=== PATIENT | female | born 1945 | race Caucasian/White ===

== ENCOUNTER 2020-08-17 03:21 | Inpatient (IN) | payer MEDICARE, OTHER ==
[~2020-08-17] VITALS: Ht 160 cm; Wt 86.0 kg
[2020-08-17 03:20] VITALS: BP 107/44
[~2020-08-17 03:21] MED LIST: ALBU0.63 NEB; CHOL10003 PO; CRESTOR40 MG PO; CYCL1DRO OP; DICL100G54 TP; EZET10TA20 PO; FLUT1DIS3 IH; GABA300C18 PO; HYDR-2765 PO; INSU100I13 SQ; OXYB5TAB10 PO; OXYC5TAB4 PO; PANT20TA2 PO; POTA20TA4 PO; RIVA10TA PO; ROFL500T7 PO; VENL75CA PO; ZOLP5TAB PO
[2020-08-17] MEDS ORDERED: BUDE0.25 NEB (04:09)
[2020-08-17] MEDS ORDERED: ALBU2.5V5 NEB (04:09)
[2020-08-17] MEDS ORDERED: DILT180C29 PO (04:09)
[2020-08-17] MEDS ORDERED: PRED-220 PO (04:09)
[2020-08-17] MEDS ORDERED: PSYL0.5215 PO (04:09)
[2020-08-17] MEDS ORDERED: MULT-245 PO (04:09)
[2020-08-17] MEDS ORDERED: HYDR200T5 PO (04:09)
[2020-08-17] MEDS ORDERED: FERR325T72 PO (04:09)
[2020-08-17] MEDS ORDERED: MESA0.372 PO (04:09)
[2020-08-17] MEDS ORDERED: TORS10TA3 PO (04:09)
[2020-08-17] MEDS ORDERED: HYDR2TAB31 PO (04:09)
[2020-08-17] MEDS ORDERED: FOLI0.4T5 PO (04:09)
[2020-08-17] MEDS ORDERED: novolo SQ (04:10)
[2020-08-17] MEDS ORDERED: lantus SQ (04:10)
[2020-08-17 07:00] VITALS: BP 165/65
[2020-08-17] MEDS ORDERED: INSULIN REGULAR VIAL 100 UNIT in IV NORMAL SALINE 100ML 100 ML IV PRN (07:15)
[2020-08-17] MEDS ORDERED: DEXTROSE 50% 25 GM / 50ML DISP.SYRIN. IV PRN ×2 (07:15→12:00)
[2020-08-17 07:41] LABS: BASO % 0 % (0-3); EOS % 0 % (0-3); HEMATOCRIT 30.1 % (36.0-47.0); HEMOGLOBIN 10.4 g/dL (12.0-15.5); LYMPH # 0.4 x10^3/uL (1.0-4.8); LYMPH % 2 % (24-48); MEAN CORPUSCULAR HEMOGLOBIN 28 pg (25-35); MEAN CORPUSCULAR HGB CONC 35 g/dL (31-37); MEAN CORPUSCULAR VOLUME 82 fL (79-100); MONO # 0.3 x10^3/uL (0.0-1.1); MONO % 2 % (0-9); NEUT # 15.8 x10^3/uL (1.8-7.7); NEUT % 96 % (31-73); PLATELET COUNT 178 x10^3/uL (140-400); RED BLOOD COUNT 3.69 x10^6/uL (3.50-5.40); WHITE BLOOD COUNT 16.6 x10^3/uL (4.0-11.0)
[2020-08-17 07:54] LABS: CALCIUM 8.9 mg/dL (8.5-10.1); CREATININE 0.8 mg/dL (0.6-1.0); GFR 70.3
[2020-08-17] MEDS ORDERED: VANCOMYCIN 1 GM in IV NORMAL SALINE 250ML 250 ML IV ONE (09:00)
[2020-08-17] MEDS ORDERED: VITS A & D/LANOLIN TOPICAL OINTMENT 42GM TUBE. TP PRN (09:15)
[2020-08-17 09:53] LABS: % BANDS 6 % (0-9); % LYMPHS 1 % (24-48); % MONOS 1 % (0-10); % SEGS 92 % (35-66); ANISOCYTOSIS SLIGHT; PLT ESTIMATE ADEQUATE (ADEQUATE); TOXIC VACUOLATION SLIGHT
[2020-08-17 10:36] VITALS: BP 137/56
--- NOTE | 2020-08-17 10:38 | PDOC ---
Infectious Disease Note Vital Signs: Vital Signs Vital Signs Date Time Temp Pulse Resp B/P (MAP) Pulse Ox O2 Delivery O2 Flow Rate FiO2 08/17/20 07:00 97.9 68 18 165/65 (98) 95 Room Air 97.9 Medications: Inpatient Meds: Current Medications Medications (Trade) Dose Ordered Sig/Josefina Start Time Stop Time Status Last Admin Dose Admin Dextrose (Dextrose 50%-Water Syringe) 12.5 gm PRN Q15MIN PRN 08/17/20 07:15 Insulin Human Regular 100 unit/ Sodium Chloride 101 ml @ 0 mls/hr CONT PRN 08/17/20 07:15 08/17/20 07:11 2.9 MLS/HR Piperacillin Sod/ Tazobactam Sod 3.375 gm/Sodium Chloride 50 ml @ 100 mls/hr Q6HRS 08/17/20 12:00 UNV Vancomycin HCl 1 gm/Sodium Chloride 250 ml @ 250 mls/hr 1X ONCE 08/17/20 09:00 08/17/20 09:59 DC 08/17/20 08:25 250 MLS/HR Vitamin A/Vitamin D (Vitamin A & D Ointment) 1 stacy PRN Q1HR PRN 08/17/20 09:15 Labs: Lab Laboratory Tests Test 08/17/20 03:30 08/17/20 04:49 08/17/20 05:50 08/17/20 06:58 Glucose (Fingerstick) 262 mg/dL (70-99) 153 mg/dL (70-99) 134 mg/dL (70-99) 114 mg/dL (70-99) Test 08/17/20 07:27 08/17/20 08:01 White Blood Count 16.6 x10^3/uL (4.0-11.0) Red Blood Count 3.69 x10^6/uL (3.50-5.40) Hemoglobin 10.4 g/dL (12.0-15.5) Hematocrit 30.1 % (36.0-47.0) Mean Corpuscular Volume 82 fL (79-100) Mean Corpuscular Hemoglobin 28 pg (25-35) Mean Corpuscular Hemoglobin Concent 35 g/dL (31-37) Red Cell Distribution Width 15.0 % (11.5-14.5) Platelet Count 178 x10^3/uL (140-400) Neutrophils (%) (Auto) 96 % (31-73) Lymphocytes (%) (Auto) 2 % (24-48) Monocytes (%) (Auto) 2 % (0-9) Eosinophils (%) (Auto) 0 % (0-3) Basophils (%) (Auto) 0 % (0-3) Neutrophils # (Auto) 15.8 x10^3/uL (1.8-7.7) Lymphocytes # (Auto) 0.4 x10^3/uL (1.0-4.8) Monocytes # (Auto) 0.3 x10^3/uL (0.0-1.1) Eosinophils # (Auto) 0.0 x10^3/uL (0.0-0.7) Basophils # (Auto) 0.0 x10^3/uL (0.0-0.2) Segmented Neutrophils % 92 % (35-66) Band Neutrophils % 6 % (0-9) Lymphocytes % 1 % (24-48) Monocytes % 1 % (0-10) Toxic Vacuolation Slight Platelet Estimate Adequate (ADEQUATE) Anisocytosis Slight Sodium Level 133 mmol/L (136-145) Potassium Level 4.0 mmol/L (3.5-5.1) Chloride Level 96 mmol/L (98-107) Carbon Dioxide Level 31 mmol/L (21-32) Anion Gap 6 (6-14) Blood Urea Nitrogen 16 mg/dL (7-20) Creatinine 0.8 mg/dL (0.6-1.0) Estimated GFR (Cockcroft-Gault) 70.3 Glucose Level 108 mg/dL (70-99) Lactic Acid Level 2.1 mmol/L (0.4-2.0) Calcium Level 8.9 mg/dL (8.5-10.1) Glucose (Fingerstick) 111 mg/dL (70-99) Objective: Assessment: Pt seen and examined ID Consult dictated Plan: Plan of Care Tania Singh is evaluating pt also Will need CT Chest [id number] Thank you BILLY HODGES MD Aug 17, 2020 10:38
[2020-08-17] MEDS ORDERED: ALBUTEROL SULFATE 2.5 MG/3 ML NEBU. NEB PRN ×2 (10:45→10:48)
[2020-08-17] MEDS ORDERED: DICLOFENAC SODIUM 1% TOPICAL GEL 100GM TUBE. TP PRN (10:45)
[2020-08-17] MEDS: ALBUTEROL SULFATE 2.5 MG/3 ML NEBU. NEB SCH ×3 (11:21→20:17)
[2020-08-17] MEDS: BUDESONIDE 0.5 MG/2 ML NEBU. NEB SCH ×2 (11:21→20:17)
--- NOTE | 2020-08-17 11:21 | CONS ---
DATE OF CONSULTATION: 08/17/2020 PULMONARY CONSULTATION ATTENDING PHYSICIAN: Dr. Cervantes. REASON FOR CONSULTATION: Lung abscess. HISTORY OF PRESENT ILLNESS: The patient is a 75-year-old female who has been a smoker for 50 years. She quit 2 years ago. She said she has a cough, which has been present for 1 month. She was treated for pneumonia without any clinical improvement. Cough has been nonproductive. She states she also has been on prednisone 20 mg a day for the last 4 weeks since she got sick. She also states she has colitis. The patient has been doing e-cigarettes lately. She did vaping about 5 years ago. The patient states she had dental extraction done more than 5 years ago. Denies any alcohol consumption. Imaging studies were reviewed from 07/26/2020. She had pneumonia involving the right hilar area. Since then the pneumonia has worsened radiographically. She had a CT angiogram performed at [facility], which was reviewed by me. The patient has a 9-cm thick wall cavitary mass in the right lung, likely infectious. She has no evidence of pulmonary emboli. There were other smaller nodular lesions seen in the right middle lobe with some cavitation. I have been asked to see her for further evaluation. She denies any weight loss. She does have diarrhea, but no nausea or vomiting. PAST MEDICAL HISTORY: 1. Likely severe chronic obstructive pulmonary disease. 2. 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 Not on chronic oxygen. PAST SURGICAL HISTORY: No recent surgeries. REVIEW OF SYSTEMS: Twelve-point system obtained. Pertinent positives discussed in my history of present illness, otherwise noncontributory. All systems that were negative were reviewed as well. SOCIAL HISTORY: Smoker for 50 years, quit 2 years ago. FAMILY HISTORY: Noncontributory to lungs. MEDICATIONS: Medications that were given in the ER at [facility] were reviewed. PHYSICAL EXAMINATION: VITAL SIGNS: Reviewed. She is afebrile, blood pressure 165/65, pulse ox 95% on room air. NECK: Supple. LUNGS: With diminished breath sounds. CARDIOVASCULAR: Regular. ABDOMEN: Soft. EXTREMITIES: With 3+ pitting edema. LABORATORY DATA: Reviewed. White cell count 16.6, hemoglobin 10.4 and platelets are 178. BUN is 16 and creatinine 0.8. IMPRESSION: 1. Large cavitary mass with an air fluid level in the right lower lobe with thick kang. Highly suggestive of lung abscess. Less likely cavitary neoplasm. Risk factors being long history of tobacco use and steroid dependence for chronic obstructive pulmonary disease. She continues to do e-cigarettes. 2. Fifty years of tobacco use, likely underlying chronic obstructive pulmonary disease. 3. History of rheumatoid arthritis, details not known. Medication list has not been updated to see if she is on any immunocompromised drugs. 4. Abnormal CT chest as discussed above. Findings are more suggestive of inflammatory etiology, but malignancy is in the differential diagnosis. RECOMMENDATIONS: 1. We will continue to monitor oxygen level. Keep saturation 92 and above. 2. Discussed with Infectious Disease. The patient will be initiated on broad-spectrum antibiotics. 3. We will follow the clinical response. 4. If clinically indicated, may consider bronchoscopy in future. 5. Obtain records of her rheumatoid arthritis to see if she is on any immunosuppressive drugs. 6. No need for steroids. Should taper it off in the presence of a lung abscess. 7. Discussed with the Infectious Disease RN. We will follow along with you. SHAWNEE ROBBINS MD DR: CHRISTIAN/jasmyne JOB#: [id number] / [id number]
--- NOTE | 2020-08-17 11:43 | HP ---
ADMIT DATE: 08/17/2020 CHIEF COMPLAINT: Lung abscess. HISTORY OF PRESENT ILLNESS: The patient is a pleasant 75-year-old female who has had pneumonia for the past month. She has been treated with IV antibiotics and her cough has been worsening. She also treated with prednisone for the past 4 weeks. She also had colitis recently. She continues to smoke and she has been smoking for 50 years. She is currently on e-cigarettes, used to vape as well about 5 years ago. Basically, the patient was transferred to our facility yesterday because a CAT scan was done, which was showing a possible lung abscess. In particular, there is a 9 cm thick wall cavitary mass in the right lung, likely infectious. The patient currently examined on the 2nd floor where we are consulting Infectious Disease and Pulmonary Medicine. PAST MEDICAL HISTORY: Continued tobacco abuse, pneumonia. ALLERGIES: PENICILLIN, CEFTRIAXONE, METHOCARBAMOL AND VARENICLINE. FAMILY HISTORY: Diabetes. SOCIAL HISTORY: She smokes. No drink, or drugs. MEDICATIONS: Reviewed, please refer to the MRAD. REVIEW OF SYSTEMS: GENERAL: No history of weight change, weakness or fevers. SKIN: No bruising, hair changes or rashes. EYES: No blurred, double or loss of vision. NOSE AND THROAT: No history of nosebleeds, hoarseness or sore throat. HEART: No history of palpitations, chest pain or shortness of breath on exertion. LUNGS: The patient complains of shortness of breath and cough. GASTROINTESTINAL: Denies changes in appetite, nausea, vomiting, diarrhea or constipation. GENITOURINARY: No history of frequency, urgency, hesitancy or nocturia. NEUROLOGIC: Denies history of numbness, tingling, tremor or weakness. PSYCHIATRIC: No history of panic, anxiety or depression. ENDOCRINE: No history of heat or cold intolerance, polyuria or polydipsia. EXTREMITIES: Denies muscle weakness, joint pain, pain on walking or stiffness. PHYSICAL EXAMINATION: VITALS: Within normal limits and are stable. GENERAL: No apparent distress. Alert and oriented. HEENT: Normal cephalic atraumatic, external auditory canals are patent EYES: Extraocular muscles are intact, pupils are equally round and reactive to light and accommodation MUSCULOSKELETAL: Well developed, well nourished, good range of motion ENDOCRINE: No thyromegaly was palpated LYMPHATICS: No cervical chain or axillary nodes were noted HEMATOPOIETIC: No bruising NECK: Supple, no JVD, no thyromegaly was noted. LUNGS: She has bibasilar crackles. HEART: RRR, S1, S2 present. Peripheral pulses intact, no obvious murmurs were noted. ABDOMEN: Soft, nontender. Positive bowel sounds no organomegaly, normal bowel sounds. EXTREMITIES: Without any cyanosis, clubbing, or edema. Pedal pulses intact, Homans sign is negative. NEUROLOGIC: Normal speech, normal tone. A & O x3, moves all extremities, no obvious focal deficits. PSYCHIATRIC: Normal affect, normal mood. Stable. SKIN: No ulcerations or rashes, good skin turgor, no jaundice. VASCULAR: Good capillary refill, neurovascular bundle appears to be intact. LABORATORY DATA: Pending. ASSESSMENT AND PLAN: Probable pulmonary abscess. The patient is being admitted. We consulted Pulmonary Medicine and Infectious Disease. We started IV antibiotics, breathing treatments and oxygen. We will consider steroids, home meds, DVT prophylaxis. Full code. Trend labs. PROGNOSIS: Guarded. VIKTOR AMNRIQUE DO DR: JOSELINE/jasmyne JOB#: [id number] / [id number]
[2020-08-17] MEDS: POTASSIUM CHLORIDE 20 MEQ TABLET.ER. PO SCH (12:11)
[2020-08-17] MEDS: predniSONE 10 MG TABLET PO SCH (12:11)
[2020-08-17] MEDS: PANTOPRAZOLE 40 MG TABLET.DR. PO SCH (12:11)
[2020-08-17] MEDS: CHOLECALCIFEROL (VITAMIN D3) 1,000 UNIT TABLET PO SCH (12:11)
[2020-08-17] MEDS: FERROUS SULFATE 325 MG TABLET. PO SCH (12:12)
[2020-08-17] MEDS: EZETIMIBE 10 MG TABLET. PO SCH (12:12)
[2020-08-17] MEDS: VENLAFAXINE XR 37.5 MG CAP.ER.24H. PO SCH (12:12)
[2020-08-17] MEDS: FOLIC ACID 1 MG TABLET. PO SCH (12:12)
[2020-08-17] MEDS: MULTIVITAMIN with MINERAL TABLET. PO SCH (12:12)
[2020-08-17] MEDS: GABAPENTIN 300 MG CAPSULE. PO SCH ×2 (12:12→20:45)
[2020-08-17] MEDS: PSYLLIUM HUSK (SUGAR FREE) 1 PKT PACKET PO SCH (12:13)
[2020-08-17] MEDS: PIPERACILLIN/TAZOBACTAM 3.375 GM in IV NORMAL SALINE 50ML 50 ML IV SCH ×3 (12:13→23:11)
[2020-08-17] MEDS: HYDROXYCHLOROQUINE 200 MG TABLET PO SCH ×2 (12:19→20:44)
[2020-08-17] MEDS: INSULIN LISPRO 300 UNITS/3 ML VIAL. SQ SCH ×5 (12:32→20:56)
--- NOTE | 2020-08-17 13:25 | NUR ---
SS following for discharge planning. SS reviewed pt chart and discussed with pt RN. Pt is from home and is currently on room air. Pt on IV Zosyn. SS will continue to follow for discharge planning.
--- NOTE | 2020-08-17 14:01 | CONS ---
DATE OF CONSULTATION: 08/17/2020 REFERRING PHYSICIAN: Dr. Cline. REASON FOR CONSULTATION: Antibiotic management. Pulmonary abscess. HISTORY OF PRESENT ILLNESS: A 75-year-old female with history of diabetes, smoking, AFib, anemia, anxiety, arthritis, bronchitis, COPD, hypertension, colitis, chronic pain, was asked by her primary care office to present to [facility] because of her blood sugar being very high and sodium being very low. The patient had been treated for pneumonia with oral antibiotic, she could not recall the name along with prednisone.In the last week of July her sugars started going up along with headache, cough, which had improved some, but her blood sugars were high with leg edema, dyspnea, fatigue. Chest x-ray showed a cavitary right hilar lesion 8.7 x 6.1 cm in size. Differential included infectious versus inflammatory process, although malignancy is also in the differential. It appears the patient got vancomycin. She was transferred to [facility] for further evaluation and treatment. ID consultation has been requested for antibiotic management. Today patient denies any fevers or chills. Does have intermittent night sweats. Does have headache, which she attributes to high blood sugar. No oral sores, difficulty swallowing, nausea or vomiting. Does have chronic diarrhea from colitis for which she undergoes a colonoscopy every 3 years under the care of GI team. She denies any blood in stool. Denies any symptoms. Denies any sick contact. PAST MEDICAL HISTORY: COPD, diabetes, AFib, anemia, anxiety, arthritis, bronchitis, hypertension, history of pneumonia, chronic pain, history of right CEA in 2018. Rheumatoid arthritis, CKD and history of osteomyelitis. PAST SURGICAL HISTORY: Right CEA 2018. Bilateral shoulder surgery and hysterectomy with oophorectomy bilateral cataract CGD and colonoscopies. SOCIAL HISTORY: Positive for smoking, vaping a month ago. No alcohol. Lives with daughter and ex-. Daughter has a small dog. ALLERGIES: PENICILLIN, CEFTRIAXONE. Does not recall the reaction, but has tolerated Zosyn well and Augmentin, methocarbamol and varenicline. REVIEW OF SYSTEMS: Negative except for above in HPI. CURRENT MEDICATION: IV vancomycin x 1. MEDICATIONS: Reviewed in medication list. FAMILY HISTORY: Diabetes, hypertension. PHYSICAL EXAMINATION: VITAL SIGNS: Temperature 97.9, pulse 68, respiratory rate 18, blood pressure 165/65, oxygen saturation 95% on room air. GENERAL: Alert, oriented x 3 female, nontoxic appearing, eating breakfast, in no acute distress. HEENT: Normocephalic, atraumatic, anicteric, edentulous. No thrush. NECK: Supple, no JVD, no lymphadenopathy. LUNGS: Clear bilaterally. No wheezing. No accessory muscle use. HEART: S1, S2. No gallops or murmurs. ABDOMEN: Soft, obese. Bowel sounds present, nontender, nondistended. No masses felt. EXTREMITIES: No edema, no cyanosis. DERMATOLOGIC: Warm, dry. No generalized rash. NEUROLOGIC: Alert and oriented x 3, grossly nonfocal. PSYCHIATRIC: Cooperative. Grossly nonfocal. LABORATORY DATA: WBC 16.6, hemoglobin 9.4, hematocrit 30.1, platelets 178, neutrophils 96, lymphocytes 2, segments 92. Sodium 133, potassium 4.0, chloride 96, bicarbonate 31, BUN 16, creatinine 0.8, glucose 108, lactate 2.1, calcium 8.9. IMAGING: Chest x-ray done at [facility]. Impression: Cavitary right hilar lesion 8.7 x 6.1 cm in size. Differential would include infectious/inflammatory process, although malignancy is also with differential and can be further assessed by CT. Micro: None available. IMPRESSION: 1. Right hilar cavitary lung lesion, 8.7 x 6.1 cm in size. Differential could be infectious versus noninfectious. 2. History of pneumonia, treated with antibiotics with Zosyn and Levaquin. The patient was discharged from [facility] on 07/29/2020. She completed her antibiotics with IV Zosyn followed by Levaquin per chart review. She is on steroids. 3. Diabetes mellitus. 4. Atrial fibrillation. 5. Chronic obstructive pulmonary disease. 6. Smoker. 7. History of rheumatoid arthritis. 8. Chronic kidney disease. 9. Ulcerative colitis with chronic diarrhea. 10. Anemia. 11. Leukocytosis, on steroids. 12. Mild lactic acidosis. 13. History of ALLERGIES TO PENICILLIN AND CEFTRIAXONE. The patient has tolerated Zosyn and Augmentin well in the past. RECOMMENDATIONS: 1. Start Zosyn. 2. Pulmonary team has been consulted. D/W Dr Singh. She may need bronchoscopy . Send sputum for cultures if able to give sample. 3. Follow up labs and cultures. 4. Maintain aspiration precaution. 5. Continue supportive care. Thank you for allowing Infectious Disease to participate in this patient's care. If you have any questions, do not hesitate to contact me. BILLY HODGES MD DR: SHAMEKA/jasmyne JOB#: [id number] / [id number] ANTWON
[2020-08-17 14:19] VITALS: BP 150/51
--- NOTE | 2020-08-17 16:21 | NUR ---
Wound/Ostomy Care Wound Type/Assessment: IAD to bilateral buttocks, pt states it is from diarrhea d/t colitis flare up. Small areas of dry slough with some red non-granulation. Treatment Recommendations/Plan: A&D ointment applied, recommend to reapply BID and PRN Education provided: PU prevention, WC POC Offloading surface/device: na Recommended Referrals/Tests: na Discharge Recommendations for dressings: see above.
[2020-08-17] MEDS: RIVAROXABAN 10 MG TABLET. PO SCH (17:24)
--- NOTE | 2020-08-17 19:30 | NUR ---
Pt in bed assessment completed vss poc explained pt c/o barb. knee pain and a cough. Will medicate pt and resume care. Call light placed in reach will resume care and continue to monitor pt. Pt reminded to call for assistance prior to getting oob.
[2020-08-17] MEDS ORDERED: GUAI120L35 PO (19:32)
[2020-08-17 19:50] VITALS: BP_SYST 142; BP_SYST 161; BP_DIAS 106; BP_DIAS 50
[2020-08-17] MEDS: ATORVASTATIN CALCIUM 40 MG TABLET. PO SCH (20:44)
[2020-08-17] MEDS: HYDROcodone/APAP 7.5/325MG 1 TAB TABLET PO PRN (20:45)
[2020-08-17] MEDS: INSULIN GLARGINE SYRINGE. SQ SCH (20:55)
[2020-08-17] MEDS: MESALAMINE PO SCH (20:56)
[2020-08-17] MEDS ORDERED: INSULIN GLARGINE SYRINGE. SQ SCH (21:00)
[2020-08-17 22:54] VITALS: BP 139/54
[2020-08-17] MEDS: guaiFENesin/CODEINE 100mg/10mg 5 ML LIQUID PO PRN (23:06)
[2020-08-18] VITALS (7 sets, daily range): BP systolic 115–156; BP diastolic 52–68
[2020-08-18] MEDS: HYDROcodone/APAP 7.5/325MG 1 TAB TABLET PO PRN ×3 (04:32→20:34)
[2020-08-18] MEDS: PIPERACILLIN/TAZOBACTAM 3.375 GM in IV NORMAL SALINE 50ML 50 ML IV SCH ×4 (05:36→23:38)
[2020-08-18] MEDS: PANTOPRAZOLE 40 MG TABLET.DR. PO SCH ×2 (05:36→08:42)
--- NOTE | 2020-08-18 07:43 | PDOC ---
Infectious Disease Note Subjective: Subjective Patient feels much better today Cough and shortness of breath has improved Remains on room air Denies any fever, Diarrhea has improved Vital Signs: Vital Signs Vital Signs Date Time Temp Pulse Resp B/P (MAP) Pulse Ox O2 Delivery O2 Flow Rate FiO2 08/18/20 07:29 98.1 89 18 120/54 (76) 92 Room Air 98.1 Physical Exam: PHYSICAL EXAM GENERAL: Alert, oriented x 3 female, nontoxic appearing, eating breakfast, in no acute distress. On room air HEENT: Normocephalic, atraumatic, anicteric, edentulous. No thrush. NECK: Supple, no JVD, no lymphadenopathy. LUNGS: Clear bilaterally. No wheezing. No accessory muscle use. HEART: S1, S2. No gallops or murmurs. ABDOMEN: Soft, obese. Bowel sounds present, nontender, nondistended. No masses felt. EXTREMITIES: No edema, no cyanosis. DERMATOLOGIC: Warm, dry. No generalized rash. NEUROLOGIC: Alert and oriented x 3, grossly nonfocal. PSYCHIATRIC: Cooperative. Grossly nonfocal. Medications: Inpatient Meds: Current Medications Medications (Trade) Dose Ordered Sig/Josefina Start Time Stop Time Status Last Admin Dose Admin Acetaminophen/ Hydrocodone Bitart (Lortab 7.5/325) 1 tab PRN Q6HRS PRN 08/17/20 10:45 08/18/20 04:32 1 TAB Albuterol Sulfate (Ventolin Neb Soln) 2.5 mg PRN Q4HRS PRN 08/17/20 10:48 Atorvastatin Calcium (Lipitor) 80 mg QHS 08/17/20 21:00 08/17/20 20:44 80 MG Budesonide (Pulmicort) 0.5 mg RTBID 08/17/20 11:00 08/17/20 20:17 0.5 MG Dextrose (Dextrose 50%-Water Syringe) 12.5 gm PRN Q15MIN PRN 08/17/20 12:00 UNV Diclofenac Sodium (Voltaren) 1 stacy PRN BID PRN 08/17/20 10:45 Diltiazem HCl (Cardizem 24hr Cd) 180 mg DAILY 08/17/20 11:00 08/17/20 12:12 180 MG EZETIMIBE (Zetia) 10 mg DAILY 08/17/20 11:00 08/17/20 12:12 10 MG Ferrous Sulfate (Feosol) 325 mg DAILY 08/17/20 11:00 08/17/20 12:12 325 MG Folic Acid (Folic Acid) 1 mg DAILY 08/17/20 11:00 08/17/20 12:12 1 MG Gabapentin (Neurontin) 600 mg BID 08/17/20 11:00 08/17/20 20:45 600 MG Guaifenesin/ Codeine Phosphate (Robitussin Ac) 5 ml PRN Q6HRS PRN 08/17/20 22:45 08/17/20 23:06 5 ML Hydromorphone HCl (Dilaudid) 2 mg PRN TID PRN 08/17/20 10:45 Hydroxychloroquine Sulfate (Plaquenil) 200 mg BID 08/17/20 11:00 08/17/20 20:44 200 MG Insulin Glargine (Lantus Syringe) 20 unit QHS 08/17/20 21:00 08/17/20 20:55 20 UNIT Insulin Human Lispro (HumaLOG) 0-9 UNITS QIDACHS 08/17/20 12:00 08/17/20 20:56 4 UNITS Insulin Human Regular 100 unit/ Sodium Chloride 101 ml @ 0 mls/hr CONT PRN 08/17/20 07:15 08/17/20 07:11 2.9 MLS/HR Multivitamins (Thera M Plus) 1 tab DAILY 08/17/20 11:00 08/17/20 12:12 1 TAB Non-Formulary Medication (Mesalamine (Apriso)) 2 cap BID 08/17/20 21:00 UNV Pantoprazole Sodium (Protonix) 40 mg DAILYAC 08/17/20 11:00 08/18/20 05:36 40 MG Piperacillin Sod/ Tazobactam Sod 3.375 gm/Sodium Chloride 50 ml @ 100 mls/hr Q6HRS 08/17/20 12:00 08/18/20 05:36 100 MLS/HR Potassium Chloride (Klor-Con) 20 meq DAILY 08/17/20 11:00 08/17/20 12:11 20 MEQ Prednisone (Prednisone) 10 mg DAILY 08/17/20 11:00 08/17/20 12:11 10 MG Psyllium Hydrophilic Mucilloid (Metamucil Fiber Packet) 1 pkt DAILY 08/17/20 11:00 08/17/20 12:13 1 PKT Rivaroxaban (Xarelto) 20 mg DAILYWSUP 08/17/20 17:00 08/17/20 17:24 20 MG Torsemide (Demadex) 10 mg QMWF 08/18/20 16:00 Vancomycin HCl 1 gm/Sodium Chloride 250 ml @ 250 mls/hr 1X ONCE 08/17/20 09:00 08/17/20 09:59 DC 08/17/20 08:25 250 MLS/HR Venlafaxine HCl (Effexor Xr) 75 mg DAILY 08/17/20 11:00 08/17/20 12:12 75 MG Vitamin A/Vitamin D (Vitamin A & D Ointment) 1 stacy PRN Q1HR PRN 08/17/20 09:15 Vitamin D (Vitamin D3) 1,000 unit DAILY 08/17/20 11:00 08/17/20 12:11 1,000 UNIT Labs: Lab Laboratory Tests Test 08/17/20 08:01 08/17/20 11:00 08/17/20 11:21 08/17/20 16:07 Glucose (Fingerstick) 111 mg/dL (70-99) 318 mg/dL (70-99) 275 mg/dL (70-99) Lactic Acid Level 1.4 mmol/L (0.4-2.0) Test 08/17/20 20:49 08/18/20 07:11 Glucose (Fingerstick) 279 mg/dL (70-99) 264 mg/dL (70-99) Objective: Assessment: 1. Right large cavitary lung lesion. 9 cm cavitary lesion in the right lung CT chest revealed no pulmonary emboli . . Differential could be infectious versus noninfectious. 2. History of pneumonia, treated with antibiotics with Zosyn and Levaquin. The patient was discharged from [facility] on 07/29/2020. She completed her antibiotics with IV Zosyn followed by Levaquin per chart review. She is on steroids. 3. Diabetes mellitus. 4. Atrial fibrillation. 5. Chronic obstructive pulmonary disease. 6. Smoker. 7. History of rheumatoid arthritis. On Plaquenil. She denies any history of being on TNF alpha blockers in the past till date 8. Chronic kidney disease. 9. Ulcerative colitis with chronic diarrhea. 10. Anemia. 11. Leukocytosis, on steroids. 12. Mild lactic acidosis. 13. History of ALLERGIES TO PENICILLIN AND CEFTRIAXONE. The patient has tolerated Zosyn and Augmentin well in the past. Plan: Plan of Care Continue Zosyn. Tolerating it well Sputum for Gram stain and culture Follow up labs and cultures. Continue supportive care. Pulmonary team following BILLY HODGES MD Aug 18, 2020 07:43
[2020-08-18] MEDS: ALBUTEROL SULFATE 2.5 MG/3 ML NEBU. NEB SCH ×4 (07:50→20:36)
[2020-08-18] MEDS: BUDESONIDE 0.5 MG/2 ML NEBU. NEB SCH ×2 (07:50→20:36)
[2020-08-18] MEDS: ANTI-COAG MONITOR BY PHARMACY. MC PRN (08:12)
--- NOTE | 2020-08-18 08:20 | PDOC ---
[employer] PROGRESS NOTE Date of Service DOS: DATE: 08/18/20 TIME: 08:12 Chief Complaint Chief Complaint Lung abscess History of Present Illness History of Present Illness The patient is a pleasant 75-year-old female who has had pneumonia for the past month. She has been treated with IV antibiotics and her cough has been worsening. She also treated with prednisone for the past 4 weeks. She also had colitis recently. She continues to smoke and she has been smoking for 50 years. She is currently on e-cigarettes, used to vape as well about 5 years ago. Basically, the patient was transferred to our facility yesterday because a CAT scan was done, which was showing a possible lungabscess. In particular, there is a 9 cm thick wall cavitary mass in the right lung, likely infectious. The patient currently examined on the 2nd floor where we are consulting Infectious Disease and Pulmonary Medicine. 08/18: -Patient seen and examined. -Shayan RN. Blood glucose levels have been high, last was 264. -Chart reviewed. Vitals/I&O Vitals/I&O: Vital Signs Date Time Temp Pulse Resp B/P (MAP) Pulse Ox O2 Delivery O2 Flow Rate FiO2 08/18/20 07:50 94 Room Air 08/18/20 07:29 98.1 89 18 120/54 (76) 98.1 I & O 08/17/20 08/17/20 08/18/20 15:00 23:00 07:00 Intake Total 650 ml 800 ml Output Total 750 ml 500 ml Balance -100 ml 300 ml Physical Exam General: Alert, Oriented X3, Cooperative, No acute distress Extremities: No clubbing, No cyanosis Skin: No rashes, No breakdown, No significant lesion Labs Labs: Laboratory Tests Test 08/17/20 11:00 08/17/20 11:21 08/17/20 16:07 08/17/20 20:49 Lactic Acid Level 1.4 mmol/L (0.4-2.0) Glucose (Fingerstick) 318 mg/dL (70-99) 275 mg/dL (70-99) 279 mg/dL (70-99) Test 08/18/20 07:11 Glucose (Fingerstick) 264 mg/dL (70-99) Review of Systems Review of Systems: Denies chest pain. Denies headache. Assessment and Plan Assessmemt and Plan Lung abscess. Plan: 1. IV antibiotics 2. Breathing treatments 3. Awaiting further pulmonary and infectious disease input 4. Maintain aspiration precaution 5. Home meeds 6. Full code 7. DVT prophylaxis Comment Review of Relevant I have reviewed the following items amilcar (where applicable) has been applied. Medications: Current Medications Medications (Trade) Dose Ordered Sig/Josefina Route PRN Reason Start Time Stop Time Status Last Admin Dose Admin Vancomycin HCl 1 gm/Sodium Chloride 250 ml @ 250 mls/hr 1X ONCE IV 08/17/20 09:00 08/17/20 09:59 DC 08/17/20 08:25 Piperacillin Sod/ Tazobactam Sod 3.375 gm/Sodium Chloride 50 ml @ 100 mls/hr Q6HRS IV 08/17/20 12:00 08/18/20 05:36 Vitamin D (Vitamin D3) 1,000 unit DAILY PO 08/17/20 11:00 08/17/20 12:11 Diltiazem HCl (Cardizem 24hr Cd) 180 mg DAILY PO 08/17/20 11:00 08/17/20 12:12 EZETIMIBE (Zetia) 10 mg DAILY PO 08/17/20 11:00 08/17/20 12:12 Ferrous Sulfate (Feosol) 325 mg DAILY PO 08/17/20 11:00 08/17/20 12:12 Gabapentin (Neurontin) 600 mg BID PO 08/17/20 11:00 08/17/20 20:45 Acetaminophen/ Hydrocodone Bitart (Lortab 7.5/325) 1 tab PRN Q6HRS PRN PO MODERATE PAIN 08/17/20 10:45 08/18/20 04:32 Hydroxychloroquine Sulfate (Plaquenil) 200 mg BID PO 08/17/20 11:00 08/17/20 20:44 Potassium Chloride (Klor-Con) 20 meq DAILY PO 08/17/20 11:00 08/17/20 12:11 Prednisone (Prednisone) 10 mg DAILY PO 08/17/20 11:00 08/17/20 12:11 Rivaroxaban (Xarelto) 20 mg DAILYWSUP PO 08/17/20 17:00 08/17/20 17:24 Budesonide (Pulmicort) 0.5 mg RTBID NEB 08/17/20 11:00 08/18/20 07:50 Albuterol Sulfate (Ventolin Neb Soln) 2.5 mg RTQID NEB 08/17/20 12:00 08/18/20 07:50 Folic Acid (Folic Acid) 1 mg DAILY PO 08/17/20 11:00 08/17/20 12:12 Multivitamins (Thera M Plus) 1 tab DAILY PO 08/17/20 11:00 08/17/20 12:12 Pantoprazole Sodium (Protonix) 40 mg DAILYAC PO 08/17/20 11:00 08/18/20 05:36 Psyllium Hydrophilic Mucilloid (Metamucil Fiber Packet) 1 pkt DAILY PO 08/17/20 11:00 08/17/20 12:13 Atorvastatin Calcium (Lipitor) 80 mg QHS PO 08/17/20 21:00 08/17/20 20:44 Venlafaxine HCl (Effexor Xr) 75 mg DAILY PO 08/17/20 11:00 08/17/20 12:12 Insulin Human Lispro (HumaLOG) 10 units TIDWMEALS SQ 08/17/20 12:00 08/17/20 17:32 Insulin Human Lispro (HumaLOG) 0-9 UNITS QIDACHS SQ 08/17/20 12:00 08/17/20 20:56 Insulin Glargine (Lantus Syringe) 20 unit QHS SQ 08/17/20 21:00 08/17/20 20:55 Guaifenesin/ Codeine Phosphate (Robitussin Ac) 5 ml PRN Q6HRS PRN PO COUGH 08/17/20 22:45 08/17/20 23:06 Justifications for Admission Other Justification VIKTOR MANRIQUE III DO Aug 18, 2020 08:20
[2020-08-18] MEDS: EZETIMIBE 10 MG TABLET. PO SCH (08:41)
[2020-08-18] MEDS: CHOLECALCIFEROL (VITAMIN D3) 1,000 UNIT TABLET PO SCH (08:41)
[2020-08-18] MEDS: predniSONE 10 MG TABLET PO SCH (08:42)
[2020-08-18] MEDS: GABAPENTIN 300 MG CAPSULE. PO SCH ×2 (08:42→20:34)
[2020-08-18] MEDS: VENLAFAXINE XR 37.5 MG CAP.ER.24H. PO SCH (08:42)
[2020-08-18] MEDS: FOLIC ACID 1 MG TABLET. PO SCH (08:42)
[2020-08-18] MEDS: MULTIVITAMIN with MINERAL TABLET. PO SCH (08:42)
[2020-08-18] MEDS: FERROUS SULFATE 325 MG TABLET. PO SCH (08:42)
[2020-08-18] MEDS: PSYLLIUM HUSK (SUGAR FREE) 1 PKT PACKET PO SCH (08:42)
[2020-08-18] MEDS: POTASSIUM CHLORIDE 20 MEQ TABLET.ER. PO SCH (08:42)
[2020-08-18] MEDS: HYDROXYCHLOROQUINE 200 MG TABLET PO SCH ×2 (08:42→20:34)
[2020-08-18 08:44] LABS: BASO % 0 % (0-3); EOS % 0 % (0-3); HEMATOCRIT 30.5 % (36.0-47.0); HEMOGLOBIN 10.1 g/dL (12.0-15.5); LYMPH # 0.8 x10^3/uL (1.0-4.8); LYMPH % 6 % (24-48); MEAN CORPUSCULAR HEMOGLOBIN 27 pg (25-35); MEAN CORPUSCULAR HGB CONC 33 g/dL (31-37); MEAN CORPUSCULAR VOLUME 83 fL (79-100); MONO # 0.4 x10^3/uL (0.0-1.1); MONO % 3 % (0-9); NEUT # 11.8 x10^3/uL (1.8-7.7); NEUT % 91 % (31-73); PLATELET COUNT 185 x10^3/uL (140-400); RED CELL DISTRIBUTION WIDTH 15.1 % (11.5-14.5)
[2020-08-18] MEDS: INSULIN LISPRO 300 UNITS/3 ML VIAL. SQ SCH ×7 (08:49→20:35)
[2020-08-18] MEDS: MESALAMINE PO SCH ×2 (09:00→20:36)
[2020-08-18 09:15] LABS: CALCIUM 8.7 mg/dL (8.5-10.1); CREATININE 0.9 mg/dL (0.6-1.0); GFR 61.4; MAGNESIUM 1.8 mg/dL (1.8-2.4); POTASSIUM 4.1 mmol/L (3.5-5.1)
--- NOTE | 2020-08-18 10:51 | PDOC ---
PULMONARY PROGRESS NOTES DATE: 08/18/20 TIME: 10:49 Subjective no soa Vitals Vital Signs Date Time Temp Pulse Resp B/P (MAP) Pulse Ox O2 Delivery O2 Flow Rate FiO2 08/18/20 08:41 70 08/18/20 08:00 Room Air 08/18/20 07:50 94 08/18/20 07:29 98.1 18 120/54 (76) 98.1 General: Alert, No acute distress Lungs: Clear Cardiovascular: S1 Abdomen: Soft Neuro Exam: Alert Extremities: No Edema Skin: Warm Labs Laboratory Tests Test 08/17/20 03:30 08/17/20 04:49 08/17/20 05:50 08/17/20 06:58 Glucose (Fingerstick) 262 mg/dL (70-99) 153 mg/dL (70-99) 134 mg/dL (70-99) 114 mg/dL (70-99) Test 08/17/20 07:27 08/17/20 08:01 08/17/20 11:00 08/17/20 11:21 White Blood Count 16.6 x10^3/uL (4.0-11.0) Red Blood Count 3.69 x10^6/uL (3.50-5.40) Hemoglobin 10.4 g/dL (12.0-15.5) Hematocrit 30.1 % (36.0-47.0) Mean Corpuscular Volume 82 fL (79-100) Mean Corpuscular Hemoglobin 28 pg (25-35) Mean Corpuscular Hemoglobin Concent 35 g/dL (31-37) Red Cell Distribution Width 15.0 % (11.5-14.5) Platelet Count 178 x10^3/uL (140-400) Neutrophils (%) (Auto) 96 % (31-73) Lymphocytes (%) (Auto) 2 % (24-48) Monocytes (%) (Auto) 2 % (0-9) Eosinophils (%) (Auto) 0 % (0-3) Basophils (%) (Auto) 0 % (0-3) Neutrophils # (Auto) 15.8 x10^3/uL (1.8-7.7) Lymphocytes # (Auto) 0.4 x10^3/uL (1.0-4.8) Monocytes # (Auto) 0.3 x10^3/uL (0.0-1.1) Eosinophils # (Auto) 0.0 x10^3/uL (0.0-0.7) Basophils # (Auto) 0.0 x10^3/uL (0.0-0.2) Segmented Neutrophils % 92 % (35-66) Band Neutrophils % 6 % (0-9) Lymphocytes % 1 % (24-48) Monocytes % 1 % (0-10) Toxic Vacuolation Slight Platelet Estimate Adequate (ADEQUATE) Anisocytosis Slight Sodium Level 133 mmol/L (136-145) Potassium Level 4.0 mmol/L (3.5-5.1) Chloride Level 96 mmol/L (98-107) Carbon Dioxide Level 31 mmol/L (21-32) Anion Gap 6 (6-14) Blood Urea Nitrogen 16 mg/dL (7-20) Creatinine 0.8 mg/dL (0.6-1.0) Estimated GFR (Cockcroft-Gault) 70.3 Glucose Level 108 mg/dL (70-99) Lactic Acid Level 2.1 mmol/L (0.4-2.0) 1.4 mmol/L (0.4-2.0) Calcium Level 8.9 mg/dL (8.5-10.1) Glucose (Fingerstick) 111 mg/dL (70-99) 318 mg/dL (70-99) Test 08/17/20 16:07 08/17/20 20:49 08/18/20 07:11 08/18/20 08:13 Glucose (Fingerstick) 275 mg/dL (70-99) 279 mg/dL (70-99) 264 mg/dL (70-99) White Blood Count 13.0 x10^3/uL (4.0-11.0) Red Blood Count 3.70 x10^6/uL (3.50-5.40) Hemoglobin 10.1 g/dL (12.0-15.5) Hematocrit 30.5 % (36.0-47.0) Mean Corpuscular Volume 83 fL (79-100) Mean Corpuscular Hemoglobin 27 pg (25-35) Mean Corpuscular Hemoglobin Concent 33 g/dL (31-37) Red Cell Distribution Width 15.1 % (11.5-14.5) Platelet Count 185 x10^3/uL (140-400) Neutrophils (%) (Auto) 91 % (31-73) Lymphocytes (%) (Auto) 6 % (24-48) Monocytes (%) (Auto) 3 % (0-9) Eosinophils (%) (Auto) 0 % (0-3) Basophils (%) (Auto) 0 % (0-3) Neutrophils # (Auto) 11.8 x10^3/uL (1.8-7.7) Lymphocytes # (Auto) 0.8 x10^3/uL (1.0-4.8) Monocytes # (Auto) 0.4 x10^3/uL (0.0-1.1) Eosinophils # (Auto) 0.0 x10^3/uL (0.0-0.7) Basophils # (Auto) 0.0 x10^3/uL (0.0-0.2) Sodium Level 132 mmol/L (136-145) Potassium Level 4.1 mmol/L (3.5-5.1) Chloride Level 95 mmol/L (98-107) Carbon Dioxide Level 31 mmol/L (21-32) Anion Gap 6 (6-14) Blood Urea Nitrogen 17 mg/dL (7-20) Creatinine 0.9 mg/dL (0.6-1.0) Estimated GFR (Cockcroft-Gault) 61.4 Glucose Level 244 mg/dL (70-99) Calcium Level 8.7 mg/dL (8.5-10.1) Magnesium Level 1.8 mg/dL (1.8-2.4) Laboratory Tests Test 08/17/20 11:00 08/17/20 11:21 08/17/20 16:07 08/17/20 20:49 Lactic Acid Level 1.4 mmol/L (0.4-2.0) Glucose (Fingerstick) 318 mg/dL (70-99) 275 mg/dL (70-99) 279 mg/dL (70-99) Test 08/18/20 07:11 08/18/20 08:13 Glucose (Fingerstick) 264 mg/dL (70-99) White Blood Count 13.0 x10^3/uL (4.0-11.0) Red Blood Count 3.70 x10^6/uL (3.50-5.40) Hemoglobin 10.1 g/dL (12.0-15.5) Hematocrit 30.5 % (36.0-47.0) Mean Corpuscular Volume 83 fL (79-100) Mean Corpuscular Hemoglobin 27 pg (25-35) Mean Corpuscular Hemoglobin Concent 33 g/dL (31-37) Red Cell Distribution Width 15.1 % (11.5-14.5) Platelet Count 185 x10^3/uL (140-400) Neutrophils (%) (Auto) 91 % (31-73) Lymphocytes (%) (Auto) 6 % (24-48) Monocytes (%) (Auto) 3 % (0-9) Eosinophils (%) (Auto) 0 % (0-3) Basophils (%) (Auto) 0 % (0-3) Neutrophils # (Auto) 11.8 x10^3/uL (1.8-7.7) Lymphocytes # (Auto) 0.8 x10^3/uL (1.0-4.8) Monocytes # (Auto) 0.4 x10^3/uL (0.0-1.1) Eosinophils # (Auto) 0.0 x10^3/uL (0.0-0.7) Basophils # (Auto) 0.0 x10^3/uL (0.0-0.2) Sodium Level 132 mmol/L (136-145) Potassium Level 4.1 mmol/L (3.5-5.1) Chloride Level 95 mmol/L (98-107) Carbon Dioxide Level 31 mmol/L (21-32) Anion Gap 6 (6-14) Blood Urea Nitrogen 17 mg/dL (7-20) Creatinine 0.9 mg/dL (0.6-1.0) Estimated GFR (Cockcroft-Gault) 61.4 Glucose Level 244 mg/dL (70-99) Calcium Level 8.7 mg/dL (8.5-10.1) Magnesium Level 1.8 mg/dL (1.8-2.4) Medications Active Scripts Medications Dose Route/Sig Max Daily Dose Days Date Category Codeine-Guaifen 10-100 mg/5 ml (Guaifenesin/Codeine Phosphate) 120 Ml Liquid 5 Ml PO PRN Q6HRS PRN MDD 20 Milliliter(s) 6 08/17/20 Reported [novolo] 12 SQ TIDAC 08/17/20 Reported [lantus] 14 SQ HS 08/17/20 Reported Budesonide 0.25 Mg/2 Ml Ampul.neb 1 Vial NEB BID 08/17/20 Reported Folic Acid 0.4 Mg Tablet 0.4 Mg PO DAILY 08/17/20 Reported Hydroxychloroquine Sulfate 200 Mg Tablet 1 Tab PO BID 08/17/20 Reported Multi Vitamin Daily (Multivitamin) 1 Each Tablet 1 Tab PO DAILY 30 08/17/20 Reported Torsemide 10 Mg Tablet 1 Tab PO QMWF 30 08/17/20 Reported Metamucil (Psyllium Husk) 0.52 Gm Capsule 1 Cap PO DAILY 30 08/17/20 Reported Prednisone (Prednisone) 10 Mg Tablet 1 Tab PO DAILY 5 08/17/20 Reported Dilaudid (Hydromorphone Hcl) 2 Mg Tablet 1 Tab PO PRN Q6-8HRS PRN MDD 2 Tablet(s) 5 08/17/20 Reported Feosol (Ferrous Sulfate) 325 Mg Tablet 1 Tab PO DAILY 30 08/17/20 Reported Diltiazem 24HR Cd (Diltiazem Hcl) 180 Mg Cap.er.24h 1 Cap PO DAILY 30 08/17/20 Reported Apriso (Mesalamine) 0.375 Gm Cap.er.24h 2 Cap PO BID 30 08/17/20 Reported Albuterol Sulfate Neb Soln (Albuterol Sulfate) 2.5 Mg/3 Ml Vial.neb 1 Vial NEB PRN Q4HRS 08/17/20 Reported Potassium Chloride (Potassium Chloride) 20 Meq Tablet.er 20 Meq PO DAILY 01/17/18 Reported Hydrocodone-Apap 7.5-325 (Hydrocodone Bit/Acetaminophen) 1 Each Tablet 1 Tab PO PRN Q6HRS PRN 01/17/18 Reported Zetia (Ezetimibe) 10 Mg Tablet 10 Mg PO DAILY 01/17/18 Reported Voltaren (Diclofenac Sodium) 100 Gm Gel..gram. 100 Gm TP PRN PRN 01/17/18 Reported Vitamin D3 (Cholecalciferol (Vitamin D3)) 1,000 Unit Tablet 1,000 Unit PO DAILY 01/17/18 Reported Xarelto (Rivaroxaban) 10 Mg Tablet 20 Mg PO BID 01/17/18 Reported Advair 250-50 Diskus (Fluticasone/Salmeterol) 1 Each Disk.w.dev 1 Inh IH BID 01/17/18 Reported Gabapentin (Gabapentin) 300 Mg Capsule 600 Mg PO BID 01/17/18 Reported Crestor (Rosuvastatin Calcium) 40 Mg Tablet 40 Mg PO HS 01/17/18 Reported Protonix (Pantoprazole Sodium) 20 Mg Tablet.dr 40 Mg PO DAILY 01/17/18 Reported Effexor Xr (Venlafaxine Hcl) 75 Mg Cap.er.24h 75 Mg PO DAILY 01/17/18 Reported Impression . 1. Large cavitary mass with an air fluid level in the right lower lobe with thick kang. Highly suggestive of lung abscess. Less likely cavitary neoplasm. Risk factors being long history of tobacco use and steroid dependence for chronic obstructive pulmonary disease. She continues to do e-cigarettes. 2. Fifty years of tobacco use, likely underlying chronic obstructive pulmonary disease. 3. History of rheumatoid arthritis, on hydroxychloroquine . 4. Abnormal CT chest as discussed above. Findings are more suggestive of inflammatory etiology, but malignancy is in the differential diagnosis. Plan . 1. We will continue to monitor oxygen level. Keep saturation 92 and above. 2. Discussed with Infectious Disease. on broad-spectrum antibiotics. 3. We will follow the clinical response. 4. If clinically indicated, may consider bronchoscopy in future. 5. f/u cxr next week 6. No need for steroids. 7. Discussed with the Infectious Disease. 8. will need long duration of Abx SHAWNEE ROBBINS MD Aug 18, 2020 10:51
--- NOTE | 2020-08-18 14:56 | NUR ---
SS following up with discharge planning. SS reviewed pt chart and discussed with pt RN. Pt is currently on room air. Pt on IV Zosyn. ID and Pulmonology consulted. SS will continue to follow for discharge planning.
[2020-08-18] MEDS: TORSEMIDE 20 MG TABLET. PO SCH (17:47)
[2020-08-18] MEDS: RIVAROXABAN 10 MG TABLET. PO SCH (17:47)
[2020-08-18] MEDS ORDERED: METH2.5T PO (18:23)
--- NOTE | 2020-08-18 20:00 | NUR ---
Assessment completed vss poc explained pt c/o lower leg pain will medicate pt and continue to monitor pt. call light in reach.
[2020-08-18] MEDS: ATORVASTATIN CALCIUM 40 MG TABLET. PO SCH (20:34)
[2020-08-18] MEDS: guaiFENesin/CODEINE 100mg/10mg 5 ML LIQUID PO PRN (20:34)
[2020-08-18] MEDS: INSULIN GLARGINE SYRINGE. SQ SCH (20:36)
--- NOTE | 2020-08-18 22:38 | NUR ---
Pt arrived to room 206 per cart, pt assisted to bed with standby assist pt oriented to surroundings and call light. Vs obtained and stable assessment completed poc explained call placed to pt maria eugenia for pt home medication list and call placed to for further admit orders. Call light in reach bed alarm set will resume care and continue to monitor pt. Addendum: 08/18/20 at 1473 by Lila Ngo RN Above not written in error, wrong pt
[2020-08-19 02:55] VITALS: BP 150/55
[2020-08-19] MEDS: HYDROcodone/APAP 7.5/325MG 1 TAB TABLET PO PRN ×2 (04:04→21:21)
[2020-08-19] MEDS: guaiFENesin/CODEINE 100mg/10mg 5 ML LIQUID PO PRN ×2 (04:10→21:24)
[2020-08-19] MEDS: PIPERACILLIN/TAZOBACTAM 3.375 GM in IV NORMAL SALINE 50ML 50 ML IV SCH ×4 (05:49→23:50)
[2020-08-19 07:00] VITALS: BP 115/50
[2020-08-19] MEDS: ALBUTEROL SULFATE 2.5 MG/3 ML NEBU. NEB SCH ×4 (07:19→19:42)
[2020-08-19] MEDS: BUDESONIDE 0.5 MG/2 ML NEBU. NEB SCH ×2 (07:19→19:42)
[2020-08-19] MEDS: INSULIN LISPRO 300 UNITS/3 ML VIAL. SQ SCH ×7 (07:30→21:25)
--- NOTE | 2020-08-19 08:05 | PDOC ---
Infectious Disease Note Subjective: Subjective Patient feels much better today Cough and shortness of breath has improved Remains on room air Denies any fever, Diarrhea has improved Vital Signs: Vital Signs Vital Signs Date Time Temp Pulse Resp B/P (MAP) Pulse Ox O2 Delivery O2 Flow Rate FiO2 08/19/20 07:22 90 Room Air 08/19/20 05:04 16 08/19/20 02:55 98.2 70 150/55 (86) 98.2 Physical Exam: PHYSICAL EXAM GENERAL: Alert, oriented x 3 female, nontoxic appearing, eating breakfast, in no acute distress. On room air HEENT: Normocephalic, atraumatic, anicteric, edentulous. No thrush. NECK: Supple, no JVD, no lymphadenopathy. LUNGS: Clear bilaterally. No wheezing. No accessory muscle use. HEART: S1, S2. No gallops or murmurs. ABDOMEN: Soft, obese. Bowel sounds present, nontender, nondistended. No masses felt. EXTREMITIES: No edema, no cyanosis. DERMATOLOGIC: Warm, dry. No generalized rash. NEUROLOGIC: Alert and oriented x 3, grossly nonfocal. PSYCHIATRIC: Cooperative. Grossly nonfocal. Medications: Inpatient Meds: Current Medications Medications (Trade) Dose Ordered Sig/Josefina Start Time Stop Time Status Last Admin Dose Admin Acetaminophen/ Hydrocodone Bitart (Lortab 7.5/325) 1 tab PRN Q6HRS PRN 08/17/20 10:45 08/19/20 04:04 1 TAB Albuterol Sulfate (Ventolin Neb Soln) 2.5 mg PRN Q4HRS PRN 08/17/20 10:48 Atorvastatin Calcium (Lipitor) 80 mg QHS 08/17/20 21:00 08/18/20 20:34 80 MG Budesonide (Pulmicort) 0.5 mg RTBID 08/17/20 11:00 08/19/20 07:19 0.5 MG Dextrose (Dextrose 50%-Water Syringe) 12.5 gm PRN Q15MIN PRN 08/17/20 12:00 UNV Diclofenac Sodium (Voltaren) 1 stacy PRN BID PRN 08/17/20 10:45 Diltiazem HCl (Cardizem 24hr Cd) 180 mg DAILY 08/17/20 11:00 08/18/20 08:41 180 MG EZETIMIBE (Zetia) 10 mg DAILY 08/17/20 11:00 08/18/20 08:41 10 MG Ferrous Sulfate (Feosol) 325 mg DAILY 08/17/20 11:00 08/18/20 08:42 325 MG Folic Acid (Folic Acid) 1 mg DAILY 08/17/20 11:00 08/18/20 08:42 1 MG Gabapentin (Neurontin) 600 mg BID 08/17/20 11:00 08/18/20 20:34 600 MG Guaifenesin/ Codeine Phosphate (Robitussin Ac) 5 ml PRN Q6HRS PRN 08/17/20 22:45 08/19/20 04:10 5 ML Hydromorphone HCl (Dilaudid) 2 mg PRN TID PRN 08/17/20 10:45 Hydroxychloroquine Sulfate (Plaquenil) 200 mg BID 08/17/20 11:00 08/18/20 20:34 200 MG Info (Anti-Coagulation Monitoring By Pharmacy) 1 each PRN DAILY PRN 08/18/20 08:15 08/18/20 08:12 1 EACH Insulin Glargine (Lantus Syringe) 20 unit QHS 08/17/20 21:00 08/18/20 20:36 20 UNIT Insulin Human Lispro (HumaLOG) 13 units TIDWMEALS 08/18/20 08:15 08/18/20 18:04 13 UNITS Insulin Human Regular 100 unit/ Sodium Chloride 101 ml @ 0 mls/hr CONT PRN 08/17/20 07:15 08/17/20 07:11 2.9 MLS/HR Multivitamins (Thera M Plus) 1 tab DAILY 08/17/20 11:00 08/18/20 08:42 1 TAB Non-Formulary Medication (Mesalamine (Apriso)) 2 cap BID 08/17/20 21:00 UNV Pantoprazole Sodium (Protonix) 40 mg DAILYAC 08/17/20 11:00 08/18/20 08:42 40 MG Piperacillin Sod/ Tazobactam Sod 3.375 gm/Sodium Chloride 50 ml @ 100 mls/hr Q6HRS 08/17/20 12:00 08/19/20 05:49 100 MLS/HR Potassium Chloride (Klor-Con) 20 meq DAILY 08/17/20 11:00 08/18/20 08:42 20 MEQ Prednisone (Prednisone) 10 mg DAILY 08/17/20 11:00 08/18/20 08:42 10 MG Psyllium Hydrophilic Mucilloid (Metamucil Fiber Packet) 1 pkt DAILY 08/17/20 11:00 08/18/20 08:42 1 PKT Rivaroxaban (Xarelto) 20 mg DAILYWSUP 08/17/20 17:00 08/18/20 17:47 20 MG Torsemide (Demadex) 10 mg QMWF 08/18/20 16:00 08/18/20 17:47 10 MG Vancomycin HCl 1 gm/Sodium Chloride 250 ml @ 250 mls/hr 1X ONCE 08/17/20 09:00 08/17/20 09:59 DC 08/17/20 08:25 250 MLS/HR Venlafaxine HCl (Effexor Xr) 75 mg DAILY 08/17/20 11:00 08/18/20 08:42 75 MG Vitamin A/Vitamin D (Vitamin A & D Ointment) 1 stacy PRN Q1HR PRN 08/17/20 09:15 Vitamin D (Vitamin D3) 1,000 unit DAILY 08/17/20 11:00 08/18/20 08:41 1,000 UNIT Labs: Lab Laboratory Tests Test 08/18/20 08:13 08/18/20 11:43 08/18/20 17:04 08/18/20 20:13 White Blood Count 13.0 x10^3/uL (4.0-11.0) Red Blood Count 3.70 x10^6/uL (3.50-5.40) Hemoglobin 10.1 g/dL (12.0-15.5) Hematocrit 30.5 % (36.0-47.0) Mean Corpuscular Volume 83 fL (79-100) Mean Corpuscular Hemoglobin 27 pg (25-35) Mean Corpuscular Hemoglobin Concent 33 g/dL (31-37) Red Cell Distribution Width 15.1 % (11.5-14.5) Platelet Count 185 x10^3/uL (140-400) Neutrophils (%) (Auto) 91 % (31-73) Lymphocytes (%) (Auto) 6 % (24-48) Monocytes (%) (Auto) 3 % (0-9) Eosinophils (%) (Auto) 0 % (0-3) Basophils (%) (Auto) 0 % (0-3) Neutrophils # (Auto) 11.8 x10^3/uL (1.8-7.7) Lymphocytes # (Auto) 0.8 x10^3/uL (1.0-4.8) Monocytes # (Auto) 0.4 x10^3/uL (0.0-1.1) Eosinophils # (Auto) 0.0 x10^3/uL (0.0-0.7) Basophils # (Auto) 0.0 x10^3/uL (0.0-0.2) Sodium Level 132 mmol/L (136-145) Potassium Level 4.1 mmol/L (3.5-5.1) Chloride Level 95 mmol/L (98-107) Carbon Dioxide Level 31 mmol/L (21-32) Anion Gap 6 (6-14) Blood Urea Nitrogen 17 mg/dL (7-20) Creatinine 0.9 mg/dL (0.6-1.0) Estimated GFR (Cockcroft-Gault) 61.4 Glucose Level 244 mg/dL (70-99) Calcium Level 8.7 mg/dL (8.5-10.1) Magnesium Level 1.8 mg/dL (1.8-2.4) Glucose (Fingerstick) 228 mg/dL (70-99) 166 mg/dL (70-99) 352 mg/dL (70-99) Objective: Assessment: 1. Right large cavitary lung lesion. 9 cm cavitary lesion in the right lung CT chest revealed no pulmonary emboli . Differential could be infectious versus noninfectious. 2. History of recent pneumonia, treated with antibiotics with Zosyn and Levaquin. The patient was discharged from [facility] on 07/29/2020. She completed her antibiotics with IV Zosyn followed by Levaquin per chart review. She is on mike roids. 3. Diabetes mellitus. 4. Atrial fibrillation. 5. Chronic obstructive pulmonary disease. 6. Smoker. 7. History of rheumatoid arthritis. On Plaquenil and methotrexate. On steroids prior to admission She denies any history of being on TNF alpha blockers in the past till date 8. Chronic kidney disease. 9. Ulcerative colitis with chronic diarrhea. 10. Anemia. 11. Leukocytosis, on steroids. 12. Mild lactic acidosis. 13. History of ALLERGIES TO PENICILLIN AND CEFTRIAXONE. The patient has tolerated Zosyn and Augmentin well in the past. Plan: Plan of Care Continue Zosyn. Sputum for Gram stain and culture Follow up labs and cultures. Discussed with Dr. Singh, plan is for bronchoscopy depending on clinical response Continue supportive care. Discussed with nursing staff BILLY HODGES MD Aug 19, 2020 08:05
--- NOTE | 2020-08-19 08:26 | PDOC ---
PULMONARY PROGRESS NOTES DATE: 08/19/20 TIME: 08:26 Subjective Patient is on room air, reports she is feeling much better Denies any increased shortness of breath or increased cough No overnight concerns from nursing Vitals Vital Signs Date Time Temp Pulse Resp B/P (MAP) Pulse Ox O2 Delivery O2 Flow Rate FiO2 08/19/20 07:22 90 Room Air 08/19/20 05:04 16 08/19/20 02:55 98.2 70 150/55 (86) 98.2 ROS: No Nausea, No Chest Pain, No Abdominal Pain, No Increase Cough General: Alert, No acute distress Lungs: Clear Cardiovascular: S1 Abdomen: Soft Neuro Exam: Alert Extremities: No Edema Skin: Warm Labs Laboratory Tests Test 08/17/20 11:00 08/17/20 11:21 08/17/20 16:07 08/17/20 20:49 Lactic Acid Level 1.4 mmol/L (0.4-2.0) Glucose (Fingerstick) 318 mg/dL (70-99) 275 mg/dL (70-99) 279 mg/dL (70-99) Test 08/18/20 07:11 08/18/20 08:13 08/18/20 11:43 08/18/20 17:04 Glucose (Fingerstick) 264 mg/dL (70-99) 228 mg/dL (70-99) 166 mg/dL (70-99) White Blood Count 13.0 x10^3/uL (4.0-11.0) Red Blood Count 3.70 x10^6/uL (3.50-5.40) Hemoglobin 10.1 g/dL (12.0-15.5) Hematocrit 30.5 % (36.0-47.0) Mean Corpuscular Volume 83 fL (79-100) Mean Corpuscular Hemoglobin 27 pg (25-35) Mean Corpuscular Hemoglobin Concent 33 g/dL (31-37) Red Cell Distribution Width 15.1 % (11.5-14.5) Platelet Count 185 x10^3/uL (140-400) Neutrophils (%) (Auto) 91 % (31-73) Lymphocytes (%) (Auto) 6 % (24-48) Monocytes (%) (Auto) 3 % (0-9) Eosinophils (%) (Auto) 0 % (0-3) Basophils (%) (Auto) 0 % (0-3) Neutrophils # (Auto) 11.8 x10^3/uL (1.8-7.7) Lymphocytes # (Auto) 0.8 x10^3/uL (1.0-4.8) Monocytes # (Auto) 0.4 x10^3/uL (0.0-1.1) Eosinophils # (Auto) 0.0 x10^3/uL (0.0-0.7) Basophils # (Auto) 0.0 x10^3/uL (0.0-0.2) Sodium Level 132 mmol/L (136-145) Potassium Level 4.1 mmol/L (3.5-5.1) Chloride Level 95 mmol/L (98-107) Carbon Dioxide Level 31 mmol/L (21-32) Anion Gap 6 (6-14) Blood Urea Nitrogen 17 mg/dL (7-20) Creatinine 0.9 mg/dL (0.6-1.0) Estimated GFR (Cockcroft-Gault) 61.4 Glucose Level 244 mg/dL (70-99) Calcium Level 8.7 mg/dL (8.5-10.1) Magnesium Level 1.8 mg/dL (1.8-2.4) Test 08/18/20 20:13 08/19/20 07:57 Glucose (Fingerstick) 352 mg/dL (70-99) 82 mg/dL (70-99) Laboratory Tests Test 08/18/20 11:43 08/18/20 17:04 08/18/20 20:13 08/19/20 07:57 Glucose (Fingerstick) 228 mg/dL (70-99) 166 mg/dL (70-99) 352 mg/dL (70-99) 82 mg/dL (70-99) Medications Active Scripts Medications Dose Route/Sig Max Daily Dose Days Date Category Codeine-Guaifen 10-100 mg/5 ml (Guaifenesin/Codeine Phosphate) 120 Ml Liquid 5 Ml PO PRN Q6HRS PRN MDD 20 Milliliter(s) 6 08/17/20 Reported [novolo] 12 SQ TIDAC 08/17/20 Reported [lantus] 14 SQ HS 08/17/20 Reported Budesonide 0.25 Mg/2 Ml Ampul.neb 1 Vial NEB BID 08/17/20 Reported Folic Acid 0.4 Mg Tablet 0.4 Mg PO DAILY 08/17/20 Reported Hydroxychloroquine Sulfate 200 Mg Tablet 1 Tab PO BID 08/17/20 Reported Multi Vitamin Daily (Multivitamin) 1 Each Tablet 1 Tab PO DAILY 30 08/17/20 Reported Torsemide 10 Mg Tablet 1 Tab PO QMWF 30 08/17/20 Reported Metamucil (Psyllium Husk) 0.52 Gm Capsule 1 Cap PO DAILY 30 08/17/20 Reported Prednisone (Prednisone) 10 Mg Tablet 1 Tab PO DAILY 5 08/17/20 Reported Dilaudid (Hydromorphone Hcl) 2 Mg Tablet 1 Tab PO PRN Q6-8HRS PRN MDD 2 Tablet(s) 5 08/17/20 Reported Feosol (Ferrous Sulfate) 325 Mg Tablet 1 Tab PO DAILY 30 08/17/20 Reported Diltiazem 24HR Cd (Diltiazem Hcl) 180 Mg Cap.er.24h 1 Cap PO DAILY 30 08/17/20 Reported Apriso (Mesalamine) 0.375 Gm Cap.er.24h 2 Cap PO BID 30 08/17/20 Reported Albuterol Sulfate Neb Soln (Albuterol Sulfate) 2.5 Mg/3 Ml Vial.neb 1 Vial NEB PRN Q4HRS 08/17/20 Reported Potassium Chloride (Potassium Chloride) 20 Meq Tablet.er 20 Meq PO DAILY 01/17/18 Reported Hydrocodone-Apap 7.5-325 (Hydrocodone Bit/Acetaminophen) 1 Each Tablet 1 Tab PO PRN Q6HRS PRN 01/17/18 Reported Zetia (Ezetimibe) 10 Mg Tablet 10 Mg PO DAILY 01/17/18 Reported Voltaren (Diclofenac Sodium) 100 Gm Gel..gram. 100 Gm TP PRN PRN 01/17/18 Reported Vitamin D3 (Cholecalciferol (Vitamin D3)) 1,000 Unit Tablet 1,000 Unit PO DAILY 01/17/18 Reported Xarelto (Rivaroxaban) 10 Mg Tablet 20 Mg PO BID 01/17/18 Reported Advair 250-50 Diskus (Fluticasone/Salmeterol) 1 Each Disk.w.dev 1 Inh IH BID 01/17/18 Reported Gabapentin (Gabapentin) 300 Mg Capsule 600 Mg PO BID 01/17/18 Reported Crestor (Rosuvastatin Calcium) 40 Mg Tablet 40 Mg PO HS 01/17/18 Reported Protonix (Pantoprazole Sodium) 20 Mg Tablet.dr 40 Mg PO DAILY 01/17/18 Reported Effexor Xr (Venlafaxine Hcl) 75 Mg Cap.er.24h 75 Mg PO DAILY 01/17/18 Reported Impression . 1. Large cavitary mass with an air fluid level in the right lower lobe with thick kang. Highly suggestive of lung abscess. Less likely cavitary neoplasm. Risk factors being long history of tobacco use and steroid dependence for chronic obstructive pulmonary disease. She continues to do e-cigarettes. 2. Fifty years of tobacco use, likely underlying chronic obstructive pulmonary disease. 3. History of rheumatoid arthritis, on hydroxychloroquine . 4. Abnormal CT chest as discussed above. Findings are more suggestive of inflammatory etiology, but malignancy is in the differential diagnosis. Plan . Patient is stable from a respiratory standpoint Continue supplemental oxygen as needed, currently on room air Continue antibiotics per infectious disease, currently on IV Zosyn plan to tr ansition to Augmentin Follow up outpatient in the office for a CT of chest in 1 month No need for steroids DVT/GI prophylaxis Discussed with EVIN Bermudez to discharge today from our standpoint HA DELAROSA MD Aug 19, 2020 08:26
[2020-08-19] MEDS: MULTIVITAMIN with MINERAL TABLET. PO SCH (08:52)
[2020-08-19] MEDS: CHOLECALCIFEROL (VITAMIN D3) 1,000 UNIT TABLET PO SCH (08:52)
[2020-08-19] MEDS: PSYLLIUM HUSK (SUGAR FREE) 1 PKT PACKET PO SCH (08:52)
[2020-08-19] MEDS: POTASSIUM CHLORIDE 20 MEQ TABLET.ER. PO SCH (08:52)
[2020-08-19] MEDS: EZETIMIBE 10 MG TABLET. PO SCH (08:52)
[2020-08-19] MEDS: predniSONE 10 MG TABLET PO SCH (08:53)
[2020-08-19] MEDS: GABAPENTIN 300 MG CAPSULE. PO SCH ×2 (08:53→21:21)
[2020-08-19] MEDS: FERROUS SULFATE 325 MG TABLET. PO SCH (08:53)
[2020-08-19] MEDS: HYDROXYCHLOROQUINE 200 MG TABLET PO SCH ×2 (08:53→21:21)
[2020-08-19] MEDS: FOLIC ACID 1 MG TABLET. PO SCH (08:53)
[2020-08-19] MEDS: VENLAFAXINE XR 37.5 MG CAP.ER.24H. PO SCH (08:53)
[2020-08-19] MEDS: MESALAMINE PO SCH ×2 (09:00→21:00)
--- NOTE | 2020-08-19 10:41 | PDOC ---
[facility] [facility] PROGRESS NOTE Date of Service DOS: DATE: 08/19/20 TIME: 10:36 Chief Complaint Chief Complaint Lung abscess History of Present Illness History of Present Illness The patient is a pleasant 75-year-old female who has had pneumonia for the past month. She has been treated with IV antibiotics and her cough has been worsening. She also treated with prednisone for the past 4 weeks. She also had colitis recently. She continues to smoke and she has been smoking for 50 years. She is currently on e-cigarettes, used to vape as well about 5 years ago. Basically, the patient was transferred to our facility yesterday because a CAT scan was done, which was showing a possible lungabscess. In particular, there is a 9 cm thick wall cavitary mass in the right lung, likely infectious. The patient currently examined on the 2nd floor where we are consulting Infectious Disease and Pulmonary Medicine. 08/18: -Patient seen and examined. -Shayan RN. Blood glucose levels have been high, last was 264. -Chart reviewed. 08/19/2020: -Patient seen and examined. -Shayan CLEARY. Shayan case resource manager. -Patient reports being on weekly dose of methotrexate. Takes 6 tabs every Sunday. Last taken three days ago. -BLE with increased erythema and swelling. -Chart reviewed. -Gram stain sputum culture revealed moderate gram positive rods, many gram positive cocci, many PMNs Vitals/I&O Vitals/I&O: Vital Signs Date Time Temp Pulse Resp B/P (MAP) Pulse Ox O2 Delivery O2 Flow Rate FiO2 08/19/20 08:52 86 115/50 08/19/20 07:22 90 Room Air 08/19/20 07:00 97.8 18 97.8 I & O 08/18/20 08/18/20 08/19/20 15:00 23:00 07:00 Intake Total 480 ml 1100 ml 400 ml Output Total 500 ml 1300 ml 1900 ml Balance -20 ml -200 ml -1500 ml Physical Exam Physical Exam: GENERAL: Alert, oriented x 3 female, nontoxic appearing, eating breakfast, in no acute distress. On room air HEENT: Normocephalic, atraumatic, anicteric, edentulous. No thrush. NECK: Supple, no JVD, no lymphadenopathy. LUNGS: Clear bilaterally. No wheezing. No accessory muscle use. HEART: S1, S2. No gallops or murmurs. ABDOMEN: Soft, obese. Bowel sounds present, nontender, nondistended. No masses felt. EXTREMITIES: No edema, no cyanosis. DERMATOLOGIC: Warm, dry. No generalized rash. NEUROLOGIC: Alert and oriented x 3, grossly nonfocal. PSYCHIATRIC: Cooperative. Grossly nonfocal. General: Alert, Oriented X3, Cooperative, No acute distress Heart: Regular rate, Normal S1, Normal S2 Lungs: Clear Extremities: No clubbing, No cyanosis Skin: No rashes, No breakdown, No significant lesion Labs Labs: Laboratory Tests Test 08/18/20 11:43 08/18/20 17:04 08/18/20 20:13 08/19/20 07:57 Glucose (Fingerstick) 228 mg/dL (70-99) 166 mg/dL (70-99) 352 mg/dL (70-99) 82 mg/dL (70-99) Review of Systems Review of Systems: Denies chest pain. Denies dysuria. Assessment and Plan Assessmemt and Plan Lung abscess Plan 1. IV antibiotics 2. Cardiac monitoring 3. Await cultures 4. Full code 5. DVT prophylaxis 6. Home meds 7. Monitor oxygen sats 8. Follow up CXR next week Comment Review of Relevant I have reviewed the following items amilcar (where applicable) has been applied. Medications: Current Medications Medications (Trade) Dose Ordered Sig/Josefina Route PRN Reason Start Time Stop Time Status Last Admin Dose Admin Torsemide (Demadex) 10 mg QMWF PO 08/18/20 16:00 08/18/20 17:47 Justifications for Admission Other Justification VIKTOR MANRIQUE III DO Aug 19, 2020 10:41
[2020-08-19 11:00] VITALS: BP 133/64
[2020-08-19 15:00] VITALS: BP 128/57
[2020-08-19] MEDS: RIVAROXABAN 10 MG TABLET. PO SCH (18:01)
[2020-08-19] MEDS: HYDROmorphone 2 MG TABLET PO PRN (18:28)
[2020-08-19 19:00] VITALS: BP 119/62
[2020-08-19] MEDS: ATORVASTATIN CALCIUM 40 MG TABLET. PO SCH (21:21)
[2020-08-19] MEDS: INSULIN GLARGINE SYRINGE. SQ SCH (21:22)
[2020-08-19 23:35] VITALS: BP 138/72
[2020-08-20] VITALS (8 sets, daily range): BP systolic 118–150; BP diastolic 50–93
[2020-08-20] MEDS: guaiFENesin/CODEINE 100mg/10mg 5 ML LIQUID PO PRN (05:24)
[2020-08-20] MEDS: HYDROcodone/APAP 7.5/325MG 1 TAB TABLET PO PRN ×3 (05:25→23:53)
[2020-08-20] MEDS: PIPERACILLIN/TAZOBACTAM 3.375 GM in IV NORMAL SALINE 50ML 50 ML IV SCH ×4 (05:26→23:53)
[2020-08-20] MEDS: INSULIN LISPRO 300 UNITS/3 ML VIAL. SQ SCH ×7 (07:30→21:58)
--- NOTE | 2020-08-20 08:44 | PDOC ---
PULMONARY PROGRESS NOTES DATE: 08/20/20 TIME: 08:44 Subjective Patient is on room air, Denies any increased shortness of breath or increased cough Low-grade fever overnight No overnight concerns from nursing Vitals Vital Signs Date Time Temp Pulse Resp B/P (MAP) Pulse Ox O2 Delivery O2 Flow Rate FiO2 08/20/20 05:25 18 90 Room Air 08/20/20 03:00 98.2 84 150/63 (92) 98.2 ROS: No Nausea, No Chest Pain, No Abdominal Pain, No Increase Cough General: Alert, No acute distress Lungs: Clear Cardiovascular: S1 Abdomen: Soft Neuro Exam: Alert Extremities: No Edema Skin: Warm Labs Laboratory Tests Test 08/18/20 11:43 08/18/20 17:04 08/18/20 20:13 08/19/20 07:57 Glucose (Fingerstick) 228 mg/dL (70-99) 166 mg/dL (70-99) 352 mg/dL (70-99) 82 mg/dL (70-99) Test 08/19/20 12:25 08/19/20 17:35 08/19/20 20:26 Glucose (Fingerstick) 290 mg/dL (70-99) 214 mg/dL (70-99) 214 mg/dL (70-99) Laboratory Tests Test 08/19/20 12:25 08/19/20 17:35 08/19/20 20:26 Glucose (Fingerstick) 290 mg/dL (70-99) 214 mg/dL (70-99) 214 mg/dL (70-99) Medications Active Scripts Medications Dose Route/Sig Max Daily Dose Days Date Category Codeine-Guaifen 10-100 mg/5 ml (Guaifenesin/Codeine Phosphate) 120 Ml Liquid 5 Ml PO PRN Q6HRS PRN MDD 20 Milliliter(s) 6 08/17/20 Reported [novolo] 12 SQ TIDAC 08/17/20 Reported [lantus] 14 SQ HS 08/17/20 Reported Budesonide 0.25 Mg/2 Ml Ampul.neb 1 Vial NEB BID 08/17/20 Reported Folic Acid 0.4 Mg Tablet 0.4 Mg PO DAILY 08/17/20 Reported Hydroxychloroquine Sulfate 200 Mg Tablet 1 Tab PO BID 08/17/20 Reported Multi Vitamin Daily (Multivitamin) 1 Each Tablet 1 Tab PO DAILY 30 1/12/21 Reported Torsemide 10 Mg Tablet 1 Tab PO QMWF 30 08/17/20 Reported Metamucil (Psyllium Husk) 0.52 Gm Capsule 1 Cap PO DAILY 30 08/17/20 Reported Prednisone (Prednisone) 10 Mg Tablet 1 Tab PO DAILY 5 08/17/20 Reported Dilaudid (Hydromorphone Hcl) 2 Mg Tablet 1 Tab PO PRN Q6-8HRS PRN MDD 2 Tablet(s) 5 08/17/20 Reported Feosol (Ferrous Sulfate) 325 Mg Tablet 1 Tab PO DAILY 30 08/17/20 Reported Diltiazem 24HR Cd (Diltiazem Hcl) 180 Mg Cap.er.24h 1 Cap PO DAILY 30 08/17/20 Reported Apriso (Mesalamine) 0.375 Gm Cap.er.24h 2 Cap PO BID 30 08/17/20 Reported Albuterol Sulfate Neb Soln (Albuterol Sulfate) 2.5 Mg/3 Ml Vial.neb 1 Vial NEB PRN Q4HRS 08/17/20 Reported Potassium Chloride (Potassium Chloride) 20 Meq Tablet.er 20 Meq PO DAILY 01/17/18 Reported Hydrocodone-Apap 7.5-325 (Hydrocodone Bit/Acetaminophen) 1 Each Tablet 1 Tab PO PRN Q6HRS PRN 01/17/18 Reported Zetia (Ezetimibe) 10 Mg Tablet 10 Mg PO DAILY 01/17/18 Reported Voltaren (Diclofenac Sodium) 100 Gm Gel..gram. 100 Gm TP PRN PRN 01/17/18 Reported Vitamin D3 (Cholecalciferol (Vitamin D3)) 1,000 Unit Tablet 1,000 Unit PO DAILY 01/17/18 Reported Xarelto (Rivaroxaban) 10 Mg Tablet 20 Mg PO BID 01/17/18 Reported Advair 250-50 Diskus (Fluticasone/Salmeterol) 1 Each Disk.w.dev 1 Inh IH BID 01/17/18 Reported Gabapentin (Gabapentin) 300 Mg Capsule 600 Mg PO BID 01/17/18 Reported Crestor (Rosuvastatin Calcium) 40 Mg Tablet 40 Mg PO HS 01/17/18 Reported Protonix (Pantoprazole Sodium) 20 Mg Tablet.dr 40 Mg PO DAILY 01/17/18 Reported Effexor Xr (Venlafaxine Hcl) 75 Mg Cap.er.24h 75 Mg PO DAILY 01/17/18 Reported Impression . 1. Large cavitary mass with an air fluid level in the right lower lobe with thick kang. Highly suggestive of lung abscess. --- RESPIRATORY CULTURE[STAPHYLOCOCCUS AUREUS] Risk factors being long history of tobacco use and steroid dependence for chronic obstructive pulmonary disease. She continues to do e-cigarettes. 2. Fifty years of tobacco use, likely underlying chronic obstructive pulmonary disease. 3. History of rheumatoid arthritis, on hydroxychloroquine . 4. Abnormal CT chest as discussed above. Findings are more suggestive of inflammatory etiology, but malignancy is in the differential diagnosis. Plan . Patient is stable from a respiratory standpoint Continue supplemental oxygen as needed, currently on room air Symptomatic treatment of fever Continue antibiotics per infectious disease, currently on IV Zosyn and now on IV vancomycin RESPIRATORY CULTURE Preliminary FINAL ID= [STAPHYLOCOCCUS AUREUS] Follow up outpatient in the office for a CT of chest in 1 month No need for steroids DVT/GI prophylaxis Discussed with RN Patient was given a follow-up for her in the office for 8 weeks and a repeat CT chest prior to appointment. HA DELAROSA MD Aug 20, 2020 08:44
[2020-08-20] MEDS: BUDESONIDE 0.5 MG/2 ML NEBU. NEB SCH ×2 (08:47→19:56)
[2020-08-20] MEDS: ALBUTEROL SULFATE 2.5 MG/3 ML NEBU. NEB SCH ×4 (08:47→19:56)
[2020-08-20] MEDS: MESALAMINE PO SCH ×2 (09:00→21:58)
--- NOTE | 2020-08-20 09:59 | PDOC ---
Infectious Disease Note Subjective: Subjective Patient c/o headache Cough and shortness of breath has improved Remains on room air Denies any fever, Diarrhea has improved Vital Signs: Vital Signs Vital Signs Date Time Temp Pulse Resp B/P (MAP) Pulse Ox O2 Delivery O2 Flow Rate FiO2 08/20/20 08:54 90 Room Air 08/20/20 07:00 100.0 89 18 118/68 (85) 100.0 Physical Exam: PHYSICAL EXAM GENERAL: Alert, oriented x 3 female, nontoxic appearing, eating breakfast, in no acute distress. On room air HEENT: Normocephalic, atraumatic, anicteric, edentulous. No thrush. NECK: Supple, no JVD, no lymphadenopathy. LUNGS: Clear bilaterally. No wheezing. No accessory muscle use. HEART: S1, S2. No gallops or murmurs. ABDOMEN: Soft, obese. Bowel sounds present, nontender, nondistended. No masses felt. EXTREMITIES: No edema, no cyanosis. DERMATOLOGIC: Warm, dry. No generalized rash. NEUROLOGIC: Alert and oriented x 3, grossly nonfocal. PSYCHIATRIC: Cooperative. Grossly nonfocal. Medications: Inpatient Meds: Current Medications Medications (Trade) Dose Ordered Sig/Josefina Start Time Stop Time Status Last Admin Dose Admin Acetaminophen/ Hydrocodone Bitart (Lortab 7.5/325) 1 tab PRN Q6HRS PRN 08/17/20 10:45 08/20/20 05:25 1 TAB Albuterol Sulfate (Ventolin Neb Soln) 2.5 mg PRN Q4HRS PRN 08/17/20 10:48 Atorvastatin Calcium (Lipitor) 80 mg QHS 08/17/20 21:00 08/19/20 21:21 80 MG Budesonide (Pulmicort) 0.5 mg RTBID 08/17/20 11:00 08/20/20 08:47 0.5 MG Dextrose (Dextrose 50%-Water Syringe) 12.5 gm PRN Q15MIN PRN 08/17/20 12:00 UNV Diclofenac Sodium (Voltaren) 1 stacy PRN BID PRN 08/17/20 10:45 Diltiazem HCl (Cardizem 24hr Cd) 180 mg DAILY 08/17/20 11:00 08/19/20 08:52 180 MG EZETIMIBE (Zetia) 10 mg DAILY 08/17/20 11:00 08/19/20 08:52 10 MG Ferrous Sulfate (Feosol) 325 mg DAILY 08/17/20 11:00 08/19/20 08:53 325 MG Folic Acid (Folic Acid) 1 mg DAILY 08/17/20 11:00 08/19/20 08:53 1 MG Gabapentin (Neurontin) 600 mg BID 08/17/20 11:00 08/19/20 21:21 600 MG Guaifenesin/ Codeine Phosphate (Robitussin Ac) 5 ml PRN Q6HRS PRN 08/17/20 22:45 08/20/20 05:24 5 ML Hydromorphone HCl (Dilaudid) 2 mg PRN TID PRN 08/17/20 10:45 08/19/20 18:28 2 MG Hydroxychloroquine Sulfate (Plaquenil) 200 mg BID 08/17/20 11:00 08/19/20 21:21 200 MG Info (Anti-Coagulation Monitoring By Pharmacy) 1 each PRN DAILY PRN 08/18/20 08:15 08/18/20 08:12 1 EACH Insulin Glargine (Lantus Syringe) 20 unit QHS 08/17/20 21:00 08/19/20 21:22 20 UNIT Insulin Human Lispro (HumaLOG) 13 units TIDWMEALS 08/18/20 08:15 08/19/20 18:06 13 UNITS Insulin Human Regular 100 unit/ Sodium Chloride 101 ml @ 0 mls/hr CONT PRN 08/17/20 07:15 08/17/20 07:11 2.9 MLS/HR Multivitamins (Thera M Plus) 1 tab DAILY 08/17/20 11:00 08/19/20 08:52 1 TAB Non-Formulary Medication (Mesalamine (Apriso)) 2 cap BID 08/17/20 21:00 UNV Pantoprazole Sodium (Protonix) 40 mg DAILYAC 08/17/20 11:00 08/18/20 08:42 40 MG Piperacillin Sod/ Tazobactam Sod 3.375 gm/Sodium Chloride 50 ml @ 100 mls/hr Q6HRS 08/17/20 12:00 08/20/20 05:26 100 MLS/HR Potassium Chloride (Klor-Con) 20 meq DAILY 08/17/20 11:00 08/19/20 08:52 20 MEQ Prednisone (Prednisone) 10 mg DAILY 08/17/20 11:00 08/19/20 08:53 10 MG Psyllium Hydrophilic Mucilloid (Metamucil Fiber Packet) 1 pkt DAILY 08/17/20 11:00 08/19/20 08:52 1 PKT Rivaroxaban (Xarelto) 20 mg DAILYWSUP 08/17/20 17:00 08/19/20 18:01 20 MG Torsemide (Demadex) 10 mg QMWF 08/18/20 16:00 08/18/20 17:47 10 MG Vancomycin HCl 1 gm/Sodium Chloride 250 ml @ 250 mls/hr 1X ONCE 08/17/20 09:00 08/17/20 09:59 DC 08/17/20 08:25 250 MLS/HR Venlafaxine HCl (Effexor Xr) 75 mg DAILY 08/17/20 11:00 08/19/20 08:53 75 MG Vitamin A/Vitamin D (Vitamin A & D Ointment) 1 stacy PRN Q1HR PRN 08/17/20 09:15 Vitamin D (Vitamin D3) 1,000 unit DAILY 08/17/20 11:00 08/19/20 08:52 1,000 UNIT Labs: Lab Laboratory Tests Test 08/19/20 12:25 08/19/20 17:35 08/19/20 20:26 08/20/20 08:19 Glucose (Fingerstick) 290 mg/dL (70-99) 214 mg/dL (70-99) 214 mg/dL (70-99) 93 mg/dL (70-99) Micro RUN DATE: 08/19/20 [facility] LAB *LIVE* PAGE 1 RUN TIME: 58 Specimen Inquiry ------- ----- PATIENT: GLADYS BENTLEY ACCT: [id number] LOC: [address] [place] [address] U: [id number] AGE/SX: 75/F ROOM: 208 RE08/17/[address]: BINDU MARTINEZ MD : 1945 BED: 1 DIS: STATUS: ADM IN TLOC: SPEC #: [id number] CRISTINA: 08/18/20 STATUS: RES REQ #: [id number] RECD: 08/18/[address]: BILLY HODGES MD SOURCE: SPUTUM ENTR: 08/18/20-[address] [facility] [address]: KOTA HODGES MD SPDESC: INDUCED BINDU MARTINEZ MD, AMAN U MD YOAKAM, JESSICA D ORDERED: RESP CULTURE COMMENTS: Has specimen been collected/obtained? Y Procedure Result --- --------- GRAM STAIN EVALUATION Final Final GRAM POSITIVE RODS:MODERATE GRAM POSITIVE COCCI:MANY SQUAMOUS EPI CELL:FEW PMN (WBCs):MANY YEAST:FEW Unless otherwise specified, Testing Performed by: [address] [address] For Inquires, the Physician may contact the Microbiology department at [phone] RESPIRATORY CULTURE Preliminary Preliminary MANY GRAM POSITIVE COCCI on 08/19/20 at 0852 FINAL ID= [STAPHYLOCOCCUS AUREUS] STAPHYLOCOCCUS AUREUS Unless otherwise specified, Testing Performed by: [address] [address] For Inquires, the Physician may contact the Microbiology department at [phone] Objective: Assessment: 1. Right large cavitary lung lesion. 9 cm cavitary lesion in the right lung CT chest revealed no pulmonary emboli . Differential could be infectious versus noninfectious. Cult Staph aureus 2. History of recent pneumonia, treated with antibiotics with Zosyn and Levaquin. The patient was discharged from [facility] on 07/29/2020. She completed her antibiotics with IV Zosyn followed by Levaquin per chart review. She is on steroids. 3. Diabetes mellitus. 4. Atrial fibrillation. 5. Chronic obstructive pulmonary disease. 6. Smoker. 7. History of rheumatoid arthritis. On Plaquenil and methotrexate. On steroids prior to admission She denies any history of being on TNF alpha blockers in the past till date 8. Chronic kidney disease. 9. Ulcerative colitis with chronic diarrhea. 10. Anemia. 11. Leukocytosis, on steroids. 12. Mild lactic acidosis. 13. History of ALLERGIES TO PENICILLIN AND CEFTRIAXONE. The patient has tolerated Zosyn and Augmentin well in the past. Plan: Plan of Care IV Vanco per pharmacy Continue Zosyn Follow-up sputum staph aureus hold dc today BILLY HODGES MD Aug 20, 2020 09:59
[2020-08-20] MEDS: CHOLECALCIFEROL (VITAMIN D3) 1,000 UNIT TABLET PO SCH (10:28)
[2020-08-20] MEDS: FERROUS SULFATE 325 MG TABLET. PO SCH (10:29)
[2020-08-20] MEDS: POTASSIUM CHLORIDE 20 MEQ TABLET.ER. PO SCH (10:29)
[2020-08-20] MEDS: GABAPENTIN 300 MG CAPSULE. PO SCH ×2 (10:29→21:58)
[2020-08-20] MEDS: EZETIMIBE 10 MG TABLET. PO SCH (10:30)
[2020-08-20] MEDS: predniSONE 10 MG TABLET PO SCH (10:30)
[2020-08-20] MEDS: HYDROXYCHLOROQUINE 200 MG TABLET PO SCH ×2 (10:30→21:57)
[2020-08-20] MEDS: PANTOPRAZOLE 40 MG TABLET.DR. PO SCH (10:30)
[2020-08-20] MEDS: FOLIC ACID 1 MG TABLET. PO SCH (10:30)
[2020-08-20] MEDS: PSYLLIUM HUSK (SUGAR FREE) 1 PKT PACKET PO SCH (10:30)
[2020-08-20] MEDS: VENLAFAXINE XR 37.5 MG CAP.ER.24H. PO SCH (10:30)
[2020-08-20] MEDS: MULTIVITAMIN with MINERAL TABLET. PO SCH (10:30)
--- NOTE | 2020-08-20 10:30 | PDOC ---
[employer] PROGRESS NOTE Date of Service DOS: DATE: 08/20/20 TIME: 10:25 Chief Complaint Chief Complaint Lung abscess. Hyperglycemia. History of Present Illness History of Present Illness The patient is a pleasant 75-year-old female who has had pneumonia for the past month. She has been treated with IV antibiotics and her cough has been worsening. She also treated with prednisone for the past 4 weeks. She also had colitis recently. She continues to smoke and she has been smoking for 50 years. She is currently on e-cigarettes, used to vape as well about 5 years ago. Basically, the patient was transferred to our facility yesterday because a CAT scan was done, which was showing a possible lungabscess. In particular, there is a 9 cm thick wall cavitary mass in the right lung, likely infectious. The patient currently examined on the 2nd floor where we are consulting Infectious Disease and Pulmonary Medicine. 08/18: -Patient seen and examined. -Shayan RN. Blood glucose levels have been high, last was 264. -Chart reviewed. 08/19/2020: -Patient seen and examined. -Shayan RN. Shayan case aide. -Patient reports being on weekly dose of methotrexate. Takes 6 tabs every Sunday. Last taken three days ago. -BLE with increased erythema and swelling. -Chart reviewed. -Gram stain sputum culture revealed moderate gram positive rods, many gram positive cocci, many PMNs 08/20/2020 -Patient seen and examined -Shayan RN -Culture reveals Staph aureus -Blood glucose running in 200s yesterday -Chart reviewed Vitals/I&O Vitals/I&O: Vital Signs Date Time Temp Pulse Resp B/P (MAP) Pulse Ox O2 Delivery O2 Flow Rate FiO2 08/20/20 08:54 90 Room Air 08/20/20 07:00 100.0 89 18 118/68 (85) 100.0 I & O 08/19/20 08/19/20 08/20/20 15:00 23:00 07:00 Intake Total 100 ml 700 ml Output Total 1 ml 100 ml Balance -1 ml 0 ml 700 ml Physical Exam Physical Exam: GENERAL: Alert, oriented x 3 female, nontoxic appearing, eating breakfast, in no acute distress. On room air HEENT: Normocephalic, atraumatic, anicteric, edentulous. No thrush. NECK: Supple, no JVD, no lymphadenopathy. LUNGS: Clear bilaterally. No wheezing. No accessory muscle use. HEART: S1, S2. No gallops or murmurs. ABDOMEN: Soft, obese. Bowel sounds present, nontender, nondistended. No masses felt. EXTREMITIES: No edema, no cyanosis. DERMATOLOGIC: Warm, dry. No generalized rash. NEUROLOGIC: Alert and oriented x 3, grossly nonfocal. PSYCHIATRIC: Cooperative. Grossly nonfocal. General: Alert, Oriented X3, Cooperative, No acute distress Heart: Regular rate, Normal S1, Normal S2 Lungs: Clear Extremities: No clubbing, No cyanosis Skin: No rashes, No breakdown, No significant lesion Labs Labs: Laboratory Tests Test 08/19/20 12:25 08/19/20 17:35 08/19/20 20:26 08/20/20 08:19 Glucose (Fingerstick) 290 mg/dL (70-99) 214 mg/dL (70-99) 214 mg/dL (70-99) 93 mg/dL (70-99) Review of Systems Review of Systems: Denies CP. Denies headache. Assessment and Plan Assessmemt and Plan Lung abscess. Hyperglycemia. Plan 1. Continue IV Zosyn. Hope to change to PO abx when OK w/ ID 2. Appreciate pulmonology input 3. Sliding scale insulin 4. Full code 5. Cardiac monitoring 6. Home meds Comment Review of Relevant I have reviewed the following items amilcar (where applicable) has been applied. Justifications for Admission Other Justification VIKTOR MANRIQUE III, DO Aug 20, 2020 10:29
[2020-08-20] MEDS ORDERED: VANCOMYCIN 2 GM in IV NORMAL SALINE 500ML BAG 500 ML IV ONE (11:30)
[2020-08-20 11:48] LABS: BASO % 0 % (0-3); EOS # 0.1 x10^3/uL (0.0-0.7); EOS % 1 % (0-3); HEMATOCRIT 33.1 % (36.0-47.0); LYMPH # 0.7 x10^3/uL (1.0-4.8); LYMPH % 7 % (24-48); MEAN CORPUSCULAR HEMOGLOBIN 28 pg (25-35); MEAN CORPUSCULAR HGB CONC 33 g/dL (31-37); MEAN CORPUSCULAR VOLUME 84 fL (79-100); MONO # 0.4 x10^3/uL (0.0-1.1); MONO % 4 % (0-9); NEUT # 10.1 x10^3/uL (1.8-7.7); NEUT % 89 % (31-73); PLATELET COUNT 198 x10^3/uL (140-400); RED BLOOD COUNT 3.96 x10^6/uL (3.50-5.40); RED CELL DISTRIBUTION WIDTH 15.2 % (11.5-14.5); WHITE BLOOD COUNT 11.4 x10^3/uL (4.0-11.0)
[2020-08-20 11:55] LABS: ALBUMIN 2.2 g/dL (3.4-5.0); ALBUMIN/GLOBULIN RATIO 0.7 (1.0-1.7); CREATININE 1.1 mg/dL (0.6-1.0); GFR 48.7; POTASSIUM 3.2 mmol/L (3.5-5.1); TOTAL BILIRUBIN 0.6 mg/dL (0.2-1.0); TOTAL PROTEIN 5.4 g/dL (6.4-8.2)
[2020-08-20] MEDS: VANCOMYCIN PER PHARMACY MC PRN (14:34)
--- NOTE | 2020-08-20 14:35 | NUR ---
Pharmacy Vancomycin Dosing Note S:Consulted to monitor and dose vancomycin started 08/20/20. O:GLADYS BENTLEY is a 75 year old F with a pulmonary abscess. Height: 5 feet, 3 inches Weight: 86.2 kg Dosing Weight: Actual Other Antibiotics: ZOSYN 3.375G IV Q6HRS LABS: Last BUN: 18 Last Creatinine: 1.1 Creatinine Clearance: 47 mL/min Last WBC: 11.4 Tmax (past 24 hours): 100 Microbiology: SPUTUM CX (08/18): STAPH AUREUS I/O: 800/101 A: Patient requires vancomycin for a pulmonary abscess growing S. aureus, goal trough 15-20 mcg/ml. Patient's SCr is 1.1 with an eCrCl of 47 ml/min. P: 1. Initiate Vancomycin 2000 mg IV x 1 dose, then 1250 mg IV q24h 2. Follow up Trough level on 08/22/20 at 1230 3. Pharmacy will continue to monitor, follow and adjust therapy as needed. CONY SALMERON [facility], 08/20/20 [id number]
[2020-08-20] MEDS ORDERED: POTASSIUM CHLORIDE 20 MEQ TABLET.ER. PO ONE (15:00)
[2020-08-20] MEDS: TORSEMIDE 20 MG TABLET. PO SCH (16:52)
[2020-08-20] MEDS: RIVAROXABAN 10 MG TABLET. PO SCH (17:27)
[2020-08-20] MEDS: ATORVASTATIN CALCIUM 40 MG TABLET. PO SCH (21:58)
[2020-08-20] MEDS: INSULIN GLARGINE SYRINGE. SQ SCH (22:03)
[2020-08-21 03:25] VITALS: BP 99/60
[2020-08-21] MEDS: PIPERACILLIN/TAZOBACTAM 3.375 GM in IV NORMAL SALINE 50ML 50 ML IV SCH ×4 (05:29→23:30)
[2020-08-21 07:00] VITALS: BP 186/80
[2020-08-21] MEDS: INSULIN LISPRO 300 UNITS/3 ML VIAL. SQ SCH ×7 (07:30→21:00)
[2020-08-21] MEDS: ALBUTEROL SULFATE 2.5 MG/3 ML NEBU. NEB SCH ×4 (07:40→20:23)
[2020-08-21] MEDS: BUDESONIDE 0.5 MG/2 ML NEBU. NEB SCH ×2 (07:40→20:23)
[2020-08-21] MEDS: CHOLECALCIFEROL (VITAMIN D3) 1,000 UNIT TABLET PO SCH (08:21)
[2020-08-21] MEDS: HYDROcodone/APAP 7.5/325MG 1 TAB TABLET PO PRN ×3 (08:21→20:58)
[2020-08-21] MEDS: GABAPENTIN 300 MG CAPSULE. PO SCH ×2 (08:22→21:00)
[2020-08-21] MEDS: MULTIVITAMIN with MINERAL TABLET. PO SCH (08:22)
[2020-08-21] MEDS: EZETIMIBE 10 MG TABLET. PO SCH (08:22)
[2020-08-21] MEDS: FOLIC ACID 1 MG TABLET. PO SCH (08:22)
[2020-08-21] MEDS: FERROUS SULFATE 325 MG TABLET. PO SCH (08:22)
[2020-08-21] MEDS: predniSONE 10 MG TABLET PO SCH (08:22)
[2020-08-21] MEDS: POTASSIUM CHLORIDE 20 MEQ TABLET.ER. PO SCH (08:22)
[2020-08-21] MEDS: PANTOPRAZOLE 40 MG TABLET.DR. PO SCH (08:23)
[2020-08-21] MEDS: VENLAFAXINE XR 37.5 MG CAP.ER.24H. PO SCH (08:23)
[2020-08-21] MEDS: HYDROXYCHLOROQUINE 200 MG TABLET PO SCH ×2 (08:23→20:59)
--- NOTE | 2020-08-21 08:25 | PDOC ---
Infectious Disease Note Subjective: Subjective Patient feels better On 2 L O2 by nasal cannula Denies any fever, Vital Signs: Vital Signs Vital Signs Date Time Temp Pulse Resp B/P (MAP) Pulse Ox O2 Delivery O2 Flow Rate FiO2 08/21/20 07:45 98 Nasal Cannula 3.0 08/21/20 07:00 99.1 64 21 186/80 (115) 99.1 Physical Exam: PHYSICAL EXAM GENERAL: Alert, oriented x 3 female, nontoxic appearing, eating breakfast, in no acute distress. On room air HEENT: Normocephalic, atraumatic, anicteric, edentulous. No thrush. NECK: Supple, no JVD, no lymphadenopathy. LUNGS: Clear bilaterally. No wheezing. No accessory muscle use. HEART: S1, S2. No gallops or murmurs. ABDOMEN: Soft, obese. Bowel sounds present, nontender, nondistended. No masses felt. EXTREMITIES: No edema, no cyanosis. DERMATOLOGIC: Warm, dry. No generalized rash. NEUROLOGIC: Alert and oriented x 3, grossly nonfocal. PSYCHIATRIC: Cooperative. Grossly nonfocal. Medications: Inpatient Meds: Current Medications Medications (Trade) Dose Ordered Sig/Josefina Start Time Stop Time Status Last Admin Dose Admin Acetaminophen/ Hydrocodone Bitart (Lortab 7.5/325) 1 tab PRN Q6HRS PRN 08/17/20 10:45 08/20/20 23:53 1 TAB Albuterol Sulfate (Ventolin Neb Soln) 2.5 mg PRN Q4HRS PRN 08/17/20 10:48 Atorvastatin Calcium (Lipitor) 80 mg QHS 08/17/20 21:00 08/20/20 21:58 80 MG Budesonide (Pulmicort) 0.5 mg RTBID 08/17/20 11:00 08/21/20 07:40 0.5 MG Dextrose (Dextrose 50%-Water Syringe) 12.5 gm PRN Q15MIN PRN 08/17/20 12:00 UNV Diclofenac Sodium (Voltaren) 1 stacy PRN BID PRN 08/17/20 10:45 Diltiazem HCl (Cardizem 24hr Cd) 180 mg DAILY 08/17/20 11:00 08/20/20 10:42 180 MG EZETIMIBE (Zetia) 10 mg DAILY 08/17/20 11:00 08/20/20 10:30 10 MG Ferrous Sulfate (Feosol) 325 mg DAILY 08/17/20 11:00 08/20/20 10:29 325 MG Folic Acid (Folic Acid) 1 mg DAILY 08/17/20 11:00 08/20/20 10:30 1 MG Gabapentin (Neurontin) 600 mg BID 08/17/20 11:00 08/20/20 21:58 600 MG Guaifenesin/ Codeine Phosphate (Robitussin Ac) 5 ml PRN Q6HRS PRN 08/17/20 22:45 08/20/20 05:24 5 ML Hydromorphone HCl (Dilaudid) 2 mg PRN TID PRN 08/17/20 10:45 08/19/20 18:28 2 MG Hydroxychloroquine Sulfate (Plaquenil) 200 mg BID 08/17/20 11:00 08/20/20 21:57 200 MG Info (Anti-Coagulation Monitoring By Pharmacy) 1 each PRN DAILY PRN 08/18/20 08:15 08/18/20 08:12 1 EACH Insulin Glargine (Lantus Syringe) 20 unit QHS 08/17/20 21:00 08/20/20 22:03 20 UNIT Insulin Human Lispro (HumaLOG) 13 units TIDWMEALS 08/18/20 08:15 08/20/20 17:37 13 UNITS Insulin Human Regular 100 unit/ Sodium Chloride 101 ml @ 0 mls/hr CONT PRN 08/17/20 07:15 08/17/20 07:11 2.9 MLS/HR Multivitamins (Thera M Plus) 1 tab DAILY 08/17/20 11:00 08/20/20 10:30 1 TAB Non-Formulary Medication (Mesalamine (Apriso)) 2 cap BID 08/17/20 21:00 UNV Pantoprazole Sodium (Protonix) 40 mg DAILYAC 08/17/20 11:00 08/20/20 10:30 40 MG Piperacillin Sod/ Tazobactam Sod 3.375 gm/Sodium Chloride 50 ml @ 100 mls/hr Q6HRS 08/17/20 12:00 08/21/20 05:29 100 MLS/HR Potassium Chloride (Klor-Con) 40 meq 1X ONCE 08/20/20 15:00 08/20/20 15:01 DC 08/20/20 14:45 40 MEQ Prednisone (Prednisone) 10 mg DAILY 08/17/20 11:00 08/20/20 10:30 10 MG Psyllium Hydrophilic Mucilloid (Metamucil Fiber Packet) 1 pkt DAILY 08/17/20 11:00 08/20/20 10:30 1 PKT Rivaroxaban (Xarelto) 20 mg DAILYWSUP 08/17/20 17:00 08/20/20 17:27 20 MG Torsemide (Demadex) 10 mg QMWF 08/18/20 16:00 08/20/20 16:52 10 MG Vancomycin HCl (Vanco Per Pharmacy) 1 each PRN DAILY PRN 08/20/20 11:00 08/20/20 14:34 1 EACH Vancomycin HCl (Vancomycin Trough Level) 1 each 1X ONCE 08/22/20 12:30 08/22/20 12:31 Vancomycin HCl 1.25 gm/Sodium Chloride 250 ml @ 167 mls/hr Q24H 08/21/20 13:00 Vancomycin HCl 1 gm/Sodium Chloride 250 ml @ 250 mls/hr 1X ONCE 08/17/20 09:00 08/17/20 09:59 DC 08/17/20 08:25 250 MLS/HR Vancomycin HCl 2 gm/Sodium Chloride 500 ml @ 250 mls/hr 1X ONCE 08/20/20 11:30 08/20/20 13:29 DC 08/20/20 12:48 250 MLS/HR Venlafaxine HCl (Effexor Xr) 75 mg DAILY 08/17/20 11:00 08/20/20 10:30 75 MG Vitamin A/Vitamin D (Vitamin A & D Ointment) 1 stacy PRN Q1HR PRN 08/17/20 09:15 Vitamin D (Vitamin D3) 1,000 unit DAILY 08/17/20 11:00 08/20/20 10:28 1,000 UNIT Labs: Lab Laboratory Tests Test 08/20/20 11:10 08/20/20 11:47 08/20/20 17:15 08/20/20 21:06 White Blood Count 11.4 x10^3/uL (4.0-11.0) Red Blood Count 3.96 x10^6/uL (3.50-5.40) Hemoglobin 11.0 g/dL (12.0-15.5) Hematocrit 33.1 % (36.0-47.0) Mean Corpuscular Volume 84 fL (79-100) Mean Corpuscular Hemoglobin 28 pg (25-35) Mean Corpuscular Hemoglobin Concent 33 g/dL (31-37) Red Cell Distribution Width 15.2 % (11.5-14.5) Platelet Count 198 x10^3/uL (140-400) Neutrophils (%) (Auto) 89 % (31-73) Lymphocytes (%) (Auto) 7 % (24-48) Monocytes (%) (Auto) 4 % (0-9) Eosinophils (%) (Auto) 1 % (0-3) Basophils (%) (Auto) 0 % (0-3) Neutrophils # (Auto) 10.1 x10^3/uL (1.8-7.7) Lymphocytes # (Auto) 0.7 x10^3/uL (1.0-4.8) Monocytes # (Auto) 0.4 x10^3/uL (0.0-1.1) Eosinophils # (Auto) 0.1 x10^3/uL (0.0-0.7) Basophils # (Auto) 0.0 x10^3/uL (0.0-0.2) Sodium Level 131 mmol/L (136-145) Potassium Level 3.2 mmol/L (3.5-5.1) Chloride Level 92 mmol/L (98-107) Carbon Dioxide Level 34 mmol/L (21-32) Anion Gap 5 (6-14) Blood Urea Nitrogen 18 mg/dL (7-20) Creatinine 1.1 mg/dL (0.6-1.0) Estimated GFR (Cockcroft-Gault) 48.7 BUN/Creatinine Ratio 16 (6-20) Glucose Level 228 mg/dL (70-99) Calcium Level 8.0 mg/dL (8.5-10.1) Total Bilirubin 0.6 mg/dL (0.2-1.0) Aspartate Amino Transf (AST/SGOT) 27 U/L (15-37) Alanine Aminotransferase (ALT/SGPT) 47 U/L (14-59) Alkaline Phosphatase 80 U/L (46-116) Total Protein 5.4 g/dL (6.4-8.2) Albumin 2.2 g/dL (3.4-5.0) Albumin/Globulin Ratio 0.7 (1.0-1.7) Glucose (Fingerstick) 211 mg/dL (70-99) 260 mg/dL (70-99) 147 mg/dL (70-99) Test 08/21/20 07:35 Glucose (Fingerstick) 101 mg/dL (70-99) Micro RUN DATE: 08/19/20 [facility] LAB *LIVE* PAGE 1 RUN TIME: 857 Specimen Inquiry PATIENT: GLADYS BENTLEY ACCT: [id number] LOC: [address] [place] [address] U: [id number] AGE/SX: 75/F ROOM: 208 RE08/17/[address]: BINDU MARTINEZ MD : 1945 BED: 1 DIS: STATUS: ADM IN TLOC: SPEC #: [id number] CRISTINA: 08/18/20-0 STATUS: RES REQ #: [id number] RECD: 08/18/[address] [facility] [address]: BILLY HODGES MD SOURCE: SPUTUM ENTR: 08/18/20-[address]: KOTA HODGES MD [facility]: INDUCED FULBRSANTIAGO,BINDU ROBBINS,HALLIE YI MD ORDERED: RESP CULTURE COMMENTS: Has specimen been collected/obtained? Y Procedure Result GRAM STAIN EVALUATION Final Final GRAM POSITIVE RODS:MODERATE GRAM POSITIVE COCCI:MANY SQUAMOUS EPI CELL:FEW PMN (WBCs):MANY YEAST:FEW Unless otherwise specified, Testing Performed by: [address] [address] For Inquires, the Physician may contact the Microbiology department at [phone] RESPIRATORY CULTURE Preliminary Preliminary MANY GRAM POSITIVE COCCI on 08/19/20 at 0852 FINAL ID= [STAPHYLOCOCCUS AUREUS] STAPHYLOCOCCUS AUREUS Unless otherwise specified, Testing Performed by: [address] [address] For Inquires, the Physician may contact the Microbiology department at [phone] Objective: Assessment: 1. Right large cavitary lung lesion. 9 cm cavitary lesion in the right lung CT chest revealed no pulmonary emboli . Differential could be infectious versus noninfectious. Cult Staph aureus 2. History of recent pneumonia, treated with antibiotics with Zosyn and Levaquin. The patient was discharged from [facility] on 07/29/2020. She completed her antibiotics with IV Zosyn followed by Levaquin per chart review. She is on steroids. 3. Diabetes mellitus. 4. Atrial fibrillation. 5. Chronic obstructive pulmonary disease. 6. Smoker. 7. History of rheumatoid arthritis. On Plaquenil and methotrexate. On steroids prior to admission She denies any history of being on TNF alpha blockers in the past till date 8. Chronic kidney disease. 9. Ulcerative colitis with chronic diarrhea. 10. Anemia. 11. Leukocytosis, on steroids. 12. Mild lactic acidosis. 13. History of ALLERGIES TO PENICILLIN AND CEFTRIAXONE. The patient has tolerated Zosyn and Augmentin well in the past. Plan: Plan of Care IV Vanco per pharmacy Continue Zosyn Monitor renal functions closely Follow-up sputum staph aureus, per micro SABI is still pending at this time [facility] today BILLY HODGES MD Aug 21, 2020 08:25
[2020-08-21 08:26] LABS: CREATININE 1.1 mg/dL (0.6-1.0); GFR 48.7
[2020-08-21] MEDS: PSYLLIUM HUSK (SUGAR FREE) 1 PKT PACKET PO SCH (08:35)
[2020-08-21] MEDS: MESALAMINE PO SCH ×2 (08:35→21:00)
[2020-08-21 10:51] VITALS: BP 118/38
[2020-08-21] MEDS: ANTI-COAG MONITOR BY PHARMACY. MC PRN (12:14)
[2020-08-21] MEDS: VANCOMYCIN PER PHARMACY MC PRN (12:15)
[2020-08-21] MEDS ORDERED: LINE600T12 PO (12:20)
[2020-08-21] MEDS ORDERED: AMOX1TAB10 PO (12:20)
--- NOTE | 2020-08-21 12:22 | DISCH ---
DISCHARGE INSTRUCTIONS Condition on Discharge Condition on Discharge: Stable Activity After Discharge Activity Instructions for Disc: Resume previous activity, Other, see below Bathing Instructions: No Tub Bath until see Lifting Instructions after Dis: No heavy lifting, No pulling or pushing, Do not lift >10 pounds Driving Instructions after Dis: Do not drive Weight Bearing Status after Di: No restrictions Diet after Discharge Diet after Discharge: Regular Wound Incision Care Wound/Incision Care: Other, see below Contacting the DRDevin after DC Call your doctor for: If your condition worsens SWAPNIL MARIN MD Aug 21, 2020 12:22
--- NOTE | 2020-08-21 12:30 | PDOC ---
GENERAL General: Discharge summary [id number] VITAL SIGNS Vital Signs/I&O: Vital Signs Date Time Temp Pulse Resp B/P (MAP) Pulse Ox O2 Delivery O2 Flow Rate FiO2 08/21/20 11:29 Nasal Cannula 3.0 08/21/20 10:51 98.6 80 21 118/38 (64) 97 98.6 I & O 08/20/20 08/20/20 08/21/20 15:00 23:00 07:00 Intake Total 350 ml 300 ml 470 ml Output Total 350 ml 200 ml 400 ml Balance 0 ml 100 ml 70 ml ALLERGIES Allergies: Allergies Coded Allergies Type Severity Reaction Last Updated Verified Penicillins Allergy Intermediate 08/20/20 Yes ceftriaxone Allergy Intermediate Rash 01/18/18 Yes varenicline Allergy Intermediate Rash 01/18/18 Yes methocarbamol Adverse Reaction Intermediate Nausea 01/18/18 Yes MEDS Medications: Current Medications Medications (Trade) Dose Ordered Sig/Josefina Route PRN Reason Start Time Stop Time Status Last Admin Dose Admin Potassium Chloride (Klor-Con) 40 meq 1X ONCE PO 08/20/20 15:00 08/20/20 15:01 DC 08/20/20 14:45 LAB Lab: Laboratory Tests Test 08/20/20 17:15 08/20/20 21:06 08/21/20 06:46 08/21/20 07:35 Glucose (Fingerstick) 260 mg/dL (70-99) H 147 mg/dL (70-99) H 101 mg/dL (70-99) H Creatinine 1.1 mg/dL (0.6-1.0) H Estimated GFR (Cockcroft-Gault) 48.7 Test 08/21/20 11:11 Glucose (Fingerstick) 235 mg/dL (70-99) H Laboratory Tests 08/21/20 06:46 Justifications for Admission Other Justification SWAPNIL MARIN MD Aug 21, 2020 12:29
--- NOTE | 2020-08-21 12:57 | DS ---
DATE OF DISCHARGE: HOSPITAL COURSE: This patient is a 75-year-old woman who is a continuity outpatient of Dr. Orin Ratliff who uses the [facility] hospitalist here at [facility]. I am rounding for them this weekend. The patient was admitted 5 days ago with shortness of breath and cough in the setting of chronic COPD and recent hospitalization for pneumonia. She has been found to have a 9 cm thick wall cavitary mass in the right lung with sputum cultures positive for methicillin-resistant Staph aureus. She was seen by Pulmonary and Infectious Diseases here and their assistance is appreciated. The patient is extremely eager for discharge and it looks like they have been able to create a plan today to get her home in the care of her and daughter with whom she lives. She tells me that she is mostly in her bedroom all day because of her chronic colitis, but she loves being at home and feels safe there and wants to go home. Unfortunately, she does continue to smoke. We will need to ensure that she stays tobacco free for healing and also safety with use of oxygen on discharge. She has required 2 liters of oxygen to keep her oxygen saturation up over 90%. We are assessing her for home oxygen and she is agreeable to using it if she absolutely has to. The patient denies any new specific constitutional symptoms today and all other systems reviewed and negative. PHYSICAL EXAMINATION: VITAL SIGNS: Reviewed since the last 24 hours and notable for that the patient has been afebrile, blood pressure has been in the one-teens/50s, heart rate is in the 60s-80s and regular. She is breathing comfortably and saturating 98% on 3 liters. GENERAL: The patient is a somewhat cranky 75-year-old woman, alert and oriented x 3, in no acute distress other than extremely eager to discharge home. HEENT: Unremarkable. NECK: Soft and supple. No adenopathy or thyromegaly noted. CHEST: Bilateral equal air entry, though diminished throughout. No crackles or wheezes are noted. HEART: S1, S2 normal. Regular rate and rhythm. No murmurs or gallops are noted. ABDOMEN: Soft, nontender, nondistended. No masses or organomegaly noted. EXTREMITIES: Notable for 2+ bipedal edema. NEUROLOGIC: She is weak throughout, which is her baseline. Greater than 30 minutes were spent on coordinating this discharge with greater than 50% in counseling and coordination of care, most of which in discussion with the patient and nursing. FINAL DIAGNOSES: 1. A 9 cm mass in her right middle lobe that has a thick wall and cavitation. It is unclear from review of this admission whether the patient had ruled out for tuberculosis on her prior assessments. She was not ruled out here. She does have a sputum culture that is positive for MRSA. No other intervention has been done. She plans on following with our infectious disease team as well as pulmonary team. 2. Chronic multimorbidity, otherwise as outlined in the history and physical. SWAPNIL MARIN MD DR: VIPIN/jasmyne JOB#: [id number] / [id number] BILLY Mac MD, AMAN MD YOAKAM, JESSICA
[2020-08-21] MEDS ORDERED: VANCOMYCIN 1.25 GM in IV NORMAL SALINE 250ML 250 ML IV SCH (13:00)
[2020-08-21 14:49] VITALS: BP 126/55
[2020-08-21] MEDS: RIVAROXABAN 10 MG TABLET. PO SCH (17:28)
[2020-08-21 19:00] VITALS: BP 131/44
[2020-08-21] MEDS: ATORVASTATIN CALCIUM 40 MG TABLET. PO SCH (20:59)
[2020-08-21] MEDS: INSULIN GLARGINE SYRINGE. SQ SCH (21:22)
[2020-08-21 23:21] VITALS: BP 135/62
[2020-08-22] MEDS: HYDROmorphone 2 MG TABLET PO PRN (00:32)
[2020-08-22 03:05] VITALS: BP 144/63
[2020-08-22] MEDS: PIPERACILLIN/TAZOBACTAM 3.375 GM in IV NORMAL SALINE 50ML 50 ML IV SCH ×2 (05:51→12:00)
[2020-08-22 07:00] VITALS: BP 150/73
[2020-08-22] MEDS: INSULIN LISPRO 300 UNITS/3 ML VIAL. SQ SCH ×4 (07:30→12:00)
[2020-08-22] MEDS: BUDESONIDE 0.5 MG/2 ML NEBU. NEB SCH (07:55)
[2020-08-22] MEDS: ALBUTEROL SULFATE 2.5 MG/3 ML NEBU. NEB SCH ×2 (07:55→11:45)
[2020-08-22] MEDS: VENLAFAXINE XR 37.5 MG CAP.ER.24H. PO SCH (08:36)
[2020-08-22] MEDS: FOLIC ACID 1 MG TABLET. PO SCH (08:36)
[2020-08-22] MEDS: MULTIVITAMIN with MINERAL TABLET. PO SCH (08:36)
[2020-08-22] MEDS: EZETIMIBE 10 MG TABLET. PO SCH (08:36)
[2020-08-22] MEDS: GABAPENTIN 300 MG CAPSULE. PO SCH (08:36)
[2020-08-22] MEDS: HYDROXYCHLOROQUINE 200 MG TABLET PO SCH (08:36)
[2020-08-22] MEDS: PANTOPRAZOLE 40 MG TABLET.DR. PO SCH (08:36)
[2020-08-22] MEDS: POTASSIUM CHLORIDE 20 MEQ TABLET.ER. PO SCH (08:36)
[2020-08-22] MEDS: FERROUS SULFATE 325 MG TABLET. PO SCH (08:36)
[2020-08-22] MEDS: predniSONE 10 MG TABLET PO SCH (08:37)
[2020-08-22] MEDS: CHOLECALCIFEROL (VITAMIN D3) 1,000 UNIT TABLET PO SCH (08:37)
[2020-08-22] MEDS: HYDROcodone/APAP 7.5/325MG 1 TAB TABLET PO PRN (08:43)
[2020-08-22] MEDS: MESALAMINE PO SCH (08:58)
[2020-08-22] MEDS: PSYLLIUM HUSK (SUGAR FREE) 1 PKT PACKET PO SCH (08:59)
--- NOTE | 2020-08-22 09:41 | PDOC ---
GENERAL General: Patient examined chart reviewed she was held overnight because she felt weak and her discharge needs could not be coordinated yesterday afternoon. She has qualified for 2 L of oxygen continuously and is agreeable to using that at home. I have spoken with nursing and that will be arranged for this morning. Her family is ready to pick her up. She has her daughter and living with her and they are quite helpful. She has not done well with physical therapy or occupational therapy in the past and does not have a need for home health nursing. She will follow closely with her primary care doctor, infectious diseases, and pulmonary. Prescriptions have been written. Problems: (1) Lung abscess VITAL SIGNS Vital Signs/I&O: Vital Signs Date Time Temp Pulse Resp B/P (MAP) Pulse Ox O2 Delivery O2 Flow Rate FiO2 08/22/20 08:37 85 08/22/20 08:00 97 Nasal Cannula 3.0 08/22/20 07:00 100.7 18 150/73 (98) 100.7 I & O 08/21/20 08/21/20 08/22/20 15:00 23:00 07:00 Intake Total 700 ml 1050 ml Output Total 600 ml Balance 700 ml 1050 ml -600 ml In general the patient is in good spirits this morning pleasant alert and oriented x3 no acute distress HEENT exam is unremarkable Chest bilateral equal air entry though diminished throughout inspiratory and expiratory crackles at the bilateral bases Heart S1-S2 normal regular rate and rhythm no murmurs or gallops are noted Abdomen soft nontender nondistended no masses organomegaly noted Extremity exam is unremarkable for acute abnormality ALLERGIES Allergies: Allergies Coded Allergies Type Severity Reaction Last Updated Verified Penicillins Allergy Intermediate 08/20/20 Yes ceftriaxone Allergy Intermediate Rash 01/18/18 Yes varenicline Allergy Intermediate Rash 01/18/18 Yes methocarbamol Adverse Reaction Intermediate Nausea 01/18/18 Yes MEDS Medications: Current Medications Medications (Trade) Dose Ordered Sig/Josefina Route PRN Reason Start Time Stop Time Status Last Admin Dose Admin Vancomycin HCl 1.25 gm/Sodium Chloride 250 ml @ 167 mls/hr Q24H IV 08/21/20 13:00 08/21/20 13:55 LAB Lab: Laboratory Tests Test 08/21/20 11:11 08/21/20 16:05 08/21/20 21:09 08/22/20 07:15 Glucose (Fingerstick) 235 mg/dL (70-99) H 321 mg/dL (70-99) H 133 mg/dL (70-99) H 105 mg/dL (70-99) H ASSESSMENT & PLAN A&P Plan as noted above This note was created using [employer] and may have omissions and/or errors due to the nature of real-time voice cardboard cutter. Justifications for Admission Other Justification SWAPNIL MARIN MD Aug 22, 2020 09:41
--- NOTE | 2020-08-22 09:43 | PDOC ---
Infectious Disease Note Subjective: Subjective Patient without complaints had fever T-max 100.7 Afebrile this morning Insisting on discharge home today Vital Signs: Vital Signs Vital Signs Date Time Temp Pulse Resp B/P (MAP) Pulse Ox O2 Delivery O2 Flow Rate FiO2 08/22/20 08:37 85 08/22/20 08:00 97 Nasal Cannula 3.0 08/22/20 07:00 100.7 18 150/73 (98) 100.7 Physical Exam: PHYSICAL EXAM GENERAL: Alert, oriented x 3 female, nontoxic appearing, eating breakfast, in no acute distress. On room air HEENT: Normocephalic, atraumatic, anicteric, edentulous. No thrush. NECK: Supple, no JVD, no lymphadenopathy. LUNGS: Clear bilaterally. No wheezing. No accessory muscle use. HEART: S1, S2. No gallops or murmurs. ABDOMEN: Soft, obese. Bowel sounds present, nontender, nondistended. No masses felt. EXTREMITIES: No edema, no cyanosis. DERMATOLOGIC: Warm, dry. No generalized rash. NEUROLOGIC: Alert and oriented x 3, grossly nonfocal. PSYCHIATRIC: Cooperative. Grossly nonfocal. Medications: Inpatient Meds: Current Medications Medications (Trade) Dose Ordered Sig/Josefina Start Time Stop Time Status Last Admin Dose Admin Acetaminophen/ Hydrocodone Bitart (Lortab 7.5/325) 1 tab PRN Q6HRS PRN 08/17/20 10:45 08/22/20 08:43 1 TAB Albuterol Sulfate (Ventolin Neb Soln) 2.5 mg PRN Q4HRS PRN 08/17/20 10:48 Atorvastatin Calcium (Lipitor) 80 mg QHS 08/17/20 21:00 08/21/20 20:59 80 MG Budesonide (Pulmicort) 0.5 mg RTBID 08/17/20 11:00 08/22/20 07:55 0.5 MG Dextrose (Dextrose 50%-Water Syringe) 12.5 gm PRN Q15MIN PRN 08/17/20 12:00 UNV Diclofenac Sodium (Voltaren) 1 stacy PRN BID PRN 08/17/20 10:45 Diltiazem HCl (Cardizem 24hr Cd) 180 mg DAILY 08/17/20 11:00 08/22/20 08:37 180 MG EZETIMIBE (Zetia) 10 mg DAILY 08/17/20 11:00 08/22/20 08:36 10 MG Ferrous Sulfate (Feosol) 325 mg DAILY 08/17/20 11:00 08/22/20 08:36 325 MG Folic Acid (Folic Acid) 1 mg DAILY 08/17/20 11:00 08/22/20 08:36 1 MG Gabapentin (Neurontin) 600 mg BID 08/17/20 11:00 08/22/20 08:36 600 MG Guaifenesin/ Codeine Phosphate (Robitussin Ac) 5 ml PRN Q6HRS PRN 08/17/20 22:45 08/20/20 05:24 5 ML Hydromorphone HCl (Dilaudid) 2 mg PRN TID PRN 08/17/20 10:45 08/22/20 00:32 2 MG Hydroxychloroquine Sulfate (Plaquenil) 200 mg BID 08/17/20 11:00 08/22/20 08:36 200 MG Info (Anti-Coagulation Monitoring By Pharmacy) 1 each PRN DAILY PRN 08/18/20 08:15 08/21/20 12:14 1 EACH Insulin Glargine (Lantus Syringe) 20 unit QHS 08/17/20 21:00 08/21/20 21:22 20 UNIT Insulin Human Lispro (HumaLOG) 13 units TIDWMEALS 08/18/20 08:15 08/22/20 08:52 8 UNITS Insulin Human Regular 100 unit/ Sodium Chloride 101 ml @ 0 mls/hr CONT PRN 08/17/20 07:15 08/17/20 07:11 2.9 MLS/HR Multivitamins (Thera M Plus) 1 tab DAILY 08/17/20 11:00 08/22/20 08:36 1 TAB Non-Formulary Medication (Mesalamine (Apriso)) 2 cap BID 08/17/20 21:00 UNV Pantoprazole Sodium (Protonix) 40 mg DAILYAC 08/17/20 11:00 08/22/20 08:36 40 MG Piperacillin Sod/ Tazobactam Sod 3.375 gm/Sodium Chloride 50 ml @ 100 mls/hr Q6HRS 08/17/20 12:00 08/22/20 05:51 100 MLS/HR Potassium Chloride (Klor-Con) 40 meq 1X ONCE 08/20/20 15:00 08/20/20 15:01 DC 08/20/20 14:45 40 MEQ Prednisone (Prednisone) 10 mg DAILY 08/17/20 11:00 08/22/20 08:37 10 MG Psyllium Hydrophilic Mucilloid (Metamucil Fiber Packet) 1 pkt DAILY 08/17/20 11:00 08/20/20 10:30 1 PKT Rivaroxaban (Xarelto) 20 mg DAILYWSUP 08/17/20 17:00 08/21/20 17:28 20 MG Torsemide (Demadex) 10 mg QMWF 08/18/20 16:00 08/20/20 16:52 10 MG Vancomycin HCl (Vanco Per Pharmacy) 1 each PRN DAILY PRN 08/20/20 11:00 08/21/20 12:15 1 EACH Vancomycin HCl (Vancomycin Trough Level) 1 each 1X ONCE 08/22/20 12:30 08/22/20 12:31 Vancomycin HCl 1.25 gm/Sodium Chloride 250 ml @ 167 mls/hr Q24H 08/21/20 13:00 08/21/20 13:55 167 MLS/HR Vancomycin HCl 1 gm/Sodium Chloride 250 ml @ 250 mls/hr 1X ONCE 08/17/20 09:00 08/17/20 09:59 DC 08/17/20 08:25 250 MLS/HR Vancomycin HCl 2 gm/Sodium Chloride 500 ml @ 250 mls/hr 1X ONCE 08/20/20 11:30 08/20/20 13:29 DC 08/20/20 12:48 250 MLS/HR Venlafaxine HCl (Effexor Xr) 75 mg DAILY 08/17/20 11:00 08/22/20 08:36 75 MG Vitamin A/Vitamin D (Vitamin A & D Ointment) 1 stacy PRN Q1HR PRN 08/17/20 09:15 Vitamin D (Vitamin D3) 1,000 unit DAILY 08/17/20 11:00 08/22/20 08:37 1,000 UNIT Labs: Lab Laboratory Tests Test 08/21/20 11:11 08/21/20 16:05 08/21/20 21:09 08/22/20 07:15 Glucose (Fingerstick) 235 mg/dL (70-99) 321 mg/dL (70-99) 133 mg/dL (70-99) 105 mg/dL (70-99) Micro RUN DATE: 08/21/20 [facility] *LIVE* PAGE 1 RUN TIME: 1041 Specimen Inquiry --- --------- PATIENT: GLADYS BENTLEY ACCT: [id number] LOC: [address] [place] [address] U: [id number] AGE/SX: 75/F ROOM: 208 RE08/17/[address]: BINDU MARTINEZ MD : 1945 BED: 1 DIS: STATUS: ADM IN TLOC: SPEC #: [id number] CRISTINA: 08/18/20-0 STATUS: COMP REQ #: [id number] RECD: 08/18/20-[address]: BILLY HODGES MD SOURCE: SPUTUM ENTR: 08/18/20-[address]: KOTA HODGES MD SPDESC: INDUCED BINDU MARTINEZ MD, AMAN U MD YOAKAM, JESSICA D ORDERED: RESP CULTURE COMMENTS: Has specimen been collected/obtained? Y Procedure Result GRAM STAIN EVALUATION Final Final GRAM POSITIVE RODS:MODERATE GRAM POSITIVE COCCI:MANY SQUAMOUS EPI CELL:FEW PMN (WBCs):MANY YEAST:FEW Unless otherwise specified, Testing Performed by: [address] [address] For Inquires, the Physician may contact the Microbiology department at [phone] RESPIRATORY CULTURE Final Final MANY GRAM POSITIVE COCCI on 08/19/20 at 0852 FINAL ID= [STAPHYLOCOCCUS AUREUS (MRSA)] STAPHYLOCOCCUS AUREUS (MRSA) ANTIMICROBIAL SUSCEPTIBILITY Final Comment POS SABI TYPE 38 STAPHYLOCOCCUS AUREUS (MRSA) ANTIBIOTIC RESULT INTERPRETATION AZITHROMYCIN >4 R CLINDAMYCIN <=0.25 S CEFOXITIN SCREEN >4 POS CIPROFLOXACIN <=1 S CEFTAROLINE 1 S ERYTHROMYCIN >4 R GENTAMICIN <=4 S INDUCIBLE CLINDAMYCIN <=4/0.5 NEG LINEZOLID 2 S LEVOFLOXACIN <=1 S OXACILLIN >2 R PENICILLIN >2 R* RUN DATE: 08/21/20 [facility] *LIVE* PAGE 2 RUN TIME: 1041 Specimen Inquiry SPEC: [id number] PATIENT: GLADYS BENTLEY [id number] (Continued) Procedure Result CONTINUED ON NEXT PAGE RUN DATE: 08/21/20 [facility] *LIVE* PAGE 3 RUN TIME: 1041 Specimen Inquiry SPEC: [id number] PATIENT: GLADYS BENTLEY [id number] (Continued) Procedure Result ANTIMICROBIAL SUSCEPTIBILITY Final (continued) RIFAMPIN <=1 S TRIMETHOPRIM/SULFAMETHOXAZOLE <=0.5/9.5 S TETRACYCLINE <=4 S VANCOMYCIN 1 S Unless otherwise specified, Testing Performed by: [address] [address] For Inquires, the Physician may contact the Microbiology department at [phone] Objective: Assessment: 1. Right large cavitary lung lesion. 9 cm cavitary lesion in the right lung CT chest revealed no pulmonary emboli . Differential could be infectious versus noninfectious. Cult MRSA 2. History of recent pneumonia, treated with antibiotics with Zosyn and Levaquin. The patient was discharged from [facility] on 07/29/2020. She completed her antibiotics with IV Zosyn followed by Levaquin per chart review. She is on steroids. 3. Diabetes mellitus. 4. Atrial fibrillation. 5. Chronic obstructive pulmonary disease. 6. Smoker. 7. History of rheumatoid arthritis. On Plaquenil and methotrexate. On steroids prior to admission She denies any history of being on TNF alpha blockers in the past till date 8. Chronic kidney disease. 9. Ulcerative colitis with chronic diarrhea. 10. Anemia. 11. Leukocytosis, on steroids. 12. Mild lactic acidosis. 13. History of ALLERGIES TO PENICILLIN AND CEFTRIAXONE. The patient has tolerated Zosyn and Augmentin well in the past. Plan: Plan of Care DC vancomycin Start Zyvox, side effects discussed Patient was advised to stay overnight for observation She is insisting for discharge home today Pros and cons discussed with the patient Augmentin for discharge Labs CBC ,before appointment to see us on September 02, 2020 Discussed with BILLY BEAR MD Aug 22, 2020 09:43
[2020-08-22] MEDS ORDERED: LINEZOLID 600 MG TABLET PO SCH (10:30)
[2020-08-22 10:47] VITALS: BP 119/56
[2020-08-22 11:59] LABS: BASO % 0 % (0-3); EOS # 0.2 x10^3/uL (0.0-0.7); EOS % 1 % (0-3); HEMATOCRIT 29.2 % (36.0-47.0); LYMPH # 0.4 x10^3/uL (1.0-4.8); LYMPH % 2 % (24-48); MEAN CORPUSCULAR HEMOGLOBIN 28 pg (25-35); MEAN CORPUSCULAR HGB CONC 34 g/dL (31-37); MEAN CORPUSCULAR VOLUME 82 fL (79-100); MONO # 0.9 x10^3/uL (0.0-1.1); MONO % 5 % (0-9); NEUT # 16.6 x10^3/uL (1.8-7.7); NEUT % 91 % (31-73); PLATELET COUNT 172 x10^3/uL (140-400); RED BLOOD COUNT 3.57 x10^6/uL (3.50-5.40); RED CELL DISTRIBUTION WIDTH 15.2 % (11.5-14.5); WHITE BLOOD COUNT 18.2 x10^3/uL (4.0-11.0)
[2020-08-22 12:20] LABS: ALBUMIN 2.3 g/dL (3.4-5.0); ALBUMIN/GLOBULIN RATIO 0.7 (1.0-1.7); CALCIUM 8.4 mg/dL (8.5-10.1); CREATININE 1.1 mg/dL (0.6-1.0); GFR 48.7; POTASSIUM 4.2 mmol/L (3.5-5.1); TOTAL BILIRUBIN 0.6 mg/dL (0.2-1.0); TOTAL PROTEIN 5.7 g/dL (6.4-8.2)
--- NOTE | 2020-08-22 12:22 | NUR ---
Discharge: Teaching verbal and written. Reviewed medications, follow-up, DM, Diabetic diet, pneumonia, smoking cessation, oxygen, ect. Patient and verbalized understanding. Home oxygen set up by nursing gas distribution supervisor. Oxygen tank given to patient. All belongings with patient. Wound Photos taken.
--- NOTE | 2020-08-22 12:41 | NUR ---
Discharge: Patient assisted off of unit via wheelchair accompanied by RN
--- NOTE | 2020-08-22 14:54 | NUR ---
Discharge Note: GLADYS BENTLEY Discharge instructions and discharge home medications reviewed with Patient and a copy given. All questions have been answered and understanding verbalized. The following instructions and handouts were given: DC done by EVIN James Discontinued lines and drains: IV removed. No lines present at discharge. Patient discharged to home. left by wheelchair to her husbands private vehicle.
[2020-09-21] MEDS ORDERED: ERTA1VIA16 IJ (15:25)
== END 2020-08-22 12:42 | disposition home or self-care (01) | DRG 178 ==
LOC: 2 NORTH 03:21
PROVIDERS: ADMIT Family Medicine; ATTEND Family Medicine
DX: J85.2 Abscess of lung without pneumonia (principal); E87.2 Acidosis; K51.90 Ulcerative colitis, unspecified, without complications; J98.4 Other disorders of lung; R91.1 Solitary pulmonary nodule; R91.8 Other nonspecific abnormal finding of lung field; F41.9 Anxiety disorder, unspecified; G89.29 Other chronic pain; M06.9 Rheumatoid arthritis, unspecified; I48.91 Unspecified atrial fibrillation; I12.9 Hypertensive chronic kidney disease with stage 1 through stage 4 chronic kidney disease, or unspecified chronic kidney disease; N18.9 Chronic kidney disease, unspecified; E11.22 Type 2 diabetes mellitus with diabetic chronic kidney disease; D64.9 Anemia, unspecified; E11.65 Type 2 diabetes mellitus with hyperglycemia; D72.829 Elevated white blood cell count, unspecified; B95.62 Methicillin resistant Staphylococcus aureus infection as the cause of diseases classified elsewhere; J44.9 Chronic obstructive pulmonary disease, unspecified; Z79.52 Long term (current) use of systemic steroids; Z90.710 Acquired absence of both cervix and uterus; Z90.722 Acquired absence of ovaries, bilateral; Z98.42 Cataract extraction status, left eye; Z98.41 Cataract extraction status, right eye; Z87.891 Personal history of nicotine dependence; Z87.01 Personal history of pneumonia (recurrent); Z88.0 Allergy status to penicillin; Z88.8 Allergy status to other drugs, medicaments and biological substances; Z83.3 Family history of diabetes mellitus; Z82.49 Family history of ischemic heart disease and other diseases of the circulatory system
CPT/HCPCS: 36415; 80048; 80053; 82565; 82962; 83605; 83735; 85007; 85025; 87070; 87205; 87449; 94618; 94640; 94760; J1815; J2543; J3370; J7040; J7050; J7512; G0378; J7030; J7613; J7626

== ENCOUNTER → 2020-12-17 | Outpatient (CLI) | payer MEDICARE, OTHER ==
[2020-09-21 15:00] VITALS: BP 123/47
[~2020-12-17] MED LIST changes: +ALBU2.5V5 NEB; +AMOX1TAB10 PO; +BUDE0.25 NEB; +DILT180C29 PO; +ERTA1VIA16 IJ; +FERR325T72 PO; +FOLI0.4T5 PO; +GADOTERATE 5 MMOL/10ML VIAL. IVP ONE; +GUAI120L35 PO; +HYDR200T5 PO; +HYDR2TAB31 PO; +LINE600T12 PO; +MESA0.372 PO; +METH2.5T PO; +MULT-245 PO; +PRED-220 PO; +PSYL0.5215 PO; +TORS10TA3 PO; +lantus SQ; +novolo SQ
--- NOTE | 2020-12-17 17:38 | KCIC ---
MRI of the Brain/Pituitary Gland without and with Contrast 12/17/2020 Clinical History: Secondary adrenal insufficiency. Technique: Unenhanced T1-weighted sagittal and axial and FLAIR, T2-weighted, gradient echo and diffus ion-weighted axial images of the brain were obtained. Thin section T1-weighted sagittal and coronal a nd T2 weighted coronal images through the pituitary gland were obtained. After the intravenous admini stration of 16 cc of Clariscan, enhanced T1-weighted axial and coronal images of the brain were obtai guille. Thin section T1-weighted axial and coronal and dynamic enhanced T1-weighted coronal images throu gh the pituitary gland were obtained Findings: Comparison is made to the patient's CT scan of the head dated 07/26/2020 . Images from the study are degraded by patient motion. There is generalized parenchymal atrophy. Patchy and several small scattered areas of increased signa l intensity are seen within the periventricular and subcortical white matter of both cerebral hemisph eres along with the kyle on the FLAIR and T2-weighted images consistent with areas of small vessel is chemic disease. No acute parenchymal abnormality is seen. No extra-axial fluid collection is noted. No area of abnorm al contrast enhancement is seen. There is no MRI evidence of acute ischemia/infarction. Images through the pituitary gland are degraded by patient motion. Normal homogeneous enhancement of the pituitary gland is seen. There is no evidence of a pituitary microadenoma or macroadenoma. Mild mucosal thickening is seen scattered throughout the paranasal sinuses. Normal flow voids are see n within the major vascular structures surrounding the brain parenchyma. IMPRESSION: 1. No acute parenchymal abnormality is seen. 2. There is no MRI evidence of a pituitary microadenoma or macroadenoma. Electronically signed by: Moody Cedeno MD (12/17/2020 5:36 PM) [place] [id number]
== END ==
LOC: KCIC MRI 13:47
PROVIDERS: ATTEND Internal Medicine Endocrinology, Diabetes & Metabolism
DX: G31.89 Other specified degenerative diseases of nervous system (principal); J34.89 Other specified disorders of nose and nasal sinuses; E27.49 Other adrenocortical insufficiency; R79.89 Other specified abnormal findings of blood chemistry
CPT/HCPCS: 70553; A9575

== ENCOUNTER 2020-12-26 02:52 | Inpatient (IN) | payer MEDICARE, OTHER ==
[~2020-12-26] VITALS: Ht 167.6 cm; Wt 78.9 kg
[2020-12-26] VITALS (25 sets, daily range): BP systolic 74–121; BP diastolic 48–78
[~2020-12-26 02:52] MED LIST changes: -GADOTERATE 5 MMOL/10ML VIAL. IVP ONE
--- NOTE | 2020-12-26 03:15 | NUR ---
Patient transfer from [facility] per EMS to room 111 at 0250; patient accompanied by EMT and Director Medical Science. Patient is sleepy but arouses easily to name--alert to self and year only, unable to state where she is or why she was transferred, patient then falls asleep immediately after answering questions. Patient reports having pain bilat LE with any touch or movement but states pain is resolved immediately. Patient's bilat LE from knee to toes edematous +3 with dark pink/reddened skin and wounds to left knee, left lateral lower knee and right upper lateral calf (see wound assessment), family reported to ED RN patient has been recieving Vancomycin 1.5MG IV for Cellulites in bilat LE. #16 Cuban Crawford inserted using sterile technique with immediate return of 400cc cloudy yellow urine--patient had been given 40MG Lasix at [facility] ED prior to transfer. Patient unable to answer all questions--admission questions/information obtained from [facility] records and from previous admissions at [facility]. See admission information and assessemtn to follow.
--- NOTE | 2020-12-26 04:25 | NUR ---
Called Dr Duran, notified of transfer and need for admit orders. Discussed patients overall condition, reviewed vital signs, CXR/CTA chest/CT head and lab results from [facility] and notified of antibiotics patient had received from home and other meds given in ED. Orders received to admit ICU, Full Code, pharmacy to dose vancomycin, consult Dr Reece for cellulites and start Merrem, repeat CBC, CMP and Mg this am, start IVF NS at 100CC/HR, robles to DD, Inslin order set with Low dose Insulin sliding scale AC, FSBS AC/HS, Protonix 40MG IVP daily and Levophed PRN SBP<90 or MAP <65, BR and ADA diet. See orders.
[2020-12-26] MEDS ORDERED: NOREPINEPHRINE VIAL 8 MG in IV DEXTROSE 5% 250 ML IV PRN (04:30)
[2020-12-26] MEDS ORDERED: IV NORMAL SALINE 1000ML BAG 1,000 ML IV SCH (04:30)
[2020-12-26] MEDS ORDERED: VANCOMYCIN PER PHARMACY MC PRN (04:30)
[2020-12-26] MEDS ORDERED: IV DEXTROSE 5% 250 ML BAG. IV PRN (05:00)
[2020-12-26 05:44] LABS: ALBUMIN 2.2 g/dL (3.4-5.0); ALBUMIN/GLOBULIN RATIO 0.7 (1.0-1.7); ALK PHOS 119 U/L (46-116); ALT (SGPT) 28 U/L (14-59); ANION GAP 8 (6-14); AST (SGOT) 23 U/L (15-37); BLOOD UREA NITROGEN 25 mg/dL (7-20); BUN/CREATININE RATIO 15 (6-20); CALCIUM 8.6 mg/dL (8.5-10.1); CARBON DIOXIDE 27 mmol/L (21-32); CHLORIDE 100 mmol/L (98-107); CREATININE 1.7 mg/dL (0.6-1.0); GFR 29.5; GLUCOSE 271 mg/dL (70-99); MAGNESIUM 1.2 mg/dL (1.8-2.4); POTASSIUM 4.2 mmol/L (3.5-5.1); SODIUM 135 mmol/L (136-145); TOTAL BILIRUBIN 0.6 mg/dL (0.2-1.0); TOTAL PROTEIN 5.5 g/dL (6.4-8.2); VANC TR 26.1 mcg/mL (10.0-20.0)
--- NOTE | 2020-12-26 06:05 | PDOC ---
Infectious Disease Note Vital Sign Vital Signs Vital Signs Date Time Temp Pulse Resp B/P (MAP) Pulse Ox O2 Delivery O2 Flow Rate FiO2 12/26/20 05:00 122 28 114/66 (82) 97 Nasal Cannula 2.0 12/26/20 03:00 100.0 100.0 Labs Lab Laboratory Tests Test 12/26/20 04:00 12/26/20 05:00 SARS-CoV-2 Antigen (Rapid) Negative (NEGATIVE) Sodium Level 135 mmol/L (136-145) Potassium Level 4.2 mmol/L (3.5-5.1) Chloride Level 100 mmol/L (98-107) Carbon Dioxide Level 27 mmol/L (21-32) Anion Gap 8 (6-14) Blood Urea Nitrogen 25 mg/dL (7-20) Creatinine 1.7 mg/dL (0.6-1.0) Estimated GFR (Cockcroft-Gault) 29.5 BUN/Creatinine Ratio 15 (6-20) Glucose Level 271 mg/dL (70-99) Calcium Level 8.6 mg/dL (8.5-10.1) Magnesium Level 1.2 mg/dL (1.8-2.4) Total Bilirubin 0.6 mg/dL (0.2-1.0) Aspartate Amino Transf (AST/SGOT) 23 U/L (15-37) Alanine Aminotransferase (ALT/SGPT) 28 U/L (14-59) Alkaline Phosphatase 119 U/L (46-116) Total Protein 5.5 g/dL (6.4-8.2) Albumin 2.2 g/dL (3.4-5.0) Albumin/Globulin Ratio 0.7 (1.0-1.7) Vancomycin Level Trough 26.1 mcg/mL (10.0-20.0) Vancomycin Last Dose Date 12/25/20 Vancomycin Last Dose Time 1200 Objective Assessment Fever LE cellulitis Abx allergies - has tolerated Zosyn/Augmentin Afib MAURICE ? esophagitis Immunosuppression with RA H/o Cavitary lesion - improved H/o MRSA/Entrobacter Plan Plan of Care S/p Levofloxacin and Dexamethasone Change to Zyvox/Meropenem/Micafungin D/c Vanc F/u labs and cults Elevation of leg Local wound care Esophagitis per priamry Contact isolation for h/o MRSA Reviewed [facility] notes and previous records D/w nursing 35 mins CC time Thank you # [phone] FRANCISCO JAVIER MEZA MD December 26, 2020 06:05
[2020-12-26] MEDS: MEROPENEM 500 MG in IV NORMAL SALINE 50ML 50 ML IV SCH ×4 (06:38→23:02)
[2020-12-26] MEDS: MICAFUNGIN 100 MG in IV DEXTROSE 5% 100ML 100 ML IV SCH (07:18)
[2020-12-26 07:52] LABS: BASO % 0 % (0-3); EOS % 0 % (0-3); HEMATOCRIT 28.7 % (36.0-47.0); HEMOGLOBIN 9.4 g/dL (12.0-15.5); LYMPH # 0.3 x10^3/uL (1.0-4.8); LYMPH % 2 % (24-48); MEAN CORPUSCULAR HEMOGLOBIN 30 pg (25-35); MEAN CORPUSCULAR HGB CONC 33 g/dL (31-37); MEAN CORPUSCULAR VOLUME 90 fL (79-100); MONO # 0.7 x10^3/uL (0.0-1.1); MONO % 4 % (0-9); NEUT # 15.2 x10^3/uL (1.8-7.7); NEUT % 94 % (31-73); PLATELET COUNT 192 x10^3/uL (140-400); RED BLOOD COUNT 3.18 x10^6/uL (3.50-5.40); WHITE BLOOD COUNT 16.2 x10^3/uL (4.0-11.0)
[2020-12-26] MEDS ORDERED: LOPE-101 PO (07:57)
[2020-12-26] MEDS ORDERED: EMPA25TA PO (07:57)
[2020-12-26] MEDS ORDERED: ESOM20CA PO (07:57)
[2020-12-26] MEDS ORDERED: guaiFENesin/CODEINE 100mg/10mg 5 ML LIQUID PO PRN (08:00)
[2020-12-26] MEDS ORDERED: HYDROcodone/APAP 7.5/325MG 1 TAB TABLET PO PRN (08:00)
[2020-12-26] MEDS ORDERED: ALBUTEROL SULFATE 2.5 MG/3 ML NEBU. NEB PRN (08:00)
--- NOTE | 2020-12-26 08:52 | HP ---
ADMIT DATE: 12/26/2020 HISTORY OF PRESENT ILLNESS: The patient is a 75-year-old female patient who presented to the emergency room of [facility] with altered mental status. She apparently has a PICC line and has been treated with vancomycin for bilateral lower extremity cellulitis and according to the family, they were taking her to the restroom and she seemed to be very confused and having trouble breathing; and therefore, she was brought to the emergency room of [facility] where she was extensively investigated, had had an EKG which she was in atrial fibrillation with rapid ventricular response. Her heart rate was 121 beats per minute with a normal QRS duration, corrected QT interval with no ST-segment elevation. She has had lab work, which was including a CBC, which was unremarkable. Her chemistry showed that she has elevated lactate dehydrogenase and alkaline phosphatase. Her first troponin was 0.103 and she has also impaired kidney function. Her blood gases were actually unremarkable. Urinalysis was also unremarkable; however, a CT scan of the head showed that there is marked diffuse atrophy. There is no mass effect, extraaxial fluid collection or hydrocephalus. There is no focal loss of ellis-white matter distinction to suggest acute ischemia. She did have a CT angio of the chest, which showed no pulmonary embolism. She has mild bilateral infiltrate with cavitation in the right lower lobe. This is significantly improved from generally previous exams and could be residual pneumonia or resolving pneumonia. She also had mild esophageal wall thickening and mild distention with fluid that appears similar to prior study and is likely due to esophagitis. The patient was basically treated with IV fluid, levofloxacin, dexamethasone and was transferred to [facility] with bilateral lower extremity cellulitis, pneumonia, acute kidney injury, elevated troponin and altered mental status. PAST MEDICAL HISTORY: Significant for atrial fibrillation, rate controlled, off anticoagulation. Her Xarelto was discontinued. She is known to have hyperlipidemia, chronic obstructive pulmonary disease, ulcerative colitis, rheumatoid arthritis, depression, had had a history of pulmonary abscess that was treated. PAST SURGICAL HISTORY: Significant for bilateral shoulder surgery, total abdominal hysterectomy, bilateral salpingo-oophorectomy. She has bilateral cataract extraction, esophagogastroduodenoscopy and colonoscopy. ALLERGIES: She has no known drug allergies. FAMILY HISTORY: Noncontributory. SOCIAL HISTORY: She is and lives with . Her children are grown up. One of the daughters lives with her and takes care of them. She is vaping; however, she does not drink alcohol or use any recreational drugs. MEDICATIONS: She is currently on the following medication: She is on hydroxychloroquine sulfate 200 mg twice a day, methotrexate 15-mg tablet once a week, albuterol sulfate 2.5 mg 3 mL by nebulizer every 4 hours, ferrous sulfate 325 mg once a day. She was on rivaroxaban 20 mg that was discontinued. Zetia 10 mg once a day, Crestor 40 mg once a day, diltiazem 180 mg once a day, diclofenac sodium 2 grams 4 times a day, apply topically as needed. She is on hydrocodone/APAP 7.5/325 one tablet every 6 hours, gabapentin 300 mg twice a day, venlafaxine 75 mg once a day, potassium chloride 20 mEq once a day, furosemide 10 mg once a day, guaifenesin/codeine phosphate 5 mL every 6 hours as needed, budesonide by nebulizer twice a day, Advair Diskus 250/50 one inhalation twice a day, psyllium husk 520-mg capsule once a day, Protonix 40 mg once a day, mesalamine for Apriso 0.375 grams 2 capsules twice a day, prednisone 10 mg once a day, folic acid 400 mcg once a day, cholecalciferol 1000 international units once a day, multivitamin one tablet once a day. REVIEW OF SYSTEMS: Unobtainable. The patient is very confused and disoriented. PHYSICAL EXAMINATION: GENERAL: On arrival to the emergency room, the patient was pale, but no jaundice, cyanosis, no lymphadenopathy, no thyromegaly, no jugular venous distention. She has bilateral lower limb edema. VITAL SIGNS: Her heart rate was 124, blood pressure was 102/36, temperature was 99.3, respiratory rate 24, and oxygen saturation was 95% on room air. HEENT: Examination of the head, eyes, ears, nose, and throat showed she is normocephalic, atraumatic. NECK: Supple. HEART: Normal first and second heart sounds. No gallop or murmur. CHEST: Clear to auscultation. No crepitation or rhonchi. ABDOMEN: Distended, soft, nontender. NEUROLOGIC: She is very confused, disoriented, but without any obvious lateralizing sign. All other cranial nerves intact. She moves extremities without difficulty. She is mostly bedbound. She has bilateral lower extremity cellulitis. LABORATORY DATA: On arrival to the emergency room showed a white cell count 10,900, hemoglobin 13, hematocrit 40, MCV 89 and platelet count of 181,000 with a manual differential that showed 96% polymorphs, 3% lymphocytes and 2% monocytes. Her blood gases showed a pH of 7.38, pCO2 of 43, pO2 of 117, bicarbonate 26 and oxygen saturation was 99% on FIO2 of 28%. Her chemistry showed a serum sodium 137, potassium 3.6, chloride 100, bicarbonate 26, anion gap of 11, BUN 23, creatinine 1.7. Estimated GFR was 29 mL per minute. Her glucose was 233. Lactic acid is 1.5, calcium was 9.3. total bilirubin, AST, ALT were normal. Alkaline phosphatase slightly elevated. Her lactate dehydrogenase was 311. Troponin 0.103. Total protein 6.5, albumin 2.7. Beta natriuretic peptide was 1911. Her urinalysis showed the urine was yellow, cloudy with a pH of 5.5, specific gravity of 1.010. There is small amount of protein, large amount of glucose. The urine was negative for ketones, blood, nitrite and leukocyte esterase. There are no bacteria. There are no rbc's or wbc's. Her chest x-ray showed the cardiomediastinal silhouette and pulmonary vessels are within normal limits. The lung and pleural spaces are clear. CT scan of the head showed that the patient has marked diffuse cerebral and cerebellar atrophy, no acute finding and CT angio of the chest showed that there is no pulmonary emboli, mild bilateral infiltrate with cavitation in the right lower lobe. This is significantly improved from previous examination with residual pneumonitis and/or resolving pneumonia or mild esophageal wall thickening and mild distention with fluid. This appears similar to prior study. ASSESSMENT AND PLAN: Basically, the patient was admitted to the ICU at [facility] with: 1. Altered mental status. 2. Bilateral lower extremity cellulitis. 3. Pneumonitis. 4. Acute kidney injury. 5. Elevated troponins. We will do two more sets of cardiac enzymes. We will consult infectious disease specialist as well as the design analyst and resume all other medications. We will monitor her blood sugar and adjust insulin as needed. STEFAN/LILA DR: STEFAN/jasmyne TID: [id number]
[2020-12-26] MEDS ORDERED: NON FORMULARY ITEM (Budesonide 1 VIAL) NEB SCH (09:00)
[2020-12-26] MEDS ORDERED: NON FORMULARY ITEM (Fluticasone/Salmeterol (Advair 250-50 Diskus) 1 INH) IH SCH (09:00)
[2020-12-26] MEDS: MESALAMINE PO SCH ×2 (09:00→20:42)
[2020-12-26] MEDS: ALBUTEROL SULFATE 2.5 MG/3 ML NEBU. NEB SCH ×4 (09:21→20:15)
[2020-12-26] MEDS: GABAPENTIN 300 MG CAPSULE. PO SCH ×2 (10:18→21:10)
[2020-12-26] MEDS: MULTIVITAMIN with MINERAL TABLET. PO SCH (10:18)
[2020-12-26] MEDS: POTASSIUM CHLORIDE 20 MEQ TABLET.ER. PO SCH (10:18)
[2020-12-26] MEDS: HYDROXYCHLOROQUINE 200 MG TABLET PO SCH ×2 (10:18→21:10)
[2020-12-26] MEDS: PANTOPRAZOLE IV PUSH 40 MG VIAL. IVP SCH (10:18)
[2020-12-26] MEDS: CHOLECALCIFEROL (VITAMIN D3) 1,000 UNIT TABLET PO SCH (10:19)
[2020-12-26] MEDS: EZETIMIBE 10 MG TABLET. PO SCH (10:19)
[2020-12-26] MEDS: PSYLLIUM HUSK (SUGAR FREE) 1 PKT PACKET PO SCH (10:19)
[2020-12-26] MEDS: VENLAFAXINE XR 37.5 MG CAP.ER.24H. PO SCH (10:19)
[2020-12-26] MEDS: FERROUS SULFATE 325 MG TABLET. PO SCH (10:19)
[2020-12-26] MEDS: FOLIC ACID 1 MG TABLET. PO SCH (10:20)
[2020-12-26] MEDS: INSULIN LISPRO 300 UNITS/3 ML VIAL. SQ SCH ×3 (10:45→19:22)
[2020-12-26 11:40] LABS: % BANDS 3 % (0-9); % LYMPHS 2 % (24-48); % MONOS 1 % (0-10); % SEGS 94 % (35-66)
[2020-12-26 11:41] LABS: ANISOCYTOSIS SLIGHT; PLT ESTIMATE ADEQUATE (ADEQUATE); POLYCHROMASIA SLIGHT
[2020-12-26] MEDS ORDERED: FUROSEMIDE 40 MG/4 ML VIAL. IVP ONE (11:45)
[2020-12-26] MEDS: METOPROLOL TART IMMED RELEASE 25 MG TABLET. PO SCH ×2 (11:53→21:10)
[2020-12-26] MEDS: BUDESONIDE 0.5 MG/2 ML NEBU. NEB SCH ×2 (12:13→20:15)
--- NOTE | 2020-12-26 12:18 | CONS ---
DATE OF CONSULTATION: 12/26/2020 INFECTIOUS DISEASE CONSULTATION LOCATION: The patient's room is ICU 11. REQUESTING PHYSICIAN: Dr. Duran. REASON FOR CONSULTATION: Cellulitis. HISTORY OF PRESENT ILLNESS: The patient is a 75-year-old female with a history of a cavitary lesion in her lung with a positive history of MRSA and bacterial cultures previously positive for Enterobacter. She has a history of renal disease as well as atrial fibrillation, diabetes as well as rheumatoid arthritis. She states that she has been at home for the past week and has been having increasing pain in her legs and back and recently started outpatient IV vancomycin at home prescribed by her primary care physician. She does have a PICC line in the right upper extremity. She states she has been getting this for several days, but she cannot quantify exactly how long. She at home states that she got weak and fell. She denies any fevers or chills or sweats. She denies any gross dizziness. She is uncertain if she had any urinary symptoms or not. She did not have any nausea, vomiting, constipation, diarrhea. She did bump her legs when she fell. She was brought to [facility], she had a white count of 10.9; however, she had 96 segs. Urinalysis was obtained and appeared to be clean. Creatinine was elevated at 1.7, alk phos was 167. Glucose was 233. She underwent a CT scan of her head without contrast, showed mild diffuse cerebral and cerebellar atrophy, but no acute findings. A CT of her chest showed mild bilateral infiltrates with cavitation in the right lower lobe, significantly improved from previous exams, could be residual pneumonitis or resolving pneumonia. She had a mild esophageal thickening, mild distention with fluid, possibly esophagitis. She was given doses of Levaquin and vancomycin and stabilized. She also received a dose of dexamethasone and she has been transferred to [facility]. Currently, she is lying in bed. She is fairly comfortable. PAST MEDICAL HISTORY: Positive for COPD, diabetes, atrial fibrillation, anemia, anxiety, rheumatoid arthritis, bronchitis, hypertension, history of pneumonia, chronic pain, history of CEA in 2018. She has chronic kidney disease, history of osteomyelitis, history of Enterobacter, history of MRSA, history of the cavitary lesion, history of previous cellulitis, inflammatory bowel disease. PAST SURGICAL HISTORY: Positive for previous bronchoscopies, right CEA, bilateral shoulder surgery, hysterectomy, oophorectomy, bilateral cataracts, EGD and colonoscopies. REVIEW OF SYSTEMS: Did have a loose stool previously, but she states this is normal for her as she has had inflammatory bowel disease. Review of systems otherwise negative. ALLERGIES: LISTED PENICILLIN AND CEFTRIAXONE. However, she has tolerated Zosyn and Augmentin, methocarbamol and various cyclines are also listed. SOCIAL HISTORY: History of smoking and vaping. No alcohol. Lives with her daughter and does have a small dog. FAMILY HISTORY: Noncontributory. CURRENT MEDICATIONS: Levophed as ordered, insulin, pantoprazole. She did receive the levofloxacin and dexamethasone at [facility]. She has been getting vancomycin at home in the outpatient setting. Also takes diltiazem, Lasix, loperamide, azithromycin, albuterol, Mysoline, the Zetia, also Advair, gabapentin, pantoprazole, venlafaxine, hydroxychloroquine, folic acid, methotrexate. PHYSICAL EXAMINATION: VITAL SIGNS: Temperature was 100 degrees, pulse 122, respirations 28, blood pressure 114/66, satting 97% on 2 liters. CONSTITUTIONAL: She is lying in bed. She is alert. She is cooperative. She is on oxygen. She is in no acute distress. HEENT: Pupils are status post cataract surgery. Oral cavity and pharynx are dry, but clear. NECK: Without JVD. No fullness. LUNGS: Decreased in the bases. HEART: S1, S2. Mild tachy. ABDOMEN: Obese, soft, no guarding, no rebound. GENITOURINARY: Has a Crawford in place. EXTREMITIES: No clubbing, cyanosis. She has 2-3+ lower extremity edema bilaterally, also has bilateral erythema on her legs in well described areas. She has a small wound on her left knee cap that appears to be clean. Lateral wounds on both legs appear consistent with previous bullae that have ruptured. EXTREMITIES: Legs are mildly warm, some tenderness. SKIN: Otherwise warm without generalized rash. NEUROLOGIC: She is nonfocal, moves all extremities. PSYCHIATRIC: Affect is appropriate. LABORATORY DATA: Reviewed in the history of present illness as well as radiology. IMPRESSION: 1. Fever. 2. Lower extremity cellulitis. 3. ANTIBIOTIC ALLERGIES, has tolerated Zosyn and Augmentin. 4. Atrial fibrillation. 5. Acute kidney injury. 6. Some questionable esophagitis. 7. Immunosuppression with rheumatoid arthritis. 8. History of ____ lesions that has improved. 9. History of methicillin-resistant Staphylococcus aureus, Enterobacter. RECOMMENDATIONS: She is status post levofloxacin and dexamethasone. She is getting vancomycin in the outpatient setting. We will change to meropenem, Zyvox and micafungin. We will discontinue the vancomycin. Follow up labs and cultures. She needs elevation, local wound care and esophagitis per primary and she needs contact isolation for history of MRSA. I did review Jamarcus's notes as well as previous records. This was discussed with nursing. I spent 35 minutes of critical care time. Thank you for allowing me to participate in the patient's care. Should you have any questions, please do not hesitate to contact me. SANJU/HEIDE DR: Carli TID: [id number]
--- NOTE | 2020-12-26 13:26 | RAD ---
EXAM: Bilateral lower extremity ultrasound CLINICAL HISTORY: Bilateral lower extremity swelling COMPARISON: None available. TECHNIQUE: Ultrasound evaluation of the bilateral lower extremities was performed from the groin to the upper ca lf with camacho scale, spectral and color doppler evaluation. FINDINGS: The bilateral common femoral and superficial femoral veins, including the saphenous-femoral junction, and left popliteal vein are normal in appearance. Color and spectral Doppler evaluation demonstrates normal spontaneous flow, augmentation and phasicity. Incomplete evaluation of the right popliteal ve in with no color-flow assessment due to patient pain, although the vein is compressible. Calf veins w ere not visualized due to subcutaneous edema. IMPRESSION: No evidence of deep venous thrombosis in the lower extremities. Limited evaluation of the right popli teal vein due to patient pain. Nonvisualized calf veins due to subcutaneous edema. Electronically signed by: Amy Jacobs MD (12/26/2020 1:24 PM) [id number]
--- NOTE | 2020-12-26 13:58 | CONS ---
DATE OF CONSULTATION: 12/26/2020 REASON FOR CONSULTATION: Elevated troponin. HISTORY OF PRESENT ILLNESS: The patient is a 75-year-old woman who has been admitted to the hospital for treatment of bilateral lower extremity cellulitis. When she was admitted to the hospital she was noted to have AFib with RVR. She has a history of atrial fibrillation with rapid ventricular response, but apparently her anticoagulation was discontinued recently. It is unclear why this was discontinued. The patient is currently somnolent and unresponsive, otherwise no significant cardiac history is reported. The patient does have significant lower extremity edema and apparently has been failing outpatient therapy with vancomycin. The ID service has been consulted and antibiotics are currently ongoing. PAST MEDICAL HISTORY: 1. Atrial fibrillation, off anticoagulation. 2. Hyperlipidemia. 3. COPD. 4. Ulcerative colitis. 5. Rheumatoid arthritis. 6. Depression. 7. History of pulmonary abscess. PAST SURGICAL HISTORY: Notable for bilateral shoulder surgery and total abdominal hysterectomy. ALLERGIES: No known drug allergies. FAMILY HISTORY: Noncontributory. SOCIAL HISTORY: Based on records, she appears to be , lives with her . She has a daughter who takes care of her. She does vape. MEDICATIONS: Current cardiovascular medications were as follows: 1. Atorvastatin 80 mg daily. 2. Zetia 10 mg daily. 3. Diltiazem 180 mg daily. REVIEW OF SYSTEMS: Unable to be obtained at this time. PHYSICAL EXAMINATION: VITAL SIGNS: Afebrile. Heart rate 104, blood pressure 99/63, respiratory rate 18, 97% on 2 liters nasal cannula. GENERAL: She is somnolent, but minimally arousable. HEAD AND NECK: Otherwise unremarkable. CARDIAC: Irregularly irregularly without any obvious murmur, rubs, or gallops. LUNGS: Notable for decreased breast sounds at the bases. ABDOMEN: Obese , protuberant, nontender, nondistended. EXTREMITIES: 3+ pitting edema with significant erythema from knee to the foot. DIAGNOSTIC STUDIES: Lower extremity ultrasound is pending. Recent brain MRI is unremarkable. LABORATORY STUDIES: Notable for an elevated while blood count and hemoglobin of 9.4. She has a prior history of anemia. Hemoglobin 6.8 this is likely why her anticoagulations were discontinued. Creatinine is elevated 1.7. IMPRESSION: 1. Acute on chronic diastolic heart failure. 2. Severe lower extremity cellulitis. 3. Elevated troponin likely stress induced. 4. Chronic atrial fibrillation, currently off anticoagulation due to recent anemia. RECOMMENDATIONS: Plan for initiation of low dose metoprolol therapy and IV Lasix at this time. Continue treatment of her lower extremity cellulitis with antibiotics. Obtain arterial Dopplers when her infection is improved. Thank you for this consultation. FARZAD/EVY/MARCO A DR: FARZAD/jasmyne TID: [id number]
[2020-12-26] MEDS ORDERED: MAGNESIUM SULFATE 2GM 50 ML IV ONE (14:00)
[2020-12-26] MEDS: ATORVASTATIN CALCIUM 40 MG TABLET. PO SCH (21:10)
[2020-12-26] MEDS: INSULIN GLARGINE SYRINGE. SQ SCH (21:12)
[2020-12-27] VITALS (24 sets, daily range): BP systolic 79–121; BP diastolic 45–76
[2020-12-27] MEDS: MEROPENEM 500 MG in IV NORMAL SALINE 50ML 50 ML IV SCH ×4 (05:13→23:30)
[2020-12-27 05:48] LABS: BASO % 0 % (0-3); EOS % 0 % (0-3); HEMATOCRIT 26.9 % (36.0-47.0); HEMOGLOBIN 8.8 g/dL (12.0-15.5); LYMPH # 0.4 x10^3/uL (1.0-4.8); LYMPH % 3 % (24-48); MEAN CORPUSCULAR HEMOGLOBIN 29 pg (25-35); MEAN CORPUSCULAR HGB CONC 33 g/dL (31-37); MEAN CORPUSCULAR VOLUME 89 fL (79-100); MONO # 0.8 x10^3/uL (0.0-1.1); MONO % 6 % (0-9); NEUT # 11.5 x10^3/uL (1.8-7.7); NEUT % 91 % (31-73); PLATELET COUNT 183 x10^3/uL (140-400); RED BLOOD COUNT 3.01 x10^6/uL (3.50-5.40); RED CELL DISTRIBUTION WIDTH 15.8 % (11.5-14.5); WHITE BLOOD COUNT 12.7 x10^3/uL (4.0-11.0)
[2020-12-27] MEDS: MICAFUNGIN 100 MG in IV DEXTROSE 5% 100ML 100 ML IV SCH (05:49)
[2020-12-27 06:06] LABS: ALBUMIN 1.9 g/dL (3.4-5.0); ALBUMIN/GLOBULIN RATIO 0.6 (1.0-1.7); CALCIUM 8.7 mg/dL (8.5-10.1); CREATININE 1.4 mg/dL (0.6-1.0); GFR 36.9; POTASSIUM 3.9 mmol/L (3.5-5.1); TOTAL BILIRUBIN 0.4 mg/dL (0.2-1.0); TOTAL PROTEIN 5.2 g/dL (6.4-8.2)
[2020-12-27] MEDS: BUDESONIDE 0.5 MG/2 ML NEBU. NEB SCH ×2 (07:32→20:30)
[2020-12-27] MEDS: ALBUTEROL SULFATE 2.5 MG/3 ML NEBU. NEB SCH ×4 (07:32→20:30)
--- NOTE | 2020-12-27 08:39 | PN ---
DATE: 12/27/2020 SUBJECTIVE: The patient is resting, almost flat in bed in no apparent distress, sleepy, but arousable. On questioning her, she stated that her pain is bearable. Denied any other complaint. Nursing staff stated that she is definitely more awake compared to yesterday. Her blood cultures show gram-negative rods in 3/4 bottles. PHYSICAL EXAMINATION: GENERAL: When I examined her, she was pale, but no jaundice, cyanosis or thyromegaly. No jugular venous distention. No limb edema. VITAL SIGNS: Her heart rate was 92, blood pressure was 95/52, temperature was 98.9, respiratory rate was 20 and her oxygen saturation was 97% on 2 liters of oxygen. HEAD, EYES, EARS, NOSE AND THROAT: Normocephalic, atraumatic. NECK: Supple. HEART: Showed normal first and second heart sounds, no gallop, murmur. CHEST: Clear to auscultation, no crepitation or rhonchi. ABDOMEN: Distended, soft, nontender, no guarding or rigidity. No organomegaly. All hernial orifice intact. Bowel sounds normal. NEUROLOGIC: She was sleepy, but arousable. All cranial nerves are intact. She moves without difficulty, although she is mostly bedbound. EXTREMITIES: Examination of the extremities showed no clubbing, cyanosis, but has bilateral lower extremity cellulitis and edema. Her intake was incompletely recorded, output was 1650. LABORATORY DATA: Her lab work showed a white cell count of 12,700, hemoglobin 9, hematocrit 27, MCV 89 and platelet count of 183,000 with normal manual differential. Serum sodium is 141, potassium 3.9, chloride 105, bicarbonate 32, anion gap of 4, BUN 33, creatinine 1.4. Estimated GFR was 36 mL per minute. Her glucose is 258, calcium was 8.7. Total bilirubin, AST, ALT, alkaline phosphatase were normal. Total protein 5.2, albumin was 1.9. ASSESSMENT: 1. Altered mental status, improving. 2. Bilateral lower extremity cellulitis. 3. Pneumonia. 4. Acute kidney injury. 5. Elevated troponin. 6. Her blood culture has grown gram-negative rods in 3/4 bottles. Other medical problems include: A. Atrial fibrillation, rate controlled, not anticoagulated. B. Hyperlipidemia. C. Chronic obstructive pulmonary disease. D. Ulcerative colitis. E. Rheumatoid arthritis. F. Depression. G. History of pulmonary abscess that was treated. PLAN: Plan is obviously to continue with IV antibiotic. Continue with pain medication. Continue with hydroxychloroquine and methotrexate for her rheumatoid arthritis and ulcerative colitis. Continue with pain management. ERROL DR: Lennie TID: [id number]
--- NOTE | 2020-12-27 08:53 | PDOC ---
Infectious Disease Note Subjective: Subjective Pt sleepy but arousable says feels better no fevers denies any pain Vital Signs: Vital Signs Vital Signs Date Time Temp Pulse Resp B/P (MAP) Pulse Ox O2 Delivery O2 Flow Rate FiO2 12/27/20 08:00 Nasal Cannula 2.0 12/27/20 08:00 99.4 93 24 113/49 (70) 97 99.4 Physical Exam: PHYSICAL EXAM GEN:alert awake appears tired HEENT: no icterus, Oral cavity and pharynx dry NECK: Without JVD. No fullness. LUNGS: Decreased in the bases. HEART: S1, S2. no murmurs ABDOMEN: Obese, soft,BS+ no guarding, no rebound. GENITOURINARY: Crawford in place. EXTREMITIES: No clubbing, cyanosis. She has 2-3+ lower extremity edema bilaterally, also has bilateral erythema on her legs in well described areas. She has a small wound on her left knee cap that appears to be clean. Lateral wounds on both legs appear consistent with previous bullae that have ruptured. EXTREMITIES: Legs are mildly warm, some tenderness. SKIN: Otherwise warm without generalized rash. NEUROLOGIC: She is nonfocal, moves all extremities. PSYCHIATRIC: Affect is appropriate. Medications: Inpatient Meds: Medications reviewed. Labs: Lab Laboratory Tests Test 12/26/20 12:10 12/26/20 12:15 12/26/20 15:30 12/26/20 16:35 Glucose (Fingerstick) 303 mg/dL (70-99) 331 mg/dL (70-99) Troponin I Quantitative 0.030 ng/mL (0.000-0.055) < 0.017 ng/mL (0.000-0.055) Test 12/26/20 20:52 12/27/20 05:20 Glucose (Fingerstick) 377 mg/dL (70-99) White Blood Count 12.7 x10^3/uL (4.0-11.0) Red Blood Count 3.01 x10^6/uL (3.50-5.40) Hemoglobin 8.8 g/dL (12.0-15.5) Hematocrit 26.9 % (36.0-47.0) Mean Corpuscular Volume 89 fL (79-100) Mean Corpuscular Hemoglobin 29 pg (25-35) Mean Corpuscular Hemoglobin Concent 33 g/dL (31-37) Red Cell Distribution Width 15.8 % (11.5-14.5) Platelet Count 183 x10^3/uL (140-400) Neutrophils (%) (Auto) 91 % (31-73) Lymphocytes (%) (Auto) 3 % (24-48) Monocytes (%) (Auto) 6 % (0-9) Eosinophils (%) (Auto) 0 % (0-3) Basophils (%) (Auto) 0 % (0-3) Neutrophils # (Auto) 11.5 x10^3/uL (1.8-7.7) Lymphocytes # (Auto) 0.4 x10^3/uL (1.0-4.8) Monocytes # (Auto) 0.8 x10^3/uL (0.0-1.1) Eosinophils # (Auto) 0.0 x10^3/uL (0.0-0.7) Basophils # (Auto) 0.0 x10^3/uL (0.0-0.2) Sodium Level 141 mmol/L (136-145) Potassium Level 3.9 mmol/L (3.5-5.1) Chloride Level 105 mmol/L (98-107) Carbon Dioxide Level 32 mmol/L (21-32) Anion Gap 4 (6-14) Blood Urea Nitrogen 33 mg/dL (7-20) Creatinine 1.4 mg/dL (0.6-1.0) Estimated GFR (Cockcroft-Gault) 36.9 BUN/Creatinine Ratio 24 (6-20) Glucose Level 258 mg/dL (70-99) Calcium Level 8.7 mg/dL (8.5-10.1) Magnesium Level 2.5 mg/dL (1.8-2.4) Total Bilirubin 0.4 mg/dL (0.2-1.0) Aspartate Amino Transf (AST/SGOT) 26 U/L (15-37) Alanine Aminotransferase (ALT/SGPT) 29 U/L (14-59) Alkaline Phosphatase 103 U/L (46-116) Total Protein 5.2 g/dL (6.4-8.2) Albumin 1.9 g/dL (3.4-5.0) Albumin/Globulin Ratio 0.6 (1.0-1.7) Objective: Assessment: 1. Fever. 2. Lower extremity cellulitis. 3. Gram negative bacteremia at osh 12/25 2/4 bottles 4. Atrial fibrillation. 5. Acute kidney injury. 6. Some questionable esophagitis. 7. Immunosuppression with rheumatoid arthritis. 8. ANTIBIOTIC ALLERGIES, has tolerated Zosyn and Augmentin. 9. History of methicillin-resistant Staphylococcus aureus, Enterobacter. Plan: Plan of Care Cont Zyvox/Meropenem/Micafungin f/u BC from 12/25 S/p Levofloxacin,Vanc and Dexamethasone F/u labs and cults Elevation of leg Local wound care Contact isolation for h/o MRSA BILLY HODGES MD December 27, 2020 08:53
[2020-12-27] MEDS: MESALAMINE PO SCH ×2 (09:00→19:52)
[2020-12-27] MEDS ORDERED: METHOTREXATE SODIUM 2.5 MG TABLET PO SCH (09:00)
[2020-12-27] MEDS: EZETIMIBE 10 MG TABLET. PO SCH (09:08)
[2020-12-27] MEDS: POTASSIUM CHLORIDE 20 MEQ TABLET.ER. PO SCH (09:09)
[2020-12-27] MEDS: FOLIC ACID 1 MG TABLET. PO SCH (09:09)
[2020-12-27] MEDS: VENLAFAXINE XR 37.5 MG CAP.ER.24H. PO SCH (09:09)
[2020-12-27] MEDS: CHOLECALCIFEROL (VITAMIN D3) 1,000 UNIT TABLET PO SCH (09:10)
[2020-12-27] MEDS: METOPROLOL TART IMMED RELEASE 25 MG TABLET. PO SCH ×2 (09:10→21:25)
[2020-12-27] MEDS: FERROUS SULFATE 325 MG TABLET. PO SCH (09:10)
[2020-12-27] MEDS: HYDROXYCHLOROQUINE 200 MG TABLET PO SCH ×2 (09:11→21:24)
[2020-12-27] MEDS: MULTIVITAMIN with MINERAL TABLET. PO SCH (09:11)
[2020-12-27] MEDS: PSYLLIUM HUSK (SUGAR FREE) 1 PKT PACKET PO SCH (09:11)
[2020-12-27] MEDS: GABAPENTIN 300 MG CAPSULE. PO SCH ×2 (09:11→21:24)
[2020-12-27] MEDS: PANTOPRAZOLE IV PUSH 40 MG VIAL. IVP SCH (09:12)
[2020-12-27] MEDS: INSULIN LISPRO 300 UNITS/3 ML VIAL. SQ SCH ×3 (09:28→18:04)
[2020-12-27] MEDS: ACETAMINOPHEN 325 MG TABLET. PO PRN (12:43)
[2020-12-27] MEDS ORDERED: DIGOXIN IV 500 MCG/2 ML AMPUL. IV ONE ×5 (13:00→13:15)
[2020-12-27] MEDS: NOREPINEPHRINE VIAL 8 MG in IV DEXTROSE 5% 250 ML IV PRN (13:55)
--- NOTE | 2020-12-27 14:56 | PDOC ---
CARDIOLOGY PROGRESS NOTE SUBJECTIVE: No new overnight events. Still confused. Difficulty with orientation. OBJECTIVE: Vital Signs/I&O: Vital Signs Date Time Temp Pulse Resp B/P (MAP) Pulse Ox O2 Delivery O2 Flow Rate FiO2 12/27/20 14:13 107 112/61 (78) 12/27/20 14:00 32 92 Nasal Cannula 3.0 12/27/20 11:00 98.6 98.6 I & O 12/26/20 12/26/20 12/27/20 15:00 23:00 07:00 Intake Total 1100 ml 450 ml Output Total 1400 ml 525 ml 950 ml Balance -1400 ml 575 ml -500 ml Objective: Confused. Disoriented. Irregular heart tones. Lungs with decreased breath sounds. Obese abdomen, distant sounds. Bilateral 3+ Pitting edema. CURRENT MEDICATIONS: Current Medications Medications (Trade) Dose Ordered Sig/Josefina Route PRN Reason Start Time Stop Time Status Last Admin Dose Admin Atorvastatin Calcium (Lipitor) 80 mg QHS PO 12/26/20 21:00 12/26/20 21:10 Insulin Glargine (Lantus Syringe) 20 unit QHS SQ 12/26/20 21:00 12/26/20 21:12 Acetaminophen (Tylenol) 650 mg PRN Q6HRS PRN PO MILD PAIN / TEMP > 100.3'F 12/27/20 12:30 12/27/20 12:43 Digoxin (Lanoxin) 500 mcg 1X ONCE IV 12/27/20 13:15 12/27/20 13:16 DC 12/27/20 13:28 Norepinephrine Bitartrate 8 mg/ Dextrose 258 ml @ 16.757 mls/ hr CONT PRN IV PER PROTOCOL 12/27/20 13:45 12/27/20 13:55 DIAGNOSTIC TESTING: CTPE w/o embolus. Infiltrate with cavitation of the RLL LLE DVT scan wnl. ASSESSMENT: 1. Acute mental status changes due to infection. 2. BLE cellulitis 3. Diastolic HF and LE edema. 4. Afib with RVR PLAN: 1. Continue tx for cellulitis. 2. Continue rate control for afib. 3. Lasix x 1 today. Supportive care. Justicifation of Admission Dx: Justifications for Admission: Justification of Admission Dx: Yes ANA ROSA CAZARES MD December 27, 2020 14:56
[2020-12-27] MEDS ORDERED: FUROSEMIDE 20 MG/2 ML VIAL. IVP ONE (15:00)
--- NOTE | 2020-12-27 15:36 | NUR ---
Wound/Ostomy Care Wound Type/Assessment: Patient seen per wound care consult. See wound assessment. Patient has abrasions to left anterior knee and left lateral lower leg, and an open blister that is slough covered with significant drainage to the right lateral lower leg. Wounds cleansed and assessed. Treatment Recommendations/Plan: Recommendations for xeroform gauze, ABD pad, and kerlix to the left lower leg wounds, honey gel applied to Aquacel Ag and then place to wound bed, cover with ABD pad, and kerlix to the right lower leg wound. Change every 3 days or sooner if depending on drainage. Dressings applied and no other wounds noted. Coccyx/buttocks is reddened but remains blanchable. Patient is able to assist with turning. Education provided: Patient educated on dressing changes and PU prevention. Offloading surface/device: Patient is currently on an ICU bed, patient repositioned to the left side using wedge at this time and bilateral heels floated using pillows. Recommended Referrals/Tests: N/A Discharge Recommendations for dressings: Dressing change instructions left in room as well as honey gel for next dressing changes. Patient gown changed and bed lowered with call light in reach. Wound care will follow up on 01/05/21.
--- NOTE | 2020-12-27 16:21 | NUR ---
SS following for discharge planning. SS reviewed pt chart and discussed with pt RN. Pt is from home and is currently requiring oxygen at three liters nasal canula. Pt on IV Micafungin, IV Meropenem, and IV Zyvox. Pt on Levophed. SS will continue to follow for discharge planning.
--- NOTE | 2020-12-27 18:51 | NUR ---
Patient has not been producing much urine so I bladder scanned her to check residual urine and it read 46cc of urine in her bladder.
[2020-12-27] MEDS ORDERED: IV NORMAL SALINE 500ML BAG 500 ML IV ONE (19:45)
[2020-12-27] MEDS: ATORVASTATIN CALCIUM 40 MG TABLET. PO SCH (21:24)
[2020-12-27] MEDS: INSULIN GLARGINE SYRINGE. SQ SCH (21:29)
[2020-12-28] VITALS (27 sets, daily range): BP systolic 84–146; BP diastolic 35–84
[2020-12-28] MEDS ORDERED: NOREPINEPHRINE VIAL 8 MG in IV DEXTROSE 5% 250 ML IV PRN (04:45)
[2020-12-28] MEDS: NOREPINEPHRINE VIAL 8 MG in IV DEXTROSE 5% 250 ML IV PRN (04:51)
[2020-12-28] MEDS: MEROPENEM 500 MG in IV NORMAL SALINE 50ML 50 ML IV SCH (05:30)
[2020-12-28 05:47] LABS: ALBUMIN 1.8 g/dL (3.4-5.0); ALBUMIN/GLOBULIN RATIO 0.5 (1.0-1.7); CALCIUM 8.2 mg/dL (8.5-10.1); GFR 24.4; POTASSIUM 4.4 mmol/L (3.5-5.1); TOTAL BILIRUBIN 0.9 mg/dL (0.2-1.0); TOTAL PROTEIN 5.1 g/dL (6.4-8.2)
[2020-12-28] MEDS: MICAFUNGIN 100 MG in IV DEXTROSE 5% 100ML 100 ML IV SCH (06:12)
[2020-12-28] MEDS: PANTOPRAZOLE IV PUSH 40 MG VIAL. IVP SCH (07:30)
[2020-12-28] MEDS: BUDESONIDE 0.5 MG/2 ML NEBU. NEB SCH ×2 (07:51→19:59)
[2020-12-28] MEDS: ALBUTEROL SULFATE 2.5 MG/3 ML NEBU. NEB SCH ×4 (07:51→19:59)
[2020-12-28] MEDS: INSULIN LISPRO 300 UNITS/3 ML VIAL. SQ SCH ×3 (08:00→17:00)
--- NOTE | 2020-12-28 08:17 | PDOC ---
Infectious Disease Note Subjective: Subjective Pt sleepy but arousable says feels better no fevers denies any pain Vital Signs: Vital Signs Vital Signs Date Time Temp Pulse Resp B/P (MAP) Pulse Ox O2 Delivery O2 Flow Rate FiO2 12/28/20 08:00 72 15 142/57 (85) 97 Nasal Cannula 2.0 12/28/20 03:00 98.4 98.4 Physical Exam: PHYSICAL EXAM GEN:alert awake appears tired HEENT: no icterus, Oral cavity and pharynx dry NECK: Without JVD. No fullness. LUNGS: Decreased in the bases. HEART: S1, S2. no murmurs ABDOMEN: Obese, soft,BS+ no guarding, no rebound. GENITOURINARY: Crawford in place. EXTREMITIES: No clubbing, cyanosis. She has 2-3+ lower extremity edema bilaterally, also has bilateral erythema on her legs in well described areas. She has a small wound on her left knee cap that appears to be clean. Lateral wounds on both legs appear consistent with previous bullae that have ruptured. EXTREMITIES: Legs are mildly warm, some tenderness. SKIN: Otherwise warm without generalized rash. NEUROLOGIC: She is nonfocal, moves all extremities. PSYCHIATRIC: Affect is appropriate. Medications: Inpatient Meds: Medications reviewed. Labs: Lab Laboratory Tests Test 12/27/20 09:25 12/27/20 18:02 12/27/20 19:16 12/28/20 04:50 Glucose (Fingerstick) 244 mg/dL (70-99) 332 mg/dL (70-99) 327 mg/dL (70-99) Sodium Level 135 mmol/L (136-145) Potassium Level 4.4 mmol/L (3.5-5.1) Chloride Level 100 mmol/L (98-107) Carbon Dioxide Level 27 mmol/L (21-32) Anion Gap 8 (6-14) Blood Urea Nitrogen 40 mg/dL (7-20) Creatinine 2.0 mg/dL (0.6-1.0) Estimated GFR (Cockcroft-Gault) 24.4 BUN/Creatinine Ratio 20 (6-20) Glucose Level 320 mg/dL (70-99) Calcium Level 8.2 mg/dL (8.5-10.1) Total Bilirubin 0.9 mg/dL (0.2-1.0) Aspartate Amino Transf (AST/SGOT) 418 U/L (15-37) Alanine Aminotransferase (ALT/SGPT) 370 U/L (14-59) Alkaline Phosphatase 373 U/L (46-116) Total Protein 5.1 g/dL (6.4-8.2) Albumin 1.8 g/dL (3.4-5.0) Albumin/Globulin Ratio 0.5 (1.0-1.7) Objective: Assessment: 1. Fever. Resolved 2. Lower extremity cellulitis. 3. Gram negative bacteremia at osh 12/25 3/4 bottles,Klebsiella penumoniae 4. Atrial fibrillation. 5. Acute kidney injury. 6. Some questionable esophagitis. 7. CT lung from [facility] cavitary lung lesion down to 2.6 x 1.5 cm thin-walled cavitation much improved compared to large cavitary lung lesion 12 months ago 8. Immunosuppression with rheumatoid arthritis. 9. ANTIBIOTIC ALLERGIES, has tolerated Zosyn and Augmentin. 10. History of methicillin-resistant Staphylococcus aureus, Enterobacter. Plan: Plan of Care Cont Zyvox/Meropenem/Micafungin adjust dose of Merrem per renal function f/u GNR from from 12/[address] abdomen pelvis without UA negative S/p Levofloxacin,Vanc and Dexamethasone F/u labs and cults Elevation of leg Local wound care Contact isolation for h/o MRSA Discussed with nursing staff BILLY HODGES MD December 28, 2020 08:16
[2020-12-28] MEDS ORDERED: IV NORMAL SALINE 1000ML BAG 1,000 ML IV ONE (08:45)
--- NOTE | 2020-12-28 08:52 | PN ---
DATE: 12/28/2020 SUBJECTIVE: The patient is resting, slightly propped up in bed in no apparent distress, awake, alert, stated that her feet are cold. Generally, seems more awake, alert, responding appropriately. PHYSICAL EXAMINATION: GENERAL: When I examined her, she looked pale, but no jaundice, cyanosis or thyromegaly. No jugular distention. No limb edema. VITAL SIGNS: Her heart rate was 72, blood pressure was 142/57, temperature was 98.4, and respiratory rate was 15 and oxygen saturation was 97% on 2 liters of oxygen. HEAD, EYES, EARS, NOSE, AND THROAT: Normocephalic, atraumatic. NECK: Supple. HEART: Showed normal first and second heart sounds, no gallop, murmur. CHEST: Clear to auscultation, no crepitation or rhonchi. ABDOMEN: Distended, soft, nontender. NEUROLOGIC: She is sleepy, but arousable. All cranial nerves are intact. EXTREMITIES: She moves without difficulty. Examination of the extremities showed no clubbing, cyanosis. Erythema and swelling of both lower extremities is improving. Her intake was 1550, output was 2875. LABORATORY DATA: Lab work this morning showed a serum sodium of 135, potassium 4.4, chloride 100, bicarbonate 27, anion gap of 8, BUN 40, creatinine 2, estimated GFR was 24 mL per minute. Her glucose was 320, calcium was 8.2. Total bilirubin is normal. AST, ALT, alkaline phosphatase are elevated. Total protein was 5.1, albumin was 1.8. ASSESSMENT: 1. Altered mental status, improving. 2. Bilateral lower extremity cellulitis. 3. Pneumonia. 4. Acute kidney injury. Creatinine has risen from 0.4 to 2. 5. Elevated troponin. 6. Her blood culture has grown gram-negative rods in 3/4 bottles, identified as Klebsiella pneumoniae. 7. The patient has multiple other medical problems including: A. Atrial fibrillation, rate controlled, not anticoagulated. B. Hyperlipidemia. C. Chronic obstructive pulmonary disease. D. Ulcerative colitis. E. Rheumatoid arthritis. F. Depression. G. History of pulmonary abscess that was treated. PLAN: Plan is to continue with IV antibiotic. Continue with pain management. Continue with all her other medications. ERROL DR: Lennie TID: [id number]
[2020-12-28] MEDS: CHOLECALCIFEROL (VITAMIN D3) 1,000 UNIT TABLET PO SCH (09:00)
[2020-12-28] MEDS: POLYETHYLENE GLYCOL 3350 17 GM PACKET. PO SCH (09:00)
[2020-12-28] MEDS: POTASSIUM CHLORIDE 20 MEQ TABLET.ER. PO SCH (09:00)
[2020-12-28] MEDS: HYDROXYCHLOROQUINE 200 MG TABLET PO SCH ×2 (09:00→20:51)
[2020-12-28] MEDS: MESALAMINE PO SCH (09:00)
[2020-12-28] MEDS: FOLIC ACID 1 MG TABLET. PO SCH (09:00)
[2020-12-28] MEDS: FERROUS SULFATE 325 MG TABLET. PO SCH (09:00)
[2020-12-28] MEDS: VENLAFAXINE XR 37.5 MG CAP.ER.24H. PO SCH (09:00)
[2020-12-28] MEDS: GABAPENTIN 300 MG CAPSULE. PO SCH ×2 (09:00→20:51)
[2020-12-28] MEDS: METOPROLOL TART IMMED RELEASE 25 MG TABLET. PO SCH ×2 (09:00→20:52)
[2020-12-28] MEDS: MULTIVITAMIN with MINERAL TABLET. PO SCH (09:00)
[2020-12-28] MEDS: EZETIMIBE 10 MG TABLET. PO SCH (09:00)
[2020-12-28 09:03] LABS: HEMATOCRIT 27.1 % (36.0-47.0); HEMOGLOBIN 8.8 g/dL (12.0-15.5); RED BLOOD COUNT 3.03 x10^6/uL (3.50-5.40); RED CELL DISTRIBUTION WIDTH 15.8 % (11.5-14.5); WHITE BLOOD COUNT 28.7 x10^3/uL (4.0-11.0)
[2020-12-28 09:25] LABS: CALCIUM 8.1 mg/dL (8.5-10.1); CREATININE 1.9 mg/dL (0.6-1.0); GFR 25.9; POTASSIUM 4.1 mmol/L (3.5-5.1)
[2020-12-28 09:31] LABS: ALBUMIN 1.9 g/dL (3.4-5.0); ALBUMIN/GLOBULIN RATIO 0.6 (1.0-1.7); TOTAL BILIRUBIN 0.8 mg/dL (0.2-1.0); TOTAL PROTEIN 5.2 g/dL (6.4-8.2)
--- NOTE | 2020-12-28 09:37 | PDOC2 ---
CONSULT Date of Consult Date of Consult DATE: 12/28/20 TIME: 09:09 Reason for Consult Reason for Consult: MAURICE Source Source: Chart review History of Present Illness Reason for Visit: Patient is a 75-year-old CF history of atrial fibrillation, diabetes , rheumatoid arthritis, cavitary lung lesion . presented to the emergency room of [facility] with altered mental status. Her family was taking her to the restroom and she seemed to be very confused and having trouble breathing; and therefore, she was brought to the emergency room She states that she has been at home for the past week and has been having increasing pain in her legs and back and recently started outpatient IV vancomycin for bilat cellulitis at home prescribed by her primary care physician, has been getting this for several days, She has a PICC line. She report she was feeling weak and fell. Denies fevers or chills, No N/V/D, No dizziness. Denies any urinary complaints . She was transferred to [facility] on 12/26 EKG showed atrial fibrillation with rapid ventricular response CT mild bilateral infiltrate with cavitation in the right lower lobe. This is significantly improved from generally previous exams and could be residual pneumonia or resolving pneumonia. Mild esophageal wall thickening and mild distention with fluid that appears similar to prior study and is likely due to esophagitis Past Medical History Cardiovascular: AFIB, CHF Pulmonary: No pertinent hx GI: No pertinent hx Musculoskeletal: low back pain, Osteoarthritis Infectious disease: Other Renal/: Chronic renal insuff Past Surgical History Past Surgical History: No pertinent history Family History Family History: Heart Disease Social History ALCOHOL: none Drugs: None Current Medications Current Medications Current Medications Vancomycin HCl (Vanco Per Pharmacy) 1 each PRN DAILY PRN MC SEE COMMENTS; Start 12/26/20 at 04:30; Stop 12/26/20 at 06:35; Status DC Sodium Chloride 1,000 ml @ 100 mls/hr Q10H IV Last administered on 12/26/20at 04:59; Start 12/26/20 at 04:30; Stop 12/26/20 at 13:29; Status DC Norepinephrine Bitartrate 8 mg/ Dextrose 258 ml @ 5.004 mls/ hr CONT PRN IV PER PROTOCOL; Start 12/26/20 at 04:30; Stop 12/27/20 at 13:39; Status DC Pantoprazole Sodium (PROTONIX VIAL for IV PUSH) 40 mg DAILYAC IVP Last administered on 12/27/20at 09:12; Start 12/26/20 at 07:30 Insulin Human Lispro (HumaLOG) 0-5 UNITS TIDWMEALS SQ Last administered on 12/27/20at 18:04; Start 12/26/20 at 08:00 Dextrose (Dextrose 50%-Water Syringe) 12.5 gm PRN Q15MIN PRN IV SEE COMMENTS; Start 12/26/20 at 05:00 Dextrose (Iv Dextrose 5%) 250 ml PRN Q15MIN PRN IV SEE COMMENTS; Start 12/26/20 at 05:00; Status UNV Linezolid/Dextrose 300 ml @ 300 mls/hr Q12HR IV Last administered on 12/27/20at 21:24; Start 12/26/20 at 09:00 Meropenem 500 mg/ Sodium Chloride 50 ml @ 100 mls/hr Q6HRS IV Last administered on 12/28/20at 05:30; Start 12/26/20 at 07:00; Stop 12/28/20 at 08:14; Status DC Micafungin Sodium 100 mg/Dextrose 100 ml @ 100 mls/hr Q24H IV Last administered on 12/28/20at 06:12; Start 12/26/20 at 07:00 Albuterol Sulfate (Ventolin Neb Soln) 2.5 mg PRN Q4HRS PRN NEB SHORTNESS OF BREATH; Start 12/26/20 at 08:00 Vitamin D (Vitamin D3) 1,000 unit DAILY PO Last administered on 12/27/20at 09:10; Start 12/26/20 at 09:00 Diclofenac Sodium (Voltaren) 100 stacy PRN QID PRN TP PAIN; Start 12/26/20 at 08:00 Diltiazem HCl (Cardizem 24hr Cd) 180 mg DAILY PO Last administered on 12/27/20at 09:11; Start 12/26/20 at 09:00; Stop 12/27/20 at 15:37; Status DC EZETIMIBE (Zetia) 10 mg DAILY PO Last administered on 12/27/20at 09:08; Start 12/26/20 at 09:00 Ferrous Sulfate (Feosol) 325 mg DAILY PO Last administered on 12/27/20at 09:10; Start 12/26/20 at 09:00 Gabapentin (Neurontin) 600 mg BID PO Last administered on 12/27/20 21:24; Start 12/26/20 at 09:00 Guaifenesin/ Codeine Phosphate (Robitussin Ac) 5 ml PRN Q6HRS PRN PO cough and congestion; Start 12/26/20 at 08:00 Acetaminophen/ Hydrocodone Bitart (Lortab 7.5/325) 1 tab PRN Q6HRS PRN PO PAIN Last administered on 12/27/20 09:16; Start 12/26/20 at 08:00; Stop 12/27/20 at 12:21; Status DC Hydroxychloroquine Sulfate (Plaquenil) 200 mg BID PO Last administered on 12/27/20 21:24; Start 12/26/20 at 09:00 Methotrexate (Rheumatrex) 15 mg WEEKLY PO ; Start 12/27/20 at 09:00; Stop 12/27/20 at 10:02; Status DC Potassium Chloride (Klor-Con) 20 meq DAILY PO Last administered on 12/27/20 09:09; Start 12/26/20 at 09:00 Non-Formulary Medication (Budesonide ) 1 vial BID NEB ; Start 12/26/20 at 09:00; Status UNV Non-Formulary Medication (Fluticasone/ Salmeterol (Advair 250-50 Diskus)) 1 inh BID IH ; Start 12/26/20 at 09:00; Status UNV Folic Acid (Folic Acid) 0.5 mg DAILY PO Last administered on 12/27/20at 09:09; Start 12/26/20 at 09:00 Non-Formulary Medication (Mesalamine (Apriso)) 2 cap BID PO ; Start 12/26/20 at 09:00; Status UNV Multivitamins (Thera M Plus) 1 tab DAILY PO Last administered on 12/27/20 09:11; Start 12/26/20 at 09:00 Psyllium Hydrophilic Mucilloid (Metamucil Fiber Packet) 1 pkt DAILY PO Last administered on 12/27/20 09:11; Start 12/26/20 at 09:00; Stop 12/27/20 at 13:20; Status DC Atorvastatin Calcium (Lipitor) 80 mg QHS PO Last administered on 12/27/20at 21:24; Start 12/26/20 at 21:00 Venlafaxine HCl (Effexor Xr) 75 mg DAILY PO Last administered on 12/27/20at 09:09; Start 12/26/20 at 09:00 Insulin Glargine (Lantus Syringe) 20 unit QHS SQ Last administered on 12/27/20at 21:29; Start 12/26/20 at 21:00 Budesonide (Pulmicort) 0.5 mg RTBID NEB Last administered on 12/28/20at 07:51; Start 12/26/20 at 09:00 Albuterol Sulfate (Ventolin Neb Soln) 2.5 mg RTQID NEB Last administered on 12/28/20at 07:51; Start 12/26/20 at 09:00 Furosemide (Lasix) 40 mg 1X ONCE IVP Last administered on 12/26/20at 11:52; Start 12/26/20 at 11:45; Stop 12/26/20 at 11:46; Status DC Metoprolol Tartrate (Lopressor) 25 mg BID PO Last administered on 12/27/20at 21:25; Start 12/26/20 at 12:00 Magnesium Sulfate 50 ml @ 25 mls/hr 1X ONCE IV Last administered on 12/26/20at 19:21; Start 12/26/20 at 14:00; Stop 12/26/20 at 15:59; Status DC Oxycodone/ Acetaminophen (Percocet 10/325) 1 tab PRN Q4HRS PRN PO SEVERE PAIN 7-10; Start 12/27/20 at 12:30 Acetaminophen (Tylenol) 650 mg PRN Q6HRS PRN PO MILD PAIN / TEMP > 100.3'F Last administered on 12/27/20at 12:43; Start 12/27/20 at 12:30 Digoxin (Lanoxin) 500 mcg 1X ONCE IV ; Start 12/27/20 at 13:00; Stop 12/27/20 at 13:01; Status UNV Digoxin (Lanoxin) 500 mcg 1X ONCE IV ; Start 12/27/20 at 13:00; Stop 12/27/20 at 13:01; Status UNV Digoxin (Lanoxin) 500 mcg 1X ONCE IV ; Start 12/27/20 at 13:00; Stop 12/27/20 at 13:01; Status UNV Digoxin (Lanoxin) 500 mcg 1X ONCE IV ; Start 12/27/20 at 13:00; Stop 12/27/20 at 13:01; Status UNV Digoxin (Lanoxin) 500 mcg 1X ONCE IV Last administered on 12/27/20at 13:28; S tart 12/27/20 at 13:15; Stop 12/27/20 at 13:16; Status DC Polyethylene Glycol (miraLAX PACKET) 17 gm DAILY PO ; Start 12/28/20 at 09:00 Norepinephrine Bitartrate 8 mg/ Dextrose 258 ml @ 16.757 mls/ hr CONT PRN IV PER PROTOCOL Last administered on 12/28/20at 04:51; Start 12/27/20 at 13:45 Furosemide (Lasix) 40 mg 1X ONCE IVP Last administered on 12/27/20at 15:23; Start 12/27/20 at 15:00; Stop 12/27/20 at 15:01; Status DC Sodium Chloride 500 ml @ 500 mls/hr 1X ONCE IV Last administered on 12/27/20at 19:46; Start 12/27/20 at 19:45; Stop 12/27/20 at 20:44; Status DC Norepinephrine Bitartrate 8 mg/ Dextrose 258 ml @ 16.757 mls/ hr CONT PRN IV PER PROTOCOL; Start 12/28/20 at 04:45; Status UNV Meropenem 500 mg/ Sodium Chloride 50 ml @ 100 mls/hr Q8HRS IV ; Start 12/28/20 at 14:00; Stop 12/28/20 at 08:47; Status DC Sodium Chloride 1,000 ml @ 1,000 mls/hr 1X ONCE IV Last administered on 12/28/20at 08:51; Start 12/28/20 at 08:45; Stop 12/28/20 at 09:44 Meropenem 500 mg/ Sodium Chloride 50 ml @ 100 mls/hr DAILY IV ; Start 12/29/20 at 09:00 Active Scripts Active Invanz (Ertapenem Sodium) 1 Gm Vial 1 Gm IJ DAILY 14 Days Zyvox (Linezolid) 600 Mg Tablet 600 Mg PO BID 14 Days Reported Nexium Capsule (Esomeprazole Magnesium) 20 Mg Capsule.dr 1 Cap PO DAILY Imodium A-D (Loperamide HCl) 2 Mg Capsule 2 Mg PO Q8HRS Jardiance (Empagliflozin) 25 Mg Tablet 25 Mg PO DAILY Methotrexate (Methotrexate Sodium) 2.5 Mg Tablet 6 Tab PO WEEKLY Codeine-Guaifen 10-100 mg/5 ml (Guaifenesin/Codeine Phosphate) 120 Ml Liquid 5 Ml PO PRN Q6HRS PRN MDD 20 Milliliter(s) 6 Days [novolo] 12 SQ TIDAC [lantus] 14 SQ HS Budesonide 0.25 Mg/2 Ml Ampul.neb 1 Vial NEB BID Folic Acid 0.4 Mg Tablet 0.4 Mg PO DAILY Hydroxychloroquine Sulfate 200 Mg Tablet 1 Tab PO BID Multi Vitamin Daily (Multivitamin) 1 Each Tablet 1 Tab PO DAILY 30 Days Torsemide 10 Mg Tablet 1 Tab PO QMWF 30 Days Metamucil (Psyllium Husk) 0.52 Gm Capsule 1 Cap PO DAILY 30 Days Prednisone (Prednisone) 10 Mg Tablet 1 Tab PO DAILY 5 Days Dilaudid (Hydromorphone Hcl) 2 Mg Tablet 1 Tab PO PRN Q6-8HRS PRN MDD 2 Tablet(s) 5 Days Feosol (Ferrous Sulfate) 325 Mg Tablet 1 Tab PO DAILY 30 Days Diltiazem 24HR Cd (Diltiazem Hcl) 180 Mg Cap.er.24h 1 Cap PO DAILY 30 Days Apriso (Mesalamine) 0.375 Gm Cap.er.24h 2 Cap PO BID 30 Days Albuterol Sulfate Neb Soln (Albuterol Sulfate) 2.5 Mg/3 Ml Vial.neb 1 Vial NEB PRN Q4HRS Potassium Chloride (Potassium Chloride) 20 Meq Tablet.er 20 Meq PO DAILY Hydrocodone-Apap 7.5-325 (Hydrocodone Bit/Acetaminophen) 1 Each Tablet 1 Tab PO PRN Q6HRS PRN Zetia (Ezetimibe) 10 Mg Tablet 10 Mg PO DAILY Voltaren (Diclofenac Sodium) 100 Gm Gel..gram. 100 Gm TP PRN PRN Vitamin D3 (Cholecalciferol (Vitamin D3)) 1,000 Unit Tablet 1,000 Unit PO DAILY Xarelto (Rivaroxaban) 10 Mg Tablet 20 Mg PO BID Advair 250-50 Diskus (Fluticasone/Salmeterol) 1 Each Disk.w.dev 1 Inh IH BID Gabapentin (Gabapentin) 300 Mg Capsule 600 Mg PO BID Crestor (Rosuvastatin Calcium) 40 Mg Tablet 40 Mg PO HS Protonix (Pantoprazole Sodium) 20 Mg Tablet.dr 40 Mg PO DAILY Effexor Xr (Venlafaxine Hcl) 75 Mg Cap.er.24h 75 Mg PO DAILY Allergies Allergies: Coded Allergies: Penicillins (Verified Allergy, Intermediate, 09/20/20) Tolerated zosyn at [facility] 07/2020 ceftriaxone (Verified Allergy, Intermediate, Rash, 01/18/18) varenicline (Verified Allergy, Intermediate, Rash, 09/20/20) I S O L A T I O N *CONTACT* (Verified Allergy, Unknown, 08/23/20) mrsa methocarbamol (Verified Adverse Reaction, Intermediate, Nausea, 09/20/20) ROS Review of System As per HPI, rest of the ROS is negative Physical Exam Physical Exam GEN:NAD HEENT: no icterus, OM dry NECK: supple . LUNGS: Decreased in the bases, non labored HEART: S1, S2. no murmurs ABDOMEN: Obese, soft,BS+ not tender EXTREMITIES: No clubbing, cyanosis. + lower extremity edema bilateral erythema on her legs SKIN: No rash. NEUROLOGIC: grossly normal PSYCHIATRIC: Affect is appropriate. GENITOURINARY: Crawford in place, No SP or CVA tenderness Vital Signs Vital Signs Date Time Temp Pulse Resp B/P (MAP) Pulse Ox O2 Delivery O2 Flow Rate FiO2 12/28/20 08:00 72 15 142/57 (85) 97 Nasal Cannula 2.0 12/28/20 03:00 98.4 98.4 Assessment & Plan MAURICE suspect 2/2 ATN / Vancomycin/ Hypotension - recd Lasix x 1 on 12/27, worsening renal function, non Oliguric , stable uop , UA unremarkable E-Lytes stable , currently no indication for AUTOMOTIVE GLAZIER . Supportive care, I/O, maintain hydration CKD stage 2/3 a- MAURICE in Sep 2020 Cr peaked at 1.6 , Cr at dc 1.3; prior was 1.1 (per primary's Note baseline Cr interval was 0.4) Lower extremity cellulitis On Abx followed by ID. Was on Vanc at home via PICC line (duration unknown) Hypotension - off pressor support AMS at Presentation- resolved Gram negative bacteremia at osh 12/25 3/4 bottles,Klebsiella penumoniae Atrial fibrillation with RVR - per cardiology ? Esophagitis reported on CT CT lung from [facility] cavitary lung lesion down to 2.6 x 1.5 cm thin- walled cavitation much improved compared to large cavitary lung lesion 12 months ago RA - On Immunosuppressive meds Labs Labs Laboratory Tests Test 12/26/20 12:10 12/26/20 12:15 12/26/20 15:30 12/26/20 16:35 Glucose (Fingerstick) 303 mg/dL (70-99) 331 mg/dL (70-99) Troponin I Quantitative 0.030 ng/mL (0.000-0.055) < 0.017 ng/mL (0.000-0.055) Test 12/26/20 20:52 12/27/20 05:20 12/27/20 09:25 12/27/20 18:02 Glucose (Fingerstick) 377 mg/dL (70-99) 244 mg/dL (70-99) 332 mg/dL (70-99) White Blood Count 12.7 x10^3/uL (4.0-11.0) Red Blood Count 3.01 x10^6/uL (3.50-5.40) Hemoglobin 8.8 g/dL (12.0-15.5) Hematocrit 26.9 % (36.0-47.0) Mean Corpuscular Volume 89 fL (79-100) Mean Corpuscular Hemoglobin 29 pg (25-35) Mean Corpuscular Hemoglobin Concent 33 g/dL (31-37) Red Cell Distribution Width 15.8 % (11.5-14.5) Platelet Count 183 x10^3/uL (140-400) Neutrophils (%) (Auto) 91 % (31-73) Lymphocytes (%) (Auto) 3 % (24-48) Monocytes (%) (Auto) 6 % (0-9) Eosinophils (%) (Auto) 0 % (0-3) Basophils (%) (Auto) 0 % (0-3) Neutrophils # (Auto) 11.5 x10^3/uL (1.8-7.7) Lymphocytes # (Auto) 0.4 x10^3/uL (1.0-4.8) Monocytes # (Auto) 0.8 x10^3/uL (0.0-1.1) Eosinophils # (Auto) 0.0 x10^3/uL (0.0-0.7) Basophils # (Auto) 0.0 x10^3/uL (0.0-0.2) Sodium Level 141 mmol/L (136-145) Potassium Level 3.9 mmol/L (3.5-5.1) Chloride Level 105 mmol/L (98-107) Carbon Dioxide Level 32 mmol/L (21-32) Anion Gap 4 (6-14) Blood Urea Nitrogen 33 mg/dL (7-20) Creatinine 1.4 mg/dL (0.6-1.0) Estimated GFR (Cockcroft-Gault) 36.9 BUN/Creatinine Ratio 24 (6-20) Glucose Level 258 mg/dL (70-99) Calcium Level 8.7 mg/dL (8.5-10.1) Magnesium Level 2.5 mg/dL (1.8-2.4) Total Bilirubin 0.4 mg/dL (0.2-1.0) Aspartate Amino Transf (AST/SGOT) 26 U/L (15-37) Alanine Aminotransferase (ALT/SGPT) 29 U/L (14-59) Alkaline Phosphatase 103 U/L (46-116) Total Protein 5.2 g/dL (6.4-8.2) Albumin 1.9 g/dL (3.4-5.0) Albumin/Globulin Ratio 0.6 (1.0-1.7) Test 12/27/20 19:16 12/28/20 04:50 12/28/20 08:45 Glucose (Fingerstick) 327 mg/dL (70-99) Sodium Level 135 mmol/L (136-145) Potassium Level 4.4 mmol/L (3.5-5.1) Chloride Level 100 mmol/L (98-107) Carbon Dioxide Level 27 mmol/L (21-32) Anion Gap 8 (6-14) Blood Urea Nitrogen 40 mg/dL (7-20) Creatinine 2.0 mg/dL (0.6-1.0) Estimated GFR (Cockcroft-Gault) 24.4 BUN/Creatinine Ratio 20 (6-20) Glucose Level 320 mg/dL (70-99) Calcium Level 8.2 mg/dL (8.5-10.1) Total Bilirubin 0.9 mg/dL (0.2-1.0) Aspartate Amino Transf (AST/SGOT) 418 U/L (15-37) Alanine Aminotransferase (ALT/SGPT) 370 U/L (14-59) Alkaline Phosphatase 373 U/L (46-116) Total Protein 5.1 g/dL (6.4-8.2) Albumin 1.8 g/dL (3.4-5.0) Albumin/Globulin Ratio 0.5 (1.0-1.7) White Blood Count 28.7 x10^3/uL (4.0-11.0) Red Blood Count 3.03 x10^6/uL (3.50-5.40) Hemoglobin 8.8 g/dL (12.0-15.5) Hematocrit 27.1 % (36.0-47.0) Mean Corpuscular Volume 90 fL (79-100) Mean Corpuscular Hemoglobin 29 pg (25-35) Mean Corpuscular Hemoglobin Concent 32 g/dL (31-37) Red Cell Distribution Width 15.8 % (11.5-14.5) Platelet Count 179 x10^3/uL (140-400) Laboratory Tests Test 12/27/20 09:25 12/27/20 18:02 12/27/20 19:16 12/28/20 04:50 Glucose (Fingerstick) 244 mg/dL (70-99) 332 mg/dL (70-99) 327 mg/dL (70-99) Sodium Level 135 mmol/L (136-145) Potassium Level 4.4 mmol/L (3.5-5.1) Chloride Level 100 mmol/L (98-107) Carbon Dioxide Level 27 mmol/L (21-32) Anion Gap 8 (6-14) Blood Urea Nitrogen 40 mg/dL (7-20) Creatinine 2.0 mg/dL (0.6-1.0) Estimated GFR (Cockcroft-Gault) 24.4 BUN/Creatinine Ratio 20 (6-20) Glucose Level 320 mg/dL (70-99) Calcium Level 8.2 mg/dL (8.5-10.1) Total Bilirubin 0.9 mg/dL (0.2-1.0) Aspartate Amino Transf (AST/SGOT) 418 U/L (15-37) Alanine Aminotransferase (ALT/SGPT) 370 U/L (14-59) Alkaline Phosphatase 373 U/L (46-116) Total Protein 5.1 g/dL (6.4-8.2) Albumin 1.8 g/dL (3.4-5.0) Albumin/Globulin Ratio 0.5 (1.0-1.7) Test 12/28/20 08:45 White Blood Count 28.7 x10^3/uL (4.0-11.0) Red Blood Count 3.03 x10^6/uL (3.50-5.40) Hemoglobin 8.8 g/dL (12.0-15.5) Hematocrit 27.1 % (36.0-47.0) Mean Corpuscular Volume 90 fL (79-100) Mean Corpuscular Hemoglobin 29 pg (25-35) Mean Corpuscular Hemoglobin Concent 32 g/dL (31-37) Red Cell Distribution Width 15.8 % (11.5-14.5) Platelet Count 179 x10^3/uL (140-400) Review All relevant outside records, renal labs, imaging studies, telemetry/EKG's were reviewed. RAJI ANDRE MD December 28, 2020 09:36
[2020-12-28] MEDS: fentaNYL PF VIAL 100 MCG/2 ML VIAL IVP PRN ×2 (11:17→14:54)
--- NOTE | 2020-12-28 11:23 | RAD ---
EXAM: Abdomen and pelvis CT without intravenous contrast. HISTORY: Bacteremia. TECHNIQUE: Computed tomographic images of the abdomen and pelvis were obtained without contrast. Mult iplanar reformatting was performed. *One or more of the following individualized dose reduction techniques were utilized for this examina tion: 1. Automated exposure control. 2. Adjustment of the mA and/or kV according to patient size. 3. Use of iterative reconstruction technique. COMPARISON: 09/29/2020. FINDINGS: Evaluation of the lower thorax demonstrates no infiltrate, pleural effusion or pneumothorax . There is mild distal esophageal wall thickening, not clearly within limits to suggest esophagitis. No hepatic lesion is seen. The stomach, gallbladder, pancreas and adrenal glands are unremarkable. Th e spleen is upper normal in size and contains a few calcified granulomas. The kidneys are unremarkabl e. There is a Crawford catheter and small amount of gas within the bladder due to recent catheter placem ent. The appendix is absent. There is no evidence of bowel obstruction. There is moderate colonic stool. T here are few distal colonic diverticula. The uterus is absent. There is heavily calcified atheroscler otic plaque involving the aorta and main aortic branch vessels. There is no aneurysm. There is no pat hologically enlarged lymph node. There is edema within the proximal right thigh soft tissues, possibly dependent in etiology. There is stranding within the ventral abdominal wall fat likely due to medication injection sites. There is d egenerative change involving the spine. There is a mild L5 compression deformity. There is superimpos ed gas along the anterior superior endplate suggesting a superimposed acute or subacute nondisplaced endplate fracture. IMPRESSION: 1. No findings correlate with reported bacteremia. 2. Distal colonic diverticulosis. 3. Gas within the urinary bladder due to recent Crawford catheter placement. 4. Suspected acute or subacute nondepressed anterior superior endplate fracture at L5, superimposed o n a mild L5 compression fracture. This is new compared to the CT performed 09/29/2020. Electronically signed by: Veronica Flores MD (12/28/2020 11:20 AM) [id number]
[2020-12-28] MEDS ORDERED: FUROSEMIDE 20 MG/2 ML VIAL. IVP ONE (13:15)
--- NOTE | 2020-12-28 13:16 | PDOC ---
NANCY CEE SUPPLIER QUALITY MANAGER 12/28/20 1316: CARDIO Progress Notes Date and Time Date of Service 12/28/2020 Time of Evaluation 1250 Subjective Subjective: No Chest Pain, No shortness of breath, No Palpitations Vitals Vitals Vital Signs Date Time Temp Pulse Resp B/P (MAP) Pulse Ox O2 Delivery O2 Flow Rate FiO2 12/28/20 12:00 Nasal Cannula 2.0 12/28/20 11:29 99 12/28/20 11:17 19 12/28/20 11:00 77 105/44 (64) 12/28/20 03:00 98.4 98.4 Weight Weight [ ] Input and Output Intake and Output Intake and Output 12/28/20 07:00 Intake Total 4943 ml Output Total 1150 ml Balance 3793 ml Intake Oral 2580 ml IV Total 463 ml Other 1900 ml Output Urine Total 1150 ml Laboratory Labs Laboratory Tests Test 12/27/20 18:02 12/27/20 19:16 12/28/20 04:50 12/28/20 08:45 Glucose (Fingerstick) 332 mg/dL (70-99) 327 mg/dL (70-99) Sodium Level 135 mmol/L (136-145) 137 mmol/L (136-145) Potassium Level 4.4 mmol/L (3.5-5.1) 4.1 mmol/L (3.5-5.1) Chloride Level 100 mmol/L (98-107) 102 mmol/L (98-107) Carbon Dioxide Level 27 mmol/L (21-32) 28 mmol/L (21-32) Anion Gap 8 (6-14) 7 (6-14) Blood Urea Nitrogen 40 mg/dL (7-20) 38 mg/dL (7-20) Creatinine 2.0 mg/dL (0.6-1.0) 1.9 mg/dL (0.6-1.0) Estimated GFR (Cockcroft-Gault) 24.4 25.9 BUN/Creatinine Ratio 20 (6-20) 20 (6-20) Glucose Level 320 mg/dL (70-99) 247 mg/dL (70-99) Calcium Level 8.2 mg/dL (8.5-10.1) 8.1 mg/dL (8.5-10.1) Total Bilirubin 0.9 mg/dL (0.2-1.0) 0.8 mg/dL (0.2-1.0) Aspartate Amino Transf (AST/SGOT) 418 U/L (15-37) 334 U/L (15-37) Alanine Aminotransferase (ALT/SGPT) 370 U/L (14-59) 347 U/L (14-59) Alkaline Phosphatase 373 U/L (46-116) 314 U/L (46-116) Total Protein 5.1 g/dL (6.4-8.2) 5.2 g/dL (6.4-8.2) Albumin 1.8 g/dL (3.4-5.0) 1.9 g/dL (3.4-5.0) Albumin/Globulin Ratio 0.5 (1.0-1.7) 0.6 (1.0-1.7) White Blood Count 28.7 x10^3/uL (4.0-11.0) Red Blood Count 3.03 x10^6/uL (3.50-5.40) Hemoglobin 8.8 g/dL (12.0-15.5) Hematocrit 27.1 % (36.0-47.0) Mean Corpuscular Volume 90 fL (79-100) Mean Corpuscular Hemoglobin 29 pg (25-35) Mean Corpuscular Hemoglobin Concent 32 g/dL (31-37) Red Cell Distribution Width 15.8 % (11.5-14.5) Platelet Count 179 x10^3/uL (140-400) Physical Exam HEENT: Neck Supple W Full Motion Chest: Symmetric LUNGS: Other (diminished) Heart: RRR (SR) Abdomen: Soft N/T Extremities: Other (erythema with 2+ pitting edema to bilateral LE) Neurology: alert, oriented, follow commands Assessment Assessment 1. AFIB RVR: now back in SR 2. Metabolic encephalopathy: back to baseline 3. Bilateral LE cellulitis with hx of MRSA 4. Sepsis/shock: ID following 5. Acute on chronic diastolic CHF: appears compensated 6. MAURICE: nephrology following 7. Chronic immunosuppression 8. Transaminitis with protein malnutrition: possibly from sepsis 9. DM2: per PCP. BG uncontrolled 10. Anemia oc chronic disease Recommendations 1. x1 lasix. Metoprolol on hold as BP is currently at low end. Dig PRN. titrate levophed 2. ASA for stroke prevention. unclear reason why anticoagulation was removed in the past as she reported. 3. Stop zetia./lipitor. Antibiotics ongoing 4. TTE today, consider MCOT and note AFIB burden Justicifation of Admission Dx: Justifications for Admission: Justification of Admission Dx: Yes ANA ROSA CAZARES MD 12/28/20 1646: CARDIO Progress Notes Plan Plan The patient was seen and interviewed as well as examined at the bedside. The chart was reviewed. The case was discussed. Agree with the plan of care. NANCY CEE APRN December 28, 2020 13:16 ANA ROSA CAZARES MD December 28, 2020 16:46
[2020-12-28] MEDS ORDERED: MEROPENEM 500 MG in IV NORMAL SALINE 50ML 50 ML IV SCH (14:00)
[2020-12-28] MEDS: oxyCODONE/APAP 10/325 1 TAB TABLET PO PRN (20:51)
[2020-12-28] MEDS: INSULIN GLARGINE SYRINGE. SQ SCH (21:00)
[2020-12-29] VITALS (15 sets, daily range): BP systolic 85–126; BP diastolic 42–68
[2020-12-29 04:52] LABS: HEMATOCRIT 25.1 % (36.0-47.0); HEMOGLOBIN 8.2 g/dL (12.0-15.5); RED BLOOD COUNT 2.82 x10^6/uL (3.50-5.40); RED CELL DISTRIBUTION WIDTH 15.7 % (11.5-14.5); WHITE BLOOD COUNT 23.3 x10^3/uL (4.0-11.0)
[2020-12-29 05:06] LABS: ALBUMIN 1.7 g/dL (3.4-5.0); ALBUMIN/GLOBULIN RATIO 0.5 (1.0-1.7); CALCIUM 8.2 mg/dL (8.5-10.1); CREATININE 1.6 mg/dL (0.6-1.0); GFR 31.6; POTASSIUM 3.7 mmol/L (3.5-5.1); TOTAL BILIRUBIN 0.4 mg/dL (0.2-1.0); TOTAL PROTEIN 4.9 g/dL (6.4-8.2)
[2020-12-29] MEDS: MICAFUNGIN 100 MG in IV DEXTROSE 5% 100ML 100 ML IV SCH (05:53)
[2020-12-29] MEDS: ASPIRIN ENTERIC COATED 81 MG TABLET.DR. PO SCH (08:00)
[2020-12-29] MEDS: INSULIN LISPRO 300 UNITS/3 ML VIAL. SQ SCH ×2 (08:00→12:00)
[2020-12-29] MEDS: ALBUTEROL SULFATE 2.5 MG/3 ML NEBU. NEB SCH ×4 (08:10→21:14)
[2020-12-29] MEDS: BUDESONIDE 0.5 MG/2 ML NEBU. NEB SCH ×2 (08:11→21:14)
--- NOTE | 2020-12-29 08:22 | PDOC ---
Infectious Disease Note Subjective: Subjective Pt says feels better no fevers Complains of pain in both lower extremity and low back which is chronic Off pressors for more than 24 hours Loose BM Vital Signs: Vital Signs Vital Signs Date Time Temp Pulse Resp B/P (MAP) Pulse Ox O2 Delivery O2 Flow Rate FiO2 12/29/20 05:00 76 15 92/42 (59) 96 Nasal Cannula 2.0 12/29/20 04:00 98.6 98.6 Physical Exam: PHYSICAL EXAM GEN:alert awake appears tired HEENT: no icterus, Oral cavity and pharynx dry NECK: Without JVD. No fullness. LUNGS: Decreased in the bases. HEART: S1, S2. no murmurs ABDOMEN: Obese, soft,BS+ no guarding, no rebound. GENITOURINARY: Crawford in place. EXTREMITIES: No clubbing, cyanosis. She has 2-3+ lower extremity edema bilaterally, also has bilateral erythema on her legs in well described areas. Right lower extremity more than left She has a small wound on her left knee cap that appears to be clean. Lateral wounds on both legs appear consistent with previous bullae that have ruptured. EXTREMITIES: Legs are mildly warm, some tenderness. SKIN: Otherwise warm without generalized rash. NEUROLOGIC: She is nonfocal, moves all extremities. PSYCHIATRIC: Affect is appropriate. Medications: Inpatient Meds: Medications reviewed. Labs: Lab Laboratory Tests Test 12/28/20 08:45 12/28/20 17:26 12/29/20 04:45 White Blood Count 28.7 x10^3/uL (4.0-11.0) 23.3 x10^3/uL (4.0-11.0) Red Blood Count 3.03 x10^6/uL (3.50-5.40) 2.82 x10^6/uL (3.50-5.40) Hemoglobin 8.8 g/dL (12.0-15.5) 8.2 g/dL (12.0-15.5) Hematocrit 27.1 % (36.0-47.0) 25.1 % (36.0-47.0) Mean Corpuscular Volume 90 fL (79-100) 89 fL (79-100) Mean Corpuscular Hemoglobin 29 pg (25-35) 29 pg (25-35) Mean Corpuscular Hemoglobin Concent 32 g/dL (31-37) 33 g/dL (31-37) Red Cell Distribution Width 15.8 % (11.5-14.5) 15.7 % (11.5-14.5) Platelet Count 179 x10^3/uL (140-400) 147 x10^3/uL (140-400) Sodium Level 137 mmol/L (136-145) 137 mmol/L (136-145) Potassium Level 4.1 mmol/L (3.5-5.1) 3.7 mmol/L (3.5-5.1) Chloride Level 102 mmol/L (98-107) 104 mmol/L (98-107) Carbon Dioxide Level 28 mmol/L (21-32) 29 mmol/L (21-32) Anion Gap 7 (6-14) 4 (6-14) Blood Urea Nitrogen 38 mg/dL (7-20) 35 mg/dL (7-20) Creatinine 1.9 mg/dL (0.6-1.0) 1.6 mg/dL (0.6-1.0) Estimated GFR (Cockcroft-Gault) 25.9 31.6 BUN/Creatinine Ratio 20 (6-20) 22 (6-20) Glucose Level 247 mg/dL (70-99) 108 mg/dL (70-99) Calcium Level 8.1 mg/dL (8.5-10.1) 8.2 mg/dL (8.5-10.1) Total Bilirubin 0.8 mg/dL (0.2-1.0) 0.4 mg/dL (0.2-1.0) Aspartate Amino Transf (AST/SGOT) 334 U/L (15-37) 167 U/L (15-37) Alanine Aminotransferase (ALT/SGPT) 347 U/L (14-59) 243 U/L (14-59) Alkaline Phosphatase 314 U/L (46-116) 272 U/L (46-116) Total Protein 5.2 g/dL (6.4-8.2) 4.9 g/dL (6.4-8.2) Albumin 1.9 g/dL (3.4-5.0) 1.7 g/dL (3.4-5.0) Albumin/Globulin Ratio 0.6 (1.0-1.7) 0.5 (1.0-1.7) Glucose (Fingerstick) 195 mg/dL (70-99) Objective: Assessment: 1. Fever. Resolved 2. Lower extremity cellulitis. 3. Gram negative bacteremia at osh 12/25 3/4 bottles,Klebsiella pneumoniae 4. Atrial fibrillation. 5. Acute kidney injury. 6. Some questionable esophagitis.Abnormal LFTs likely from shock liver 7. CT lung from [facility] cavitary lung lesion down to 2.6 x 1.5 cm thin-walled cavitation much improved compared to large cavitary lung lesion 12 months ago 8. Immunosuppression with rheumatoid arthritis. 9. ANTIBIOTIC ALLERGIES, has tolerated Zosyn and Augmentin. 10. History of methicillin-resistant Staphylococcus aureus, Enterobacter resp cultures in the past. 11. History of fall POA with compression fracture on CT Plan: Plan of Care Cont Zyvox/Meropenem/Micafungin adjust dose of Merrem per renal function F/U GNR from from 12/25 CT abdomen pelvis without reviewed Check C. difficile UA negative at [facility] S/p Levofloxacin,Vanc and Dexamethasone F/u labs and cults Elevation of leg Local wound care Contact isolation for h/o MRSA Discussed with nursing staff BILLY OHDGES MD December 29, 2020 08:22
[2020-12-29] MEDS ORDERED: MEROPENEM 500 MG in IV NORMAL SALINE 50ML 50 ML IV SCH (09:00)
[2020-12-29] MEDS: POLYETHYLENE GLYCOL 3350 17 GM PACKET. PO SCH (09:00)
[2020-12-29] MEDS: FERROUS SULFATE 325 MG TABLET. PO SCH (09:00)
[2020-12-29] MEDS: CHOLECALCIFEROL (VITAMIN D3) 1,000 UNIT TABLET PO SCH (09:00)
[2020-12-29] MEDS: POTASSIUM CHLORIDE 20 MEQ TABLET.ER. PO SCH (09:18)
[2020-12-29] MEDS: METOPROLOL TART IMMED RELEASE 25 MG TABLET. PO SCH ×2 (09:24→21:00)
[2020-12-29] MEDS: HYDROXYCHLOROQUINE 200 MG TABLET PO SCH ×2 (09:24→20:20)
[2020-12-29] MEDS: VENLAFAXINE XR 37.5 MG CAP.ER.24H. PO SCH (09:25)
[2020-12-29] MEDS: GABAPENTIN 300 MG CAPSULE. PO SCH ×2 (09:25→20:20)
[2020-12-29] MEDS: FOLIC ACID 1 MG TABLET. PO SCH (09:25)
[2020-12-29] MEDS: MULTIVITAMIN with MINERAL TABLET. PO SCH (09:25)
[2020-12-29] MEDS: oxyCODONE/APAP 10/325 1 TAB TABLET PO PRN ×2 (09:26→13:02)
--- NOTE | 2020-12-29 09:48 | PDOC ---
DATE OF SERVICE DATE: 12/29/20 TIME: 09:33 SUBJECTIVE ROS States feeling much better Has been in the hospital 8 times this year OBJECTIVE Vital Signs Vital Signs Date Time Temp Pulse Resp B/P (MAP) Pulse Ox O2 Delivery O2 Flow Rate FiO2 12/29/20 09:26 96 Nasal Cannula 2.0 12/29/20 09:24 126/65 12/29/20 05:00 76 15 12/29/20 04:00 98.6 98.6 I & 0 Intake and Output 12/29/20 07:00 Intake Total 3432 ml Output Total 2565 ml Balance 867 ml Intake Oral 1100 ml IV Total 1982 ml Other 350 ml Output Urine Total 2565 ml # Bowel Movements 7 PHYSICAL EXAM Physical Exam GEN:NAD HEENT: no icterus, OM moist NECK: supple . LUNGS: Decreased in the bases, non labored HEART: S1, S2. no murmurs ABDOMEN: Obese, soft,BS+ not tender EXTREMITIES: No clubbing, cyanosis. + lower extremity edema bilateral erythema on her legs SKIN: No rash. NEUROLOGIC: grossly normal PSYCHIATRIC: Affect is appropriate. GENITOURINARY: Crawford in place, No SP or CVA tenderness DIAGNOSIS/ASSESSMENT Assessment & Plan MAURICE suspect 2/2 ATN / Vancomycin/ Hypotension non Oliguric , UA unremarkable . Resolved, Cr back to her baseline E-Lytes stable , Supportive care, I/O, maintain hydration CKD stage 2/3 a- MAURICE in Sep 2020 Cr peaked at 1.6 , Cr at dc 1.3; prior was 1.1 (per primary's Note baseline Cr interval was 0.4) Lower extremity cellulitis On Abx followed by ID. Was on Vanc at home via PICC line (duration unknown) Acute on chronic diastolic CHF: appears compensated. Takes Torsemide 10 mg at home. Agree with diuretics with renal monitoring - Cardiology managing Hypotension - off pressor support AMS at Presentation- resolved Gram negative bacteremia at osh 12/25 3/4 bottles,Klebsiella penumoniae Atrial fibrillation with RVR - per cardiology ? Esophagitis reported on CT CT lung from [facility] cavitary lung lesion down to 2.6 x 1.5 cm thin- walled cavitation much improved compared to large cavitary lung lesion 12 months ago RA - On Immunosuppressive meds COMMENT/RELEVANT DATA Meds Current Medications Medications (Trade) Dose Ordered Sig/Josefina Start Time Stop Time Status Last Admin Dose Admin Acetaminophen (Tylenol) 650 mg PRN Q6HRS PRN 12/27/20 12:30 12/27/20 12:43 650 MG Acetaminophen/ Hydrocodone Bitart (Lortab 7.5/325) 1 tab PRN Q6HRS PRN 12/26/20 08:00 12/27/20 12:21 DC 12/27/20 09:16 1 TAB Albuterol Sulfate (Ventolin Neb Soln) 2.5 mg RTQID 12/26/20 09:00 12/29/20 08:10 2.5 MG Aspirin (Ecotrin) 81 mg [id number] 12/29/20 08:00 Atorvastatin Calcium (Lipitor) 80 mg QHS 12/26/20 21:00 12/28/20 13:18 DC 12/27/20 21:24 80 MG Budesonide (Pulmicort) 0.5 mg RTBID 12/26/20 09:00 12/29/20 08:11 0.5 MG Dextrose (Dextrose 50%-Water Syringe) 12.5 gm PRN Q15MIN PRN 12/26/20 05:00 Dextrose (Iv Dextrose 5%) 250 ml PRN Q15MIN PRN 12/26/20 05:00 UNV Diclofenac Sodium (Voltaren) 100 stacy PRN QID PRN 12/26/20 08:00 Digoxin (Lanoxin) 500 mcg 1X ONCE 12/27/20 13:15 12/27/20 13:16 DC 12/27/20 13:28 500 MCG Diltiazem HCl (Cardizem 24hr Cd) 180 mg DAILY 12/26/20 09:00 12/27/20 15:37 DC 12/27/20 09:11 180 MG EZETIMIBE (Zetia) 10 mg DAILY 12/26/20 09:00 12/28/20 13:18 DC 12/27/20 09:08 10 MG Fentanyl Citrate (Fentanyl 2ml Vial) 50 mcg PRN Q2HR PRN 12/28/20 11:15 12/28/20 14:54 50 MCG Ferrous Sulfate (Feosol) 325 mg DAILY 12/26/20 09:00 12/27/20 09:10 325 MG Folic Acid (Folic Acid) 0.5 mg DAILY 12/26/20 09:00 12/29/20 09:25 0.5 MG Furosemide (Lasix) 20 mg 1X ONCE 12/28/20 13:15 12/28/20 13:16 DC 12/28/20 15:00 20 MG Gabapentin (Neurontin) 600 mg BID 12/26/20 09:00 12/29/20 09:25 600 MG Guaifenesin/ Codeine Phosphate (Robitussin Ac) 5 ml PRN Q6HRS PRN 12/26/20 08:00 Hydroxychloroquine Sulfate (Plaquenil) 200 mg BID 12/26/20 09:00 12/29/20 09:24 200 MG Insulin Glargine (Lantus Syringe) 20 unit QHS 12/26/20 21:00 12/28/20 21:00 20 UNIT Insulin Human Lispro (HumaLOG) 0-5 UNITS TIDWMEALS 12/26/20 08:00 12/28/20 17:00 2 UNITS Linezolid/Dextrose 300 ml @ 300 mls/hr Q12HR 12/26/20 09:00 12/29/20 09:18 300 MLS/HR Magnesium Sulfate 50 ml @ 25 mls/hr 1X ONCE 12/26/20 14:00 12/26/20 15:59 DC 12/26/20 19:21 25 MLS/HR Meropenem 500 mg/ Sodium Chloride 50 ml @ 100 mls/hr DAILY 12/29/20 09:00 12/29/20 09:17 100 MLS/HR Methotrexate (Rheumatrex) 15 mg WEEKLY 12/27/20 09:00 12/27/20 10:02 DC Metoprolol Tartrate (Lopressor) 25 mg BID 12/26/20 12:00 12/29/20 09:24 25 MG Micafungin Sodium 100 mg/Dextrose 100 ml @ 100 mls/hr Q24H 12/26/20 07:00 12/29/20 05:53 100 MLS/HR Multivitamins (Thera M Plus) 1 tab DAILY 12/26/20 09:00 12/29/20 09:25 1 TAB Non-Formulary Medication (Budesonide ) 1 vial BID 12/26/20 09:00 UNV Non-Formulary Medication (Fluticasone/ Salmeterol (Advair 250-50 Diskus)) 1 inh BID 12/26/20 09:00 UNV Non-Formulary Medication (Mesalamine (Apriso)) 2 cap BID 12/26/20 09:00 12/28/20 10:28 DC Norepinephrine Bitartrate 8 mg/ Dextrose 258 ml @ 16.757 mls/ hr CONT PRN 12/28/20 04:45 UNV Oxycodone/ Acetaminophen (Percocet 10/325) 1 tab PRN Q4HRS PRN 12/27/20 12:30 12/29/20 09:26 1 TAB Pantoprazole Sodium (PROTONIX VIAL for IV PUSH) 40 mg DAILYAC 12/26/20 07:30 12/28/20 07:30 40 MG Polyethylene Glycol (miraLAX PACKET) 17 gm DAILY 12/28/20 09:00 Potassium Chloride (Klor-Con) 20 meq DAILY 12/26/20 09:00 12/29/20 09:18 20 MEQ Psyllium Hydrophilic Mucilloid (Metamucil Fiber Packet) 1 pkt DAILY 12/26/20 09:00 12/27/20 13:20 DC 12/27/20 09:11 1 PKT Sodium Chloride 1,000 ml @ 1,000 mls/hr 1X ONCE 12/28/20 08:45 12/28/20 09:44 DC 12/28/20 08:51 1,000 MLS/HR Vancomycin HCl (Vanco Per Pharmacy) 1 each PRN DAILY PRN 12/26/20 04:30 12/26/20 06:35 DC Venlafaxine HCl (Effexor Xr) 75 mg DAILY 12/26/20 09:00 12/29/20 09:25 75 MG Vitamin D (Vitamin D3) 1,000 unit DAILY 12/26/20 09:00 12/27/20 09:10 1,000 UNIT Lab Laboratory Tests Test 12/28/20 17:26 12/29/20 04:45 Glucose (Fingerstick) 195 mg/dL (70-99) White Blood Count 23.3 x10^3/uL (4.0-11.0) Red Blood Count 2.82 x10^6/uL (3.50-5.40) Hemoglobin 8.2 g/dL (12.0-15.5) Hematocrit 25.1 % (36.0-47.0) Mean Corpuscular Volume 89 fL (79-100) Mean Corpuscular Hemoglobin 29 pg (25-35) Mean Corpuscular Hemoglobin Concent 33 g/dL (31-37) Red Cell Distribution Width 15.7 % (11.5-14.5) Platelet Count 147 x10^3/uL (140-400) Sodium Level 137 mmol/L (136-145) Potassium Level 3.7 mmol/L (3.5-5.1) Chloride Level 104 mmol/L (98-107) Carbon Dioxide Level 29 mmol/L (21-32) Anion Gap 4 (6-14) Blood Urea Nitrogen 35 mg/dL (7-20) Creatinine 1.6 mg/dL (0.6-1.0) Estimated GFR (Cockcroft-Gault) 31.6 BUN/Creatinine Ratio 22 (6-20) Glucose Level 108 mg/dL (70-99) Calcium Level 8.2 mg/dL (8.5-10.1) Total Bilirubin 0.4 mg/dL (0.2-1.0) Aspartate Amino Transf (AST/SGOT) 167 U/L (15-37) Alanine Aminotransferase (ALT/SGPT) 243 U/L (14-59) Alkaline Phosphatase 272 U/L (46-116) Total Protein 4.9 g/dL (6.4-8.2) Albumin 1.7 g/dL (3.4-5.0) Albumin/Globulin Ratio 0.5 (1.0-1.7) Results All relevant outside records, renal labs, imaging studies, telemetry/EKG's were reviewed. Justicifation of Admission Dx: Justifications for Admission: Justification of Admission Dx: Yes RAJI ANDRE MD December 29, 2020 09:48
[2020-12-29] MEDS: PANTOPRAZOLE IV PUSH 40 MG VIAL. IVP SCH (09:55)
--- NOTE | 2020-12-29 12:24 | CARD ---
MR#: [id number] Date of Study: 12/29/2020 Ordering Physician: BART GAMBINO, Referring Physician: BART AGMBINO, Tech: Marianela Mckee, [facility] APPROVED REPORT EXAM: Two-dimensional and M-mode echocardiogram with Doppler and color Doppler. Other Information Quality : AverageHR: 80bpm INDICATION Atrial Fibrillation 2D DIMENSIONS Left Atrium(2D)3.7 (1.6-4.0cm)IVSd0.9 (0.7-1.1cm) Aortic Root(2D)2.9 (2.0-3.7cm)LVDd5.1 (3.9-5.9cm) LVOT Diameter2.0 (1.8-2.4cm)PWd1.0 (0.7-1.1cm) LVDs4.0 (2.5-4.0cm)FS (%) 21.3 % SV54.1 mlLVEF(%)42.9 (>50%) Aortic Valve AoV Peak Jp.226.5cm/sAoV VTI40.8cm AO Peak GR.20.5mmHgLVOT VTI 28.22cm AO Mean GR.10mmHg Mitral Valve MV E Vsjwcxce560.3cm/sMV DECEL [id number] MV A Eogoesfc42.9cm/sE/A Ratio1.4 TDI Lateral E' P. V12.16cm/sMedial E' P. V7.08cm/s E/Lateral E'8.2E/Medial E'14.2 Tricuspid Valve TR P. Oeceymuw321sc/sRAP [id number] TR Peak Gr.25fhItORHG98dlCx Pulmonary Vein S1 Tcrowtan11.2cm/sS2 Zqnnijqz57.55cm/s D2 Uyhvhwae92.5cm/sPVa [id number] LEFT VENTRICLE The left ventricle is normal size. There is normal left ventricular wall thickness. The left ventricu lar systolic function is mildly decreased. EF 45% Septal motion consistent with conduction abnormalit y, otherwise there is mild global hypokinesis. Transmitral Doppler flow pattern is Grade II-pseudonor mal filling dynamics. RIGHT VENTRICLE The right ventricle is borderline dilated. There is normal right ventricular wall thickness. The righ t ventricular systolic function is normal. ATRIA The left atrium is borderline dilated. The right atrium size is normal. The interatrial septum is int act with no evidence for an atrial septal defect or patent foramen ovale as noted on 2-D or Doppler i maging. AORTIC VALVE The aortic valve is calcified but opens well. Doppler and Color Flow revealed trace aortic regurgitat ion. There is no significant aortic valvular stenosis. Calculated aortic valve area is 2.18 cm2 with maximum pressure gradient of 21 mmHg and mean pressure gradient of 11 mmHg. MITRAL VALVE The mitral valve is normal in structure and function. There is no evidence of mitral valve prolapse. There is no mitral valve stenosis. Doppler and Color-flow revealed trace mitral regurgitation. TRICUSPID VALVE The tricuspid valve is normal in structure and function. Doppler and Color Flow revealed trace tricus pid regurgitation with an estimated PAP of 37 mmHg. There is no tricuspid valve stenosis. PULMONIC VALVE The pulmonic valve is not well visualized. Doppler and Color Flow revealed no pulmonic valvular regur gitation. There is no pulmonic valvular stenosis. GREAT VESSELS The aortic root is normal in size. The IVC was not visualized. PERICARDIAL EFFUSION There is no evidence of significant pericardial effusion. Critical Notification Critical Value: No <Conclusion> The left ventricular systolic function is mildly decreased. EF 45% Septal motion consistent with conduction abnormality, otherwise there is mild global hypokinesis. Signed by : Bart Gambino, Electronically Approved : 12/29/2020 12:23:59
--- NOTE | 2020-12-29 15:13 | NUR ---
SS following up with discharge planning. SS reviewed pt chart and discussed with pt RN. Pt is from home and is currently on room air. Pt on IV Meropenem, IV Zyvox, and IV Micafungin. COVID19 negative. PT/OT ordered. Pt is BPCI. SS met with pt and provided detailed explanation of BPCI program and provided list of in network providers. Pt reported that she was current on services with [facility], ; fax [phone], and if returning to home would be unwilling to change providers. SS will continue to follow for discharge planning.
--- NOTE | 2020-12-29 16:08 | PDOC ---
ELMIRA AMAYA WINDING MACHINE OPERATOR 12/29/20 1608: CARDIO Progress Notes Date and Time Date of Service 12/29/20 Time of Evaluation 1210 Subjective Subjective: No Chest Pain, No shortness of breath, No Palpitations, Other (c/o back pain) Vitals Vitals Vital Signs Date Time Temp Pulse Resp B/P (MAP) Pulse Ox O2 Delivery O2 Flow Rate FiO2 12/29/20 13:02 92 Nasal Cannula 2.0 12/29/20 09:24 126/65 12/29/20 05:00 76 15 12/29/20 04:00 98.6 98.6 Weight Weight [ ] Input and Output Intake and Output Intake and Output 12/29/20 07:00 Intake Total 3432 ml Output Total 2565 ml Balance 867 ml Intake Oral 1100 ml IV Total 1982 ml Other 350 ml Output Urine Total 2565 ml # Bowel Movements 7 Laboratory Labs Laboratory Tests Test 12/28/20 17:26 12/29/20 04:45 12/29/20 12:56 Glucose (Fingerstick) 195 mg/dL (70-99) 117 mg/dL (70-99) White Blood Count 23.3 x10^3/uL (4.0-11.0) Red Blood Count 2.82 x10^6/uL (3.50-5.40) Hemoglobin 8.2 g/dL (12.0-15.5) Hematocrit 25.1 % (36.0-47.0) Mean Corpuscular Volume 89 fL (79-100) Mean Corpuscular Hemoglobin 29 pg (25-35) Mean Corpuscular Hemoglobin Concent 33 g/dL (31-37) Red Cell Distribution Width 15.7 % (11.5-14.5) Platelet Count 147 x10^3/uL (140-400) Sodium Level 137 mmol/L (136-145) Potassium Level 3.7 mmol/L (3.5-5.1) Chloride Level 104 mmol/L (98-107) Carbon Dioxide Level 29 mmol/L (21-32) Anion Gap 4 (6-14) Blood Urea Nitrogen 35 mg/dL (7-20) Creatinine 1.6 mg/dL (0.6-1.0) Estimated GFR (Cockcroft-Gault) 31.6 BUN/Creatinine Ratio 22 (6-20) Glucose Level 108 mg/dL (70-99) Calcium Level 8.2 mg/dL (8.5-10.1) Total Bilirubin 0.4 mg/dL (0.2-1.0) Aspartate Amino Transf (AST/SGOT) 167 U/L (15-37) Alanine Aminotransferase (ALT/SGPT) 243 U/L (14-59) Alkaline Phosphatase 272 U/L (46-116) Total Protein 4.9 g/dL (6.4-8.2) Albumin 1.7 g/dL (3.4-5.0) Albumin/Globulin Ratio 0.5 (1.0-1.7) Physical Exam HEENT: Neck Supple W Full Motion Chest: Symmetric LUNGS: Other (diminished) Heart: RRR (SR) Abdomen: Soft N/T Extremities: Other (erythema with 2+ pitting edema to bilateral LE. DRSG intact to RLE ) Neurology: alert, oriented, follow commands Assessment Assessment 1. AFIB RVR: in setting of sepsis. now back in SR 2. Metabolic encephalopathy: resolved 3. Bilateral LE cellulitis with hx of MRSA 4. Sepsis/shock: ID following. off pressor support 5. Acute on chronic systolic CHF; Echo with LVEF 45% with mild global hypokinesis appears compensated 6. MAURICE; Cr down to 1.6 7. Chronic immunosuppression 8. Transaminitis with protein malnutrition 9. DM2: uncontrolled 10. Anemia oc chronic disease; hgb stable at 8.2 Recommendations ASA for stroke prevention Ongoing antibiotic therapy, treatment of sepsis Add BB for rate control when BP consistently adequate No ACEi/ARB MAURICE, hypotension Consider outpatient event monitor to note AFIB burden, guide therapy Supportive care Justicifation of Admission Dx: Justifications for Admission: Justification of Admission Dx: Yes ANA ROSA CAZARES MD 12/29/20 1853: CARDIO Progress Notes Plan Plan The patient was seen and interviewed as well as examined at the bedside. The chart was reviewed. The case was discussed. Agree with the plan of care. ELMIRA AMAYA APRN December 29, 2020 16:08 ANA ROSA CAZARES MD December 29, 2020 18:53
[2020-12-29] MEDS ORDERED: DIGOXIN IV 500 MCG/2 ML AMPUL. IV ONE (19:15)
[2020-12-29] MEDS ORDERED: METOPROLOL IV PUSH 5 MG/5 ML VIAL. IVP ONE (19:45)
[2020-12-29] MEDS: INSULIN GLARGINE SYRINGE. SQ SCH (20:24)
--- NOTE | 2020-12-29 20:51 | PN ---
DATE: 12/29/2020 SUBJECTIVE: The patient is resting, slightly propped up in bed, in no apparent respiratory distress. She is awake, alert, complains that she is hungry. Pain in her legs is much better. She has grown gram-negative rods in her blood culture. PHYSICAL EXAMINATION: GENERAL: When I examined her this morning, she looked well and was clearly in no apparent respiratory distress. She is pale, but no jaundice, cyanosis or thyromegaly. No jugular venous distention, no limb edema. VITAL SIGNS: Heart rate was 76, blood pressure was 92/42, temperature was 98.6, respiratory rate was 16 and oxygen saturation was 96% on 2 liters of oxygen, saturating 99% on room air. HEAD, EYES, EARS, NOSE AND THROAT: Normocephalic, atraumatic. NECK: Supple. HEART: Normal first and second heart sounds. No gallop or murmur. CHEST: Clear to auscultation. No crepitation or rhonchi. ABDOMEN: Distended, soft, nontender. NEUROLOGIC: She is definitely more awake, alert, responding appropriately. Cranial nerves intact. She moves extremities without difficulty. EXTREMITIES: Examination of the extremities showed no clubbing or cyanosis, but she has bilateral lower extremity cellulitis and bilateral lower extremity edema. The edema and redness are improving slowly. Her intake over the last 24 hours was 4900 and output was 1050. LABORATORY DATA: As of this morning, her white cell count is down to 23,000, hemoglobin 8.2, hematocrit 25, MCV 89 and platelet count of 147,000. Her chemistry this morning showed a serum sodium of 137, potassium 3.7, chloride 104, bicarbonate 29, anion gap of 4, BUN 35, creatinine 1.6. Estimated GFR was 31 mL per minute. Her glucose 108, calcium was 8.2. Total bilirubin is normal. AST, ALT, alkaline phosphatase are markedly elevated. Her total protein was 4.9, albumin was 1.7. ASSESSMENT: 1. Altered mental status, resolved. 2. Bilateral lower extremity cellulitis. 3. Pneumonia. 4. Acute kidney injury. Her creatinine is down from 2 to 1.6. 5. Elevated troponin. 6. Her blood culture has grown gram-negative rods in 3/4 bottles, identified as Klebsiella pneumoniae. 7. The patient has multiple other medical problems including: A. Atrial fibrillation, rate controlled, not anticoagulated. B. Hyperlipidemia. C. Chronic obstructive pulmonary disease. D. Ulcerative colitis. E. Rheumatoid arthritis. F. Depression. G. History of pulmonary abscess that was treated. PLAN: To continue with IV antibiotic. Continue with pain management for her acute kidney injury. She received a liter of fluid. She is currently on meropenem, linezolid and micafungin. MYRNA DR: Lennie TID: [id number]
[2020-12-30 01:00] VITALS: BP 127/58
[2020-12-30] MEDS: oxyCODONE/APAP 10/325 1 TAB TABLET PO PRN ×3 (01:18→22:42)
[2020-12-30] MEDS: fentaNYL PF VIAL 100 MCG/2 ML VIAL IVP PRN ×4 (02:32→20:24)
[2020-12-30 04:50] LABS: HEMATOCRIT 26.8 % (36.0-47.0); HEMOGLOBIN 8.8 g/dL (12.0-15.5); RED BLOOD COUNT 3.02 x10^6/uL (3.50-5.40); RED CELL DISTRIBUTION WIDTH 15.7 % (11.5-14.5); WHITE BLOOD COUNT 13.8 x10^3/uL (4.0-11.0)
[2020-12-30 05:17] VITALS: BP 154/67
[2020-12-30 05:43] LABS: ALBUMIN 1.8 g/dL (3.4-5.0); ALBUMIN/GLOBULIN RATIO 0.5 (1.0-1.7); CREATININE 1.5 mg/dL (0.6-1.0); POTASSIUM 4.6 mmol/L (3.5-5.1); TOTAL BILIRUBIN 0.4 mg/dL (0.2-1.0); TOTAL PROTEIN 5.2 g/dL (6.4-8.2)
[2020-12-30] MEDS: MICAFUNGIN 100 MG in IV DEXTROSE 5% 100ML 100 ML IV SCH (06:29)
[2020-12-30] MEDS: POLYETHYLENE GLYCOL 3350 17 GM PACKET. PO SCH (07:13)
[2020-12-30] MEDS: BUDESONIDE 0.5 MG/2 ML NEBU. NEB SCH ×2 (07:51→20:10)
[2020-12-30] MEDS: ALBUTEROL SULFATE 2.5 MG/3 ML NEBU. NEB SCH ×4 (07:51→20:10)
[2020-12-30] MEDS: INSULIN LISPRO 300 UNITS/3 ML VIAL. SQ SCH ×3 (08:00→16:42)
[2020-12-30] MEDS: POTASSIUM CHLORIDE 20 MEQ TABLET.ER. PO SCH (08:51)
[2020-12-30] MEDS: METOPROLOL TART IMMED RELEASE 25 MG TABLET. PO SCH ×2 (08:51→21:12)
[2020-12-30] MEDS: CHOLECALCIFEROL (VITAMIN D3) 1,000 UNIT TABLET PO SCH (08:51)
[2020-12-30] MEDS: HYDROXYCHLOROQUINE 200 MG TABLET PO SCH ×2 (08:51→21:11)
[2020-12-30] MEDS: FOLIC ACID 1 MG TABLET. PO SCH (08:51)
[2020-12-30] MEDS: PANTOPRAZOLE IV PUSH 40 MG VIAL. IVP SCH (08:51)
[2020-12-30] MEDS: ASPIRIN ENTERIC COATED 81 MG TABLET.DR. PO SCH (08:52)
[2020-12-30] MEDS: GABAPENTIN 300 MG CAPSULE. PO SCH ×2 (08:52→21:12)
[2020-12-30] MEDS: FERROUS SULFATE 325 MG TABLET. PO SCH (08:52)
[2020-12-30] MEDS: MULTIVITAMIN with MINERAL TABLET. PO SCH (08:52)
[2020-12-30] MEDS: VENLAFAXINE XR 37.5 MG CAP.ER.24H. PO SCH (08:55)
--- NOTE | 2020-12-30 08:57 | PDOC ---
Infectious Disease Note Subjective: Subjective Pt says feels better no fevers Complains of pain in both lower extremity and low back which is chronic Off pressors for more than 24 hours Loose BM Vital Signs: Vital Signs Vital Signs Date Time Temp Pulse Resp B/P (MAP) Pulse Ox O2 Delivery O2 Flow Rate FiO2 12/30/20 08:51 87 115/71 12/30/20 07:51 94 Room Air 12/30/20 07:12 2.0 12/30/20 06:27 20 12/30/20 05:17 98.0 98.0 Physical Exam: PHYSICAL EXAM GEN:alert awake appears tired HEENT: no icterus, Oral cavity and pharynx dry NECK: Without JVD. No fullness. LUNGS: Decreased in the bases. HEART: S1, S2. no murmurs ABDOMEN: Obese, soft,BS+ no guarding, no rebound. GENITOURINARY: Crawford in place. EXTREMITIES: No clubbing, cyanosis. She has 2-3+ lower extremity edema bilaterally, also has bilateral erythema on her legs in well described areas. Right lower extremity more than left She has a small wound on her left knee cap that appears to be clean. Lateral wounds on both legs appear consistent with previous bullae that have ruptured. EXTREMITIES: Legs are mildly warm, some tenderness. SKIN: Otherwise warm without generalized rash. NEUROLOGIC: She is nonfocal, moves all extremities. PSYCHIATRIC: Affect is appropriate. Medications: Inpatient Meds: Medications reviewed. Labs: Lab Laboratory Tests Test 12/29/20 12:56 12/29/20 18:07 12/29/20 20:19 12/30/20 04:00 Glucose (Fingerstick) 117 mg/dL (70-99) 160 mg/dL (70-99) 157 mg/dL (70-99) White Blood Count 13.8 x10^3/uL (4.0-11.0) Red Blood Count 3.02 x10^6/uL (3.50-5.40) Hemoglobin 8.8 g/dL (12.0-15.5) Hematocrit 26.8 % (36.0-47.0) Mean Corpuscular Volume 89 fL (79-100) Mean Corpuscular Hemoglobin 29 pg (25-35) Mean Corpuscular Hemoglobin Concent 33 g/dL (31-37) Red Cell Distribution Width 15.7 % (11.5-14.5) Platelet Count 134 x10^3/uL (140-400) Sodium Level 137 mmol/L (136-145) Potassium Level 4.6 mmol/L (3.5-5.1) Chloride Level 101 mmol/L (98-107) Carbon Dioxide Level 28 mmol/L (21-32) Anion Gap 8 (6-14) Blood Urea Nitrogen 30 mg/dL (7-20) Creatinine 1.5 mg/dL (0.6-1.0) Estimated GFR (Cockcroft-Gault) 34.0 BUN/Creatinine Ratio 20 (6-20) Glucose Level 148 mg/dL (70-99) Calcium Level 8.0 mg/dL (8.5-10.1) Total Bilirubin 0.4 mg/dL (0.2-1.0) Aspartate Amino Transf (AST/SGOT) 120 U/L (15-37) Alanine Aminotransferase (ALT/SGPT) 242 U/L (14-59) Alkaline Phosphatase 369 U/L (46-116) Total Protein 5.2 g/dL (6.4-8.2) Albumin 1.8 g/dL (3.4-5.0) Albumin/Globulin Ratio 0.5 (1.0-1.7) Objective: Assessment: 1. Fever. Resolved 2. Lower extremity cellulitis. 3. Gram negative bacteremia at osh 12/25 3/4 bottles,Klebsiella pneumoniae 4. Atrial fibrillation. 5. Acute kidney injury. 6. Some questionable esophagitis.Abnormal LFTs likely from shock liver 7. CT lung from [facility] cavitary lung lesion down to 2.6 x 1.5 cm thin-walled cavitation much improved compared to large cavitary lung lesion 12 months ago 8. Immunosuppression with rheumatoid arthritis. 9. ANTIBIOTIC ALLERGIES, has tolerated Zosyn and Augmentin. 10. History of methicillin-resistant Staphylococcus aureus, Enterobacter resp cultures in the past. 11. History of fall POA with compression fracture on CT Plan: Plan of Care Cont Zyvox DC meropenem and micafungin Start Zosyn, may need renal dosing CT abdomen pelvis without reviewed F/U C. difficile UA negative at [facility] S/p Levofloxacin,Vanc and Dexamethasone F/u labs and cults Elevation of leg Local wound care Contact isolation for h/o MRSA Discussed with nursing staff BILLY HODGES MD December 30, 2020 08:57
[2020-12-30 09:00] VITALS: BP 115/71
--- NOTE | 2020-12-30 09:11 | PDOC ---
DATE OF SERVICE DATE: 12/30/20 TIME: 09:08 SUBJECTIVE ROS No new concerns or complaints OBJECTIVE Vital Signs Vital Signs Date Time Temp Pulse Resp B/P (MAP) Pulse Ox O2 Delivery O2 Flow Rate FiO2 12/30/20 08:51 87 115/71 12/30/20 07:51 94 Room Air 12/30/20 07:12 2.0 12/30/20 06:27 20 12/30/20 05:17 98.0 98.0 I & 0 Intake and Output 12/30/20 07:00 Intake Total 2590 ml Output Total 1126 ml Balance 1464 ml Intake Oral 2290 ml IV Total 300 ml Output Urine Total 1125 ml Stool Total 1 ml # Bowel Movements 2 PHYSICAL EXAM Physical Exam GEN:NAD HEENT: no icterus, OM moist NECK: supple . LUNGS: Decreased in the bases, non labored HEART: S1, S2. no murmurs ABDOMEN: Obese, soft,BS+ not tender EXTREMITIES: No clubbing, cyanosis. + lower extremity edema bilateral erythema on her legs SKIN: No rash. NEUROLOGIC: grossly normal PSYCHIATRIC: Affect is appropriate. GENITOURINARY: Crawford in place, No SP or CVA tenderness DIAGNOSIS/ASSESSMENT Assessment & Plan MAURICE suspect 2/2 ATN / Vancomycin/ Hypotension non Oliguric , UA unremarkable . Resolved, Cr back to her baseline E-Lytes stable , Supportive care, I/O, maintain hydration CKD stage 2/3 a- MAURICE in Sep 2020 Cr peaked at 1.6 , Cr at dc 1.3; prior was 1.1 (per primary's Note baseline Cr interval was 0.4) Lower extremity cellulitis On Abx followed by ID. Was on Vanc at home via PICC line (duration unknown) Acute on chronic diastolic CHF: appears compensated. Takes Torsemide 10 mg at home- titrate based on daily wt , edema, BP etc AMS at Presentation- resolved Gram negative bacteremia at osh 12/25 3/4 bottles,Klebsiella penumoniae Atrial fibrillation with RVR - per cardiology ? Esophagitis reported on CT CT lung from [facility] cavitary lung lesion down to 2.6 x 1.5 cm thin- walled cavitation much improved compared to large cavitary lung lesion 12 months ago RA - On Immunosuppressive meds COMMENT/RELEVANT DATA Meds Current Medications Medications (Trade) Dose Ordered Sig/Josefina Start Time Stop Time Status Last Admin Dose Admin Acetaminophen (Tylenol) 650 mg PRN Q6HRS PRN 12/27/20 12:30 12/27/20 12:43 650 MG Acetaminophen/ Hydrocodone Bitart (Lortab 7.5/325) 1 tab PRN Q6HRS PRN 12/26/20 08:00 12/27/20 12:21 DC 12/27/20 09:16 1 TAB Albuterol Sulfate (Ventolin Neb Soln) 2.5 mg RTQID 12/26/20 09:00 12/30/20 07:51 2.5 MG Aspirin (Ecotrin) 81 mg DAILYWBKFT 12/29/20 08:00 12/30/20 08:52 81 MG Atorvastatin Calcium (Lipitor) 80 mg QHS 12/26/20 21:00 12/28/20 13:18 DC 12/27/20 21:24 80 MG Budesonide (Pulmicort) 0.5 mg RTBID 12/26/20 09:00 12/30/20 07:51 0.5 MG Dextrose (Dextrose 50%-Water Syringe) 12.5 gm PRN Q15MIN PRN 12/26/20 05:00 Dextrose (Iv Dextrose 5%) 250 ml PRN Q15MIN PRN 12/26/20 05:00 UNV Diclofenac Sodium (Voltaren) 100 stacy PRN QID PRN 12/26/20 08:00 Digoxin (Lanoxin) 250 mcg 1X ONCE 12/29/20 19:15 12/29/20 19:16 DC 12/29/20 19:16 250 MCG Diltiazem HCl (Cardizem 24hr Cd) 180 mg DAILY 12/26/20 09:00 12/27/20 15:37 DC 12/27/20 09:11 180 MG Enoxaparin Sodium (Lovenox 60mg Syringe) 60 mg 1X ONCE 12/29/20 19:15 12/29/20 19:16 DC 12/29/20 20:11 60 MG EZETIMIBE (Zetia) 10 mg DAILY 12/26/20 09:00 12/28/20 13:18 DC 12/27/20 09:08 10 MG Fentanyl Citrate (Fentanyl 2ml Vial) 50 mcg PRN Q2HR PRN 12/28/20 11:15 12/30/20 02:32 50 MCG Ferrous Sulfate (Feosol) 325 mg DAILY 12/26/20 09:00 12/30/20 08:52 325 MG Folic Acid (Folic Acid) 0.5 mg DAILY 12/26/20 09:00 12/30/20 08:51 0.5 MG Furosemide (Lasix) 20 mg 1X ONCE 12/28/20 13:15 12/28/20 13:16 DC 12/28/20 15:00 20 MG Gabapentin (Neurontin) 600 mg BID 12/26/20 09:00 12/30/20 08:52 600 MG Guaifenesin/ Codeine Phosphate (Robitussin Ac) 5 ml PRN Q6HRS PRN 12/26/20 08:00 Hydroxychloroquine Sulfate (Plaquenil) 200 mg BID 12/26/20 09:00 12/30/20 08:51 200 MG Insulin Glargine (Lantus Syringe) 20 unit QHS 12/26/20 21:00 12/29/20 20:24 20 UNIT Insulin Human Lispro (HumaLOG) 0-5 UNITS TIDWMEALS 12/26/20 08:00 12/28/20 17:00 2 UNITS Linezolid/Dextrose 300 ml @ 300 mls/hr Q12HR 12/26/20 09:00 12/29/20 20:21 300 MLS/HR Magnesium Sulfate 50 ml @ 25 mls/hr 1X ONCE 12/26/20 14:00 12/26/20 15:59 DC 12/26/20 19:21 25 MLS/HR Meropenem 500 mg/ Sodium Chloride 50 ml @ 100 mls/hr DAILY 12/29/20 09:00 12/29/20 09:17 100 MLS/HR Methotrexate (Rheumatrex) 15 mg WEEKLY 12/27/20 09:00 12/27/20 10:02 DC Metoprolol Tartrate (Lopressor Vial) 5 mg 1X ONCE 12/29/20 19:45 12/29/20 19:46 DC 12/29/20 20:09 5 MG Metoprolol Tartrate (Lopressor) 25 mg BID 12/26/20 12:00 12/30/20 08:51 25 MG Micafungin Sodium 100 mg/Dextrose 100 ml @ 100 mls/hr Q24H 12/26/20 07:00 12/30/20 06:29 100 MLS/HR Multivitamins (Thera M Plus) 1 tab DAILY 12/26/20 09:00 12/30/20 08:52 1 TAB Non-Formulary Medication (Budesonide ) 1 vial BID 12/26/20 09:00 UNV Non-Formulary Medication (Fluticasone/ Salmeterol (Advair 250-50 Diskus)) 1 inh BID 12/26/20 09:00 UNV Non-Formulary Medication (Mesalamine (Apriso)) 2 cap BID 12/26/20 09:00 12/28/20 10:28 DC Norepinephrine Bitartrate 8 mg/ Dextrose 258 ml @ 16.757 mls/ hr CONT PRN 12/28/20 04:45 UNV Oxycodone/ Acetaminophen (Percocet 10/325) 1 tab PRN Q4HRS PRN 12/27/20 12:30 12/30/20 06:27 1 TAB Pantoprazole Sodium (PROTONIX VIAL for IV PUSH) 40 mg DAILYAC 12/26/20 07:30 12/30/20 08:51 40 MG Polyethylene Glycol (miraLAX PACKET) 17 gm DAILY 12/28/20 09:00 Potassium Chloride (Klor-Con) 20 meq DAILY 12/26/20 09:00 12/30/20 08:51 20 MEQ Psyllium Hydrophilic Mucilloid (Metamucil Fiber Packet) 1 pkt DAILY 12/26/20 09:00 12/27/20 13:20 DC 12/27/20 09:11 1 PKT Sodium Chloride 1,000 ml @ 1,000 mls/hr 1X ONCE 12/28/20 08:45 12/28/20 09:44 DC 12/28/20 08:51 1,000 MLS/HR Vancomycin HCl (Vanco Per Pharmacy) 1 each PRN DAILY PRN 12/26/20 04:30 12/26/20 06:35 DC Venlafaxine HCl (Effexor Xr) 75 mg DAILY 12/26/20 09:00 12/30/20 08:55 75 MG Vitamin D (Vitamin D3) 1,000 unit DAILY 12/26/20 09:00 12/30/20 08:51 1,000 UNIT Lab Laboratory Tests Test 12/29/20 12:56 12/29/20 18:07 12/29/20 20:19 12/30/20 04:00 Glucose (Fingerstick) 117 mg/dL (70-99) 160 mg/dL (70-99) 157 mg/dL (70-99) White Blood Count 13.8 x10^3/uL (4.0-11.0) Red Blood Count 3.02 x10^6/uL (3.50-5.40) Hemoglobin 8.8 g/dL (12.0-15.5) Hematocrit 26.8 % (36.0-47.0) Mean Corpuscular Volume 89 fL (79-100) Mean Corpuscular Hemoglobin 29 pg (25-35) Mean Corpuscular Hemoglobin Concent 33 g/dL (31-37) Red Cell Distribution Width 15.7 % (11.5-14.5) Platelet Count 134 x10^3/uL (140-400) Sodium Level 137 mmol/L (136-145) Potassium Level 4.6 mmol/L (3.5-5.1) Chloride Level 101 mmol/L (98-107) Carbon Dioxide Level 28 mmol/L (21-32) Anion Gap 8 (6-14) Blood Urea Nitrogen 30 mg/dL (7-20) Creatinine 1.5 mg/dL (0.6-1.0) Estimated GFR (Cockcroft-Gault) 34.0 BUN/Creatinine Ratio 20 (6-20) Glucose Level 148 mg/dL (70-99) Calcium Level 8.0 mg/dL (8.5-10.1) Total Bilirubin 0.4 mg/dL (0.2-1.0) Aspartate Amino Transf (AST/SGOT) 120 U/L (15-37) Alanine Aminotransferase (ALT/SGPT) 242 U/L (14-59) Alkaline Phosphatase 369 U/L (46-116) Total Protein 5.2 g/dL (6.4-8.2) Albumin 1.8 g/dL (3.4-5.0) Albumin/Globulin Ratio 0.5 (1.0-1.7) Test 12/30/20 08:59 Glucose (Fingerstick) 110 mg/dL (70-99) Results All relevant outside records, renal labs, imaging studies, telemetry/EKG's were reviewed. Other CT scan 12/28 Evaluation of the lower thorax demonstrates no infiltrate, pleural effusion or pneumothorax. There is mild distal esophageal wall thickening, not clearly within limits to suggest esophagitis. No hepatic lesion is seen. The stomach, gallbladder, pancreas and adrenal glands are unremarkable. The spleen is upper normal in size and contains a few calcified granulomas. The kidneys are unremarkable. There is a Crawford catheter and small amount of gas within the bladder due to recent catheter placement. The appendix is absent. There is no evidence of bowel obstruction. There is moderate colonic stool. There are few distal colonic diverticula. The uterus is absent. There is heavily calcified atherosclerotic plaque involving the aorta and main aortic branch vessels. There is no aneurysm. There is no pathologically enlarged lymph node. There is edema within the proximal right thigh soft tissues, possibly dependent in etiology. There is stranding within the ventral abdominal wall fat likely due to medication injection sites. There is degenerative change involving the spine. There is a mild L5 compression deformity. There is superimposed gas along the anterior superior endplate suggesting a superimposed acute or subacute nondisplaced endplate fracture. IMPRESSION: 1. No findings correlate with reported bacteremia. 2. Distal colonic diverticulosis. 3. Gas within the urinary bladder due to recent Crawford catheter placement. 4. Suspected acute or subacute nondepressed anterior superior endplate fracture at L5, superimposed on a mild L5 compression fracture. This is new compared to the CT performed 09/29/2020. Justicifation of Admission Dx: Justifications for Admission: Justification of Admission Dx: Yes RAJI ANDRE MD December 30, 2020 09:11
[2020-12-30] MEDS ORDERED: PIPERACILLIN/TAZOBACTAM 3.375 GM in IV NORMAL SALINE 50ML 50 ML IV SCH (09:45)
--- NOTE | 2020-12-30 10:52 | PDOC ---
ELMIRA AMAYA COMMIS CHEF 12/30/20 1052: CARDIO Progress Notes Date and Time Date of Service 12/30/20 Time of Evaluation 1045 Subjective Subjective: No Chest Pain, No shortness of breath, No Palpitations, Other (working up therapy, up in chair ) Vitals Vitals Vital Signs Date Time Temp Pulse Resp B/P (MAP) Pulse Ox O2 Delivery O2 Flow Rate FiO2 12/30/20 09:00 97.9 88 20 115/71 (86) 98 Room Air 97.9 12/30/20 07:12 2.0 Weight Weight [ ] Input and Output Intake and Output Intake and Output 12/30/20 07:00 Intake Total 2590 ml Output Total 1176 ml Balance 1414 ml Intake Oral 2290 ml IV Total 300 ml Output Urine Total 1175 ml Stool Total 1 ml # Bowel Movements 2 Laboratory Labs Laboratory Tests Test 12/29/20 12:56 12/29/20 18:07 12/29/20 20:19 12/30/20 04:00 Glucose (Fingerstick) 117 mg/dL (70-99) 160 mg/dL (70-99) 157 mg/dL (70-99) White Blood Count 13.8 x10^3/uL (4.0-11.0) Red Blood Count 3.02 x10^6/uL (3.50-5.40) Hemoglobin 8.8 g/dL (12.0-15.5) Hematocrit 26.8 % (36.0-47.0) Mean Corpuscular Volume 89 fL (79-100) Mean Corpuscular Hemoglobin 29 pg (25-35) Mean Corpuscular Hemoglobin Concent 33 g/dL (31-37) Red Cell Distribution Width 15.7 % (11.5-14.5) Platelet Count 134 x10^3/uL (140-400) Sodium Level 137 mmol/L (136-145) Potassium Level 4.6 mmol/L (3.5-5.1) Chloride Level 101 mmol/L (98-107) Carbon Dioxide Level 28 mmol/L (21-32) Anion Gap 8 (6-14) Blood Urea Nitrogen 30 mg/dL (7-20) Creatinine 1.5 mg/dL (0.6-1.0) Estimated GFR (Cockcroft-Gault) 34.0 BUN/Creatinine Ratio 20 (6-20) Glucose Level 148 mg/dL (70-99) Calcium Level 8.0 mg/dL (8.5-10.1) Total Bilirubin 0.4 mg/dL (0.2-1.0) Aspartate Amino Transf (AST/SGOT) 120 U/L (15-37) Alanine Aminotransferase (ALT/SGPT) 242 U/L (14-59) Alkaline Phosphatase 369 U/L (46-116) Creatine Kinase 33 U/L (26-192) Total Protein 5.2 g/dL (6.4-8.2) Albumin 1.8 g/dL (3.4-5.0) Albumin/Globulin Ratio 0.5 (1.0-1.7) Test 12/30/20 08:59 Glucose (Fingerstick) 110 mg/dL (70-99) Physical Exam HEENT: Neck Supple W Full Motion Chest: Symmetric LUNGS: Other (diminished) Heart: RRR (SR) Abdomen: Soft N/T Extremities: Other (erythema with 2+ pitting edema to bilateral LE. DRSG intact to RLE ) Neurology: alert, oriented, follow commands Assessment Assessment 1. AFIB RVR: in setting of sepsis. Had brief period of AFIB with RVR yesterday evening. Convert to SR with IV Dig. now maintaining SR 2. Metabolic encephalopathy: resolved 3. Bilateral LE cellulitis with hx of MRSA 4. Sepsis/shock: ID following. off pressor support 5. Acute on chronic systolic CHF; Echo with LVEF 45% with mild global hypokinesis appears compensated 6. MAURICE; Cr down to 1.5 7. Chronic immunosuppression 8. Transaminitis with protein malnutrition 9. DM2: uncontrolled 10. Anemia oc chronic disease; hgb stable at 8.2 Recommendations ASA for stroke prevention Ongoing antibiotic therapy, treatment of sepsis Continue BB for rate control as BP allows Consider addition of antiarrhythmic therapy if patient continues to have paroxysms of AFIB No ACEi/ARB MAURICE Recommend outpatient event monitor to note AFIB burden, guide therapy. Will follow up with primary cardiology team at [facility]. Has appointment with Isabel Cowan APRN Supportive care Justicifation of Admission Dx: Justifications for Admission: Justification of Admission Dx: Yes ANA ROSA CAZARES MD 12/30/20 3483: CARDIO Progress Notes Plan Plan The patient was seen and interviewed as well as examined at the bedside. The chart was reviewed. The case was discussed. Agree with the plan of care. ELMIRA AMAYA APRN December 30, 2020 10:52 ANA ROSA CAZARES MD December 30, 2020 17:53
[2020-12-30] MEDS: PIPERACILLIN/TAZOBACTAM 2.25 GM in IV NORMAL SALINE 50ML 50 ML IV SCH ×2 (12:11→16:36)
--- NOTE | 2020-12-30 12:11 | NUR ---
patient listed with PCN allergy, zosyn ordered- clarified with pharmacist OK to give- pt tolerated zosyn in the past.
[2020-12-30 13:00] VITALS: BP 124/63
--- NOTE | 2020-12-30 15:42 | PN ---
DATE: 12/30/2020 SUBJECTIVE: The patient is resting, slightly propped up in bed, no apparent respiratory distress. She is awake, alert, eating breakfast comfortably. On questioning her, she denied any complaint, stated her pain is much better controlled and she is feeling generally well. PHYSICAL EXAMINATION: GENERAL: When I examined her, she looked pale, not jaundiced, cyanosed. No thyromegaly. No jugular venous distention. Bilateral lower limb edema. VITAL SIGNS: Her heart rate was 87, blood pressure is 115/71, temperature was 98, respiratory rate 20, and oxygen saturation was 94%. HEAD, EYES, EARS, NOSE AND THROAT: Normocephalic, atraumatic. NECK: Supple. HEART: Showed normal first and second heart sounds, no gallop, murmur. CHEST: Clear to auscultation, no crepitation or rhonchi. ABDOMEN: Distended, soft, nontender. NEUROLOGIC: She is awake, alert, responding appropriately. Cranial nerves intact. She moves without difficulty. Her intake was 3400, output was 2665. LABORATORY DATA: Her lab work this morning showed her white cell count is down to 13,800, hemoglobin 8.8, hematocrit 27, MCV 89 and platelet count of 134,000. Her chemistry showed a serum sodium 137, potassium 4.6, chloride 101, bicarbonate 28, anion gap of 8, BUN 30, creatinine 1.5, estimated GFR was 34 mL per minute. Her glucose 148, calcium was 8, total bilirubin is normal. AST, ALT, alkaline phosphatase slightly elevated, but trending down. Her total protein 5.2, albumin was 1.8. ASSESSMENT: 1. Altered mental status, resolved. The patient is now awake, alert, oriented to time, place and person. 2. Bilateral lower extremity cellulitis. 3. Pneumonia. 4. Acute kidney injury, improving. His creatinine is down from 2 to 1.5. 5. Elevated troponin. 6. Her blood culture has grown gram-negative rods in 3/4 bottles identified as Klebsiella pneumoniae. 7. The patient has multiple other medical problems including: A. Atrial fibrillation, rate controlled, not anticoagulated. B. Hyperlipidemia. C. Chronic obstructive pulmonary disease. D. Ulcerative colitis. E. Rheumatoid arthritis. F. Depression. G. History of pulmonary abscess that was treated. PLAN: To continue with IV antibiotic. Continue with management. Continue to monitor blood sugar and adjust insulin as needed. The patient can be transferred out of ICU. We will consult physical and occupational therapy. RADHA DR: Lennie TID: [id number]
[2020-12-30 17:00] VITALS: BP 125/65
[2020-12-30] MEDS ORDERED: LIDOCAINE (700MG/PATCH) PATCH. TD SCH (17:15)
[2020-12-30] MEDS: DICLOFENAC SODIUM 1% TOPICAL GEL 100GM TUBE. TP PRN (19:02)
[2020-12-30] MEDS: INSULIN GLARGINE SYRINGE. SQ SCH (21:00)
[2020-12-30] MEDS: PATCH REMOVAL. MC SCH (21:00)
[2020-12-31] MEDS: PIPERACILLIN/TAZOBACTAM 2.25 GM in IV NORMAL SALINE 50ML 50 ML IV SCH ×5 (00:06→22:53)
[2020-12-31 04:23] VITALS: BP 150/73
[2020-12-31] MEDS: DICLOFENAC SODIUM 1% TOPICAL GEL 100GM TUBE. TP PRN (06:15)
[2020-12-31 06:36] LABS: CALCIUM 7.8 mg/dL (8.5-10.1); CREATININE 1.4 mg/dL (0.6-1.0); GFR 36.9; POTASSIUM 4.3 mmol/L (3.5-5.1)
[2020-12-31] MEDS: DEXTROSE 50% 25 GM / 50ML DISP.SYRIN. IV PRN ×2 (07:14→12:23)
[2020-12-31] MEDS: BUDESONIDE 0.5 MG/2 ML NEBU. NEB SCH ×2 (07:19→20:35)
[2020-12-31] MEDS: ALBUTEROL SULFATE 2.5 MG/3 ML NEBU. NEB SCH ×4 (07:19→20:35)
--- NOTE | 2020-12-31 07:22 | NUR ---
FSBS 69. 12.5gm D50 given IVP. Glucose 64 per PICC draw via lab.
[2020-12-31] MEDS: PANTOPRAZOLE IV PUSH 40 MG VIAL. IVP SCH (07:28)
[2020-12-31] MEDS: ASPIRIN ENTERIC COATED 81 MG TABLET.DR. PO SCH (07:28)
[2020-12-31] MEDS: fentaNYL PF VIAL 100 MCG/2 ML VIAL IVP PRN (07:32)
--- NOTE | 2020-12-31 07:38 | PDOC ---
CARDIOLOGY PROGRESS NOTE SUBJECTIVE: No new CV issues overnight. Remains in SR. Complained about pain in her back and hips today. No chest pain or dyspnea. OBJECTIVE: Vital Signs/I&O: Vital Signs Date Time Temp Pulse Resp B/P (MAP) Pulse Ox O2 Delivery O2 Flow Rate FiO2 12/31/20 07:20 97 Nasal Cannula 2.0 12/31/20 04:23 98.1 77 16 150/73 (98) 98.1 I & O 12/30/20 12/30/20 12/31/20 15:00 23:00 07:00 Intake Total 850 ml 240 ml Output Total 550 ml 340 ml Balance 300 ml -340 ml 240 ml Objective: She is resting in bed, mild distress from back pain. Normal heart tones. Lungs clear anteriorly Bilateral 2+ LE edema to the thigh Soft abdomen. CURRENT MEDICATIONS: ASA 81mg daily Metoprolol 25mg p.o bid DIAGNOSTIC TESTING: Labs reviewed ASSESSMENT: 1. AFIB RVR: in setting of sepsis. Now in SR. 2. Metabolic encephalopathy: resolved 3. Bilateral LE cellulitis with hx of MRSA 4. Sepsis/shock: ID following. off pressor support 5. Acute on chronic systolic CHF; Echo with LVEF 45% with mild global hypokinesis appears compensated 6. MAURICE-improving 7. Chronic immunosuppression 8. Transaminitis with protein malnutrition 9. DM2: uncontrolled 10. Anemia oc chronic disease; hgb stable at 8.2 PLAN: 1. From a CV standpoint, continue low dose metoprolol given recent sepsis and shock will not aggressively treat the afib which is secondary. 2. If she has recurrence of afib, will then consider Amiodarone based on LFT's. 3. Will need outpt ischemic w/u and f/u with [facility] cardiology. 4. Monitor I/O's closely, she is significantly positive over the last few days, consider IV lasix if ok with nephrology service. No further inpt testing needed. Thanks, we will follow along peripherally. Justicifation of Admission Dx: Justifications for Admission: Justification of Admission Dx: Yes ANA ROSA CAZARES MD December 31, 2020 07:38
[2020-12-31 07:50] VITALS: BP 119/59
[2020-12-31] MEDS: INSULIN LISPRO 300 UNITS/3 ML VIAL. SQ SCH ×3 (08:00→17:00)
[2020-12-31] MEDS: oxyCODONE/APAP 10/325 1 TAB TABLET PO PRN ×2 (08:30→21:37)
[2020-12-31] MEDS: CHOLECALCIFEROL (VITAMIN D3) 1,000 UNIT TABLET PO SCH (08:33)
[2020-12-31] MEDS: HYDROXYCHLOROQUINE 200 MG TABLET PO SCH ×2 (08:33→21:35)
[2020-12-31] MEDS: METOPROLOL TART IMMED RELEASE 25 MG TABLET. PO SCH ×2 (08:33→21:36)
[2020-12-31] MEDS: FERROUS SULFATE 325 MG TABLET. PO SCH ×2 (08:35→08:40)
[2020-12-31] MEDS: VENLAFAXINE XR 37.5 MG CAP.ER.24H. PO SCH (08:35)
[2020-12-31] MEDS: MULTIVITAMIN with MINERAL TABLET. PO SCH (08:36)
[2020-12-31] MEDS: GABAPENTIN 300 MG CAPSULE. PO SCH ×2 (08:36→21:35)
[2020-12-31] MEDS: FOLIC ACID 1 MG TABLET. PO SCH (08:39)
[2020-12-31] MEDS: POLYETHYLENE GLYCOL 3350 17 GM PACKET. PO SCH (08:39)
[2020-12-31] MEDS: POTASSIUM CHLORIDE 20 MEQ TABLET.ER. PO SCH (08:39)
--- NOTE | 2020-12-31 10:03 | PDOC ---
Infectious Disease Note Subjective: Subjective Pt says feels better no fevers Complains of pain in both lower extremity and low back which is chronic Vital Signs: Vital Signs Vital Signs Date Time Temp Pulse Resp B/P (MAP) Pulse Ox O2 Delivery O2 Flow Rate FiO2 12/31/20 09:00 18 99 Room Air 12/31/20 08:33 89 119/59 12/31/20 08:30 2.0 12/31/20 07:50 98.2 98.2 Physical Exam: PHYSICAL EXAM GEN:alert awake appears tired HEENT: no icterus, Oral cavity and pharynx dry NECK: Without JVD. No fullness. LUNGS: Decreased in the bases. HEART: S1, S2. no murmurs ABDOMEN: Obese, soft,BS+ no guarding, no rebound. GENITOURINARY: Crawford in place. EXTREMITIES: No clubbing, cyanosis. She has 2-3+ lower extremity edema bilaterally, also has bilateral erythema on her legs in well described areas. Right lower extremity more than left She has a small wound on her left knee cap that appears to be clean. Lateral wounds on both legs appear consistent with previous bullae that have ruptured. EXTREMITIES: Legs are mildly warm, some tenderness. SKIN: Otherwise warm without generalized rash. NEUROLOGIC: She is nonfocal, moves all extremities. PSYCHIATRIC: Affect is appropriate. Medications: Inpatient Meds: Medications reviewed. Labs: Lab Laboratory Tests Test 12/30/20 16:42 12/30/20 21:17 12/31/20 06:00 12/31/20 07:09 Glucose (Fingerstick) 116 mg/dL (70-99) 105 mg/dL (70-99) 69 mg/dL (70-99) Sodium Level 140 mmol/L (136-145) Potassium Level 4.3 mmol/L (3.5-5.1) Chloride Level 106 mmol/L (98-107) Carbon Dioxide Level 28 mmol/L (21-32) Anion Gap 6 (6-14) Blood Urea Nitrogen 29 mg/dL (7-20) Creatinine 1.4 mg/dL (0.6-1.0) Estimated GFR (Cockcroft-Gault) 36.9 Glucose Level 64 mg/dL (70-99) Calcium Level 7.8 mg/dL (8.5-10.1) Test 12/31/20 07:48 Glucose (Fingerstick) 92 mg/dL (70-99) Objective: Assessment: 1. Fever. Resolved 2. Lower extremity cellulitis. 3. Klebsiella pneumoniae bacteremia at osh 12/25 3/4 bottles, 4. Atrial fibrillation. 5. Acute kidney injury. 6. Some questionable esophagitis.Abnormal LFTs likely from shock liver 7. CT lung from [facility] cavitary lung lesion down to 2.6 x 1.5 cm thin-walled cavitation much improved compared to large cavitary lung lesion 12 months ago 8. Immunosuppression with rheumatoid arthritis. 9. ANTIBIOTIC ALLERGIES, has tolerated Zosyn and Augmentin. 10. History of methicillin-resistant Staphylococcus aureus, Enterobacter resp cultures in the past. 11. History of fall POA with compression fracture on CT Plan: Plan of Care Cont Zyvox/Zosyn Was on Merrem CT abdomen pelvis without reviewed F/U C. difficile UA negative at [facility] S/p Levofloxacin,Vanc and Dexamethasone F/u labs and cults Elevation of leg Local wound care Contact isolation for h/o MRSA Discussed with nursing staff BILLY HODGES MD December 31, 2020 10:03
--- NOTE | 2020-12-31 10:18 | PDOC ---
DATE OF SERVICE DATE: 12/31/20 TIME: 10:17 SUBJECTIVE ROS No new concerns or complaints OBJECTIVE Vital Signs Vital Signs Date Time Temp Pulse Resp B/P (MAP) Pulse Ox O2 Delivery O2 Flow Rate FiO2 12/31/20 09:00 18 99 Room Air 12/31/20 08:33 89 119/59 12/31/20 08:30 2.0 12/31/20 07:50 98.2 98.2 I & 0 Intake and Output 12/31/20 07:00 Intake Total 1090 ml Output Total 890 ml Balance 200 ml Intake Oral 740 ml IV Total 350 ml Output Urine Total 890 ml # Bowel Movements 1 PHYSICAL EXAM Physical Exam GEN:NAD HEENT: no icterus, OM moist NECK: supple . LUNGS: Decreased in the bases, non labored HEART: S1, S2. no murmurs ABDOMEN: Obese, soft,BS+ not tender EXTREMITIES: No clubbing, cyanosis. + lower extremity edema bilateral erythema on her legs SKIN: No rash. NEUROLOGIC: grossly normal PSYCHIATRIC: Affect is appropriate. GENITOURINARY: Crawford in place, No SP or CVA tenderness DIAGNOSIS/ASSESSMENT Assessment & Plan MAURICE suspect 2/2 ATN / Vancomycin/ Hypotension non Oliguric , UA unremarkable . Resolved, Cr back to her baseline E-Lytes stable , Supportive care, I/O, maintain hydration CKD stage 2/3 a- MAURICE in Sep 2020 Cr peaked at 1.6 , Cr at dc 1.3; prior was 1.1 (per primary's Note baseline Cr interval was 0.4) Lower extremity cellulitis On Abx followed by ID. Was on Vanc at home via PICC line (duration unknown) Acute on chronic diastolic CHF: appears compensated. Takes Torsemide 10 mg at home- titrate based on daily wt , edema, BP etc AMS at Presentation- resolved Gram negative bacteremia at osh 12/25 3/4 bottles,Klebsiella penumoniae Atrial fibrillation with RVR - per cardiology ? Esophagitis reported on CT CT lung from [facility] cavitary lung lesion down to 2.6 x 1.5 cm thin- walled cavitation much improved compared to large cavitary lung lesion 12 months ago RA - On Immunosuppressive meds COMMENT/RELEVANT DATA Meds Current Medications Medications (Trade) Dose Ordered Sig/Josefina Start Time Stop Time Status Last Admin Dose Admin Acetaminophen (Tylenol) 650 mg PRN Q6HRS PRN 12/27/20 12:30 12/27/20 12:43 650 MG Acetaminophen/ Hydrocodone Bitart (Lortab 7.5/325) 1 tab PRN Q6HRS PRN 12/26/20 08:00 12/27/20 12:21 DC 12/27/20 09:16 1 TAB Albuterol Sulfate (Ventolin Neb Soln) 2.5 mg RTQID 12/26/20 09:00 12/31/20 07:19 2.5 MG Aspirin (Ecotrin) 81 mg [id number] 12/29/20 08:00 12/31/20 07:28 81 MG Atorvastatin Calcium (Lipitor) 80 mg QHS 12/26/20 21:00 12/28/20 13:18 DC 12/27/20 21:24 80 MG Budesonide (Pulmicort) 0.5 mg RTBID 12/26/20 09:00 12/31/20 07:19 0.5 MG Dextrose (Dextrose 50%-Water Syringe) 12.5 gm PRN Q15MIN PRN 12/26/20 05:00 12/31/20 07:14 12.5 GM Dextrose (Iv Dextrose 5%) 250 ml PRN Q15MIN PRN 12/26/20 05:00 UNV Diclofenac Sodium (Voltaren) 100 stacy PRN QID PRN 12/26/20 08:00 12/31/20 06:15 1 STACY Digoxin (Lanoxin) 250 mcg 1X ONCE 12/29/20 19:15 12/29/20 19:16 DC 12/29/20 19:16 250 MCG Diltiazem HCl (Cardizem 24hr Cd) 180 mg DAILY 12/26/20 09:00 12/27/20 15:37 DC 12/27/20 09:11 180 MG Enoxaparin Sodium (Lovenox 60mg Syringe) 60 mg 1X ONCE 12/29/20 19:15 12/29/20 19:16 DC 12/29/20 20:11 60 MG EZETIMIBE (Zetia) 10 mg DAILY 12/26/20 09:00 12/28/20 13:18 DC 12/27/20 09:08 10 MG Fentanyl Citrate (Fentanyl 2ml Vial) 50 mcg PRN Q2HR PRN 12/28/20 11:15 12/31/20 07:32 50 MCG Ferrous Sulfate (Feosol) 325 mg DAILY 12/26/20 09:00 12/30/20 08:52 325 MG Folic Acid (Folic Acid) 0.5 mg DAILY 12/26/20 09:00 12/30/20 08:51 0.5 MG Furosemide (Lasix) 20 mg 1X ONCE 12/28/20 13:15 12/28/20 13:16 DC 12/28/20 15:00 20 MG Gabapentin (Neurontin) 600 mg BID 12/26/20 09:00 12/31/20 08:36 600 MG Guaifenesin/ Codeine Phosphate (Robitussin Ac) 5 ml PRN Q6HRS PRN 12/26/20 08:00 Hydroxychloroquine Sulfate (Plaquenil) 200 mg BID 12/26/20 09:00 12/31/20 08:33 200 MG Insulin Glargine (Lantus Syringe) 20 unit QHS 12/26/20 21:00 12/29/20 20:24 20 UNIT Insulin Human Lispro (HumaLOG) 0-5 UNITS TIDWMEALS 12/26/20 08:00 12/28/20 17:00 2 UNITS Lidocaine (Lidoderm) 1 patch PRN DAILY 12/30/20 17:15 Linezolid/Dextrose 300 ml @ 300 mls/hr Q12HR 12/26/20 09:00 12/31/20 08:31 300 MLS/HR Magnesium Sulfate 50 ml @ 25 mls/hr 1X ONCE 12/26/20 14:00 12/26/20 15:59 DC 12/26/20 19:21 25 MLS/HR Meropenem 500 mg/ Sodium Chloride 50 ml @ 100 mls/hr DAILY 12/29/20 09:00 12/30/20 09:47 DC 12/29/20 09:17 100 MLS/HR Methotrexate (Rheumatrex) 15 mg WEEKLY 12/27/20 09:00 12/27/20 10:02 DC Metoprolol Tartrate (Lopressor Vial) 5 mg 1X ONCE 12/29/20 19:45 12/29/20 19:46 DC 12/29/20 20:09 5 MG Metoprolol Tartrate (Lopressor) 25 mg BID 12/26/20 12:00 12/31/20 08:33 25 MG Micafungin Sodium 100 mg/Dextrose 100 ml @ 100 mls/hr Q24H 12/26/20 07:00 12/30/20 09:47 DC 12/30/20 06:29 100 MLS/HR Miscellaneous (Lidoderm Patch Removal) 1 ea QHS 12/30/20 21:00 12/30/20 21:00 1 EA Multivitamins (Thera M Plus) 1 tab DAILY 12/26/20 09:00 12/30/20 08:52 1 TAB Non-Formulary Medication (Budesonide ) 1 vial BID 12/26/20 09:00 UNV Non-Formulary Medication (Fluticasone/ Salmeterol (Advair 250-50 Diskus)) 1 inh BID 12/26/20 09:00 UNV Non-Formulary Medication (Mesalamine (Apriso)) 2 cap BID 12/26/20 09:00 12/28/20 10:28 DC Norepinephrine Bitartrate 8 mg/ Dextrose 258 ml @ 16.757 mls/ hr CONT PRN 12/28/20 04:45 UNV Oxycodone/ Acetaminophen (Percocet 10/325) 1 tab PRN Q4HRS PRN 12/27/20 12:30 12/31/20 08:30 1 TAB Pantoprazole Sodium (PROTONIX VIAL for IV PUSH) 40 mg DAILYAC 12/26/20 07:30 12/31/20 07:28 40 MG Piperacillin Sod/ Tazobactam Sod 2.25 gm/Sodium Chloride 50 ml @ 100 mls/hr Q6HRS 12/30/20 12:00 12/31/20 06:15 100 MLS/HR Piperacillin Sod/ Tazobactam Sod 3.375 gm/Sodium Chloride 50 ml @ 100 mls/hr Q8H 12/30/20 09:45 UNV Polyethylene Glycol (miraLAX PACKET) 17 gm DAILY 12/28/20 09:00 Potassium Chloride (Klor-Con) 20 meq DAILY 12/26/20 09:00 12/30/20 08:51 20 MEQ Psyllium Hydrophilic Mucilloid (Metamucil Fiber Packet) 1 pkt DAILY 12/26/20 09:00 12/27/20 13:20 DC 12/27/20 09:11 1 PKT Sodium Chloride 1,000 ml @ 1,000 mls/hr 1X ONCE 12/28/20 08:45 12/28/20 09:44 DC 12/28/20 08:51 1,000 MLS/HR Vancomycin HCl (Vanco Per Pharmacy) 1 each PRN DAILY PRN 12/26/20 04:30 12/26/20 06:35 DC Venlafaxine HCl (Effexor Xr) 75 mg DAILY 12/26/20 09:00 12/31/20 08:35 75 MG Vitamin D (Vitamin D3) 1,000 unit DAILY 12/26/20 09:00 12/31/20 08:33 1,000 UNIT Lab Laboratory Tests Test 12/30/20 16:42 12/30/20 21:17 12/31/20 06:00 12/31/20 07:09 Glucose (Fingerstick) 116 mg/dL (70-99) 105 mg/dL (70-99) 69 mg/dL (70-99) Sodium Level 140 mmol/L (136-145) Potassium Level 4.3 mmol/L (3.5-5.1) Chloride Level 106 mmol/L (98-107) Carbon Dioxide Level 28 mmol/L (21-32) Anion Gap 6 (6-14) Blood Urea Nitrogen 29 mg/dL (7-20) Creatinine 1.4 mg/dL (0.6-1.0) Estimated GFR (Cockcroft-Gault) 36.9 Glucose Level 64 mg/dL (70-99) Calcium Level 7.8 mg/dL (8.5-10.1) Test 12/31/20 07:48 Glucose (Fingerstick) 92 mg/dL (70-99) Results All relevant outside records, renal labs, imaging studies, telemetry/EKG's were reviewed. Justicifation of Admission Dx: Justifications for Admission: Justification of Admission Dx: Yes RAJI ANDRE MD December 31, 2020 10:18
--- NOTE | 2020-12-31 10:26 | PN ---
DATE: 12/31/2020 SUBJECTIVE: The patient is resting, slightly propped up in bed, no apparent distress. She continued to complain of severe back pain. She does have a compression fracture of her lumbar vertebral spine. PHYSICAL EXAMINATION: GENERAL: When I examined her today, she looked pale, no jaundice, cyanosis or thyromegaly. No jugular venous distention, no limb edema. VITAL SIGNS: Heart rate was 87, blood pressure is 119/59, temperature was 98.2, respiratory rate was 20 and oxygen saturation was 97% on 2 liters of oxygen. HEAD, EYES, EARS, NOSE AND THROAT: Normocephalic, atraumatic. NECK: Supple. HEART: Showed normal first and second heart sounds, no gallop, rub or murmur. CHEST: Clear to auscultation. No crepitation or rhonchi. ABDOMEN: Distended, soft, nontender. NEUROLOGIC: She was definitely more awake, alert, responding appropriately. Cranial nerves intact. She moves upper extremities much greater than lower extremities. She has swelling and erythema of both lower extremities. Her intake over the last 24 hours was 2500. Output was 1125. LABORATORY DATA: As of yesterday, her white cell count was 13,800, hemoglobin 9, hematocrit 27, MCV 89 and platelet count of 134,000. Serum sodium 140, potassium 4.3, chloride 106, bicarbonate 28, anion gap of 6, BUN 29, creatinine 1.4. Estimated GFR was 37 mL per minute. Her glucose was 64, calcium was 7.8. ASSESSMENT: 1. Altered mental status, resolved. The patient is now more awake, alert and oriented to time, place and person. 2. Bilateral lower extremity cellulitis. 3. Pneumonia. 4. Acute kidney injury, improving. Her creatinine is down from 2 to 1.4. 5. Elevated troponin. 6. Her blood cultures have grown gram-negative rods in 3/4 bottles, identified as Klebsiella pneumonia. 7. She has multiple other medical problems including: A. Atrial fibrillation, rate controlled, not anticoagulated. B. Hyperlipidemia. C. Chronic obstructive pulmonary disease. D. Ulcerative colitis. E. Rheumatoid arthritis. F. Depression. G. History of pulmonary abscess that was treated. PLAN: To continue with IV antibiotic. Continue with pain management. Continue to monitor blood sugar and adjust insulin as needed. I will continue with physical and occupational therapy. I will discuss the finding with the interventional radiologist to see whether she is a candidate for vertebroplasty. ERROL DR: Lennie TID: [id number]
--- NOTE | 2020-12-31 11:30 | NUR ---
Patient report given to EVIN Sexton at 11:11. Patient to be transferred to [facility] via bed by transportation. Patient belongings and medications sent with patient at 1130 with transportation staff.
[2020-12-31 12:10] VITALS: BP 113/62
--- NOTE | 2020-12-31 13:51 | NUR ---
SS following up with discharge planning. SS reviewed pt chart and discussed with pt RN. Pt is currently requiring oxygen at two liters nasal canula. COVID19 negative. Pt on IV Zosyn. PT/OT recommended usp unit. SS met with pt to discuss discharge planning and usp unit. SS discussed [facility] in network providers. Pt requesting to go to [place], ; fax [phone], at this time. SS phoned and faxed referral to [place]. SS will continue to follow for discharge planning.
[2020-12-31 14:51] VITALS: BP 106/61
[2020-12-31 15:47] LABS: BASE EXCESS ABG 2 mmol/L (-3-3); HCO3 ABG 27 mmol/L (21-28); PCO2 ABG 46 mmHg (35-46); PO2 ABG 103 mmHg (65-108); SAT O2 ABG 97 % (92-99)
[2020-12-31 19:40] VITALS: BP 139/74
[2020-12-31] MEDS: PATCH REMOVAL. MC SCH (21:00)
[2020-12-31] MEDS: INSULIN GLARGINE SYRINGE. SQ SCH (21:00)
[2020-12-31] MEDS ORDERED: MAG HYDROX/ALUMINUM HYD/SIMETH 30 ML ORAL.SUSP PO PRN (22:30)
[2020-12-31 23:10] VITALS: BP 146/63
[2021-01-01 03:25] VITALS: BP 139/69
[2021-01-01] MEDS: PIPERACILLIN/TAZOBACTAM 2.25 GM in IV NORMAL SALINE 50ML 50 ML IV SCH ×3 (06:11→18:15)
[2021-01-01 07:30] VITALS: BP 129/65
[2021-01-01] MEDS: INSULIN LISPRO 300 UNITS/3 ML VIAL. SQ SCH ×3 (07:49→17:00)
[2021-01-01] MEDS: BUDESONIDE 0.5 MG/2 ML NEBU. NEB SCH ×2 (07:50→20:28)
[2021-01-01] MEDS: ALBUTEROL SULFATE 2.5 MG/3 ML NEBU. NEB SCH ×4 (07:51→20:28)
--- NOTE | 2021-01-01 08:06 | PDOC ---
Infectious Disease Note Subjective: Subjective Pt continues to have pain in both lower extremities right greater than left is chronic Vital Signs: Vital Signs Vital Signs Date Time Temp Pulse Resp B/P (MAP) Pulse Ox O2 Delivery O2 Flow Rate FiO2 01/01/21 07:58 96 Nasal Cannula 2.0 01/01/21 03:25 97.9 76 22 139/69 (92) 97.9 Physical Exam: PHYSICAL EXAM GEN:alert awake appears tired HEENT: no icterus, Oral cavity and pharynx dry NECK: Without JVD. No fullness. LUNGS: Decreased in the bases. HEART: S1, S2. no murmurs ABDOMEN: Obese, soft,BS+ no guarding, no rebound. GENITOURINARY: Crawford in place. EXTREMITIES: No clubbing, cyanosis. She has 2-3+ lower extremity edema bilaterally, also has bilateral erythema on her legs in well described areas. Right lower extremity more than left She has a small wound on her left knee cap that appears to be clean. Lateral wounds on both legs appear consistent with previous bullae that have ruptured. EXTREMITIES: Legs are mildly warm, some tenderness. SKIN: Otherwise warm without generalized rash. NEUROLOGIC: She is nonfocal, moves all extremities. PSYCHIATRIC: Affect is appropriate. Medications: Inpatient Meds: Medications reviewed. Labs: Lab Laboratory Tests Test 12/31/20 11:56 12/31/20 12:50 12/31/20 15:20 12/31/20 16:45 Glucose (Fingerstick) 66 mg/dL (70-99) 110 mg/dL (70-99) 72 mg/dL (70-99) O2 Saturation 97 % (92-99) Arterial Blood pH 7.39 (7.35-7.45) Arterial Blood pCO2 at Patient Temp 46 mmHg (35-46) Arterial Blood pO2 at Patient Temp 103 mmHg (65-108) Arterial Blood HCO3 27 mmol/L (21-28) Arterial Blood Base Excess 2 mmol/L (-3-3) FiO2 2 lpm nc Test 12/31/20 21:06 01/01/21 07:46 Glucose (Fingerstick) 94 mg/dL (70-99) 73 mg/dL (70-99) Objective: Assessment: 1. Fever. Resolved 2. Lower extremity cellulitis. 3. Klebsiella pneumoniae bacteremia at osh 12/25 3/4 bottles, 4. Atrial fibrillation. 5. Acute kidney injury. 6. Some questionable esophagitis.Abnormal LFTs likely from shock liver 7. CT lung from [facility] cavitary lung lesion down to 2.6 x 1.5 cm thin-walled cavitation much improved compared to large cavitary lung lesion 12 months ago 8. Immunosuppression with rheumatoid arthritis. 9. ANTIBIOTIC ALLERGIES, has tolerated Zosyn and Augmentin. 10. History of methicillin-resistant Staphylococcus aureus, Enterobacter resp cultures in the past. 11. History of fall POA with compression fracture on CT Plan: Plan of Care Continue Zosyn and Zyvox UA negative at [facility] S/p Levofloxacin,Vanc and Dexamethasone F/u labs and cults Elevation of leg Local wound care Contact isolation for h/o MRSA BILLY HODGES MD January 01, 2021 08:06
[2021-01-01] MEDS: POLYETHYLENE GLYCOL 3350 17 GM PACKET. PO SCH (09:00)
[2021-01-01] MEDS: ASPIRIN ENTERIC COATED 81 MG TABLET.DR. PO SCH (09:03)
[2021-01-01] MEDS: MULTIVITAMIN with MINERAL TABLET. PO SCH (09:03)
[2021-01-01] MEDS: CHOLECALCIFEROL (VITAMIN D3) 1,000 UNIT TABLET PO SCH (09:04)
[2021-01-01] MEDS: VENLAFAXINE XR 37.5 MG CAP.ER.24H. PO SCH (09:05)
[2021-01-01] MEDS: GABAPENTIN 300 MG CAPSULE. PO SCH ×2 (09:05→21:29)
[2021-01-01] MEDS: FOLIC ACID 1 MG TABLET. PO SCH (09:05)
[2021-01-01] MEDS: HYDROXYCHLOROQUINE 200 MG TABLET PO SCH ×2 (09:06→21:28)
[2021-01-01] MEDS: METOPROLOL TART IMMED RELEASE 25 MG TABLET. PO SCH ×2 (09:07→21:29)
[2021-01-01] MEDS: POTASSIUM CHLORIDE 20 MEQ TABLET.ER. PO SCH (09:07)
[2021-01-01] MEDS: PANTOPRAZOLE IV PUSH 40 MG VIAL. IVP SCH (09:08)
[2021-01-01] MEDS: FERROUS SULFATE 325 MG TABLET. PO SCH (09:08)
--- NOTE | 2021-01-01 10:30 | PN ---
DATE: 01/01/2021 SUBJECTIVE: The patient is resting flat, comfortably in bed, in no apparent respiratory distress. She continued to complain of pain in her back and both legs. Apparently, she was unresponsive yesterday and has had arterial blood gases that were well within acceptable range. PHYSICAL EXAMINATION: GENERAL: When I examined her this morning, she was pale, no jaundice, cyanosis or thyromegaly. No jugular venous distention. Bilateral lower extremity edema. VITAL SIGNS: Her heart rate was 76, blood pressure was 139/69, temperature was 97.9, respiratory rate was 22 and oxygen saturation was 95% on 2 liters of oxygen. HEAD, EYES, EARS, NOSE AND THROAT: Showed normocephalic, atraumatic. NECK: Supple. HEART: Normal first and second heart sounds. No gallop, rub or murmur. CHEST: Clear to auscultation. No crepitation or rhonchi. ABDOMEN: Distended, soft, nontender. NEUROLOGIC: She is awake, alert. All other cranial nerves intact. She moves upper extremities to much good extent than lower extremities. She is mostly bedbound. GENITOURINARY: She has an indwelling Crawford catheter. Her intake over the last 24 hours was 1100, output was 940. LABORATORY DATA: Her blood sugar seems to be well controlled. Her most recent white cell count was 13,800, hemoglobin 8.8, hematocrit 27, MCV 89 and platelet count of 134,000. As of yesterday, her serum sodium was 140, potassium 4.3, chloride 106, bicarbonate 28, anion gap of 6, BUN 29, creatinine 1.4. Estimated GFR was 37 mL per minute. Her glucose was 64 and calcium was 7.8. ASSESSMENT: 1. Altered mental status, resolving. The patient is now more awake, alert. 2. Bilateral lower extremity cellulitis. 3. Pneumonia. 4. Acute kidney injury, improving. Her creatinine came down from 2 to 1.4. 5. Elevated troponin, likely due to demand ischemia. 5. Her blood cultures have grown gram-negative rods in 3 out of 4 bottles identified as Klebsiella pneumoniae. 6. She has multiple other medical problems including: A. Atrial fibrillation, rate controlled, not anticoagulated. B. Hyperlipidemia. C. Chronic obstructive pulmonary disease. D. Ulcerative colitis. E. Rheumatoid arthritis. F. Depression. G. History of pulmonary abscess that was treated. PLAN: 1. To continue with IV antibiotic. 2. Continue with pain management. 3. Continue to monitor blood sugar and adjust insulin as needed. 4. Continue with physical and occupational therapy. 5. I did speak with the interventional radiologist, who stated that he would like to have 2 negative blood cultures before he could consider vertebroplasty. JAILYN DR: Lennie TID: [id number]
[2021-01-01 11:30] VITALS: BP_SYST 135; BP_SYST 97; BP_DIAS 51; BP_DIAS 71
--- NOTE | 2021-01-01 11:39 | PDOC ---
DATE OF SERVICE DATE: 01/01/21 TIME: 11:39 SUBJECTIVE ROS No new concerns or complaints , chronic c/o back and lower leg pain OBJECTIVE Vital Signs Vital Signs Date Time Temp Pulse Resp B/P (MAP) Pulse Ox O2 Delivery O2 Flow Rate FiO2 01/01/21 11:30 99.4 72 22 97/51 (66) 91 Nasal Cannula 2.0 99.4 I & 0 Intake and Output 01/01/21 06:59 Intake Total 790 ml Output Total 2075 ml Balance -1285 ml Intake Oral 490 ml IV Total 300 ml Output Urine Total 2075 ml PHYSICAL EXAM Physical Exam GEN:NAD HEENT: no icterus, OM moist NECK: supple . LUNGS: Decreased in the bases, non labored HEART: S1, S2. no murmurs ABDOMEN: Obese, soft,BS+ not tender EXTREMITIES: No clubbing, cyanosis. + lower extremity edema bilateral erythema on her legs SKIN: No rash. NEUROLOGIC: grossly normal PSYCHIATRIC: Affect is appropriate. GENITOURINARY: Crawford in place, No SP or CVA tenderness DIAGNOSIS/ASSESSMENT Assessment & Plan MAURICE suspect 2/2 ATN / Vancomycin/ Hypotension non Oliguric , UA unremarkable . Resolved E-Lytes stable , Supportive care, I/O, maintain hydration CKD stage 2/3 a- MAURICE in Sep 2020 Cr peaked at 1.6 , Cr at dc 1.3; prior was 1.1 (per primary's Note baseline Cr interval was 0.4) Lower extremity cellulitis On Abx followed by ID. Was on Vanc at home via PICC line (duration unknown) Acute on chronic diastolic CHF: appears compensated. Takes Torsemide 10 mg at home- titrate based on daily wt , edema, BP etc AMS at Presentation- resolved Gram negative bacteremia at osh 12/25 3/4 bottles,Klebsiella penumoniae Atrial fibrillation with RVR - per cardiology ? Esophagitis reported on CT CT lung from [facility] cavitary lung lesion down to 2.6 x 1.5 cm thin- walled cavitation much improved compared to large cavitary lung lesion 12 months ago RA - On Immunosuppressive meds COMMENT/RELEVANT DATA Meds Current Medications Medications (Trade) Dose Ordered Sig/Josefina Start Time Stop Time Status Last Admin Dose Admin Acetaminophen (Tylenol) 650 mg PRN Q6HRS PRN 12/27/20 12:30 12/27/20 12:43 650 MG Acetaminophen/ Hydrocodone Bitart (Lortab 7.5/325) 1 tab PRN Q6HRS PRN 12/26/20 08:00 12/27/20 12:21 DC 12/27/20 09:16 1 TAB Al Hydroxide/Mg Hydroxide (Mylanta Plus Xs) 30 ml PRN Q4HRS PRN 12/31/20 22:30 12/31/20 22:53 30 ML Albuterol Sulfate (Ventolin Neb Soln) 2.5 mg RTQID 12/26/20 09:00 01/01/21 07:51 2.5 MG Aspirin (Ecotrin) 81 mg DAILYWBKFT 12/29/20 08:00 01/01/21 09:03 81 MG Atorvastatin Calcium (Lipitor) 80 mg QHS 12/26/20 21:00 12/28/20 13:18 DC 12/27/20 21:24 80 MG Budesonide (Pulmicort) 0.5 mg RTBID 12/26/20 09:00 01/01/21 07:50 0.5 MG Dextrose (Dextrose 50%-Water Syringe) 12.5 gm PRN Q15MIN PRN 12/26/20 05:00 12/31/20 12:23 12.5 GM Dextrose (Iv Dextrose 5%) 250 ml PRN Q15MIN PRN 12/26/20 05:00 UNV Diclofenac Sodium (Voltaren) 100 stacy PRN QID PRN 12/26/20 08:00 12/31/20 06:15 1 STACY Digoxin (Lanoxin) 250 mcg 1X ONCE 12/29/20 19:15 12/29/20 19:16 DC 12/29/20 19:16 250 MCG Diltiazem HCl (Cardizem 24hr Cd) 180 mg DAILY 12/26/20 09:00 12/27/20 15:37 DC 12/27/20 09:11 180 MG Enoxaparin Sodium (Lovenox 60mg Syringe) 60 mg 1X ONCE 12/29/20 19:15 12/29/20 19:16 DC 12/29/20 20:11 60 MG EZETIMIBE (Zetia) 10 mg DAILY 12/26/20 09:00 12/28/20 13:18 DC 12/27/20 09:08 10 MG Fentanyl Citrate (Fentanyl 2ml Vial) 50 mcg PRN Q2HR PRN 12/28/20 11:15 12/31/20 07:32 50 MCG Ferrous Sulfate (Feosol) 325 mg DAILY 12/26/20 09:00 01/01/21 09:08 325 MG Folic Acid (Folic Acid) 0.5 mg DAILY 12/26/20 09:00 01/01/21 09:05 0.5 MG Furosemide (Lasix) 20 mg 1X ONCE 12/28/20 13:15 12/28/20 13:16 DC 12/28/20 15:00 20 MG Gabapentin (Neurontin) 600 mg BID 12/26/20 09:00 01/01/21 09:05 600 MG Guaifenesin/ Codeine Phosphate (Robitussin Ac) 5 ml PRN Q6HRS PRN 12/26/20 08:00 Hydroxychloroquine Sulfate (Plaquenil) 200 mg BID 12/26/20 09:00 01/01/21 09:06 200 MG Insulin Glargine (Lantus Syringe) 20 unit QHS 12/26/20 21:00 12/29/20 20:24 20 UNIT Insulin Human Lispro (HumaLOG) 0-5 UNITS TIDWMEALS 12/26/20 08:00 12/28/20 17:00 2 UNITS Lidocaine (Lidoderm) 1 patch PRN DAILY 12/30/20 17:15 Linezolid/Dextrose 300 ml @ 300 mls/hr Q12HR 12/26/20 09:00 01/01/21 09:08 300 MLS/HR Magnesium Sulfate 50 ml @ 25 mls/hr 1X ONCE 12/26/20 14:00 12/26/20 15:59 DC 12/26/20 19:21 25 MLS/HR Meropenem 500 mg/ Sodium Chloride 50 ml @ 100 mls/hr DAILY 12/29/20 09:00 12/30/20 09:47 DC 12/29/20 09:17 100 MLS/HR Methotrexate (Rheumatrex) 15 mg WEEKLY 12/27/20 09:00 12/27/20 10:02 DC Metoprolol Tartrate (Lopressor Vial) 5 mg 1X ONCE 12/29/20 19:45 12/29/20 19:46 DC 12/29/20 20:09 5 MG Metoprolol Tartrate (Lopressor) 25 mg BID 12/26/20 12:00 01/01/21 09:07 25 MG Micafungin Sodium 100 mg/Dextrose 100 ml @ 100 mls/hr Q24H 12/26/20 07:00 12/30/20 09:47 DC 12/30/20 06:29 100 MLS/HR Miscellaneous (Lidoderm Patch Removal) 1 ea QHS 12/30/20 21:00 12/30/20 21:00 1 EA Multivitamins (Thera M Plus) 1 tab DAILY 12/26/20 09:00 01/01/21 09:03 1 TAB Non-Formulary Medication (Budesonide ) 1 vial BID 12/26/20 09:00 UNV Non-Formulary Medication (Fluticasone/ Salmeterol (Advair 250-50 Diskus)) 1 inh BID 12/26/20 09:00 UNV Non-Formulary Medication (Mesalamine (Apriso)) 2 cap BID 12/26/20 09:00 12/28/20 10:28 DC Norepinephrine Bitartrate 8 mg/ Dextrose 258 ml @ 16.757 mls/ hr CONT PRN 12/28/20 04:45 UNV Oxycodone/ Acetaminophen (Percocet 10/325) 1 tab PRN Q4HRS PRN 12/27/20 12:30 12/31/20 21:37 1 TAB Pantoprazole Sodium (PROTONIX VIAL for IV PUSH) 40 mg DAILYAC 12/26/20 07:30 01/01/21 09:08 40 MG Piperacillin Sod/ Tazobactam Sod 2.25 gm/Sodium Chloride 50 ml @ 100 mls/hr Q6HRS 12/30/20 12:00 01/01/21 06:11 100 MLS/HR Piperacillin Sod/ Tazobactam Sod 3.375 gm/Sodium Chloride 50 ml @ 100 mls/hr Q8H 12/30/20 09:45 UNV Polyethylene Glycol (miraLAX PACKET) 17 gm DAILY 12/28/20 09:00 Potassium Chloride (Klor-Con) 20 meq DAILY 12/26/20 09:00 01/01/21 09:07 20 MEQ Psyllium Hydrophilic Mucilloid (Metamucil Fiber Packet) 1 pkt DAILY 12/26/20 09:00 12/27/20 13:20 DC 12/27/20 09:11 1 PKT Sodium Chloride 1,000 ml @ 1,000 mls/hr 1X ONCE 12/28/20 08:45 12/28/20 09:44 DC 12/28/20 08:51 1,000 MLS/HR Vancomycin HCl (Vanco Per Pharmacy) 1 each PRN DAILY PRN 12/26/20 04:30 12/26/20 06:35 DC Venlafaxine HCl (Effexor Xr) 75 mg DAILY 12/26/20 09:00 01/01/21 09:05 75 MG Vitamin D (Vitamin D3) 1,000 unit DAILY 12/26/20 09:00 01/01/21 09:04 1,000 UNIT Lab Laboratory Tests Test 12/31/20 11:56 12/31/20 12:50 12/31/20 15:20 12/31/20 16:45 Glucose (Fingerstick) 66 mg/dL (70-99) 110 mg/dL (70-99) 72 mg/dL (70-99) O2 Saturation 97 % (92-99) Arterial Blood pH 7.39 (7.35-7.45) Arterial Blood pCO2 at Patient Temp 46 mmHg (35-46) Arterial Blood pO2 at Patient Temp 103 mmHg (65-108) Arterial Blood HCO3 27 mmol/L (21-28) Arterial Blood Base Excess 2 mmol/L (-3-3) FiO2 2 lpm nc Test 12/31/20 21:06 01/01/21 07:46 Glucose (Fingerstick) 94 mg/dL (70-99) 73 mg/dL (70-99) Results All relevant outside records, renal labs, imaging studies, telemetry/EKG's were reviewed. Justicifation of Admission Dx: Justifications for Admission: Justification of Admission Dx: Yes RAJI ANDRE MD January 01, 2021 11:39
[2021-01-01] MEDS: LIDOCAINE (700MG/PATCH) PATCH. TD PRN (12:34)
[2021-01-01 15:30] VITALS: BP 135/64
[2021-01-01] MEDS ORDERED: ALTEPLASE 2MG VIAL 5 MG in IV NORMAL SALINE 50ML 30 ML IV ONE (18:00)
[2021-01-01] MEDS ORDERED: ALTEPLASE 2 MG VIAL INT CAT ONE (18:30)
[2021-01-01 19:42] VITALS: BP 155/74
[2021-01-01] MEDS: INSULIN GLARGINE SYRINGE. SQ SCH (21:00)
[2021-01-01] MEDS: PATCH REMOVAL. MC SCH (21:00)
[2021-01-01] MEDS: LINEZOLID 600 MG TABLET PO SCH (21:28)
[2021-01-01 23:07] VITALS: BP 144/72
[2021-01-02] MEDS: PIPERACILLIN/TAZOBACTAM 2.25 GM in IV NORMAL SALINE 50ML 50 ML IV SCH ×4 (00:05→18:07)
[2021-01-02 03:29] VITALS: BP 150/67
[2021-01-02] MEDS: INSULIN LISPRO 300 UNITS/3 ML VIAL. SQ SCH ×3 (07:33→17:00)
[2021-01-02] MEDS: POLYETHYLENE GLYCOL 3350 17 GM PACKET. PO SCH (07:34)
[2021-01-02] MEDS: BUDESONIDE 0.5 MG/2 ML NEBU. NEB SCH ×2 (07:58→20:16)
[2021-01-02] MEDS: ALBUTEROL SULFATE 2.5 MG/3 ML NEBU. NEB SCH ×4 (07:58→20:16)
[2021-01-02 08:00] VITALS: BP 154/74
--- NOTE | 2021-01-02 08:24 | PDOC ---
Infectious Disease Note Subjective: Subjective Pt continues to have back pain Complains of pain in both lower extremities, chronic Denies fever, nausea, vomiting, worsening shortness of breath, diarrhea, abdo susan pain, rash Otherwise as above Vital Signs: Vital Signs Vital Signs Date Time Temp Pulse Resp B/P (MAP) Pulse Ox O2 Delivery O2 Flow Rate FiO2 01/02/21 08:00 98.5 90 18 154/74 (100) 96 Nasal Cannula 2.0 98.5 Physical Exam: PHYSICAL EXAM GEN:alert awake appears tired HEENT: no icterus, Oral cavity and pharynx dry NECK: Without JVD. No fullness. LUNGS: Decreased in the bases. HEART: S1, S2. no murmurs ABDOMEN: Obese, soft,BS+ no guarding, no rebound. GENITOURINARY: Crawford in place. EXTREMITIES: No clubbing, cyanosis. She has 2-3+ lower extremity edema bilaterally, also has bilateral erythema on her legs in well described areas. Right lower extremity more than left She has a small wound on her left knee cap that appears to be clean. Lateral wounds on both legs appear consistent with previous bullae that have ruptured. EXTREMITIES: Legs are mildly warm, some tenderness. SKIN: Otherwise warm without generalized rash. NEUROLOGIC: She is nonfocal, moves all extremities. PSYCHIATRIC: Affect is appropriate. Medications: Inpatient Meds: Medications reviewed. Labs: Lab Laboratory Tests Test 01/01/21 11:49 01/01/21 16:38 01/01/21 21:06 01/02/21 07:29 Glucose (Fingerstick) 91 mg/dL (70-99) 84 mg/dL (70-99) 84 mg/dL (70-99) 78 mg/dL (70-99) Objective: Assessment: 1. Fever. Resolved 2. Lower extremity cellulitis. 3. Klebsiella pneumoniae bacteremia at osh 12/25 3/4 bottles, 4. Atrial fibrillation. 5. Acute kidney injury. 6. Some questionable esophagitis.Abnormal LFTs likely from shock liver 7. CT lung from [facility] cavitary lung lesion down to 2.6 x 1.5 cm thin-walled cavitation much improved compared to large cavitary lung lesion 12 months ago 8. Immunosuppression with rheumatoid arthritis. 9. ANTIBIOTIC ALLERGIES, has tolerated Zosyn and Augmentin. 10. History of methicillin-resistant Staphylococcus aureus, Enterobacter resp cultures in the past. 11. History of fall POA with compression fracture on CT Plan: Plan of Care DC Zosyn Start ceftriaxone , continue Zyvox Follow-up repeat blood cultures 01/01/2021 Awaiting treatment for compression fracture UA negative at [facility] S/p Levofloxacin,Vanc and Dexamethasone F/u labs and cults Elevation of leg Local wound care Contact isolation for h/o MRSA Discussed with nursing staff BILLY HODGES MD January 02, 2021 08:24
[2021-01-02] MEDS: HYDROXYCHLOROQUINE 200 MG TABLET PO SCH ×2 (08:42→20:34)
[2021-01-02] MEDS: GABAPENTIN 300 MG CAPSULE. PO SCH ×2 (08:42→20:34)
[2021-01-02] MEDS: LIDOCAINE (700MG/PATCH) PATCH. TD PRN (08:42)
[2021-01-02] MEDS: CHOLECALCIFEROL (VITAMIN D3) 1,000 UNIT TABLET PO SCH (08:42)
[2021-01-02] MEDS: VENLAFAXINE XR 37.5 MG CAP.ER.24H. PO SCH (08:42)
[2021-01-02] MEDS: ASPIRIN ENTERIC COATED 81 MG TABLET.DR. PO SCH (08:42)
[2021-01-02] MEDS: MULTIVITAMIN with MINERAL TABLET. PO SCH (08:42)
[2021-01-02] MEDS: FOLIC ACID 1 MG TABLET. PO SCH (08:45)
[2021-01-02] MEDS: PANTOPRAZOLE 40 MG TABLET.DR. PO SCH (08:45)
[2021-01-02] MEDS: METOPROLOL TART IMMED RELEASE 25 MG TABLET. PO SCH ×2 (08:45→20:34)
[2021-01-02] MEDS: POTASSIUM CHLORIDE 20 MEQ TABLET.ER. PO SCH (08:45)
[2021-01-02] MEDS: FERROUS SULFATE 325 MG TABLET. PO SCH (08:45)
[2021-01-02] MEDS: ACETAMINOPHEN 325 MG TABLET. PO PRN (08:57)
[2021-01-02] MEDS: LINEZOLID 600 MG TABLET PO SCH ×2 (08:57→20:34)
[2021-01-02] MEDS ORDERED: cefTRIAXone IV Push 2 GM VIAL. IVP SCH (09:15)
--- NOTE | 2021-01-02 09:34 | PN ---
DATE: 01/02/2021 SUBJECTIVE: The patient is resting flat in bed, no apparent respiratory distress. She is awake, alert. Continued to complain of pain in her legs and her back. She does have intertriginous candidiasis in both groin areas. OBJECTIVE: GENERAL: On examining her, she was pale, not jaundiced, or cyanosed. No lymphadenopathy, no thyromegaly, no jugular venous distention, but marked bilateral lower extremity edema. VITAL SIGNS: Her heart rate was 83, blood pressure was 150/67, temperature was 99.3, respiratory rate was 18 and oxygen saturation was 97% on 2 liters of oxygen. HEAD, EYES, EARS, NOSE AND THROAT: Normocephalic, atraumatic. NECK: Supple. HEART: Showed normal first and second sounds. No gallop, rub or murmur. CHEST: Clear to auscultation. No crepitation or rhonchi. ABDOMEN: Distended, soft, nontender. NEUROLOGIC: She is more awake, alert, responding appropriately. Cranial nerves intact. She moves upper extremities to much good extent than lower extremities. She is mostly bedbound. GENITOURINARY: She has an indwelling Crawford catheter. LABORATORY DATA: Her intake was 900, output was 2100. Her most recent white cell count was 13,800; hemoglobin 9; hematocrit 27; MCV 89 and platelet count of 134,000. Her chemistry showed a serum sodium 137, potassium 4.6, chloride 101, bicarbonate 28, anion gap of 8, BUN 30, creatinine 1.5. Estimated GFR was 34, glucose 148, calcium was 8. Total bilirubin, AST, ALT, alkaline phosphatase slightly elevated. Her CK was only 33. Total protein 5.2, albumin was 1.8. ASSESSMENT: 1. Altered mental status, resolved. The patient is more awake, alert. 2. Bilateral lower extremity cellulitis. 3. Pneumonia. 4. Acute kidney injury on chronic kidney disease. Her creatinine came down from 2-1.4. 5. Elevated troponin, likely due to demand ischemia. 6. Her blood culture has grown gram-negative rods in 3/4 bottles identified as Klebsiella pneumoniae. 7. The patient has multiple other medical problems including: A. Atrial fibrillation, rate controlled, not anticoagulated. B. Hyperlipidemia. C. Chronic obstructive pulmonary disease. D. Ulcerative colitis. E. Rheumatoid arthritis. F. Depression. G. History of pulmonary abscess that is treated and resolving. H. Anemia, probably multifactorial. PLAN: To continue IV antibiotic. Continue pain management. Continue to monitor blood sugar, adjust insulin as needed. Continue with physical and occupational therapy. We did order a set of blood culture yesterday and we will repeat another set of blood culture tomorrow and if both are negative, I will discuss the option of vertebroplasty with interventional radiologist. STEFAN/HOUSTON/HEIDE DR: Lennie TID: [id number]
[2021-01-02 09:35] LABS: HEMATOCRIT 26.4 % (36.0-47.0); HEMOGLOBIN 8.8 g/dL (12.0-15.5); RED BLOOD COUNT 3.02 x10^6/uL (3.50-5.40); RED CELL DISTRIBUTION WIDTH 15.5 % (11.5-14.5); WHITE BLOOD COUNT 6.6 x10^3/uL (4.0-11.0)
[2021-01-02 09:42] LABS: ALBUMIN 1.9 g/dL (3.4-5.0); ALBUMIN/GLOBULIN RATIO 0.5 (1.0-1.7); CALCIUM 8.7 mg/dL (8.5-10.1); CREATININE 1.2 mg/dL (0.6-1.0); POTASSIUM 4.2 mmol/L (3.5-5.1); TOTAL BILIRUBIN 0.6 mg/dL (0.2-1.0)
[2021-01-02] MEDS: NYSTATIN TOPICAL POWDER 15GM BOTTLE. TP SCH ×2 (09:56→20:34)
--- NOTE | 2021-01-02 10:32 | PDOC ---
DATE OF SERVICE DATE: 01/02/21 TIME: 10:32 SUBJECTIVE ROS No new concerns or complaints , chronic c/o back and lower leg pain OBJECTIVE Vital Signs Vital Signs Date Time Temp Pulse Resp B/P (MAP) Pulse Ox O2 Delivery O2 Flow Rate FiO2 01/02/21 08:45 90 154/74 01/02/21 08:00 Nasal Cannula 2.0 01/02/21 08:00 98.5 18 96 98.5 I & 0 Intake and Output 01/02/21 07:00 Intake Total 670 ml Output Total 2350 ml Balance -1680 ml Intake Oral 220 ml IV Total 450 ml Output Urine Total 2350 ml # Bowel Movements 3 PHYSICAL EXAM Physical Exam GEN:NAD HEENT: no icterus, OM moist NECK: supple . LUNGS: Decreased in the bases, non labored HEART: S1, S2. no murmurs ABDOMEN: Obese, soft,BS+ not tender EXTREMITIES: No clubbing, cyanosis. + lower extremity edema bilateral erythema on her legs SKIN: No rash. NEUROLOGIC: grossly normal PSYCHIATRIC: Affect is appropriate. GENITOURINARY: Crawford in place, No SP or CVA tenderness DIAGNOSIS/ASSESSMENT Assessment & Plan MAURICE suspect 2/2 ATN / Vancomycin/ Hypotension non Oliguric , UA unremarkable . Resolved E-Lytes stable , Supportive care, I/O, maintain hydration CKD stage 2/3 a- MAURICE in Sep 2020 Cr peaked at 1.6 , Cr at dc 1.3; prior was 1.1 (per primary's Note baseline Cr interval was 0.4) Lower extremity cellulitis On Abx followed by ID. Was on Vanc at home via PICC line (duration unknown) Acute on chronic diastolic CHF: appears compensated. Takes Torsemide 10 mg at home- titrate based on daily wt , edema, BP etc AMS at Presentation- resolved Gram negative bacteremia at osh 12/25 3/4 bottles,Klebsiella penumoniae Atrial fibrillation with RVR - per cardiology ? Esophagitis reported on CT CT lung from [facility] cavitary lung lesion down to 2.6 x 1.5 cm thin- walled cavitation much improved compared to large cavitary lung lesion 12 months ago RA - On Immunosuppressive meds COMMENT/RELEVANT DATA Meds Current Medications Medications (Trade) Dose Ordered Sig/Josefina Start Time Stop Time Status Last Admin Dose Admin Acetaminophen (Tylenol) 650 mg PRN Q6HRS PRN 12/27/20 12:30 01/02/21 08:57 650 MG Acetaminophen/ Hydrocodone Bitart (Lortab 7.5/325) 1 tab PRN Q6HRS PRN 12/26/20 08:00 12/27/20 12:21 DC 12/27/20 09:16 1 TAB Al Hydroxide/Mg Hydroxide (Mylanta Plus Xs) 30 ml PRN Q4HRS PRN 12/31/20 22:30 12/31/20 22:53 30 ML Albuterol Sulfate (Ventolin Neb Soln) 2.5 mg RTQID 12/26/20 09:00 01/02/21 07:58 2.5 MG Alteplase, Recombinant (Cathflo) 2 mg 1X ONCE 01/01/21 18:30 01/01/21 18:31 DC 01/01/21 19:54 2 MG Alteplase, Recombinant 5 mg/ Sodium Chloride 30 ml @ 30 mls/hr 1X ONCE 01/01/21 18:00 01/01/21 18:59 UNV Aspirin (Ecotrin) 81 mg DAILYWBKFT 12/29/20 08:00 01/02/21 08:42 81 MG Atorvastatin Calcium (Lipitor) 80 mg QHS 12/26/20 21:00 12/28/20 13:18 DC 12/27/20 21:24 80 MG Budesonide (Pulmicort) 0.5 mg RTBID 12/26/20 09:00 01/02/21 07:58 0.5 MG Ceftriaxone Sodium (Rocephin) 2 gm Q24H 01/02/21 09:15 UNV Dextrose (Dextrose 50%-Water Syringe) 12.5 gm PRN Q15MIN PRN 12/26/20 05:00 12/31/20 12:23 12.5 GM Dextrose (Iv Dextrose 5%) 250 ml PRN Q15MIN PRN 12/26/20 05:00 UNV Diclofenac Sodium (Voltaren) 100 stacy PRN QID PRN 12/26/20 08:00 12/31/20 06:15 1 STACY Digoxin (Lanoxin) 250 mcg 1X ONCE 12/29/20 19:15 12/29/20 19:16 DC 12/29/20 19:16 250 MCG Diltiazem HCl (Cardizem 24hr Cd) 180 mg DAILY 12/26/20 09:00 12/27/20 15:37 DC 12/27/20 09:11 180 MG Enoxaparin Sodium (Lovenox 60mg Syringe) 60 mg 1X ONCE 12/29/20 19:15 12/29/20 19:16 DC 12/29/20 20:11 60 MG EZETIMIBE (Zetia) 10 mg DAILY 12/26/20 09:00 12/28/20 13:18 DC 12/27/20 09:08 10 MG Fentanyl Citrate (Fentanyl 2ml Vial) 50 mcg PRN Q2HR PRN 12/28/20 11:15 12/31/20 07:32 50 MCG Ferrous Sulfate (Feosol) 325 mg DAILY 12/26/20 09:00 01/02/21 08:45 325 MG Folic Acid (Folic Acid) 0.5 mg DAILY 12/26/20 09:00 01/02/21 08:45 0.5 MG Furosemide (Lasix) 20 mg 1X ONCE 12/28/20 13:15 12/28/20 13:16 DC 12/28/20 15:00 20 MG Gabapentin (Neurontin) 600 mg BID 12/26/20 09:00 01/02/21 08:42 600 MG Guaifenesin/ Codeine Phosphate (Robitussin Ac) 5 ml PRN Q6HRS PRN 12/26/20 08:00 Hydroxychloroquine Sulfate (Plaquenil) 200 mg BID 12/26/20 09:00 01/02/21 08:42 200 MG Insulin Glargine (Lantus Syringe) 20 unit QHS 12/26/20 21:00 12/29/20 20:24 20 UNIT Insulin Human Lispro (HumaLOG) 0-5 UNITS TIDWMEALS 12/26/20 08:00 12/28/20 17:00 2 UNITS Lidocaine (Lidoderm) 1 patch PRN DAILY PRN 01/01/21 12:45 01/02/21 08:42 1 PATCH Linezolid (Zyvox) 600 mg BID 01/01/21 21:00 01/02/21 08:57 600 MG Linezolid/Dextrose 300 ml @ 300 mls/hr Q12HR 12/26/20 09:00 01/01/21 14:56 DC 01/01/21 09:08 300 MLS/HR Magnesium Sulfate 50 ml @ 25 mls/hr 1X ONCE 12/26/20 14:00 12/26/20 15:59 DC 12/26/20 19:21 25 MLS/HR Meropenem 500 mg/ Sodium Chloride 50 ml @ 100 mls/hr DAILY 12/29/20 09:00 12/30/20 09:47 DC 12/29/20 09:17 100 MLS/HR Methotrexate (Rheumatrex) 15 mg WEEKLY 12/27/20 09:00 12/27/20 10:02 DC Metoprolol Tartrate (Lopressor Vial) 5 mg 1X ONCE 12/29/20 19:45 12/29/20 19:46 DC 12/29/20 20:09 5 MG Metoprolol Tartrate (Lopressor) 25 mg BID 12/26/20 12:00 01/02/21 08:45 25 MG Micafungin Sodium 100 mg/Dextrose 100 ml @ 100 mls/hr Q24H 12/26/20 07:00 12/30/20 09:47 DC 12/30/20 06:29 100 MLS/HR Miscellaneous (Lidoderm Patch Removal) 1 ea QHS 12/30/20 21:00 12/30/20 21:00 1 EA Multivitamins (Thera M Plus) 1 tab DAILY 12/26/20 09:00 01/02/21 08:42 1 TAB Non-Formulary Medication (Budesonide ) 1 vial BID 12/26/20 09:00 UNV Non-Formulary Medication (Fluticasone/ Salmeterol (Advair 250-50 Diskus)) 1 inh BID 12/26/20 09:00 UNV Non-Formulary Medication (Mesalamine (Apriso)) 2 cap BID 12/26/20 09:00 12/28/20 10:28 DC Norepinephrine Bitartrate 8 mg/ Dextrose 258 ml @ 16.757 mls/ hr CONT PRN 12/28/20 04:45 UNV Nystatin (Nystop) 1 stacy BID 01/02/21 09:00 01/02/21 09:56 1 STACY Oxycodone/ Acetaminophen (Percocet 10/325) 1 tab PRN Q4HRS PRN 12/27/20 12:30 12/31/20 21:37 1 TAB Pantoprazole Sodium (PROTONIX VIAL for IV PUSH) 40 mg DAILYAC 12/26/20 07:30 01/01/21 14:57 DC 01/01/21 09:08 40 MG Pantoprazole Sodium (Protonix) 40 mg DAILYAC 01/02/21 07:30 01/02/21 08:45 40 MG Piperacillin Sod/ Tazobactam Sod 2.25 gm/Sodium Chloride 50 ml @ 100 mls/hr Q6HRS 12/30/20 12:00 01/02/21 05:58 100 MLS/HR Piperacillin Sod/ Tazobactam Sod 3.375 gm/Sodium Chloride 50 ml @ 100 mls/hr Q8H 12/30/20 09:45 UNV Polyethylene Glycol (miraLAX PACKET) 17 gm DAILY 12/28/20 09:00 Potassium Chloride (Klor-Con) 20 meq DAILY 12/26/20 09:00 01/02/21 08:45 20 MEQ Psyllium Hydrophilic Mucilloid (Metamucil Fiber Packet) 1 pkt DAILY 12/26/20 09:00 12/27/20 13:20 DC 12/27/20 09:11 1 PKT Sodium Chloride 1,000 ml @ 1,000 mls/hr 1X ONCE 12/28/20 08:45 12/28/20 09:44 DC 12/28/20 08:51 1,000 MLS/HR Vancomycin HCl (Vanco Per Pharmacy) 1 each PRN DAILY PRN 12/26/20 04:30 12/26/20 06:35 DC Venlafaxine HCl (Effexor Xr) 75 mg DAILY 12/26/20 09:00 01/02/21 08:42 75 MG Vitamin D (Vitamin D3) 1,000 unit DAILY 12/26/20 09:00 01/02/21 08:42 1,000 UNIT Lab Laboratory Tests Test 01/01/21 11:49 01/01/21 16:38 01/01/21 21:06 01/02/21 07:29 Glucose (Fingerstick) 91 mg/dL (70-99) 84 mg/dL (70-99) 84 mg/dL (70-99) 78 mg/dL (70-99) Test 01/02/21 09:10 White Blood Count 6.6 x10^3/uL (4.0-11.0) Red Blood Count 3.02 x10^6/uL (3.50-5.40) Hemoglobin 8.8 g/dL (12.0-15.5) Hematocrit 26.4 % (36.0-47.0) Mean Corpuscular Volume 87 fL (79-100) Mean Corpuscular Hemoglobin 29 pg (25-35) Mean Corpuscular Hemoglobin Concent 34 g/dL (31-37) Red Cell Distribution Width 15.5 % (11.5-14.5) Platelet Count 133 x10^3/uL (140-400) Sodium Level 140 mmol/L (136-145) Potassium Level 4.2 mmol/L (3.5-5.1) Chloride Level 103 mmol/L (98-107) Carbon Dioxide Level 32 mmol/L (21-32) Anion Gap 5 (6-14) Blood Urea Nitrogen 15 mg/dL (7-20) Creatinine 1.2 mg/dL (0.6-1.0) Estimated GFR (Cockcroft-Gault) 44.0 BUN/Creatinine Ratio 13 (6-20) Glucose Level 77 mg/dL (70-99) Calcium Level 8.7 mg/dL (8.5-10.1) Total Bilirubin 0.6 mg/dL (0.2-1.0) Aspartate Amino Transf (AST/SGOT) 22 U/L (15-37) Alanine Aminotransferase (ALT/SGPT) 70 U/L (14-59) Alkaline Phosphatase 237 U/L (46-116) Total Protein 6.0 g/dL (6.4-8.2) Albumin 1.9 g/dL (3.4-5.0) Albumin/Globulin Ratio 0.5 (1.0-1.7) Results All relevant outside records, renal labs, imaging studies, telemetry/EKG's were reviewed. Justicifation of Admission Dx: Justifications for Admission: Justification of Admission Dx: Yes RAJI ANDRE MD January 02, 2021 10:32
[2021-01-02 11:30] VITALS: BP 136/66
[2021-01-02 15:30] VITALS: BP 152/77
[2021-01-02 19:43] VITALS: BP 144/69
[2021-01-02] MEDS: INSULIN GLARGINE SYRINGE. SQ SCH (20:15)
[2021-01-02] MEDS: PATCH REMOVAL. MC SCH (20:37)
[2021-01-02 22:12] VITALS: BP 137/66
[2021-01-02] MEDS: oxyCODONE/APAP 10/325 1 TAB TABLET PO PRN (22:26)
[2021-01-03] MEDS: PIPERACILLIN/TAZOBACTAM 2.25 GM in IV NORMAL SALINE 50ML 50 ML IV SCH ×2 (00:25→05:46)
[2021-01-03 03:54] VITALS: BP 142/73
[2021-01-03 07:00] VITALS: BP 136/68
[2021-01-03] MEDS: BUDESONIDE 0.5 MG/2 ML NEBU. NEB SCH ×2 (07:43→19:47)
[2021-01-03] MEDS: ALBUTEROL SULFATE 2.5 MG/3 ML NEBU. NEB SCH ×4 (07:43→19:47)
[2021-01-03] MEDS: INSULIN LISPRO 300 UNITS/3 ML VIAL. SQ SCH ×3 (08:00→17:00)
--- NOTE | 2021-01-03 08:07 | PN ---
DATE: 01/03/2021 SUBJECTIVE: The patient is resting flat in bed, no apparent distress. She is awake, alert, apparently she sat in the chair only for a short period of time yesterday. Her second set of blood cultures so far negative. OBJECTIVE: GENERAL: On examining her, she was pale, but no jaundice, cyanosis or thyromegaly. No jugular venous distention. Bilateral lower extremity edema. VITAL SIGNS: Her heart rate was 77, blood pressure is 142/73, temperature 98.1, respiratory rate was 18 and oxygen saturation was 96% on 2 liters of oxygen. Rest of the clinical exam is stable. Her intake was 770, output was 2350. LABORATORY DATA: As of yesterday, her white cell count is down to 6600, hemoglobin 9, hematocrit 26, MCV 87 and platelet count of 133,000. Chemistry showed a serum sodium 140, potassium 4.2, chloride 103, bicarbonate 32, anion gap of 5, BUN 15, creatinine 1.2. Estimated GFR was 44 mL per minute. Her glucose was 77, calcium was 8.7, total bilirubin and AST are normal. ALT and alkaline phosphatase are trending down. Total protein 6, albumin was 1.9. Her blood cultures showed no growth after 1 day. ASSESSMENT: 1. Altered mental status, resolved. The patient is more awake, alert. 2. Bilateral lower extremity cellulitis. 3. Pneumonia. 4. Acute kidney injury on chronic kidney disease. Her creatinine is down from 2 to 1.2. 5. Elevated troponin, likely demand ischemia. 6. Her blood culture has grown gram-negative rods in 3/4 bottles, identified as Klebsiella pneumoniae. 7. She has multiple other medical problems including: A. Atrial fibrillation, rate controlled, not anticoagulated. B. Hyperlipidemia. C. Chronic obstructive pulmonary disease. D. Ulcerative colitis. E. Rheumatoid arthritis. F. Depression. G. History of pulmonary abscess that is treated and resolving. H. Anemia, probably multifactorial. PLAN: 1. To continue with IV antibiotic. 2. Continue with pain management. 3. Continue to monitor blood sugar and adjust insulin as needed. 4. Continue with physical and occupational therapy. 5. I will order another set of blood cultures today and if she had two negative blood cultures, vertebroplasty would be considered by the interventional radiologist. ERROL DR: Lennie TID: [id number]
[2021-01-03] MEDS: DEXTROSE 50% 25 GM / 50ML DISP.SYRIN. IV PRN (08:09)
[2021-01-03] MEDS: PANTOPRAZOLE 40 MG TABLET.DR. PO SCH (08:10)
[2021-01-03] MEDS: CHOLECALCIFEROL (VITAMIN D3) 1,000 UNIT TABLET PO SCH (08:10)
[2021-01-03] MEDS: ASPIRIN ENTERIC COATED 81 MG TABLET.DR. PO SCH (08:10)
[2021-01-03] MEDS: VENLAFAXINE XR 37.5 MG CAP.ER.24H. PO SCH (08:10)
[2021-01-03] MEDS: FERROUS SULFATE 325 MG TABLET. PO SCH (08:10)
[2021-01-03] MEDS: HYDROXYCHLOROQUINE 200 MG TABLET PO SCH ×2 (08:11→20:51)
[2021-01-03] MEDS: MULTIVITAMIN with MINERAL TABLET. PO SCH (08:11)
[2021-01-03] MEDS: POTASSIUM CHLORIDE 20 MEQ TABLET.ER. PO SCH (08:16)
[2021-01-03] MEDS: LINEZOLID 600 MG TABLET PO SCH ×2 (08:16→20:52)
[2021-01-03] MEDS: GABAPENTIN 300 MG CAPSULE. PO SCH ×2 (08:16→20:52)
[2021-01-03] MEDS: FOLIC ACID 1 MG TABLET. PO SCH (08:16)
[2021-01-03] MEDS: NYSTATIN TOPICAL POWDER 15GM BOTTLE. TP SCH ×2 (08:17→20:52)
[2021-01-03] MEDS: METOPROLOL TART IMMED RELEASE 25 MG TABLET. PO SCH ×2 (08:17→20:51)
--- NOTE | 2021-01-03 08:30 | PDOC ---
Infectious Disease Note Subjective: Subjective Pt feels better Complains of pain in both lower extremities, chronic Denies fever, nausea, vomiting, worsening shortness of breath, diarrhea, abdominal pain, rash Otherwise as above Vital Signs: Vital Signs Vital Signs Date Time Temp Pulse Resp B/P (MAP) Pulse Ox O2 Delivery O2 Flow Rate FiO2 01/03/21 08:17 89 136/68 01/03/21 07:44 Nasal Cannula 2.0 01/03/21 03:54 98.1 18 96 98.1 Physical Exam: PHYSICAL EXAM GEN:alert awake appears tired HEENT: no icterus, Oral cavity and pharynx dry NECK: Without JVD. No fullness. LUNGS: Decreased in the bases. HEART: S1, S2. no murmurs ABDOMEN: Obese, soft,BS+ no guarding, no rebound. GENITOURINARY: Crawford in place. EXTREMITIES: No clubbing, cyanosis. She has 2-3+ lower extremity edema bilaterally, also has bilateral erythema on her legs in well described areas. Right lower extremity more than left She has a small wound on her left knee cap that appears to be clean. Lateral wounds on both legs appear consistent with previous bullae that have ruptured. EXTREMITIES: Legs are mildly warm, some tenderness. SKIN: Otherwise warm without generalized rash. NEUROLOGIC: She is nonfocal, moves all extremities. PSYCHIATRIC: Affect is appropriate. Medications: Inpatient Meds: Medications reviewed. Labs: Lab Laboratory Tests Test 01/02/21 09:10 01/02/21 12:09 01/02/21 16:44 01/02/21 20:27 White Blood Count 6.6 x10^3/uL (4.0-11.0) Red Blood Count 3.02 x10^6/uL (3.50-5.40) Hemoglobin 8.8 g/dL (12.0-15.5) Hematocrit 26.4 % (36.0-47.0) Mean Corpuscular Volume 87 fL (79-100) Mean Corpuscular Hemoglobin 29 pg (25-35) Mean Corpuscular Hemoglobin Concent 34 g/dL (31-37) Red Cell Distribution Width 15.5 % (11.5-14.5) Platelet Count 133 x10^3/uL (140-400) Sodium Level 140 mmol/L (136-145) Potassium Level 4.2 mmol/L (3.5-5.1) Chloride Level 103 mmol/L (98-107) Carbon Dioxide Level 32 mmol/L (21-32) Anion Gap 5 (6-14) Blood Urea Nitrogen 15 mg/dL (7-20) Creatinine 1.2 mg/dL (0.6-1.0) Estimated GFR (Cockcroft-Gault) 44.0 BUN/Creatinine Ratio 13 (6-20) Glucose Level 77 mg/dL (70-99) Calcium Level 8.7 mg/dL (8.5-10.1) Total Bilirubin 0.6 mg/dL (0.2-1.0) Aspartate Amino Transf (AST/SGOT) 22 U/L (15-37) Alanine Aminotransferase (ALT/SGPT) 70 U/L (14-59) Alkaline Phosphatase 237 U/L (46-116) Total Protein 6.0 g/dL (6.4-8.2) Albumin 1.9 g/dL (3.4-5.0) Albumin/Globulin Ratio 0.5 (1.0-1.7) Glucose (Fingerstick) 84 mg/dL (70-99) 81 mg/dL (70-99) 79 mg/dL (70-99) Test 01/03/21 07:50 Glucose (Fingerstick) 60 mg/dL (70-99) Objective: Assessment: 1. Fever. Resolved 2. Lower extremity cellulitis. 3. Klebsiella pneumoniae bacteremia at osh 12/25 3/4 bottles, 4. Atrial fibrillation. 5. Acute kidney injury. 6. Some questionable esophagitis.Abnormal LFTs likely from shock liver 7. CT lung from [facility] cavitary lung lesion down to 2.6 x 1.5 cm thin-walled cavitation much improved compared to large cavitary lung lesion 12 months ago 8. Immunosuppression with rheumatoid arthritis. 9. ANTIBIOTIC ALLERGIES, has tolerated Zosyn and Augmentin. 10. History of methicillin-resistant Staphylococcus aureus, Enterobacter resp cultures in the past. 11. History of fall POA with compression fracture on CT 12. Mild thrombocytopenia Plan: Plan of Care Continue Zosyn continue Zyvox for now Follow-up repeat blood cultures 01/01/2021 Awaiting treatment for compression fracture UA negative at [facility] S/p Levofloxacin,Vanc and Dexamethasone F/u labs and cults Elevation of leg Local wound care Contact isolation for h/o MRSA Discussed with nursing staff BILLY HODGES MD January 03, 2021 08:30
[2021-01-03] MEDS: POLYETHYLENE GLYCOL 3350 17 GM PACKET. PO SCH (09:00)
[2021-01-03 11:00] VITALS: BP 144/69
--- NOTE | 2021-01-03 12:15 | PDOC ---
DATE OF SERVICE DATE: 01/03/21 TIME: 12:14 SUBJECTIVE ROS No new concerns or complaints OBJECTIVE Vital Signs Vital Signs Date Time Temp Pulse Resp B/P (MAP) Pulse Ox O2 Delivery O2 Flow Rate FiO2 01/03/21 11:37 Nasal Cannula 2.0 01/03/21 11:00 99.0 75 18 144/69 (94) 95 99.0 I & 0 Intake and Output 01/03/21 07:00 Intake Total 350 ml Output Total 1625 ml Balance -1275 ml Intake Oral 0 ml IV Total 350 ml Output Urine Total 1625 ml PHYSICAL EXAM Physical Exam GEN:NAD HEENT: no icterus, OM moist NECK: supple . LUNGS: Decreased in the bases, non labored HEART: S1, S2. no murmurs ABDOMEN: Obese, soft,BS+ not tender EXTREMITIES: No clubbing, cyanosis. + lower extremity edema bilateral erythema on her legs SKIN: No rash. NEUROLOGIC: grossly normal PSYCHIATRIC: Affect is appropriate. GENITOURINARY: Crawford in place, No SP or CVA tenderness DIAGNOSIS/ASSESSMENT Assessment & Plan MAURICE suspect 2/2 ATN / Vancomycin/ Hypotension non Oliguric , UA unremarkable . Resolved E-Lytes stable , Supportive care, I/O, maintain hydration CKD stage 2/3 a- MAURICE in Sep 2020 Cr peaked at 1.6 , Cr at dc 1.3; prior was 1.1 (per primary's Note baseline Cr interval was 0.4) Lower extremity cellulitis On Abx followed by ID. Was on Vanc at home via PICC line (duration unknown) Acute on chronic diastolic CHF: appears compensated. Takes Torsemide 10 mg at home- titrate based on daily wt , edema, BP etc AMS at Presentation- resolved Gram negative bacteremia at osh 12/25 3/4 bottles,Klebsiella penumoniae Atrial fibrillation with RVR - per cardiology ? Esophagitis reported on CT CT lung from [facility] cavitary lung lesion down to 2.6 x 1.5 cm thin- walled cavitation much improved compared to large cavitary lung lesion 12 months ago RA - On Immunosuppressive meds COMMENT/RELEVANT DATA Meds Current Medications Medications (Trade) Dose Ordered Sig/Josefina Start Time Stop Time Status Last Admin Dose Admin Acetaminophen (Tylenol) 650 mg PRN Q6HRS PRN 12/27/20 12:30 01/02/21 08:57 650 MG Acetaminophen/ Hydrocodone Bitart (Lortab 7.5/325) 1 tab PRN Q6HRS PRN 12/26/20 08:00 12/27/20 12:21 DC 12/27/20 09:16 1 TAB Al Hydroxide/Mg Hydroxide (Mylanta Plus Xs) 30 ml PRN Q4HRS PRN 12/31/20 22:30 12/31/20 22:53 30 ML Albuterol Sulfate (Ventolin Neb Soln) 2.5 mg RTQID 12/26/20 09:00 01/03/21 11:37 2.5 MG Alteplase, Recombinant (Cathflo) 2 mg 1X ONCE 01/01/21 18:30 01/01/21 18:31 DC 01/01/21 19:54 2 MG Alteplase, Recombinant 5 mg/ Sodium Chloride 30 ml @ 30 mls/hr 1X ONCE 01/01/21 18:00 01/01/21 18:59 UNV Aspirin (Ecotrin) 81 mg DAILYWBKFT 12/29/20 08:00 01/03/21 08:10 81 MG Atorvastatin Calcium (Lipitor) 80 mg QHS 12/26/20 21:00 12/28/20 13:18 DC 12/27/20 21:24 80 MG Budesonide (Pulmicort) 0.5 mg RTBID 12/26/20 09:00 01/03/21 07:43 0.5 MG Ceftriaxone Sodium (Rocephin) 2 gm Q24H 01/02/21 09:15 UNV Dextrose (Dextrose 50%-Water Syringe) 12.5 gm PRN Q15MIN PRN 12/26/20 05:00 01/03/21 08:09 12.5 GM Dextrose (Iv Dextrose 5%) 250 ml PRN Q15MIN PRN 12/26/20 05:00 UNV Diclofenac Sodium (Voltaren) 100 stacy PRN QID PRN 12/26/20 08:00 12/31/20 06:15 1 STACY Digoxin (Lanoxin) 250 mcg 1X ONCE 12/29/20 19:15 12/29/20 19:16 DC 12/29/20 19:16 250 MCG Diltiazem HCl (Cardizem 24hr Cd) 180 mg DAILY 12/26/20 09:00 12/27/20 15:37 DC 12/27/20 09:11 180 MG Enoxaparin Sodium (Lovenox 60mg Syringe) 60 mg 1X ONCE 12/29/20 19:15 12/29/20 19:16 DC 12/29/20 20:11 60 MG EZETIMIBE (Zetia) 10 mg DAILY 12/26/20 09:00 12/28/20 13:18 DC 12/27/20 09:08 10 MG Fentanyl Citrate (Fentanyl 2ml Vial) 50 mcg PRN Q2HR PRN 12/28/20 11:15 12/31/20 07:32 50 MCG Ferrous Sulfate (Feosol) 325 mg DAILY 12/26/20 09:00 01/03/21 08:10 325 MG Folic Acid (Folic Acid) 0.5 mg DAILY 12/26/20 09:00 01/03/21 08:16 0.5 MG Furosemide (Lasix) 20 mg 1X ONCE 12/28/20 13:15 12/28/20 13:16 DC 12/28/20 15:00 20 MG Gabapentin (Neurontin) 600 mg BID 12/26/20 09:00 01/03/21 08:16 600 MG Guaifenesin/ Codeine Phosphate (Robitussin Ac) 5 ml PRN Q6HRS PRN 12/26/20 08:00 Hydroxychloroquine Sulfate (Plaquenil) 200 mg BID 12/26/20 09:00 01/03/21 08:11 200 MG Insulin Glargine (Lantus Syringe) 20 unit QHS 12/26/20 21:00 01/03/21 08:09 DC 12/29/20 20:24 20 UNIT Insulin Human Lispro (HumaLOG) 0-5 UNITS TIDWMEALS 12/26/20 08:00 12/28/20 17:00 2 UNITS Lidocaine (Lidoderm) 1 patch PRN DAILY PRN 01/01/21 12:45 01/02/21 08:42 1 PATCH Linezolid (Zyvox) 600 mg BID 01/01/21 21:00 01/03/21 08:16 600 MG Linezolid/Dextrose 300 ml @ 300 mls/hr Q12HR 12/26/20 09:00 01/01/21 14:56 DC 01/01/21 09:08 300 MLS/HR Magnesium Sulfate 50 ml @ 25 mls/hr 1X ONCE 12/26/20 14:00 12/26/20 15:59 DC 12/26/20 19:21 25 MLS/HR Meropenem 500 mg/ Sodium Chloride 50 ml @ 100 mls/hr DAILY 12/29/20 09:00 12/30/20 09:47 DC 12/29/20 09:17 100 MLS/HR Methotrexate (Rheumatrex) 15 mg WEEKLY 12/27/20 09:00 12/27/20 10:02 DC Metoprolol Tartrate (Lopressor Vial) 5 mg 1X ONCE 12/29/20 19:45 12/29/20 19:46 DC 12/29/20 20:09 5 MG Metoprolol Tartrate (Lopressor) 25 mg BID 12/26/20 12:00 01/03/21 08:17 25 MG Micafungin Sodium 100 mg/Dextrose 100 ml @ 100 mls/hr Q24H 12/26/20 07:00 12/30/20 09:47 DC 12/30/20 06:29 100 MLS/HR Miscellaneous (Lidoderm Patch Removal) 1 ea QHS 12/30/20 21:00 01/02/21 20:37 1 EA Multivitamins (Thera M Plus) 1 tab DAILY 12/26/20 09:00 01/03/21 08:11 1 TAB Non-Formulary Medication (Budesonide ) 1 vial BID 12/26/20 09:00 UNV Non-Formulary Medication (Fluticasone/ Salmeterol (Advair 250-50 Diskus)) 1 inh BID 12/26/20 09:00 UNV Non-Formulary Medication (Mesalamine (Apriso)) 2 cap BID 12/26/20 09:00 12/28/20 10:28 DC Norepinephrine Bitartrate 8 mg/ Dextrose 258 ml @ 16.757 mls/ hr CONT PRN 12/28/20 04:45 UNV Nystatin (Nystop) 1 stacy BID 01/02/21 09:00 01/03/21 08:17 1 STACY Oxycodone/ Acetaminophen (Percocet 10/325) 1 tab PRN Q4HRS PRN 12/27/20 12:30 01/02/21 22:26 1 TAB Pantoprazole Sodium (PROTONIX VIAL for IV PUSH) 40 mg DAILYAC 12/26/20 07:30 01/01/21 14:57 DC 01/01/21 09:08 40 MG Pantoprazole Sodium (Protonix) 40 mg DAILYAC 01/02/21 07:30 01/03/21 08:10 40 MG Piperacillin Sod/ Tazobactam Sod 2.25 gm/Sodium Chloride 50 ml @ 100 mls/hr Q6HRS 12/30/20 12:00 01/03/21 11:17 DC 01/03/21 05:46 100 MLS/HR Piperacillin Sod/ Tazobactam Sod 3.375 gm/Sodium Chloride 50 ml @ 100 mls/hr Q6HRS 01/03/21 12:00 Polyethylene Glycol (miraLAX PACKET) 17 gm DAILY 12/28/20 09:00 Potassium Chloride (Klor-Con) 20 meq DAILY 12/26/20 09:00 01/03/21 08:16 20 MEQ Psyllium Hydrophilic Mucilloid (Metamucil Fiber Packet) 1 pkt DAILY 12/26/20 09:00 12/27/20 13:20 DC 12/27/20 09:11 1 PKT Sodium Chloride 1,000 ml @ 1,000 mls/hr 1X ONCE 12/28/20 08:45 12/28/20 09:44 DC 12/28/20 08:51 1,000 MLS/HR Vancomycin HCl (Vanco Per Pharmacy) 1 each PRN DAILY PRN 12/26/20 04:30 12/26/20 06:35 DC Venlafaxine HCl (Effexor Xr) 75 mg DAILY 12/26/20 09:00 01/03/21 08:10 75 MG Vitamin D (Vitamin D3) 1,000 unit DAILY 12/26/20 09:00 01/03/21 08:10 1,000 UNIT Lab Laboratory Tests Test 01/02/21 16:44 01/02/21 20:27 01/03/21 07:50 01/03/21 08:39 Glucose (Fingerstick) 81 mg/dL (70-99) 79 mg/dL (70-99) 60 mg/dL (70-99) 116 mg/dL (70-99) Test 01/03/21 11:49 Glucose (Fingerstick) 71 mg/dL (70-99) Results All relevant outside records, renal labs, imaging studies, telemetry/EKG's were reviewed. Justicifation of Admission Dx: Justifications for Admission: Justification of Admission Dx: Yes RAJI ANDRE MD January 03, 2021 12:15
[2021-01-03] MEDS: PIPERACILLIN/TAZOBACTAM 3.375 GM in IV NORMAL SALINE 50ML 50 ML IV SCH ×3 (13:15→23:49)
[2021-01-03 15:00] VITALS: BP 144/67
[2021-01-03 19:56] VITALS: BP 161/68
[2021-01-03] MEDS: PATCH REMOVAL. MC SCH (20:46)
[2021-01-03] MEDS: ACETAMINOPHEN 325 MG TABLET. PO PRN (20:52)
[2021-01-03 22:57] VITALS: BP 133/68
[2021-01-04 03:26] VITALS: BP 134/60
[2021-01-04] MEDS: PIPERACILLIN/TAZOBACTAM 3.375 GM in IV NORMAL SALINE 50ML 50 ML IV SCH ×3 (05:54→17:54)
[2021-01-04 06:11] LABS: CALCIUM 8.7 mg/dL (8.5-10.1); CREATININE 1.1 mg/dL (0.6-1.0); GFR 48.7; POTASSIUM 3.9 mmol/L (3.5-5.1)
[2021-01-04 07:55] VITALS: BP 135/59
[2021-01-04] MEDS: INSULIN LISPRO 300 UNITS/3 ML VIAL. SQ SCH ×3 (08:00→17:00)
[2021-01-04] MEDS: ALBUTEROL SULFATE 2.5 MG/3 ML NEBU. NEB SCH ×4 (08:12→20:33)
[2021-01-04] MEDS: BUDESONIDE 0.5 MG/2 ML NEBU. NEB SCH ×2 (08:12→20:33)
[2021-01-04] MEDS: POLYETHYLENE GLYCOL 3350 17 GM PACKET. PO SCH ×2 (08:41→09:00)
[2021-01-04] MEDS: PANTOPRAZOLE 40 MG TABLET.DR. PO SCH (08:41)
[2021-01-04] MEDS: MULTIVITAMIN with MINERAL TABLET. PO SCH (08:41)
[2021-01-04] MEDS: METOPROLOL TART IMMED RELEASE 25 MG TABLET. PO SCH ×2 (08:41→20:57)
[2021-01-04] MEDS: POTASSIUM CHLORIDE 20 MEQ TABLET.ER. PO SCH (08:42)
[2021-01-04] MEDS: VENLAFAXINE XR 37.5 MG CAP.ER.24H. PO SCH (08:42)
[2021-01-04] MEDS: FERROUS SULFATE 325 MG TABLET. PO SCH (08:42)
[2021-01-04] MEDS: LINEZOLID 600 MG TABLET PO SCH ×2 (08:42→20:57)
[2021-01-04] MEDS: CHOLECALCIFEROL (VITAMIN D3) 1,000 UNIT TABLET PO SCH (08:42)
[2021-01-04] MEDS: ASPIRIN ENTERIC COATED 81 MG TABLET.DR. PO SCH (08:43)
[2021-01-04] MEDS: NYSTATIN TOPICAL POWDER 15GM BOTTLE. TP SCH (08:43)
[2021-01-04] MEDS: GABAPENTIN 300 MG CAPSULE. PO SCH ×2 (08:43→20:58)
[2021-01-04] MEDS: oxyCODONE/APAP 5/325 1 TAB TABLET PO PRN ×3 (08:43→20:59)
[2021-01-04] MEDS: FOLIC ACID 1 MG TABLET. PO SCH (08:43)
[2021-01-04] MEDS: HYDROXYCHLOROQUINE 200 MG TABLET PO SCH ×2 (08:43→20:56)
[2021-01-04] MEDS: LIDOCAINE (700MG/PATCH) PATCH. TD PRN (08:44)
--- NOTE | 2021-01-04 09:20 | PDOC ---
Infectious Disease Note Subjective: Subjective Pt feels better Complains of pain in both lower extremities, chronic Denies fever, nausea, vomiting, worsening shortness of breath, diarrhea, abdominal pain, rash Otherwise as above Vital Signs: Vital Signs Vital Signs Date Time Temp Pulse Resp B/P (MAP) Pulse Ox O2 Delivery O2 Flow Rate FiO2 01/04/21 08:41 80 01/04/21 08:13 Nasal Cannula 2.0 01/04/21 07:55 98.0 18 135/59 (84) 96 98.0 Physical Exam: PHYSICAL EXAM GEN:alert awake appears tired HEENT: no icterus, Oral cavity and pharynx dry NECK: Without JVD. No fullness. LUNGS: Decreased in the bases. HEART: S1, S2. no murmurs ABDOMEN: Obese, soft,BS+ no guarding, no rebound. GENITOURINARY: Crawford in place. Superficial ulceration in the perineal area, no purulence, yeast EXTREMITIES: No clubbing, cyanosis. She has 2-3+ lower extremity edema bilaterally, also has bilateral erythema on her legs in well described areas. Right lower extremity more than left She has a small wound on her left knee cap that appears to be clean. Lateral wounds on both legs appear consistent with previous bullae that have ruptured. EXTREMITIES: Legs are mildly warm, some tenderness. SKIN: Otherwise warm without generalized rash. NEUROLOGIC: She is nonfocal, moves all extremities. PSYCHIATRIC: Affect is appropriate. Medications: Inpatient Meds: Medications reviewed. Labs: Lab Laboratory Tests Test 01/03/21 11:49 01/03/21 16:47 01/03/21 21:09 01/04/21 05:50 Glucose (Fingerstick) 71 mg/dL (70-99) 72 mg/dL (70-99) 81 mg/dL (70-99) Sodium Level 140 mmol/L (136-145) Potassium Level 3.9 mmol/L (3.5-5.1) Chloride Level 103 mmol/L (98-107) Carbon Dioxide Level 36 mmol/L (21-32) Anion Gap 1 (6-14) Blood Urea Nitrogen 9 mg/dL (7-20) Creatinine 1.1 mg/dL (0.6-1.0) Estimated GFR (Cockcroft-Gault) 48.7 Glucose Level 58 mg/dL (70-99) Calcium Level 8.7 mg/dL (8.5-10.1) Test 01/04/21 08:08 Glucose (Fingerstick) 85 mg/dL (70-99) Objective: Assessment: 1. Fever. Resolved 2. Lower extremity cellulitis. 3. Klebsiella pneumoniae bacteremia at osh 12/25 3/4 bottles, 4. Atrial fibrillation. 5. Acute kidney injury. 6. Some questionable esophagitis.Abnormal LFTs likely from shock liver 7. CT lung from [facility] cavitary lung lesion down to 2.6 x 1.5 cm thin-walled cavitation much improved compared to large cavitary lung lesion 12 months ago 8. Immunosuppression with rheumatoid arthritis. 9. ANTIBIOTIC ALLERGIES, has tolerated Zosyn and Augmentin. 10. History of methicillin-resistant Staphylococcus aureus, Enterobacter resp cultures in the past. 11. History of fall POA with compression fracture on CT 12. Mild thrombocytopenia Plan: Plan of Care Continue Zosyn continue Zyvox Start micafungin Follow-up repeat blood cultures 01/01/2021 Awaiting treatment for compression fracture UA negative at [facility] S/p Levofloxacin,Vanc and Dexamethasone F/u labs and cults Elevation of leg Local wound care Contact isolation for h/o MRSA Discussed with nursing staff BILLY HODGES MD Jan 04, 2021 09:20
[2021-01-04 10:18] VITALS: BP 107/57
--- NOTE | 2021-01-04 10:33 | PDOC ---
DATE OF SERVICE DATE: 01/04/21 TIME: 10:31 SUBJECTIVE ROS No new concerns or complaints Chronic leg and back pains OBJECTIVE Vital Signs Vital Signs Date Time Temp Pulse Resp B/P (MAP) Pulse Ox O2 Delivery O2 Flow Rate FiO2 01/04/21 10:18 98.4 75 18 107/57 (74) 95 Nasal Cannula 2.0 98.4 I & 0 Intake and Output 01/04/21 07:00 Intake Total 150 ml Output Total 1650 ml Balance -1500 ml Intake Oral 0 ml IV Total 150 ml Output Urine Total 1650 ml PHYSICAL EXAM Physical Exam GEN:NAD HEENT: no icterus, OM moist NECK: supple . LUNGS: Decreased in the bases, non labored HEART: S1, S2. no murmurs ABDOMEN: Obese, soft,BS+ not tender EXTREMITIES: No clubbing, cyanosis. + lower extremity edema bilateral erythema on her legs SKIN: No rash. NEUROLOGIC: grossly normal PSYCHIATRIC: Affect is appropriate. GENITOURINARY: Robles in place, No SP or CVA tenderness DIAGNOSIS/ASSESSMENT Assessment & Plan MAURICE suspect 2/2 ATN / Vancomycin/ Hypotension non Oliguric , Resolved UA unremarkable . E-Lytes stable , Supportive care, I/O, maintain hydration . Recommned voiding trial after robles dced(defer to primary) CKD stage 2/3 a- MAURICE in Sep 2020 Cr peaked at 1.6 , Cr at dc 1.3; prior was 1.1 (per primary's Note baseline Cr interval was 0.4) Lower extremity cellulitis On Abx followed by ID. Was on Vanc at home via PICC line (duration unknown) Acute on chronic diastolic CHF: appears compensated. Takes Torsemide 10 mg at home- titrate based on daily wt , edema, BP etc AMS at Presentation- resolved Gram negative bacteremia at osh 12/25 3/4 bottles,Klebsiella penumoniae Atrial fibrillation with RVR - per cardiology ? Esophagitis reported on CT CT lung from [facility] cavitary lung lesion down to 2.6 x 1.5 cm thin-walled cavitation much improved compared to large cavitary lung lesion 12 months ago RA - On Immunosuppressive meds COMMENT/RELEVANT DATA Meds Current Medications Medications (Trade) Dose Ordered Sig/Josefina Start Time Stop Time Status Last Admin Dose Admin Acetaminophen (Tylenol) 650 mg PRN Q6HRS PRN 12/27/20 12:30 01/03/21 20:52 650 MG Acetaminophen/ Hydrocodone Bitart (Lortab 7.5/325) 1 tab PRN Q6HRS PRN 12/26/20 08:00 12/27/20 12:21 DC 12/27/20 09:16 1 TAB Al Hydroxide/Mg Hydroxide (Mylanta Plus Xs) 30 ml PRN Q4HRS PRN 12/31/20 22:30 12/31/20 22:53 30 ML Albuterol Sulfate (Ventolin Neb Soln) 2.5 mg RTQID 12/26/20 09:00 01/04/21 08:12 2.5 MG Alteplase, Recombinant (Cathflo) 2 mg 1X ONCE 01/01/21 18:30 01/01/21 18:31 DC 01/01/21 19:54 2 MG Alteplase, Recombinant 5 mg/ Sodium Chloride 30 ml @ 30 mls/hr 1X ONCE 01/01/21 18:00 01/01/21 18:59 UNV Aspirin (Ecotrin) 81 mg DAILYWBKFT 12/29/20 08:00 01/04/21 08:43 81 MG Atorvastatin Calcium (Lipitor) 80 mg QHS 12/26/20 21:00 12/28/20 13:18 DC 12/27/20 21:24 80 MG Budesonide (Pulmicort) 0.5 mg RTBID 12/26/20 09:00 01/04/21 08:12 0.5 MG Ceftriaxone Sodium (Rocephin) 2 gm Q24H 01/02/21 09:15 UNV Dextrose (Dextrose 50%-Water Syringe) 12.5 gm PRN Q15MIN PRN 12/26/20 05:00 01/03/21 08:09 12.5 GM Dextrose (Iv Dextrose 5%) 250 ml PRN Q15MIN PRN 12/26/20 05:00 UNV Diclofenac Sodium (Voltaren) 100 stacy PRN QID PRN 12/26/20 08:00 12/31/20 06:15 1 STACY Digoxin (Lanoxin) 250 mcg 1X ONCE 12/29/20 19:15 12/29/20 19:16 DC 12/29/20 19:16 250 MCG Diltiazem HCl (Cardizem 24hr Cd) 180 mg DAILY 12/26/20 09:00 12/27/20 15:37 DC 12/27/20 09:11 180 MG Enoxaparin Sodium (Lovenox 60mg Syringe) 60 mg 1X ONCE 12/29/20 19:15 12/29/20 19:16 DC 12/29/20 20:11 60 MG EZETIMIBE (Zetia) 10 mg DAILY 12/26/20 09:00 12/28/20 13:18 DC 12/27/20 09:08 10 MG Fentanyl Citrate (Fentanyl 2ml Vial) 50 mcg PRN Q2HR PRN 12/28/20 11:15 12/31/20 07:32 50 MCG Ferrous Sulfate (Feosol) 325 mg DAILY 12/26/20 09:00 01/04/21 08:42 325 MG Folic Acid (Folic Acid) 0.5 mg DAILY 12/26/20 09:00 01/04/21 08:43 0.5 MG Furosemide (Lasix) 20 mg 1X ONCE 12/28/20 13:15 12/28/20 13:16 DC 12/28/20 15:00 20 MG Gabapentin (Neurontin) 600 mg BID 12/26/20 09:00 01/04/21 08:43 600 MG Guaifenesin/ Codeine Phosphate (Robitussin Ac) 5 ml PRN Q6HRS PRN 12/26/20 08:00 Hydroxychloroquine Sulfate (Plaquenil) 200 mg BID 12/26/20 09:00 01/04/21 08:43 200 MG Insulin Glargine (Lantus Syringe) 20 unit QHS 12/26/20 21:00 01/03/21 08:09 DC 12/29/20 20:24 20 UNIT Insulin Human Lispro (HumaLOG) 0-5 UNITS TIDWMEALS 12/26/20 08:00 12/28/20 17:00 2 UNITS Lidocaine (Lidoderm) 1 patch PRN DAILY PRN 01/01/21 12:45 01/04/21 08:44 1 PATCH Linezolid (Zyvox) 600 mg BID 01/01/21 21:00 01/04/21 08:42 600 MG Linezolid/Dextrose 300 ml @ 300 mls/hr Q12HR 12/26/20 09:00 01/01/21 14:56 DC 01/01/21 09:08 300 MLS/HR Magnesium Sulfate 50 ml @ 25 mls/hr 1X ONCE 12/26/20 14:00 12/26/20 15:59 DC 12/26/20 19:21 25 MLS/HR Meropenem 500 mg/ Sodium Chloride 50 ml @ 100 mls/hr DAILY 12/29/20 09:00 12/30/20 09:47 DC 12/29/20 09:17 100 MLS/HR Methotrexate (Rheumatrex) 15 mg WEEKLY 12/27/20 09:00 12/27/20 10:02 DC Metoprolol Tartrate (Lopressor Vial) 5 mg 1X ONCE 12/29/20 19:45 12/29/20 19:46 DC 12/29/20 20:09 5 MG Metoprolol Tartrate (Lopressor) 25 mg BID 12/26/20 12:00 01/04/21 08:41 25 MG Micafungin Sodium 100 mg/Dextrose 100 ml @ 100 mls/hr Q24H 01/04/21 10:00 Miscellaneous (Lidoderm Patch Removal) 1 ea QHS 12/30/20 21:00 01/02/21 20:37 1 EA Multivitamins (Thera M Plus) 1 tab DAILY 12/26/20 09:00 01/04/21 08:41 1 TAB Non-Formulary Medication (Budesonide ) 1 vial BID 12/26/20 09:00 UNV Non-Formulary Medication (Fluticasone/ Salmeterol (Advair 250-50 Diskus)) 1 inh BID 12/26/20 09:00 UNV Non-Formulary Medication (Mesalamine (Apriso)) 2 cap BID 12/26/20 09:00 12/28/20 10:28 DC Norepinephrine Bitartrate 8 mg/ Dextrose 258 ml @ 16.757 mls/ hr CONT PRN 12/28/20 04:45 UNV Nystatin (Nystop) 1 stacy BID 01/02/21 09:00 01/04/21 08:43 1 STACY Oxycodone/ Acetaminophen (Percocet 10/325) 1 tab PRN Q4HRS PRN 12/27/20 12:30 01/02/21 22:26 1 TAB Oxycodone/ Acetaminophen (Percocet 5/325) 1 tab PRN Q4HRS PRN 01/04/21 08:30 01/04/21 08:43 1 TAB Pantoprazole Sodium (PROTONIX VIAL for IV PUSH) 40 mg DAILYAC 12/26/20 07:30 01/01/21 14:57 DC 01/01/21 09:08 40 MG Pantoprazole Sodium (Protonix) 40 mg DAILYAC 01/02/21 07:30 01/04/21 08:41 40 MG Piperacillin Sod/ Tazobactam Sod 2.25 gm/Sodium Chloride 50 ml @ 100 mls/hr Q6HRS 12/30/20 12:00 01/03/21 11:17 DC 01/03/21 05:46 100 MLS/HR Piperacillin Sod/ Tazobactam Sod 3.375 gm/Sodium Chloride 50 ml @ 100 mls/hr Q6HRS 01/03/21 12:00 01/04/21 05:54 100 MLS/HR Polyethylene Glycol (miraLAX PACKET) 17 gm DAILY 12/28/20 09:00 Potassium Chloride (Klor-Con) 20 meq DAILY 12/26/20 09:00 01/04/21 08:42 20 MEQ Psyllium Hydrophilic Mucilloid (Metamucil Fiber Packet) 1 pkt DAILY 12/26/20 09:00 12/27/20 13:20 DC 12/27/20 09:11 1 PKT Sodium Chloride 1,000 ml @ 1,000 mls/hr 1X ONCE 12/28/20 08:45 12/28/20 09:44 DC 12/28/20 08:51 1,000 MLS/HR Vancomycin HCl (Vanco Per Pharmacy) 1 each PRN DAILY PRN 12/26/20 04:30 12/26/20 06:35 DC Venlafaxine HCl (Effexor Xr) 75 mg DAILY 12/26/20 09:00 01/04/21 08:42 75 MG Vitamin D (Vitamin D3) 1,000 unit DAILY 12/26/20 09:00 01/04/21 08:42 1,000 UNIT Lab Laboratory Tests Test 01/03/21 11:49 01/03/21 16:47 01/03/21 21:09 01/04/21 05:50 Glucose (Fingerstick) 71 mg/dL (70-99) 72 mg/dL (70-99) 81 mg/dL (70-99) Sodium Level 140 mmol/L (136-145) Potassium Level 3.9 mmol/L (3.5-5.1) Chloride Level 103 mmol/L (98-107) Carbon Dioxide Level 36 mmol/L (21-32) Anion Gap 1 (6-14) Blood Urea Nitrogen 9 mg/dL (7-20) Creatinine 1.1 mg/dL (0.6-1.0) Estimated GFR (Cockcroft-Gault) 48.7 Glucose Level 58 mg/dL (70-99) Calcium Level 8.7 mg/dL (8.5-10.1) Test 01/04/21 08:08 Glucose (Fingerstick) 85 mg/dL (70-99) Results All relevant outside records, renal labs, imaging studies, telemetry/EKG's were reviewed. Justicifation of Admission Dx: Justifications for Admission: Justification of Admission Dx: Yes RAJI ANDRE MD Jan 04, 2021 10:33
[2021-01-04] MEDS ORDERED: DARBEPOETIN ALFA 60 MCG/0.3 ML DISP.SYRIN. SQ ONE (10:45)
[2021-01-04] MEDS: MICAFUNGIN 100 MG in IV DEXTROSE 5% 100ML 100 ML IV SCH (11:46)
--- NOTE | 2021-01-04 12:28 | NUR ---
SS following up with discharge planning. SS reviewed pt chart and discussed with pt RN. Pt is currently requiring oxygen at two liters nasal canula. COVID19 negative. Pt on IV Zosyn and IV Micafungin. Blood cultures pending. Pt has L5 compression fracture and if cultures negative may get possible vertebroplasty. Wound care following. PT/OT recommended snf unit. Referral was sent to [facility], ; fax [phone], on 12/31/2020. SS currently awaiting acceptance decision at this time. SS phoned and faxed clinical updates to [place]. SS will continue to follow for discharge planning.
--- NOTE | 2021-01-04 12:41 | PN ---
DATE: 01/04/2021 SUBJECTIVE: The patient is resting flat in bed, in no apparent distress. She is awake, alert, continued to complain of severe back pain. She is unable to walk. Her second blood cultures are so far negative for the last 3 days. OBJECTIVE: GENERAL: On examining her, she was pale, not jaundiced, cyanosed or thyromegaly, no jugular venous distention. No limb edema. VITAL SIGNS: Her heart rate was 78, blood pressure was 134/60, temperature 97.9, respiratory rate was 18 and oxygen saturation was 97% on 2 liters of oxygen. HEAD, EYES, EARS, NOSE AND THROAT: Normocephalic, atraumatic. NECK: Supple. HEART: Normal first and second heart sounds, no gallop, rub or murmur. CHEST: Clear to auscultation, no crepitation or rhonchi. ABDOMEN: Distended, soft, nontender. NEUROLOGIC: She is awake, alert, responding appropriately. All cranial nerves intact. She moves upper extremities to much good extent than lower extremities, mostly bedbound. Her intake was 450, output was 1625. LABORATORY DATA: As of this morning, her serum sodium 140, potassium 3.9, chloride 103, bicarbonate 36, anion gap of 1, BUN 9, creatinine 1.1. Estimated GFR was 48 mL per minute. Her glucose was 58, calcium was 8.7. ASSESSMENT: 1. Altered mental status, resolved. The patient is now more awake, alert. 2. Bilateral lower extremity edema. 3. Pneumonia. 4. Acute kidney injury on chronic kidney disease. Her creatinine is down from 2-1.1. 5. Elevated troponin, likely demand ischemia. 6. Her blood culture has grown gram-negative rods in 3/4 bottles identified as Klebsiella pneumoniae. 7. She has multiple other medical problems including: A. Atrial fibrillation, rate controlled, not anticoagulated. B. Hyperlipidemia. C. Chronic obstructive pulmonary disease. D. Ulcerative colitis. E. Rheumatoid arthritis. F. Depression. G. History of pulmonary abscess that was treated and resolving. H. Anemia, probably multifactorial. PLAN: 1. To continue with IV antibiotic. 2. Continue with pain management. 3. Continue to monitor blood sugar and adjust insulin as needed. 4. Will continue with physical and occupational therapy. If two consecutive cultures were negative, we will discuss with the interventional radiologist option of vertebroplasty. AMM/MAX DR: Lennie TID: [id number]
[2021-01-04 14:51] VITALS: BP 124/53
[2021-01-04 19:00] VITALS: BP 112/56
[2021-01-04] MEDS: PATCH REMOVAL. MC SCH (21:00)
[2021-01-04 23:00] VITALS: BP 96/48
[2021-01-05] MEDS: PIPERACILLIN/TAZOBACTAM 3.375 GM in IV NORMAL SALINE 50ML 50 ML IV SCH ×5 (00:25→23:42)
[2021-01-05] MEDS: NYSTATIN TOPICAL POWDER 15GM BOTTLE. TP SCH ×3 (01:22→20:50)
[2021-01-05 02:30] VITALS: BP 121/51
[2021-01-05 07:00] VITALS: BP 146/70
[2021-01-05] MEDS: BUDESONIDE 0.5 MG/2 ML NEBU. NEB SCH ×2 (07:50→20:40)
[2021-01-05] MEDS: ALBUTEROL SULFATE 2.5 MG/3 ML NEBU. NEB SCH ×4 (07:50→20:40)
[2021-01-05] MEDS: INSULIN LISPRO 300 UNITS/3 ML VIAL. SQ SCH ×3 (08:00→17:00)
--- NOTE | 2021-01-05 08:36 | PDOC ---
Infectious Disease Note Subjective: Subjective Patient has complains of diarrhea Appetite remains poor Denies fever, nausea, vomiting, abdominal pain Vital Signs: Vital Signs Vital Signs Date Time Temp Pulse Resp B/P (MAP) Pulse Ox O2 Delivery O2 Flow Rate FiO2 01/05/21 02:30 97.7 79 20 121/51 (74) 95 Nasal Cannula 2.0 97.7 Physical Exam: PHYSICAL EXAM GEN:alert awake appears tired HEENT: no icterus, Oral cavity and pharynx dry NECK: Without JVD. No fullness. LUNGS: Decreased in the bases. HEART: S1, S2. no murmurs ABDOMEN: Obese, soft,BS+ no guarding, no rebound. GENITOURINARY: Crawford in place. Superficial ulceration in the perineal area, no purulence, yeast EXTREMITIES: No clubbing, cyanosis. She has 2-3+ lower extremity edema bilaterally, also has bilateral erythema on her legs in well described areas. Right lower extremity more than left She has a small wound on her left knee cap that appears to be clean. Lateral wounds on both legs appear consistent with previous bullae that have ruptured. EXTREMITIES: Legs are mildly warm, some tenderness. SKIN: Otherwise warm without generalized rash. NEUROLOGIC: She is nonfocal, moves all extremities. PSYCHIATRIC: Affect is appropriate. Medications: Inpatient Meds: Medications reviewed. Labs: Lab Laboratory Tests Test 01/04/21 11:50 01/04/21 13:05 01/04/21 17:09 01/04/21 20:45 Glucose (Fingerstick) 60 mg/dL (70-99) 92 mg/dL (70-99) 65 mg/dL (70-99) 86 mg/dL (70-99) Test 01/05/21 07:57 Glucose (Fingerstick) 74 mg/dL (70-99) Objective: Assessment: 1. Fever. Resolved 2. Lower extremity cellulitis. 3. Klebsiella pneumoniae bacteremia at osh 12/25 3/4 bottles, 4. Atrial fibrillation. 5. Acute kidney injury. UA negative at [facility] 6. Some questionable esophagitis.Abnormal LFTs likely from shock liver 7. CT lung from [facility] cavitary lung lesion down to 2.6 x 1.5 cm thin-walled cavitation much improved compared to large cavitary lung lesion 12 months ago 8. Immunosuppression with rheumatoid arthritis. 9. ANTIBIOTIC ALLERGIES, has tolerated Zosyn and Augmentin. 10. History of methicillin-resistant Staphylococcus aureus, Enterobacter resp cultures in the past. 11. History of fall POA with compression fracture on CT 12. Mild thrombocytopenia 13. Diarrhea check C. difficile Plan: Plan of Care Continue Zosyn,Zyvox/micafungin Follow-up repeat blood cultures 01/01/2021 and Jan 03 2021 neg so far Check C. difficile PCR Awaiting treatment for compression fracture F/u labs Elevation of leg Local wound care Contact isolation for h/o MRSA BILLY HODGES MD Jan 05, 2021 08:36
[2021-01-05] MEDS: LIDOCAINE (700MG/PATCH) PATCH. TD PRN (08:47)
[2021-01-05] MEDS: POTASSIUM CHLORIDE 20 MEQ TABLET.ER. PO SCH (08:48)
[2021-01-05] MEDS: LINEZOLID 600 MG TABLET PO SCH ×2 (08:48→20:49)
[2021-01-05] MEDS: METOPROLOL TART IMMED RELEASE 25 MG TABLET. PO SCH ×2 (08:48→20:50)
[2021-01-05] MEDS: FERROUS SULFATE 325 MG TABLET. PO SCH (08:48)
[2021-01-05] MEDS: VENLAFAXINE XR 37.5 MG CAP.ER.24H. PO SCH (08:48)
[2021-01-05] MEDS: PANTOPRAZOLE 40 MG TABLET.DR. PO SCH (08:49)
[2021-01-05] MEDS: HYDROXYCHLOROQUINE 200 MG TABLET PO SCH ×2 (08:49→20:49)
[2021-01-05] MEDS: GABAPENTIN 300 MG CAPSULE. PO SCH ×2 (08:49→20:49)
[2021-01-05] MEDS: FOLIC ACID 1 MG TABLET. PO SCH (08:49)
[2021-01-05] MEDS: MULTIVITAMIN with MINERAL TABLET. PO SCH (08:49)
[2021-01-05] MEDS: CHOLECALCIFEROL (VITAMIN D3) 1,000 UNIT TABLET PO SCH (08:49)
[2021-01-05] MEDS: ASPIRIN ENTERIC COATED 81 MG TABLET.DR. PO SCH (08:49)
[2021-01-05] MEDS: POLYETHYLENE GLYCOL 3350 17 GM PACKET. PO SCH (08:56)
--- NOTE | 2021-01-05 09:43 | PN ---
DATE: 01/05/2021 SUBJECTIVE: The patient is resting flat in bed, in no apparent respiratory distress. She continued to complain of severe pain in her back and inability to walk. PHYSICAL EXAMINATION: GENERAL: When I examined her, she looked pale, not jaundiced, cyanosed, no thyromegaly, jugular venous distention. No limb edema. VITAL SIGNS: Her heart rate was 79, blood pressure was 121/51, temperature was 97.7, respiratory rate was 20 and oxygen saturation was 95% on 2 liters of oxygen. HEAD, EYES, EARS, NOSE AND THROAT: Normocephalic, atraumatic. NECK: Supple. HEART: Normal first and second heart sounds, no gallop, murmur. CHEST: Clear to auscultation, no crepitation or rhonchi. ABDOMEN: Distended, soft, nontender. NEUROLOGIC: She is awake, alert, responding appropriately. Cranial nerves are intact. She moves upper extremities without difficulty. She is mostly bedbound. EXTREMITIES: On admission day, the extremities showed no clubbing or cyanosis, but bilateral lower limb edema. Her intake was incompletely recorded, output was 1650. LABORATORY DATA: Her most recent white cell count was 6600, hemoglobin 9, hematocrit 26, MCV 87 and platelet count of 133,000. Her most recent chemistry as of yesterday showed a serum sodium 140, potassium 3.9, chloride 103, bicarbonate 36, anion gap of 1, BUN 9, creatinine 1.1. Estimated GFR was 48 mL per minute. Her glucose was 58 and calcium was 8.7 and the blood cultures drawn on the and are so far negative. ASSESSMENT: 1. Altered mental status, resolved. The patient is more awake, alert. 2. Bilateral lower extremity edema. 3. Pneumonia. 4. Acute kidney injury on chronic kidney disease. Her creatinine is down from 2-1.1. 5. Elevated troponin, felt likely due to demand ischemia. 6. Her blood culture has grown gram-negative rods in 3/4 bottles identified as Klebsiella pneumoniae. 7. The patient has multiple other medical problems including: A. Atrial fibrillation, rate controlled, not anticoagulated. B. Hyperlipidemia. C. Chronic obstructive pulmonary disease. D. Ulcerative colitis E. Rheumatoid arthritis F. Depression. G. History of pulmonary abscess that was treated and resolving. 8. Multifactorial anemia. PLAN: 1. Continue with IV antibiotic. 2. Continue with pain management. 3. Continue to monitor blood sugar. Adjust insulin as needed. Her blood sugar has been well within normal range. We discontinued the Lantus altogether. 4. Continue the physical and occupational therapy. 5. As she has 2 negative blood cultures, I will discuss with interventional radiologist whether the patient needs an MRI and whether vertebroplasty should be pursued soon. BRITTNEY DR: Lennie TID: [id number]
[2021-01-05 11:00] VITALS: BP 137/59
--- NOTE | 2021-01-05 12:38 | PDOC ---
DATE OF SERVICE DATE: 01/05/21 TIME: 12:36 SUBJECTIVE ROS stable OBJECTIVE Vital Signs Vital Signs Date Time Temp Pulse Resp B/P (MAP) Pulse Ox O2 Delivery O2 Flow Rate FiO2 01/05/21 11:48 Nasal Cannula 2.0 01/05/21 08:48 79 121/51 01/05/21 07:00 98.1 20 96 98.1 I & 0 Intake and Output 01/05/21 07:00 Intake Total 300 ml Output Total 800 ml Balance -500 ml Intake Oral 300 ml Output Urine Total 800 ml # Voids 4 PHYSICAL EXAM Physical Exam GEN:NAD HEENT: no icterus, OM moist NECK: supple . LUNGS: Decreased in the bases, non labored HEART: S1, S2. no murmurs ABDOMEN: Obese, soft,BS+ not tender EXTREMITIES: No clubbing, cyanosis. + lower extremity edema bilateral erythema on her legs SKIN: No rash. NEUROLOGIC: grossly normal PSYCHIATRIC: Affect is appropriate. GENITOURINARY: No SP or CVA tenderness DIAGNOSIS/ASSESSMENT Assessment & Plan MAURICE suspect 2/2 ATN / Vancomycin/ Hypotension non Oliguric , Resolved UA unremarkable . E-Lytes stable , Supportive care, I/O, maintain hydration . CKD stage 2/3 a- MAURICE in Sep 2020 Cr peaked at 1.6 , Cr at dc 1.3; prior was 1.1 (per primary's Note baseline Cr interval was 0.4) Lower extremity cellulitis On Abx followed by ID. Was on Vanc at home via PICC line (duration unknown) Acute on chronic diastolic CHF: appears compensated. Takes Torsemide 10 mg at home- titrate based on daily wt , edema, BP etc AMS at Presentation- resolved Gram negative bacteremia at osh 12/25 3/4 bottles,Klebsiella penumoniae Atrial fibrillation with RVR - per cardiology ? Esophagitis reported on CT CT lung from [facility] cavitary lung lesion down to 2.6 x 1.5 cm thin- walled cavitation much improved compared to large cavitary lung lesion 12 months ago RA - On Immunosuppressive meds Will sign off . Keep scheduled fu with us after discharge COMMENT/RELEVANT DATA Meds Current Medications Medications (Trade) Dose Ordered Sig/Josefina Start Time Stop Time Status Last Admin Dose Admin Acetaminophen (Tylenol) 650 mg PRN Q6HRS PRN 12/27/20 12:30 01/03/21 20:52 650 MG Acetaminophen/ Hydrocodone Bitart (Lortab 7.5/325) 1 tab PRN Q6HRS PRN 12/26/20 08:00 12/27/20 12:21 DC 12/27/20 09:16 1 TAB Al Hydroxide/Mg Hydroxide (Mylanta Plus Xs) 30 ml PRN Q4HRS PRN 12/31/20 22:30 12/31/20 22:53 30 ML Albuterol Sulfate (Ventolin Neb Soln) 2.5 mg RTQID 12/26/20 09:00 01/05/21 11:48 2.5 MG Alteplase, Recombinant (Cathflo) 2 mg 1X ONCE 01/01/21 18:30 01/01/21 18:31 DC 01/01/21 19:54 2 MG Alteplase, Recombinant 5 mg/ Sodium Chloride 30 ml @ 30 mls/hr 1X ONCE 01/01/21 18:00 01/01/21 18:59 UNV Aspirin (Ecotrin) 81 mg [id number] 12/29/20 08:00 01/05/21 08:49 81 MG Atorvastatin Calcium (Lipitor) 80 mg QHS 12/26/20 21:00 12/28/20 13:18 DC 12/27/20 21:24 80 MG Budesonide (Pulmicort) 0.5 mg RTBID 12/26/20 09:00 01/05/21 07:50 0.5 MG Ceftriaxone Sodium (Rocephin) 2 gm Q24H 01/02/21 09:15 UNV Darbepoetin Louie (ARANESP for NON-DIALYSIS PTS) 60 mcg 1X ONCE 01/04/21 10:45 01/04/21 10:46 DC 01/04/21 11:45 60 MCG Dextrose (Dextrose 50%-Water Syringe) 12.5 gm PRN Q15MIN PRN 12/26/20 05:00 01/03/21 08:09 12.5 GM Dextrose (Iv Dextrose 5%) 250 ml PRN Q15MIN PRN 12/26/20 05:00 UNV Diclofenac Sodium (Voltaren) 1 stacy PRN QID PRN 01/04/21 11:30 Digoxin (Lanoxin) 250 mcg 1X ONCE 12/29/20 19:15 12/29/20 19:16 DC 12/29/20 19:16 250 MCG Diltiazem HCl (Cardizem 24hr Cd) 180 mg DAILY 12/26/20 09:00 12/27/20 15:37 DC 12/27/20 09:11 180 MG Enoxaparin Sodium (Lovenox 60mg Syringe) 60 mg 1X ONCE 12/29/20 19:15 12/29/20 19:16 DC 12/29/20 20:11 60 MG EZETIMIBE (Zetia) 10 mg DAILY 12/26/20 09:00 12/28/20 13:18 DC 12/27/20 09:08 10 MG Fentanyl Citrate (Fentanyl 2ml Vial) 50 mcg PRN Q2HR PRN 12/28/20 11:15 12/31/20 07:32 50 MCG Ferrous Sulfate (Feosol) 325 mg DAILY 12/26/20 09:00 01/05/21 08:48 325 MG Folic Acid (Folic Acid) 0.5 mg DAILY 12/26/20 09:00 01/05/21 08:49 0.5 MG Furosemide (Lasix) 20 mg 1X ONCE 12/28/20 13:15 12/28/20 13:16 DC 12/28/20 15:00 20 MG Gabapentin (Neurontin) 600 mg BID 12/26/20 09:00 01/05/21 08:49 600 MG Guaifenesin/ Codeine Phosphate (Robitussin Ac) 5 ml PRN Q6HRS PRN 12/26/20 08:00 Hydroxychloroquine Sulfate (Plaquenil) 200 mg BID 12/26/20 09:00 01/05/21 08:49 200 MG Insulin Glargine (Lantus Syringe) 20 unit QHS 12/26/20 21:00 01/03/21 08:09 DC 12/29/20 20:24 20 UNIT Insulin Human Lispro (HumaLOG) 0-5 UNITS TIDWMEALS 12/26/20 08:00 12/28/20 17:00 2 UNITS Lidocaine (Lidoderm) 1 patch PRN DAILY PRN 01/01/21 12:45 01/05/21 08:47 1 PATCH Linezolid (Zyvox) 600 mg BID 01/01/21 21:00 01/05/21 08:48 600 MG Linezolid/Dextrose 300 ml @ 300 mls/hr Q12HR 12/26/20 09:00 01/01/21 14:56 DC 01/01/21 09:08 300 MLS/HR Magnesium Sulfate 50 ml @ 25 mls/hr 1X ONCE 12/26/20 14:00 12/26/20 15:59 DC 12/26/20 19:21 25 MLS/HR Meropenem 500 mg/ Sodium Chloride 50 ml @ 100 mls/hr DAILY 12/29/20 09:00 12/30/20 09:47 DC 12/29/20 09:17 100 MLS/HR Methotrexate (Rheumatrex) 15 mg WEEKLY 12/27/20 09:00 12/27/20 10:02 DC Metoprolol Tartrate (Lopressor Vial) 5 mg 1X ONCE 12/29/20 19:45 12/29/20 19:46 DC 12/29/20 20:09 5 MG Metoprolol Tartrate (Lopressor) 25 mg BID 12/26/20 12:00 01/05/21 08:48 25 MG Micafungin Sodium 100 mg/Dextrose 100 ml @ 100 mls/hr Q24H 01/04/21 10:00 01/04/21 11:46 100 MLS/HR Miscellaneous (Lidoderm Patch Removal) 1 ea QHS 12/30/20 21:00 01/02/21 20:37 1 EA Multivitamins (Thera M Plus) 1 tab DAILY 12/26/20 09:00 01/05/21 08:49 1 TAB Non-Formulary Medication (Budesonide ) 1 vial BID 12/26/20 09:00 UNV Non-Formulary Medication (Fluticasone/ Salmeterol (Advair 250-50 Diskus)) 1 inh BID 12/26/20 09:00 UNV Non-Formulary Medication (Mesalamine (Apriso)) 2 cap BID 12/26/20 09:00 12/28/20 10:28 DC Norepinephrine Bitartrate 8 mg/ Dextrose 258 ml @ 16.757 mls/ hr CONT PRN 12/28/20 04:45 UNV Nystatin (Nystop) 1 stacy BID 01/02/21 09:00 01/05/21 01:22 1 STACY Oxycodone/ Acetaminophen (Percocet 10/325) 1 tab PRN Q4HRS PRN 12/27/20 12:30 01/02/21 22:26 1 TAB Oxycodone/ Acetaminophen (Percocet 5/325) 1 tab PRN Q4HRS PRN 01/04/21 08:30 01/04/21 20:59 1 TAB Pantoprazole Sodium (PROTONIX VIAL for IV PUSH) 40 mg DAILYAC 12/26/20 07:30 01/01/21 14:57 DC 01/01/21 09:08 40 MG Pantoprazole Sodium (Protonix) 40 mg DAILYAC 01/02/21 07:30 01/05/21 08:49 40 MG Piperacillin Sod/ Tazobactam Sod 2.25 gm/Sodium Chloride 50 ml @ 100 mls/hr Q6HRS 12/30/20 12:00 01/03/21 11:17 DC 01/03/21 05:46 100 MLS/HR Piperacillin Sod/ Tazobactam Sod 3.375 gm/Sodium Chloride 50 ml @ 100 mls/hr Q6HRS 01/03/21 12:00 01/05/21 06:02 100 MLS/HR Polyethylene Glycol (miraLAX PACKET) 17 gm DAILY 12/28/20 09:00 Potassium Chloride (Klor-Con) 20 meq DAILY 12/26/20 09:00 01/05/21 08:48 20 MEQ Psyllium Hydrophilic Mucilloid (Metamucil Fiber Packet) 1 pkt DAILY 12/26/20 09:00 12/27/20 13:20 DC 12/27/20 09:11 1 PKT Sodium Chloride 1,000 ml @ 1,000 mls/hr 1X ONCE 12/28/20 08:45 12/28/20 09:44 DC 12/28/20 08:51 1,000 MLS/HR Vancomycin HCl (Vanco Per Pharmacy) 1 each PRN DAILY PRN 12/26/20 04:30 12/26/20 06:35 DC Venlafaxine HCl (Effexor Xr) 75 mg DAILY 12/26/20 09:00 01/05/21 08:48 75 MG Vitamin D (Vitamin D3) 1,000 unit DAILY 12/26/20 09:00 01/05/21 08:49 1,000 UNIT Lab Laboratory Tests Test 01/04/21 13:05 01/04/21 17:09 01/04/21 20:45 01/05/21 07:57 Glucose (Fingerstick) 92 mg/dL (70-99) 65 mg/dL (70-99) 86 mg/dL (70-99) 74 mg/dL (70-99) Test 01/05/21 12:13 Glucose (Fingerstick) 84 mg/dL (70-99) Results All relevant outside records, renal labs, imaging studies, telemetry/EKG's were reviewed. Justicifation of Admission Dx: Justifications for Admission: Justification of Admission Dx: Yes RAJI ANDRE MD Jan 05, 2021 12:38
--- NOTE | 2021-01-05 14:05 | NUR ---
SS following up with discharge planning. SS reviewed pt chart and discussed with pt RN. Pt is currently requiring oxygen at two liters nasal canula. COVID19 negative. Pt on IV Micafungin and IV Zosyn. Blood cultures pending. Possible MRI and Vertebroplasty soon. PT/OT recommended retirement unit. Referral has been sent to [facility], ; fax [phone]. SS currently awaiting acceptance decision at this time. SS will continue to follow for discharge planning.
[2021-01-05] MEDS: MICAFUNGIN 100 MG in IV DEXTROSE 5% 100ML 100 ML IV SCH (14:53)
[2021-01-05 15:00] VITALS: BP 136/68
--- NOTE | 2021-01-05 16:05 | NUR ---
Wound/Ostomy Care Wound Type/Assessment: Wound care follow up, pt camp a left knee abrasion, right calf open blister and yeast to periarea/upper thighs/buttocks. Pt states that she has been having diarrhea. No other wounds noted on head to toe skin assessment. Treatment Recommendations/Plan: Cleanse wounds with saline wash. Left knee and right calf: cover with xeroform and foam, change every 3 days. Pericare daily, apply nystatin powder to upper thighs, groin, buttocks BID and prn, keep clean and dry, avoid briefs if possible. Education provided: pt educated on turning to avoid PU, pt left turn to her left. Offloading surface/device: pillows to offload, purple wedge Recommended Referrals/Tests: n/a Discharge Recommendations for dressings: same as above, POC communicated with clinical staff educator
[2021-01-05 19:36] VITALS: BP 145/81
[2021-01-05] MEDS: PATCH REMOVAL. MC SCH (20:53)
[2021-01-05 22:33] VITALS: BP 125/69
[2021-01-05] MEDS: oxyCODONE/APAP 5/325 1 TAB TABLET PO PRN (22:58)
[2021-01-06 02:28] VITALS: BP 109/47
[2021-01-06 05:31] LABS: HEMATOCRIT 22.7 % (36.0-47.0); HEMOGLOBIN 7.5 g/dL (12.0-15.5); RED BLOOD COUNT 2.58 x10^6/uL (3.50-5.40); RED CELL DISTRIBUTION WIDTH 15.4 % (11.5-14.5); WHITE BLOOD COUNT 4.2 x10^3/uL (4.0-11.0)
[2021-01-06] MEDS: PIPERACILLIN/TAZOBACTAM 3.375 GM in IV NORMAL SALINE 50ML 50 ML IV SCH ×4 (05:49→23:43)
[2021-01-06 05:59] LABS: ALBUMIN 1.9 g/dL (3.4-5.0); ALBUMIN/GLOBULIN RATIO 0.6 (1.0-1.7); CALCIUM 8.7 mg/dL (8.5-10.1); CREATININE 1.1 mg/dL (0.6-1.0); GFR 48.7; POTASSIUM 3.6 mmol/L (3.5-5.1); TOTAL BILIRUBIN 0.4 mg/dL (0.2-1.0); TOTAL PROTEIN 5.3 g/dL (6.4-8.2)
[2021-01-06 07:00] VITALS: BP 119/56
[2021-01-06] MEDS: BUDESONIDE 0.5 MG/2 ML NEBU. NEB SCH ×2 (07:38→20:12)
[2021-01-06] MEDS: ALBUTEROL SULFATE 2.5 MG/3 ML NEBU. NEB SCH ×4 (07:38→20:12)
--- NOTE | 2021-01-06 08:35 | PDOC ---
Infectious Disease Note Subjective: Subjective Patient without complaints this morning No more diarrhea Denies fever, nausea, vomiting, abdominal pain Leg pain is under control Vital Signs: Vital Signs Vital Signs Date Time Temp Pulse Resp B/P (MAP) Pulse Ox O2 Delivery O2 Flow Rate FiO2 01/06/21 07:40 Nasal Cannula 2.0 01/06/21 07:00 98.1 80 18 119/56 (77) 95 98.1 Physical Exam: PHYSICAL EXAM GEN:alert awake appears tired HEENT: no icterus, Oral cavity and pharynx dry NECK: Without JVD. No fullness. LUNGS: Decreased in the bases. HEART: S1, S2. no murmurs ABDOMEN: Obese, soft,BS+ no guarding, no rebound. GENITOURINARY: Crawford in place. Superficial ulceration in the perineal area, no purulence, yeast EXTREMITIES: No clubbing, cyanosis. She has 2-3+ lower extremity edema bilaterally, also has bilateral erythema on her legs in well described areas. Right lower extremity more than left She has a small wound on her left knee cap that appears to be clean. Lateral wounds on both legs appear consistent with previous bullae that have ruptured. EXTREMITIES: Legs are mildly warm, some tenderness. SKIN: Otherwise warm without generalized rash. NEUROLOGIC: She is nonfocal, moves all extremities. PSYCHIATRIC: Affect is appropriate. Medications: Inpatient Meds: Medications reviewed. Labs: Lab Laboratory Tests Test 01/05/21 12:13 01/05/21 17:31 01/05/21 20:14 01/06/21 05:15 Glucose (Fingerstick) 84 mg/dL (70-99) 79 mg/dL (70-99) 79 mg/dL (70-99) White Blood Count 4.2 x10^3/uL (4.0-11.0) Red Blood Count 2.58 x10^6/uL (3.50-5.40) Hemoglobin 7.5 g/dL (12.0-15.5) Hematocrit 22.7 % (36.0-47.0) Mean Corpuscular Volume 88 fL (79-100) Mean Corpuscular Hemoglobin 29 pg (25-35) Mean Corpuscular Hemoglobin Concent 33 g/dL (31-37) Red Cell Distribution Width 15.4 % (11.5-14.5) Platelet Count 138 x10^3/uL (140-400) Sodium Level 141 mmol/L (136-145) Potassium Level 3.6 mmol/L (3.5-5.1) Chloride Level 103 mmol/L (98-107) Carbon Dioxide Level 34 mmol/L (21-32) Anion Gap 4 (6-14) Blood Urea Nitrogen 7 mg/dL (7-20) Creatinine 1.1 mg/dL (0.6-1.0) Estimated GFR (Cockcroft-Gault) 48.7 BUN/Creatinine Ratio 6 (6-20) Glucose Level 61 mg/dL (70-99) Calcium Level 8.7 mg/dL (8.5-10.1) Total Bilirubin 0.4 mg/dL (0.2-1.0) Aspartate Amino Transf (AST/SGOT) 22 U/L (15-37) Alanine Aminotransferase (ALT/SGPT) 32 U/L (14-59) Alkaline Phosphatase 147 U/L (46-116) Total Protein 5.3 g/dL (6.4-8.2) Albumin 1.9 g/dL (3.4-5.0) Albumin/Globulin Ratio 0.6 (1.0-1.7) Test 01/06/21 08:19 Glucose (Fingerstick) 55 mg/dL (70-99) Objective: Assessment: 1. Fever. Resolved 2. Lower extremity cellulitis. 3. Klebsiella pneumoniae bacteremia at osh 12/25 3/4 bottles, 4. Atrial fibrillation. 5. Acute kidney injury. UA negative at [facility] 6. Some questionable esophagitis.Abnormal LFTs likely from shock liver 7. CT lung from [facility] cavitary lung lesion down to 2.6 x 1.5 cm thin-walled cavitation much improved compared to large cavitary lung lesion 12 months ago 8. Immunosuppression with rheumatoid arthritis. 9. ANTIBIOTIC ALLERGIES, has tolerated Zosyn and Augmentin. 10. History of methicillin-resistant Staphylococcus aureus, Enterobacter resp cultures in the past. 11. History of fall POA with compression fracture on CT 12. Mild thrombocytopenia 13. Diarrhea check C. difficile Plan: Plan of Care Continue Zosyn,Zyvox/micafungin Follow-up repeat blood cultures 01/01/2021 and Jan 03 2021 are neg so far F/U C. difficile PCR Awaiting treatment for compression fracture F/u labs Elevation of leg Local wound care Contact isolation for h/o MRSA BILLY HODGES MD Jan 06, 2021 08:35
[2021-01-06] MEDS: DEXTROSE 50% 25 GM / 50ML DISP.SYRIN. IV PRN (08:45)
[2021-01-06] MEDS: INSULIN LISPRO 300 UNITS/3 ML VIAL. SQ SCH ×3 (09:51→17:00)
[2021-01-06] MEDS: ASPIRIN ENTERIC COATED 81 MG TABLET.DR. PO SCH (10:02)
[2021-01-06] MEDS: CHOLECALCIFEROL (VITAMIN D3) 1,000 UNIT TABLET PO SCH (10:02)
[2021-01-06] MEDS: FERROUS SULFATE 325 MG TABLET. PO SCH (10:03)
[2021-01-06] MEDS: GABAPENTIN 300 MG CAPSULE. PO SCH ×2 (10:03→21:00)
[2021-01-06] MEDS: MULTIVITAMIN with MINERAL TABLET. PO SCH (10:03)
[2021-01-06] MEDS: POTASSIUM CHLORIDE 20 MEQ TABLET.ER. PO SCH (10:03)
[2021-01-06] MEDS: FOLIC ACID 1 MG TABLET. PO SCH (10:03)
[2021-01-06] MEDS: PANTOPRAZOLE 40 MG TABLET.DR. PO SCH (10:04)
[2021-01-06] MEDS: VENLAFAXINE XR 37.5 MG CAP.ER.24H. PO SCH (10:04)
[2021-01-06] MEDS: LINEZOLID 600 MG TABLET PO SCH ×2 (10:04→20:59)
[2021-01-06] MEDS: HYDROXYCHLOROQUINE 200 MG TABLET PO SCH ×2 (10:04→20:59)
--- NOTE | 2021-01-06 10:04 | NUR ---
SS following up with discharge planning. SS reviewed pt chart and discussed with pt RN. Pt is currently requiring oxygen at two liters nasal canula. COVID19 negative. Pt on IV Micafungin and IV Zosyn. Dr. Osborn consulted. MRI ordered to determine the need for Vertebroplasty. PT/OT recommended residential unit. Referral has been phoned and faxed to [facility], ; fax [phone]. [facility] awaiting on updated PT/OT notes and physicians decision on Vertebroplasty prior to making acceptance decision. SS will continue to follow for discharge planning.
[2021-01-06] MEDS: NYSTATIN TOPICAL POWDER 15GM BOTTLE. TP SCH ×2 (10:06→21:00)
[2021-01-06] MEDS: METOPROLOL TART IMMED RELEASE 25 MG TABLET. PO SCH ×2 (10:06→20:59)
[2021-01-06] MEDS: MICAFUNGIN 100 MG in IV DEXTROSE 5% 100ML 100 ML IV SCH (10:07)
[2021-01-06] MEDS: oxyCODONE/APAP 5/325 1 TAB TABLET PO PRN (10:09)
[2021-01-06] MEDS: POLYETHYLENE GLYCOL 3350 17 GM PACKET. PO SCH (10:10)
[2021-01-06 10:51] VITALS: BP 123/60
[2021-01-06] MEDS: fentaNYL PF VIAL 100 MCG/2 ML VIAL IVP PRN (13:55)
[2021-01-06] MEDS ORDERED: GADOTERATE 7.5 MMOL/15ML VIAL. IVP ONE (14:45)
[2021-01-06 15:24] VITALS: BP 109/60
[2021-01-06] MEDS: oxyCODONE/APAP 10/325 1 TAB TABLET PO PRN (15:50)
--- NOTE | 2021-01-06 16:18 | RAD ---
EXAM: Lumbar spine MRI without and with contrast. HISTORY: Compression fracture. Bacteremia. TECHNIQUE: Multiplanar, multisequence magnetic resonance imaging of the lumbar spine was performed wi thout and with contrast. COMPARISON: CT dated 12/28/2020. FINDINGS: There is edema within the superior aspect of L5 and associated decreased L5 vertebral body height consistent with a subacute compression fracture. There is approximately 25 percent decrease in central vertebral body height. No additional acute or subacute fracture is seen. There is lumbar scoliosis. There is lumbar hyperlordosis. There is minimal grade 1 anterolisthesis of L5 on S1, measuring 3 mm. There are few osseous hemangiomas. There is no suspicious osseous lesion. There is multilevel endplate remodeling. The conus terminates at T12-L1. No suspicious enhancing lesi on is seen. At L1-L2, there is a left lateral predominant disc bulge and endplate remodeling. There is mild right and moderate left facet arthropathy. There is mild left foraminal stenosis. At L2-L3, there is a shallow broad-based left paracentral to foraminal disc protrusion and annular te ar with minimal superior extrusion superimposed on a disc bulge and endplate remodeling. There is mod erate lateral facet arthropathy. There is prominent dorsal epidural fat. There is mild bilateral fora susan stenosis. There is mild central canal stenosis. At L3-L4, there is a disc bulge and endplate remodeling. There is severe bilateral facet arthropathy. There is prominent dorsal epidural fat. There is moderate right and mild left foraminal stenosis. Th ere is severe central canal stenosis. At L4-L5, there is a left foraminal disc protrusion and annular tear superimposed on a disc bulge and endplate remodeling. There is moderate bilateral facet arthropathy. There is mild left greater than right foraminal stenosis. There is mild central canal stenosis. At L5-S1, there is a right lateral predominant disc bulge and endplate remodeling. There is severe ri ght and mild left facet arthropathy. There is grade 1 anterolisthesis. There is severe right foramina l stenosis. There is moderate narrowing of thecal sac due to epidural fat. IMPRESSION: 1. Mild to moderate subacute compression fracture of L5. 2. Multilevel degenerative change throughout the lumbar spine, described in detail above. This result s in stenosis at the aforementioned levels. Central canal stenosis is most severe at L3-L4. 3. Lumbar scoliosis and mild degenerative listhesis. Electronically signed by: Veronica Flores MD (01/06/2021 4:15 PM) [id number]
[2021-01-06 19:00] VITALS: BP 122/55
[2021-01-06] MEDS: PATCH REMOVAL. MC SCH (21:00)
--- NOTE | 2021-01-06 21:43 | PN ---
DATE: 01/06/2021 SUBJECTIVE: The patient is resting flat, comfortably in bed, in no apparent respiratory distress. She continued to complain of back pain; however, denies any other complaint. Nursing staff did not voice any concerns that she had an uneventful night. I did speak with Dr. Anna who recommended an MRI of the lumbar spine before proceeding with vertebroplasty. PHYSICAL EXAMINATION: GENERAL: When I examined her, she was pale, not jaundice, cyanosis or thyromegaly. No jugular venous distention. No limb edema. VITAL SIGNS: Heart rate was 80, blood pressure is 119/56, temperature was 98.1, respiratory rate was 18 and oxygen saturation was 95% on 2 liters of oxygen. The rest of examination is stable. Her intake over the last 24 hours was 300, output was 800. LABORATORY DATA: As of this morning, her serum sodium was 141, potassium 3.6, chloride 103, bicarbonate 34, anion gap of 4, BUN 7, creatinine 1.1. Estimated GFR was 48 mL per minute. Her glucose was 61, calcium was 8.7. Total bilirubin, AST, ALT, alkaline phosphatase were all normal. Total protein 5.3, albumin was 1.3. Her white cell count was 4000, hemoglobin 7.5, hematocrit 27, MCV was 88 and platelet count of 138,000. She has 2 sets of blood cultures that is so far negative. ASSESSMENT: 1. Altered mental status, resolved. The patient is now more awake and alert. 2. Bilateral lower extremity cellulitis. 3. Pneumonia. 4. Acute on chronic kidney injury. Her creatinine is down from 2.0 to 1.1. 5. Elevated troponin, felt likely to be demand ischemia. 6. Her blood cultures have grown gram-negative rods in 3/4 bottles identified as Klebsiella pneumoniae. 7. The patient has multiple other medical problems including: A. Atrial fibrillation, rate controlled, not anticoagulated. B. Hyperlipidemia. C. Chronic obstructive pulmonary disease. D. Ulcerative colitis. E. Rheumatoid arthritis. F. Depression. G. History of pulmonary abscess that was treated and resolving. 8. Multifactorial pneumonia. 9. L5 compression fracture. PLAN: My plan is obviously, the plan is to continue with IV antibiotic. Continue with pain management. I spoke with Dr. Anna who recommended MRI of the lumbar spine to decide whether infection is contributing to this compression fracture and/or this is just simply a compression fracture that will benefit from vertebroplasty. GEENA DR: Lennie TID: [id number]
[2021-01-06 23:17] VITALS: BP 129/65
[2021-01-07] VITALS (13 sets, daily range): BP systolic 78–113; BP diastolic 44–62
[2021-01-07] MEDS: oxyCODONE/APAP 10/325 1 TAB TABLET PO PRN ×3 (01:48→15:55)
[2021-01-07] MEDS: PIPERACILLIN/TAZOBACTAM 3.375 GM in IV NORMAL SALINE 50ML 50 ML IV SCH ×3 (05:38→17:57)
[2021-01-07] MEDS: BUDESONIDE 0.5 MG/2 ML NEBU. NEB SCH ×2 (07:56→20:24)
[2021-01-07] MEDS: ALBUTEROL SULFATE 2.5 MG/3 ML NEBU. NEB SCH ×4 (07:56→20:24)
[2021-01-07] MEDS: ASPIRIN ENTERIC COATED 81 MG TABLET.DR. PO SCH (08:00)
[2021-01-07] MEDS: INSULIN LISPRO 300 UNITS/3 ML VIAL. SQ SCH ×3 (08:00→17:00)
[2021-01-07] MEDS: DEXTROSE 50% 25 GM / 50ML DISP.SYRIN. IV PRN (08:33)
--- NOTE | 2021-01-07 08:43 | PDOC ---
Infectious Disease Note Subjective: Subjective Patient without complaints this morning No more diarrhea Denies fever, nausea, vomiting, abdominal pain Leg pain is under control Vital Signs: Vital Signs Vital Signs Date Time Temp Pulse Resp B/P (MAP) Pulse Ox O2 Delivery O2 Flow Rate FiO2 01/07/21 08:33 Nasal Cannula 3.0 01/07/21 07:56 100 01/07/21 02:47 98.5 73 20 96/51 (66) 98.5 Physical Exam: PHYSICAL EXAM GEN:alert awake appears tired HEENT: no icterus, Oral cavity and pharynx dry NECK: Without JVD. No fullness. LUNGS: Decreased in the bases. HEART: S1, S2. no murmurs ABDOMEN: Obese, soft,BS+ no guarding, no rebound. GENITOURINARY: Crawford in place. Superficial ulceration in the perineal area, no purulence, yeast EXTREMITIES: No clubbing, cyanosis. She has 2-3+ lower extremity edema bilaterally, also has bilateral erythema on her legs in well described areas. Right lower extremity more than left She has a small wound on her left knee cap that appears to be clean. Lateral wounds on both legs appear consistent with previous bullae that have ruptured. EXTREMITIES: Legs are mildly warm, some tenderness. SKIN: Otherwise warm without generalized rash. NEUROLOGIC: She is nonfocal, moves all extremities. PSYCHIATRIC: Affect is appropriate. Medications: Inpatient Meds: Medications reviewed. Labs: Lab Laboratory Tests Test 01/06/21 09:10 01/06/21 11:44 01/06/21 17:20 01/06/21 21:03 Glucose (Fingerstick) 97 mg/dL (70-99) 97 mg/dL (70-99) 77 mg/dL (70-99) 80 mg/dL (70-99) Test 01/07/21 05:37 01/07/21 07:58 Glucose (Fingerstick) 70 mg/dL (70-99) 60 mg/dL (70-99) Micro IMPRESSION: 1. Mild to moderate subacute compression fracture of L5. 2. Multilevel degenerative change throughout the lumbar spine, described in detail above. This results in stenosis at the aforementioned levels. Central canal stenosis is most severe at L3-L4. 3. Lumbar scoliosis and mild degenerative listhesis. Objective: Assessment: 1. Fever. Resolved 2. Lower extremity cellulitis. 3. Klebsiella pneumoniae bacteremia at osh 5/22 3/4 bottles, 4. Atrial fibrillation. 5. Acute kidney injury. UA negative at [facility] 6. Some questionable esophagitis.Abnormal LFTs likely from shock liver 7. CT lung from [facility] cavitary lung lesion down to 2.6 x 1.5 cm thin-walled cavitation much improved compared to large cavitary lung lesion 12 months ago 8. Immunosuppression with rheumatoid arthritis. 9. ANTIBIOTIC ALLERGIES, has tolerated Zosyn and Augmentin. 10. History of methicillin-resistant Staphylococcus aureus, Enterobacter resp cultures in the past. 11. History of fall POA with compression fracture on CT 12. Mild thrombocytopenia 13. Diarrhea check C. difficile Plan: Plan of Care MRI lumbar spine noted Continue Zosyn,micafungin Discontinue Zyvox Follow-up repeat blood cultures 01/01/2021 and Jan 03 2021 are neg so far C. difficile PCR negative from January 05 Okay to proceed with treatment for compression fracture from ID standpoint F/u labs Elevation of leg Local wound care Contact isolation for h/o MRSA BILLY HODGES MD Jan 07, 2021 08:43
[2021-01-07] MEDS: POLYETHYLENE GLYCOL 3350 17 GM PACKET. PO SCH (09:00)
[2021-01-07] MEDS: NYSTATIN TOPICAL POWDER 15GM BOTTLE. TP SCH ×2 (10:05→22:57)
[2021-01-07] MEDS: MICAFUNGIN 100 MG in IV DEXTROSE 5% 100ML 100 ML IV SCH (10:05)
[2021-01-07] MEDS: DICLOFENAC SODIUM 1% TOPICAL GEL 100GM TUBE. TP PRN (10:20)
[2021-01-07 11:43] LABS: PROTHROMBIN TIME PATIENT 14.2 SEC (11.7-14.0)
[2021-01-07] MEDS ORDERED: MIDAZOLAM HCL/PF 2 MG/2 ML VIAL. ONE ×2 (12:56→14:14)
[2021-01-07] MEDS ORDERED: fentaNYL PF VIAL 100 MCG/2 ML VIAL ONE (12:56)
[2021-01-07] MEDS ORDERED: LIDOCAINE WITH 8.4% SOD BICARB 3 ML DISP.SYRIN. ONE ×2 (13:07→14:00)
[2021-01-07] MEDS ORDERED: IOHEXOL 240 MG/ML 50ML VIAL. ONE (13:40)
[2021-01-07] MEDS ORDERED: fentaNYL PF VIAL 100 MCG/2 ML VIAL IV ONE (13:45)
[2021-01-07] MEDS ORDERED: LIDOCAINE WITH 8.4% SOD BICARB 3 ML DISP.SYRIN. IJ ONE (13:45)
[2021-01-07] MEDS ORDERED: CONTRAST GIVEN. MC PRN (13:45)
[2021-01-07] MEDS ORDERED: MIDAZOLAM HCL/PF 2 MG/2 ML VIAL. IV ONE (13:45)
[2021-01-07] MEDS ORDERED: IOHEXOL 240 MG/ML 50ML VIAL. IJ ONE (13:45)
--- NOTE | 2021-01-07 14:41 | PDOC ---
Exam Regional Sales Representative Regional Sales Representative Irena Pre-Procedure Diagnosis Pre-Procedure Diagnosis L5 compression fracture Post-Procedure Diagnosis Post-Procedure Diagnosis Same Procedure Performed Procedure Performed L5 kyphoplasty Type of Anesthesia Type of Anesthesia mod sed Estimated Blood Loss EBL: 3 Specimens Specimans None Drain/Tubes Drains/Tubes None Condition of Patient Condition of Patient Stable Disposition Disposition Return to floor. DAXA FUENTES MD Jan 07, 2021 14:41
[2021-01-07] MEDS: METOPROLOL TART IMMED RELEASE 25 MG TABLET. PO SCH ×2 (14:45→22:48)
[2021-01-07] MEDS: CHOLECALCIFEROL (VITAMIN D3) 1,000 UNIT TABLET PO SCH (15:55)
[2021-01-07] MEDS: VENLAFAXINE XR 37.5 MG CAP.ER.24H. PO SCH (15:55)
[2021-01-07] MEDS: FOLIC ACID 1 MG TABLET. PO SCH (15:55)
[2021-01-07] MEDS: HYDROXYCHLOROQUINE 200 MG TABLET PO SCH ×2 (15:56→22:47)
[2021-01-07] MEDS: POTASSIUM CHLORIDE 20 MEQ TABLET.ER. PO SCH (15:56)
[2021-01-07] MEDS: PANTOPRAZOLE 40 MG TABLET.DR. PO SCH (15:56)
[2021-01-07] MEDS: MULTIVITAMIN with MINERAL TABLET. PO SCH (15:56)
[2021-01-07] MEDS: FERROUS SULFATE 325 MG TABLET. PO SCH (15:56)
[2021-01-07] MEDS: GABAPENTIN 300 MG CAPSULE. PO SCH ×2 (15:56→22:47)
--- NOTE | 2021-01-07 16:02 | RAD ---
Fluoroscopically guided, L5 Kyphoplasty 01/07/2021 Clinical Indication: Pathological compression fracture L5 with severe pain refractory to conservative treatment measures. Severe pain, which severely limits activities of daily living. Patient is essent ially bedridden. The procedure, risks, and complications, to include bleeding, infection, cement embolization, damage to the vertebral endplates, compression of the spinal canal (due to hemorrhage or cement) and cement extrusion were explained to the patient. Informed consent was obtained. The lumbosacral region was prepped and draped using maximal sterile technique and 1% Xylocaine used f or local topical anesthesia and deep periosteal anesthesia. Pre-procedural antibiotics were administered. Sedation: Conscious sedation was performed for 30 minutes. Sedation was carried out while the patie nt was continually monitored by a member of the Radiology nursing staff. Continual cardiopulmonary m onitoring was carried out during the procedure. The patient tolerated the procedure well and there w ere no immediate complications. Utilizing careful fluoroscopic biplane positioning, the L5 pedicles were identified. Using a left sided unilateral approach, a trocar needle was advanced into the posterior third of the vertebral body. A curved balloon was advanced to the central vertebral body and deployed. A curved ce ment delivery needle was then introduced Under very careful biplane fluoroscopic guidance, polymethylmethacrylate was carefully injected into the L5 vertebral body filling the cavity formed by the balloon as well as some of the surrounding tra beculae. No abnormal extravasation was identified. Following the cement injections, the needle was removed, pressure placed, and hemostasis obtained. No evidence of cement extrusion into the tract was identified. Fluoroscopy time: 11 minutes Dose area product 38 [id number] IMPRESSION: L5 Kyphoplasty Electronically signed by: Orville Osborn MD (01/07/2021 3:59 PM) [id number]
--- NOTE | 2021-01-07 16:14 | NUR ---
SS following up with discharge planning. SS reviewed pt chart and discussed with pt RN. Pt is currently requiring oxygen at two liters nasal canula. COVID19 negative. Pt had Kyphoplasty today. Pt on IV Zosyn and IV Micafungin. PT/OT recommended long term unit. Referral was sent to [facility], ; fax [phone]. SS phoned and faxed clinical updates to [facility] today. SS will continue to follow for discharge planning.
[2021-01-07] MEDS ORDERED: IV NORMAL SALINE 500ML BAG 500 ML IV ONE (17:45)
[2021-01-07] MEDS: PATCH REMOVAL. MC SCH (21:00)
--- NOTE | 2021-01-07 22:03 | PN ---
DATE: 01/07/2021 SUBJECTIVE: The patient is resting flat in bed, no apparent distress. She continued to complain of low back pain, but denied any other complaint. Nursing staff stated that her blood sugar continues to be low despite the fact that we discontinued her Lantus. She is not on any oral hypoglycemic agent. She has 2 sets of blood cultures on 01/03 and 01/01 and both of them were negative. She has had her MRI of the lumbar spine, which showed that the patient has [id number] subacute compression fracture of L5. She does have multilevel degenerative changes throughout the lumbar spine described in detail. This results in a stenosis at the aforementioned level, central canal stenosis, most severe at L3-L4. She does have lumbar scoliosis and mild degenerative listhesis. PHYSICAL EXAMINATION: GENERAL: When I examined her this morning, she was pale, but no jaundice, cyanosed, no lymphadenopathy, no thyromegaly, no jugular venous distention. No edema. VITAL SIGNS: Heart rate was 73, blood pressure is 96/51, temperature was 98.5, respiratory rate 20, and oxygen saturation was 100% on 3 liters of oxygen. The rest clinical exam stable. Her intake over the last 24 hours was 300, output was 450 as of this morning. LABORATORY DATA: As of yesterday, her white cell count was 4200, hemoglobin 7.5, hematocrit 22.7, MCV 88 and platelet count of 138,000. Her blood sugar is well controlled. As of yesterday, her serum sodium 141, potassium 3.6, chloride 103, bicarbonate 34, anion gap of 4, BUN 7, creatinine 1.1. Estimated glomerular filtration rate was 48 mL per minute. Her glucose was 61, calcium was 8.7, total bilirubin, AST, ALT were normal. Alkaline phosphatase slightly elevated. Total protein 5.3, albumin was 1.9. ASSESSMENT: 1. Altered mental status, resolved. The patient is now more awake, alert. 2. Bilateral lower extremity cellulitis. 3. Pneumonia. 4. Atbbl-[id number] kidney injury with serum creatinine has improved from 2-1.1. 5. Elevated troponin, felt likely demand ischemia. 6. Her blood cultures have grown gram-negative rods in 3/4 bottles identified as Klebsiella pneumoniae. 7. The patient has multiple other medical problems including: A. Atrial fibrillation, rate controlled, not anticoagulated. B. Hyperlipidemia. C. Chronic obstructive pulmonary disease. D. Ulcerative colitis. E. Rheumatoid arthritis. F. Depression. G. History of pulmonary abscess that was treated and resolving. 8. Multifactorial anemia. 9. L5 compression fracture. PLAN: Obviously to continue with antibiotic in the form of micafungin and Zosyn. Continue with pain management. Await the interventional radiologist decision regarding vertebroplasty. ANNA DR: Lennie TID: [id number]
[2021-01-07] MEDS: oxyCODONE/APAP 5/325 1 TAB TABLET PO PRN (22:49)
[2021-01-08 04:25] VITALS: BP 101/59
[2021-01-08] MEDS: PIPERACILLIN/TAZOBACTAM 3.375 GM in IV NORMAL SALINE 50ML 50 ML IV SCH ×5 (06:29→23:11)
--- NOTE | 2021-01-08 07:43 | PDOC ---
Infectious Disease Note Subjective: Subjective Patient underwent L5 kyphoplasty yesterday Denies any complaints Vital Signs: Vital Signs Vital Signs Date Time Temp Pulse Resp B/P (MAP) Pulse Ox O2 Delivery O2 Flow Rate FiO2 01/08/21 04:25 97.7 79 18 101/59 (73) 93 Nasal Cannula 2.0 97.7 Physical Exam: PHYSICAL EXAM GEN:alert awake appears tired HEENT: no icterus, Oral cavity and pharynx dry NECK: Without JVD. No fullness. LUNGS: Decreased in the bases. HEART: S1, S2. no murmurs ABDOMEN: Obese, soft,BS+ no guarding, no rebound. GENITOURINARY: Crawford in place. Superficial ulceration in the perineal area, no purulence, yeast EXTREMITIES: No clubbing, cyanosis. She has 2-3+ lower extremity edema bilaterally, also has bilateral erythema on her legs in well described areas. Right lower extremity more than left She has a small wound on her left knee cap that appears to be clean. Lateral wounds on both legs appear consistent with previous bullae that have ruptured. EXTREMITIES: Legs are mildly warm, some tenderness. SKIN: Otherwise warm without generalized rash. NEUROLOGIC: She is nonfocal, moves all extremities. PSYCHIATRIC: Affect is appropriate. Medications: Inpatient Meds: Medications reviewed. Labs: Lab Laboratory Tests Test 01/07/21 07:58 01/07/21 08:51 01/07/21 11:25 01/07/21 11:55 Glucose (Fingerstick) 60 mg/dL (70-99) 134 mg/dL (70-99) 75 mg/dL (70-99) Prothrombin Time 14.2 SEC (11.7-14.0) Prothromb Time International Ratio 1.1 (0.8-1.1) Test 01/07/21 14:54 01/07/21 16:58 01/07/21 20:48 Glucose (Fingerstick) 71 mg/dL (70-99) 105 mg/dL (70-99) 84 mg/dL (70-99) Micro IMPRESSION: 1. Mild to moderate subacute compression fracture of L5. 2. Multilevel degenerative change throughout the lumbar spine, described in detail above. This results in stenosis at the aforementioned levels. Central canal stenosis is most severe at L3-L4. 3. Lumbar scoliosis and mild degenerative listhesis. Objective: Assessment: 1. Fever. Resolved 2. Lower extremity cellulitis. 3. Klebsiella pneumoniae bacteremia at osh 12/25 3/4 bottles, 4. Atrial fibrillation. 5. Acute kidney injury. UA negative at [facility] 6. Some questionable esophagitis.Abnormal LFTs likely from shock liver 7. CT lung from [facility] cavitary lung lesion down to 2.6 x 1.5 cm thin-walled cavitation much improved compared to large cavitary lung lesion 12 months ago 8. Immunosuppression with rheumatoid arthritis. 9. ANTIBIOTIC ALLERGIES, has tolerated Zosyn and Augmentin. 10. History of methicillin-resistant Staphylococcus aureus, Enterobacter resp cultures in the past. 11. History of fall POA with compression fracture on CT; this post kyphoplasty L5 on 01/07/2021 12. Mild thrombocytopenia 13. Diarrhea check C. difficile Plan: Plan of Care DC Zosyn and micafungin when ready for discharge Condition to Augmentin when ready for discharge for 2 weeks Follow-up repeat blood cultures 01/01/2021 and Jan 03 2021 are neg C. difficile PCR negative from January 05 F/u labs Elevation of leg Local wound care Contact isolation for h/o MRSA BILLY HODGES MD Jan 08, 2021 07:43
[2021-01-08] MEDS: BUDESONIDE 0.5 MG/2 ML NEBU. NEB SCH ×2 (07:46→19:37)
[2021-01-08] MEDS: ALBUTEROL SULFATE 2.5 MG/3 ML NEBU. NEB SCH ×4 (07:47→19:37)
[2021-01-08 07:55] VITALS: BP 126/61
--- NOTE | 2021-01-08 08:11 | PN ---
DATE: 01/08/2021 SUBJECTIVE: The patient is resting flat in bed comfortably, in no apparent distress. She underwent L5 kyphoplasty yesterday successfully and she is already stating that her pain is much better and she is looking forward to start walking with physical therapy. PHYSICAL EXAMINATION: GENERAL: When I examined her, she looked pale, but no jaundice, cyanosis or thyromegaly. No jugular venous distention. Mild bilateral lower limb edema. VITAL SIGNS: Her heart rate was 79, blood pressure was 101/59, temperature 97.7, respiratory rate was 18 and oxygen saturation was 93% on 2 liters of oxygen. HEAD, EYES, EARS, NOSE AND THROAT: Normocephalic, atraumatic. NECK: Supple. HEART: Normal first and second heart sounds. No gallop or murmur. CHEST: Clear to auscultation. No crepitation or rhonchi. ABDOMEN: Distended, soft, nontender. NEUROLOGIC: She is definitely more awake, alert, responding appropriately. All cranial nerves intact. She moves without difficulty. Her intake over the last 24 hours was 450, output was 600. LABORATORY DATA: Today's labs are still pending. Her most recent white cell count was 4200, hemoglobin 7.5, hematocrit 22, MCV 88 and platelet count of 138,000. Her chemistry showed a serum sodium 141, potassium 3.6, chloride 103, bicarbonate 34, anion gap of 4, BUN 7, creatinine was 1.1. Estimated GFR was 48 mL per minute. Her glucose 61, calcium was 8.7. Total bilirubin, AST, ALT were normal. Alkaline phosphatase slightly elevated. Her total protein 5.3, albumin was 1.9. ASSESSMENT: 1. Altered mental status. The patient is now more awake, alert. 2. L5 compression fracture, status post kyphoplasty. 3. Bilateral lower extremity edema. 4. Pneumonia. 5. Acute on chronic kidney injury with serum creatinine which has improved from 2 to 1.1. 6. Elevated troponin, felt likely demand ischemia. 7. Her blood cultures have grown Gram-negative rods in 3/4 bottles identified as Klebsiella pneumoniae. 8. The patient has multiple other medical problems including: A. Atrial fibrillation, rate controlled, not anticoagulated. B. Hyperlipidemia. C. Chronic obstructive pulmonary disease. D. Ulcerative colitis. E. Rheumatoid arthritis. F. Depression. G. History of pulmonary abscess that was treated and resolved. 9. Multifactorial anemia. PLAN: To continue with IV antibiotic. Continue with pain management. Continue with physical and occupational therapy and hopefully the patient can be discharged to [facility] to continue the rehabilitation on Sunday. CHRISTINA DR: Lennie TID: [id number]
[2021-01-08 08:14] LABS: HEMATOCRIT 22.5 % (36.0-47.0); HEMOGLOBIN 7.4 g/dL (12.0-15.5); RED BLOOD COUNT 2.58 x10^6/uL (3.50-5.40); RED CELL DISTRIBUTION WIDTH 15.6 % (11.5-14.5); WHITE BLOOD COUNT 4.8 x10^3/uL (4.0-11.0)
[2021-01-08 08:32] LABS: ALBUMIN 1.9 g/dL (3.4-5.0); ALBUMIN/GLOBULIN RATIO 0.6 (1.0-1.7); CALCIUM 8.3 mg/dL (8.5-10.1); CREATININE 1.4 mg/dL (0.6-1.0); GFR 36.9; POTASSIUM 3.6 mmol/L (3.5-5.1); TOTAL BILIRUBIN 0.3 mg/dL (0.2-1.0); TOTAL PROTEIN 5.2 g/dL (6.4-8.2)
[2021-01-08] MEDS: VENLAFAXINE XR 37.5 MG CAP.ER.24H. PO SCH (10:30)
[2021-01-08] MEDS: FERROUS SULFATE 325 MG TABLET. PO SCH (10:30)
[2021-01-08] MEDS: HYDROXYCHLOROQUINE 200 MG TABLET PO SCH ×2 (10:30→22:17)
[2021-01-08] MEDS: GABAPENTIN 300 MG CAPSULE. PO SCH ×2 (10:30→22:17)
[2021-01-08] MEDS: PANTOPRAZOLE 40 MG TABLET.DR. PO SCH (10:30)
[2021-01-08] MEDS: POTASSIUM CHLORIDE 20 MEQ TABLET.ER. PO SCH (10:30)
[2021-01-08] MEDS: CHOLECALCIFEROL (VITAMIN D3) 1,000 UNIT TABLET PO SCH (10:31)
[2021-01-08] MEDS: MICAFUNGIN 100 MG in IV DEXTROSE 5% 100ML 100 ML IV SCH (10:31)
[2021-01-08] MEDS: NYSTATIN TOPICAL POWDER 15GM BOTTLE. TP SCH ×2 (10:31→22:17)
[2021-01-08] MEDS: MULTIVITAMIN with MINERAL TABLET. PO SCH (10:31)
[2021-01-08] MEDS: ASPIRIN ENTERIC COATED 81 MG TABLET.DR. PO SCH (10:31)
[2021-01-08] MEDS: FOLIC ACID 1 MG TABLET. PO SCH (10:31)
[2021-01-08] MEDS: METOPROLOL TART IMMED RELEASE 25 MG TABLET. PO SCH ×2 (10:32→22:19)
[2021-01-08] MEDS: INSULIN LISPRO 300 UNITS/3 ML VIAL. SQ SCH ×3 (10:32→17:00)
[2021-01-08] MEDS: oxyCODONE/APAP 5/325 1 TAB TABLET PO PRN (10:34)
[2021-01-08] MEDS: POLYETHYLENE GLYCOL 3350 17 GM PACKET. PO SCH (10:39)
[2021-01-08 11:16] VITALS: BP 119/51
[2021-01-08] MEDS: METOCLOPRAMIDE 5 MG TABLET. PO SCH ×2 (13:48→22:18)
[2021-01-08 14:15] LABS: HEMATOCRIT 24.2 % (36.0-47.0); HEMOGLOBIN 8.2 g/dL (12.0-15.5); RED BLOOD COUNT 2.79 x10^6/uL (3.50-5.40); WHITE BLOOD COUNT 6.2 x10^3/uL (4.0-11.0)
[2021-01-08 14:44] VITALS: BP 115/63
[2021-01-08 19:58] VITALS: BP 149/106
[2021-01-08] MEDS: PATCH REMOVAL. MC SCH (21:00)
[2021-01-08] MEDS: LACTOBACILLUS RHAMNOSUS GG 1 CAPSULE. PO SCH (22:18)
[2021-01-08] MEDS: oxyCODONE/APAP 10/325 1 TAB TABLET PO PRN (22:20)
[2021-01-08 22:58] VITALS: BP 119/56
[2021-01-09 03:11] VITALS: BP 141/77
[2021-01-09] MEDS: PIPERACILLIN/TAZOBACTAM 3.375 GM in IV NORMAL SALINE 50ML 50 ML IV SCH ×3 (06:29→18:31)
[2021-01-09 07:00] VITALS: BP 149/70
[2021-01-09] MEDS: ALBUTEROL SULFATE 2.5 MG/3 ML NEBU. NEB SCH ×4 (07:30→20:00)
[2021-01-09] MEDS: BUDESONIDE 0.5 MG/2 ML NEBU. NEB SCH ×2 (07:30→20:00)
--- NOTE | 2021-01-09 08:32 | PDOC ---
Infectious Disease Note Subjective: Subjective Patient denies any complaints Vital Signs: Vital Signs Vital Signs Date Time Temp Pulse Resp B/P (MAP) Pulse Ox O2 Delivery O2 Flow Rate FiO2 01/09/21 07:30 Nasal Cannula 2.0 01/09/21 07:00 98.1 83 20 149/70 (96) 94 98.1 Physical Exam: PHYSICAL EXAM GEN:alert awake appears tired HEENT: no icterus, Oral cavity and pharynx dry NECK: Without JVD. No fullness. LUNGS: Decreased in the bases. HEART: S1, S2. no murmurs ABDOMEN: Obese, soft,BS+ no guarding, no rebound. GENITOURINARY: Crawford in place. Superficial ulceration in the perineal area, no purulence, yeast EXTREMITIES: No clubbing, cyanosis. She has 2-3+ lower extremity edema bilaterally, also has bilateral erythema on her legs in well described areas. Right lower extremity more than left She has a small wound on her left knee cap that appears to be clean. Lateral wounds on both legs appear consistent with previous bullae that have ruptured. EXTREMITIES: Legs are mildly warm, some tenderness. SKIN: Otherwise warm without generalized rash. NEUROLOGIC: She is nonfocal, moves all extremities. PSYCHIATRIC: Affect is appropriate. Medications: Inpatient Meds: Medications reviewed. Labs: Lab Laboratory Tests Test 01/08/21 11:53 01/08/21 13:30 01/08/21 16:39 01/08/21 21:18 Glucose (Fingerstick) 85 mg/dL (70-99) 82 mg/dL (70-99) 94 mg/dL (70-99) White Blood Count 6.2 x10^3/uL (4.0-11.0) Red Blood Count 2.79 x10^6/uL (3.50-5.40) Hemoglobin 8.2 g/dL (12.0-15.5) Hematocrit 24.2 % (36.0-47.0) Mean Corpuscular Volume 87 fL (79-100) Mean Corpuscular Hemoglobin 30 pg (25-35) Mean Corpuscular Hemoglobin Concent 34 g/dL (31-37) Red Cell Distribution Width 16.0 % (11.5-14.5) Platelet Count 160 x10^3/uL (140-400) Test 6/6/21 07:27 Glucose (Fingerstick) 102 mg/dL (70-99) Micro IMPRESSION: 1. Mild to moderate subacute compression fracture of L5. 2. Multilevel degenerative change throughout the lumbar spine, described in detail above. This results in stenosis at the aforementioned levels. Central canal stenosis is most severe at L3-L4. 3. Lumbar scoliosis and mild degenerative listhesis. Objective: Assessment: 1. Fever. Resolved 2. Lower extremity cellulitis. 3. Klebsiella pneumoniae bacteremia at osh 12/25 3/4 bottles, 4. Atrial fibrillation. 5. Acute kidney injury. UA negative at [facility] 6. Some questionable esophagitis.Abnormal LFTs likely from shock liver 7. CT lung from [facility] cavitary lung lesion down to 2.6 x 1.5 cm thin-walled cavitation much improved compared to large cavitary lung lesion 12 months ago 8. Immunosuppression with rheumatoid arthritis. 9. ANTIBIOTIC ALLERGIES, has tolerated Zosyn and Augmentin. 10. History of methicillin-resistant Staphylococcus aureus, Enterobacter resp cultures in the past. 11. History of fall POA with compression fracture on CT; this post kyphoplasty L5 on 01/07/2021 12. Mild thrombocytopenia 13. Diarrhea check C. difficile Plan: Plan of Care DC Zosyn and micafungin when ready for discharge Transition to Augmentin when ready for discharge for 2 weeks Follow-up repeat blood cultures 01/01/2021 and Jan 03 2021 are neg C. difficile PCR negative from January 05 F/u labs Elevation of leg Local wound care Pt to f/u ID Clinic in 2 weeks Contact isolation for h/o MRSA BILLY HODGES MD Jan 09, 2021 08:32
[2021-01-09] MEDS: CHOLECALCIFEROL (VITAMIN D3) 1,000 UNIT TABLET PO SCH (10:03)
[2021-01-09] MEDS: LACTOBACILLUS RHAMNOSUS GG 1 CAPSULE. PO SCH ×2 (10:03→22:19)
[2021-01-09] MEDS: VENLAFAXINE XR 37.5 MG CAP.ER.24H. PO SCH (10:03)
[2021-01-09] MEDS: METOCLOPRAMIDE 5 MG TABLET. PO SCH ×2 (10:03→22:19)
[2021-01-09] MEDS: FERROUS SULFATE 325 MG TABLET. PO SCH (10:03)
[2021-01-09] MEDS: MULTIVITAMIN with MINERAL TABLET. PO SCH (10:03)
[2021-01-09] MEDS: MICAFUNGIN 100 MG in IV DEXTROSE 5% 100ML 100 ML IV SCH (10:03)
[2021-01-09] MEDS: HYDROXYCHLOROQUINE 200 MG TABLET PO SCH ×2 (10:03→22:14)
[2021-01-09] MEDS: GABAPENTIN 300 MG CAPSULE. PO SCH ×2 (10:04→22:15)
[2021-01-09] MEDS: POTASSIUM CHLORIDE 20 MEQ TABLET.ER. PO SCH (10:04)
[2021-01-09] MEDS: ACETAMINOPHEN 325 MG TABLET. PO PRN ×2 (10:04→22:16)
[2021-01-09] MEDS: PANTOPRAZOLE 40 MG TABLET.DR. PO SCH (10:04)
[2021-01-09] MEDS: METOPROLOL TART IMMED RELEASE 25 MG TABLET. PO SCH ×2 (10:05→22:18)
[2021-01-09] MEDS: ASPIRIN ENTERIC COATED 81 MG TABLET.DR. PO SCH (10:05)
[2021-01-09] MEDS: FOLIC ACID 1 MG TABLET. PO SCH (10:05)
[2021-01-09] MEDS: POLYETHYLENE GLYCOL 3350 17 GM PACKET. PO SCH (10:06)
[2021-01-09] MEDS: NYSTATIN TOPICAL POWDER 15GM BOTTLE. TP SCH ×2 (10:16→22:14)
[2021-01-09] MEDS: INSULIN LISPRO 300 UNITS/3 ML VIAL. SQ SCH ×3 (10:17→17:00)
[2021-01-09 10:54] VITALS: BP 145/72
[2021-01-09 14:07] VITALS: BP 132/70
--- NOTE | 2021-01-09 14:15 | PN ---
DATE: 01/09/2021 SUBJECTIVE: The patient is resting almost flat in bed, in no apparent distress. On questioning her, she stated that her pain is much improved and apparently she was not seen yesterday by the physical therapist, but the nursing staff stated that she is not cooperative and wants to stay in bed, although her pain is much improved now. PHYSICAL EXAMINATION: GENERAL: When I examined her, she was pale, but no jaundice, cyanosis or thyromegaly. No jugular venous distention. No lower limb edema. VITAL SIGNS: Her heart rate was 83, blood pressure was 141/77, temperature was 99, respiratory rate was 16 and oxygen saturation was 97% on 2 liters of oxygen. HEAD, EYES, EARS, NOSE AND THROAT: Normocephalic, atraumatic. NECK: Supple. HEART: Normal first and second heart sounds. No gallop or murmur. CHEST: Clear to auscultation. No crepitation or rhonchi. ABDOMEN: Slightly distended, soft, nontender. NEUROLOGIC: She is definitely awake, alert, responding appropriately. Cranial nerves intact. She moves extremities without difficulty. She is mostly bedbound. Her intake is 500. Output was 300. LABORATORY DATA: As of yesterday, her white cell count was 6200, hemoglobin 8.2, hematocrit 24, MCV 87 and platelet count 260,000. Her chemistry showed a serum sodium 143, potassium 3.6, chloride 106, bicarbonate 31, anion gap of 6, BUN 10, creatinine 1.4. Estimated GFR was 37 mL per minute. Her glucose was 74, calcium was 8.3. Total bilirubin, AST, ALT were normal. Alkaline phosphatase slightly elevated. Total protein is 5.2, albumin is 1.9. ASSESSMENT: 1. Altered mental status, resolved. The patient is now more awake, alert. 2. L5 compression fracture, status post kyphoplasty. 3. Bilateral lower extremity cellulitis. 4. Pneumonia. 5. Acute on chronic kidney injury. Serum creatinine is much improved. 6. Elevated troponin, felt to be likely due to demand ischemia. 7. Her blood cultures have grown gram-negative rods in 3/4 bottles identified as Klebsiella pneumoniae. 8. The patient has multiple other medical problems including: A. Atrial fibrillation, rate controlled, not anticoagulated. B. Hyperlipidemia. C. Chronic obstructive pulmonary disease. D. Ulcerative colitis. E. Rheumatoid arthritis. F. Depression. G. History of pulmonary abscess that was treated and resolved. 9. Multifactorial anemia. PLAN: Continue with IV antibiotic. Continue with pain management. Continue with physical and occupational therapy. STEFAN/HUONG/LOUIS DR: STEFAN/jasmyne TID: [id number]
--- NOTE | 2021-01-09 17:24 | NUR ---
Approximately 1530, PT arrived to unit to attempt therapy with the patient again as she had refused earlier in the day. Entered room with PT to make sure patient participates. Found patient with a soiled brief and assisted with changing her. Patient was able to roll herself side to side while still in bed with no complaints of discomfort. After brief was changed, PT told patient we will assist her to sit edge of bed so that her therapy could begin. Patient begin to refuse repeatedly stating " I just want to lay down for a while". This RN attempted to educate patient on the importance of participated s/p kyphoplasty as a part of her healing process and that her mobility will improve the more active she gets. Assisted patient to side of bed by using draw sheet to turn and sit upright. Patient started to yelling and aggressively stating that she did not want to get up and to "leave her alone" while using her body weight to push against PT and this RN. Patient started coughing and saying she is going to vomit while also forcibly trying to lay back down in bed. Patient was laying on her side, at foot of bed with knees to chest repeatedly saying she just wanted to lay down. This RN attempted to strongly encourage patient that her participation in REHAB at the skilled facility will be required or it is possible they may discharge her for refusal to participate and that some facilities may also refuse admission if she doesn't currently participate while inpatient at this facility. Patient requested for this RN to call her . Telephoned at bedside and explained that the patient was refusing physical therapy at this time and had refused yesterday as well. state that he and his daughter have spoken to patient at length about the importance of physical therapy and asked to speak to patient. While on the phone with , patient told him she just wanted to lay down because she "didn't feel like getting up". She also told him that we should take it easy on her because she "just didn't feel good today", however when asked what didn't feel good, patient was not able to state a reason. This RN got back on telephone with in which I told him the same regarding her lack of participation could mean an non acceptance to rehab or an early discharge. I explained that we only want the patient to take a few steps to the chair and sit up at minimum 1 hour. stated that maybe she is in pain. I explained that patient was mobile while changing her brief and also used her body weight to resist and grab at the therapist hands and arms. After spending about 20 minutes at bedside, patient laid herself back in bed and was able to pull herself to HOB independently. At around 1630, patients arrived to visit stating he wanted to convince her to get out of bed. Entered room with who spoke with patient and patient refused. I again explained that patients participation is important for her acceptance into rehab and for her continued healing. Patients then got upset and stated he could not care for her at home and had no other options. I advised that he could speak with the elementary school social worker tomorrow to see if there are other options like [facility]. After multiple attempts, was unable to convince patient to get out of bed and sit in the chair. this RN then left the room. after 15 minutes, patients bed alarm was activated. I entered room to find patients using the walker and getting patient out of bed. He sat patient in the chair in which she sat on IV line and pulled it taut. I advised to be sure to have staff perform transfers for patient and visitor safety. then got upset saying "you wanted her up so I got her up". I attempted to explain again that having the staff perform transfers is important so the patient doesn't fall and also in her case to protect her PICC line. Patients was still very upset because he "can't take care of her at home and needs her to go to rehab". was tearful and upset with this RN for instructing him and then stated "you should've responded to the alarm". I explained that the alarm is the reason I entered the room. Patients said he wants to speak to the doctor. Patients then returned to the nurses station within 5 minutes to state that she was ready to go back to bed. He asked how long should she stay in chair. I reiterated that at minimum 1 hour or at least until dinner was done. Patient refused to stay in chair so this RN and another RN assisted patient back to bed. I then telephone MD to explain what transpired and to request that he speak patient and family tomorrow.
[2021-01-09 19:30] VITALS: BP 146/93
[2021-01-09] MEDS ORDERED: ADENOSINE 6 MG/2 ML VIAL. IV ONE ×3 (20:52→23:30)
--- NOTE | 2021-01-09 20:59 | EKG ---
[facility] [address] [place] [address] Test Date: 2021-01-09 Test Time: 20:52:44 Pat Name: GLADYS BENTLEY Department: Room: 261 1 Gender: F Grief Counsellor: COLT : 1945 Requested By: JERRY ACHARYA Order Number: [id number] Reading MD: Measurements Intervals [place] Rate: 175 P: UT: QRS: -77 QRSD: 124 T: 113 QT: 232 QTc: 400 Interpretive Statements IRREGULAR RHYTHM, NO P-WAVE FOUND VENTRICULAR PREMATURE COMPLEX(ES) ABNORMAL LEFT AXIS DEVIATION LEFT ANTERIOR FASCICULAR BLOCK LVH WITH REPOLARIZATION ABNORMALITY RVH WITH REPOLARIZATION ABNORMALITY QRS(T) CONTOUR ABNORMALITY CONSIDER ANTEROSEPTAL MYOCARDIAL DAMAGE ABNORMAL ECG RI6.02 Compared to ECG 09/20/2020 17:16:52 Left-axis deviation now present Left anterior fascicular block now present Left ventricular hypertrophy now present Early repolarization now present Right ventricular hypertrophy now present Sinus rhythm no longer present
[2021-01-09] MEDS: PATCH REMOVAL. MC SCH (21:00)
[2021-01-09] MEDS ORDERED: ALTEPLASE 2MG VIAL 5 MG in IV NORMAL SALINE 50ML 30 ML IV ONE (21:15)
--- NOTE | 2021-01-09 21:16 | RAD ---
Exam Date: 01/09/2021 8:48 PM XR CHEST 1V Indication: Reason: shortness of breath and wheezing pt getting cleaned up RN will call 8:00 / [facility]. Instructions: / History: Comparison: December 25, 2020 FINDINGS/ IMPRESSION: Right central venous catheter terminates in the SVC. Aorta is calcified. Prominent interstitial mike ngs diffusely bilaterally are nonspecific and could be chronic or represent interstitial edema or int erstitial pneumonia. The cardiac silhouette and pulmonary vasculature are within normal limits. There is no focal consolidation, pleural effusion or pneumothorax. Electronically signed by: Simón San MD (01/09/2021 9:13 PM) [facility]
[2021-01-09] MEDS ORDERED: DIGOXIN IV 500 MCG/2 ML AMPUL. IV ONE (21:30)
[2021-01-09] MEDS ORDERED: ALTEPLASE 1MG SYRINGE. INT CAT ONE (22:00)
--- NOTE | 2021-01-09 22:00 | NUR ---
Pt's Hr 180-200 SVT v afib RVR on monitor. Pt's temp elevated at 103. Pt only sating 80% on 2L NC. Rapid response called. Dr Herndon notified. Oxygen sats increased to 92% when increased to 4L NC. Adenosine given at bedside with only a temporary slight slow in HR. 12 lead EKG done at bedside which is showing afib-RVR. Notified Dr Herndon. New orders given for digoxin and cardizem gtt given. CXR taken at bedside STAT and breathing treatment ordered for pt complaints of SOA. Labs, blood cultures taken by lab bc pt's PICC line will not return blood at this time. Cathflo ordered per protocol. Notified Dr Duran of elevated temp, BP 90/71, lab results and CXR results. New orders given to hold cardizem gtt and IV lasix at this time. Call light within reach. Will continue to monitor.
[2021-01-09 22:07] LABS: BASO # 0.1 x10^3/uL (0.0-0.2); BASO % 1 % (0-3); EOS # 0.1 x10^3/uL (0.0-0.7); EOS % 1 % (0-3); HEMATOCRIT 26.4 % (36.0-47.0); HEMOGLOBIN 8.7 g/dL (12.0-15.5); LYMPH # 1.6 x10^3/uL (1.0-4.8); LYMPH % 12 % (24-48); MEAN CORPUSCULAR HEMOGLOBIN 29 pg (25-35); MEAN CORPUSCULAR HGB CONC 33 g/dL (31-37); MEAN CORPUSCULAR VOLUME 88 fL (79-100); MONO # 1.4 x10^3/uL (0.0-1.1); MONO % 10 % (0-9); NEUT # 10.4 x10^3/uL (1.8-7.7); NEUT % 76 % (31-73); PLATELET COUNT 159 x10^3/uL (140-400); RED BLOOD COUNT 3.01 x10^6/uL (3.50-5.40); WHITE BLOOD COUNT 13.6 x10^3/uL (4.0-11.0)
[2021-01-09] MEDS: DICLOFENAC SODIUM 1% TOPICAL GEL 100GM TUBE. TP PRN (22:13)
[2021-01-09 22:14] LABS: ALBUMIN 2.5 g/dL (3.4-5.0); ALBUMIN/GLOBULIN RATIO 0.9 (1.0-1.7); CALCIUM 9.1 mg/dL (8.5-10.1); CREATININE 1.3 mg/dL (0.6-1.0); GFR 40.2; MAGNESIUM 0.9 mg/dL (1.8-2.4); TOTAL BILIRUBIN 0.5 mg/dL (0.2-1.0); TOTAL PROTEIN 5.4 g/dL (6.4-8.2)
[2021-01-09] MEDS: oxyCODONE/APAP 10/325 1 TAB TABLET PO PRN (22:17)
[2021-01-09 23:00] VITALS: BP 90/71
[2021-01-09] MEDS ORDERED: MAGNESIUM SULFATE 2GM 50 ML IV ONE (23:30)
[2021-01-10] MEDS: PIPERACILLIN/TAZOBACTAM 3.375 GM in IV NORMAL SALINE 50ML 50 ML IV SCH ×2 (00:09→05:47)
[2021-01-10 00:32] LABS: PROTHROMBIN TIME PATIENT 15.3 SEC (11.7-14.0)
[2021-01-10 03:20] VITALS: BP 102/66
[2021-01-10 05:32] LABS: BILIRUBIN,URINE NEGATIVE (NEG); CLARITY,URINE CLOUDY; COLOR,URINE YELLOW; NITRITE,URINE NEGATIVE (NEG); PH,URINE 5.5 (<5.0-8.0); PROTEIN,URINE 30 mg/dL (NEG-TRACE); UROBILINOGEN,URINE 0.2 mg/dL (0.2 mg/dL)
[2021-01-10 05:44] LABS: AMORPHOUS SEDIMENT,UR PRESENT /HPF; BACTERIA,URINE 0 /HPF (0-FEW)
[2021-01-10] MEDS: ALBUTEROL SULFATE 2.5 MG/3 ML NEBU. NEB SCH ×4 (06:13→19:43)
[2021-01-10] MEDS: BUDESONIDE 0.5 MG/2 ML NEBU. NEB SCH ×2 (06:13→19:43)
[2021-01-10 06:49] LABS: HEMOGLOBIN 8.9 g/dL (12.0-15.5); RED BLOOD COUNT 3.05 x10^6/uL (3.50-5.40); WHITE BLOOD COUNT 17.6 x10^3/uL (4.0-11.0)
[2021-01-10 07:16] LABS: ALBUMIN 2.2 g/dL (3.4-5.0); ALBUMIN/GLOBULIN RATIO 0.6 (1.0-1.7); CALCIUM 9.3 mg/dL (8.5-10.1); CREATININE 1.1 mg/dL (0.6-1.0); GFR 48.7; POTASSIUM 4.1 mmol/L (3.5-5.1); TOTAL BILIRUBIN 0.5 mg/dL (0.2-1.0); TOTAL PROTEIN 5.8 g/dL (6.4-8.2)
[2021-01-10] MEDS ORDERED: DIGOXIN IV 500 MCG/2 ML AMPUL. IV ONE (07:45)
[2021-01-10 07:55] VITALS: BP 121/74
[2021-01-10] MEDS: METOPROLOL TART IMMED RELEASE 25 MG TABLET. PO SCH ×2 (07:58→20:49)
[2021-01-10] MEDS: INSULIN LISPRO 300 UNITS/3 ML VIAL. SQ SCH ×3 (08:00→17:00)
--- NOTE | 2021-01-10 08:48 | PDOC ---
Infectious Disease Note Subjective Subjective pt had rough night, fever 103, tachycardia, hypotension ROS ROS no n/v/d/sob Vital Sign Vital Signs Vital Signs Date Time Temp Pulse Resp B/P (MAP) Pulse Ox O2 Delivery O2 Flow Rate FiO2 01/10/21 07:59 112 121/74 01/10/21 07:55 97.7 22 97 Nasal Cannula 4.0 97.7 Physical Exam PHYSICAL EXAM GEN:alert awake appears tired HEENT: no icterus, Oral cavity and pharynx dry NECK: Without JVD. No fullness. LUNGS: Decreased in the bases. HEART: S1, S2. no murmurs ABDOMEN: Obese, soft,BS+ no guarding, no rebound. GENITOURINARY: Crawford in place. Superficial ulceration in the perineal area, no purulence, yeast EXTREMITIES: No clubbing, cyanosis. She has 2-3+ lower extremity edema bilaterally, also has bilateral erythema on her legs in well described areas. Right lower extremity more than left She has a small wound on her left knee cap that appears to be clean. Lateral wounds on both legs appear consistent with previous bullae that have ruptured. EXTREMITIES: Legs are mildly warm, some tenderness. SKIN: Otherwise warm without generalized rash. NEUROLOGIC: She is nonfocal, moves all extremities. PSYCHIATRIC: Affect is appropriate. Labs Lab Laboratory Tests Test 01/09/21 11:08 01/09/21 17:01 01/09/21 20:48 01/09/21 21:15 Glucose (Fingerstick) 110 mg/dL (70-99) 138 mg/dL (70-99) 211 mg/dL (70-99) White Blood Count 13.6 x10^3/uL (4.0-11.0) Red Blood Count 3.01 x10^6/uL (3.50-5.40) Hemoglobin 8.7 g/dL (12.0-15.5) Hematocrit 26.4 % (36.0-47.0) Mean Corpuscular Volume 88 fL (79-100) Mean Corpuscular Hemoglobin 29 pg (25-35) Mean Corpuscular Hemoglobin Concent 33 g/dL (31-37) Red Cell Distribution Width 16.0 % (11.5-14.5) Platelet Count 159 x10^3/uL (140-400) Neutrophils (%) (Auto) 76 % (31-73) Lymphocytes (%) (Auto) 12 % (24-48) Monocytes (%) (Auto) 10 % (0-9) Eosinophils (%) (Auto) 1 % (0-3) Basophils (%) (Auto) 1 % (0-3) Neutrophils # (Auto) 10.4 x10^3/uL (1.8-7.7) Lymphocytes # (Auto) 1.6 x10^3/uL (1.0-4.8) Monocytes # (Auto) 1.4 x10^3/uL (0.0-1.1) Eosinophils # (Auto) 0.1 x10^3/uL (0.0-0.7) Basophils # (Auto) 0.1 x10^3/uL (0.0-0.2) Sodium Level 140 mmol/L (136-145) Potassium Level 4.0 mmol/L (3.5-5.1) Chloride Level 102 mmol/L (98-107) Carbon Dioxide Level 29 mmol/L (21-32) Anion Gap 9 (6-14) Blood Urea Nitrogen 6 mg/dL (7-20) Creatinine 1.3 mg/dL (0.6-1.0) Estimated GFR (Cockcroft-Gault) 40.2 BUN/Creatinine Ratio 5 (6-20) Glucose Level 212 mg/dL (70-99) Lactic Acid Level 3.3 mmol/L (0.4-2.0) Calcium Level 9.1 mg/dL (8.5-10.1) Magnesium Level 0.9 mg/dL (1.8-2.4) Total Bilirubin 0.5 mg/dL (0.2-1.0) Aspartate Amino Transf (AST/SGOT) 20 U/L (15-37) Alanine Aminotransferase (ALT/SGPT) 23 U/L (14-59) Alkaline Phosphatase 186 U/L (46-116) RF-[id number]-R-Type Natriuretic Peptide 2316 pg/mL (0-124) Total Protein 5.4 g/dL (6.4-8.2) Albumin 2.5 g/dL (3.4-5.0) Albumin/Globulin Ratio 0.9 (1.0-1.7) Test 01/09/21 23:35 01/10/21 00:20 01/10/21 03:30 01/10/21 06:30 Prothrombin Time 15.3 SEC (11.7-14.0) Prothromb Time International Ratio 1.3 (0.8-1.1) Lactic Acid Level 1.7 mmol/L (0.4-2.0) Urine Collection Type Unknown Urine Color Yellow Urine Clarity Cloudy Urine pH 5.5 (<5.0-8.0) Urine Specific [place] >=1.030 (1.000-1.030) Urine Protein 30 mg/dL (NEG-TRACE) Urine Glucose (UA) Negative mg/dL (NEG) Urine Ketones (Stick) Negative mg/dL (NEG) Urine Blood Trace (NEG) Urine Nitrite Negative (NEG) Urine Bilirubin Negative (NEG) Urine Urobilinogen Dipstick 0.2 mg/dL (0.2 mg/dL) Urine Leukocyte Esterase Large (NEG) Urine RBC 3-5 /HPF (0-2) Urine WBC 11-20 /HPF (0-4) Urine Squamous Epithelial Cells Few /LPF Urine Amorphous Sediment Present /HPF Urine Bacteria 0 /HPF (0-FEW) White Blood Count 17.6 x10^3/uL (4.0-11.0) Red Blood Count 3.05 x10^6/uL (3.50-5.40) Hemoglobin 8.9 g/dL (12.0-15.5) Hematocrit 27.0 % (36.0-47.0) Mean Corpuscular Volume 89 fL (79-100) Mean Corpuscular Hemoglobin 29 pg (25-35) Mean Corpuscular Hemoglobin Concent 33 g/dL (31-37) Red Cell Distribution Width 16.0 % (11.5-14.5) Platelet Count 145 x10^3/uL (140-400) Sodium Level 141 mmol/L (136-145) Potassium Level 4.1 mmol/L (3.5-5.1) Chloride Level 103 mmol/L (98-107) Carbon Dioxide Level 33 mmol/L (21-32) Anion Gap 5 (6-14) Blood Urea Nitrogen 6 mg/dL (7-20) Creatinine 1.1 mg/dL (0.6-1.0) Estimated GFR (Cockcroft-Gault) 48.7 BUN/Creatinine Ratio 5 (6-20) Glucose Level 157 mg/dL (70-99) Calcium Level 9.3 mg/dL (8.5-10.1) Total Bilirubin 0.5 mg/dL (0.2-1.0) Aspartate Amino Transf (AST/SGOT) 18 U/L (15-37) Alanine Aminotransferase (ALT/SGPT) 20 U/L (14-59) Alkaline Phosphatase 168 U/L (46-116) Total Protein 5.8 g/dL (6.4-8.2) Albumin 2.2 g/dL (3.4-5.0) Albumin/Globulin Ratio 0.6 (1.0-1.7) Test 01/10/21 08:06 Glucose (Fingerstick) 154 mg/dL (70-99) Micro Microbiology 01/03/21 Blood Culture - Final, Complete NO GROWTH AFTER 5 DAYS Objective Assessment 1. Fever. 2. Lower extremity cellulitis. 3. Klebsiella pneumoniae bacteremia at osh 12/25 3/4 bottles, 4. Atrial fibrillation. 5. Acute kidney injury. UA negative at [facility] 6. Some questionable esophagitis.Abnormal LFTs likely from shock liver 7. CT lung from [facility] cavitary lung lesion down to 2.6 x 1.5 cm thin-walled cavitation much improved compared to large cavitary lung lesion 12 months ago 8. Immunosuppression with rheumatoid arthritis. 9. ANTIBIOTIC ALLERGIES, has tolerated Zosyn and Augmentin. 10. History of methicillin-resistant Staphylococcus aureus, Enterobacter resp cultures in the past. 11. History of fall POA with compression fracture on CT; this post kyphoplasty L5 on 01/07/2021 12. Mild thrombocytopenia 13. Diarrhea check C. difficile Plan Plan of Care meropenem, dapto and arianna followup culture results KOTA HODGES MD Jan 10, 2021 08:48
[2021-01-10] MEDS: FERROUS SULFATE 325 MG TABLET. PO SCH (09:00)
[2021-01-10] MEDS: FOLIC ACID 1 MG TABLET. PO SCH (09:00)
[2021-01-10] MEDS: GABAPENTIN 300 MG CAPSULE. PO SCH ×2 (09:00→20:47)
[2021-01-10] MEDS: MULTIVITAMIN with MINERAL TABLET. PO SCH (09:00)
[2021-01-10] MEDS: VENLAFAXINE XR 37.5 MG CAP.ER.24H. PO SCH (09:00)
[2021-01-10] MEDS: CHOLECALCIFEROL (VITAMIN D3) 1,000 UNIT TABLET PO SCH (09:00)
[2021-01-10] MEDS: NYSTATIN TOPICAL POWDER 15GM BOTTLE. TP SCH ×2 (09:00→20:50)
[2021-01-10] MEDS: POLYETHYLENE GLYCOL 3350 17 GM PACKET. PO SCH (09:00)
[2021-01-10] MEDS: LACTOBACILLUS RHAMNOSUS GG 1 CAPSULE. PO SCH ×2 (09:00→20:47)
[2021-01-10 10:34] VITALS: BP 122/70
[2021-01-10] MEDS: METOCLOPRAMIDE 5 MG TABLET. PO SCH ×2 (10:42→20:47)
[2021-01-10] MEDS: POTASSIUM CHLORIDE 20 MEQ TABLET.ER. PO SCH (10:43)
[2021-01-10] MEDS: ACETAMINOPHEN 325 MG TABLET. PO PRN (10:43)
[2021-01-10] MEDS: HYDROXYCHLOROQUINE 200 MG TABLET PO SCH ×2 (10:44→20:47)
[2021-01-10] MEDS: ASPIRIN ENTERIC COATED 81 MG TABLET.DR. PO SCH (10:44)
[2021-01-10] MEDS: PANTOPRAZOLE 40 MG TABLET.DR. PO SCH (10:44)
--- NOTE | 2021-01-10 10:50 | NUR ---
SS following up with discharge planning. SS reviewed pt chart and discussed with pt RN. Pt is currently requiring oxygen at four liters nasal canula. COVID19 negative. Pt on Cardizem drip. Pt on IV Meropenem, IV Daptomycin, and IV Micafungin. Wound care following. SS discussed with Dr. Duran. LTACH referral requested due to medical needs. SS met with pt and discussed. Pt agreeable to LTACH and requested referral to [facility], ; fax [phone]. SS phoned and faxed referral as requested. SS will continue to follow for discharge planning.
[2021-01-10] MEDS: MICAFUNGIN 100 MG in IV DEXTROSE 5% 100ML 100 ML IV SCH (11:08)
--- NOTE | 2021-01-10 12:11 | PN ---
DATE: 01/10/2021 SUBJECTIVE: The patient has apparently spiked her temperature yesterday up to 103 Fahrenheit. Her heart rate has also gone into atrial fibrillation with rapid ventricular response for which she received 250 mcg of digoxin without much improvement and was started on a Cardizem drip as per the Cardiology recommendation. Nursing staff stated that she seemed to be choking on her food. There is questionable aspiration and therefore we did nicole culture her. OBJECTIVE: GENERAL: When I saw her this morning, she looked pale, no jaundice or cyanosis. No lymphadenopathy, no thyromegaly, no jugular venous distention. Bilateral lower limb edema. VITAL SIGNS: Her heart rate this morning was 122, blood pressure is 102/66, temperature 98.4, respiratory rate was 24 and oxygen saturation was 96% on 4 liters of oxygen. HEAD, EYES, EARS, NOSE AND THROAT: Normocephalic, atraumatic. NECK: Supple. HEART: Normal first and second heart sounds, no gallop, rub or murmur. CHEST: Shows central trachea, equal bilateral expansion, air entry, vesicular breath sounds with scattered rhonchi anteriorly. I could not appreciate any crepitation. ABDOMEN: Distended, soft, nontender. NEUROLOGIC: She was sleepy, but arousable. Cranial nerves intact. She moves upper extremities to much good extent. EXTREMITIES: She is mostly bedbound. Her intake over the last 24 hours was 160, output was 700. As of this morning, her white cell count was up to 17,600; hemoglobin 8.9; hematocrit 27; MCV 89 and platelet count of 145,000. Her serum sodium was 141, potassium 4.1, chloride 103, bicarbonate 33, anion gap of 5, BUN 6, creatinine 1.1. Estimated GFR was 48 mL per minute. Her glucose 157. Her lactic acid 1.7, calcium was 9.3. Total bilirubin, AST, ALT were normal. Alkaline phosphatase slightly elevated at 168. Total protein 5.8, albumin 2.2. IMAGING: Her chest x-ray done yesterday showed that she has right central venous catheter, terminates at the superior vena cava, aorta is calcified, prominent interstitial markings diffusely bilaterally, nonspecific, could be chronic or represents interstitial edema or interstitial pneumonia. The cardiac silhouette and pulmonary vasculature is within normal limits. There is no focal consolidation, pleural effusion, or pneumothorax. ASSESSMENT: 1. The patient has spiked this temperature, likely due to aspiration pneumonia. 2. She went into atrial fibrillation, rapid ventricular response for which she continued to be on a Cardizem drip; however, the heart rate is not well controlled and blood pressure is borderline. 3. Acute on chronic hypoxic respiratory failure. She is now on 4 liters of oxygen by nasal cannula. 4. Bilateral lower extremity cellulitis. 5. Acute kidney injury, improving. 6. L5 compression fracture, status post kyphoplasty. 7. Hyperlipidemia. 8. Chronic obstructive pulmonary disease. 9. Ulcerative colitis. 10. Rheumatoid arthritis. 11. Depression. 12. History of pulmonary abscess that was treated and resolved. 13. Multifocal multifactorial ____. PLAN: My plan is to give her digoxin 500 mcg IV and repeat chest x-ray and we will discuss the findings with infectious disease specialist. ERROL/HEIDE DR: Lennie TID: [id number]
[2021-01-10] MEDS: DAPTOmycin (GENERIC) IVPB 410 MG in IV NORMAL SALINE 50ML 50 ML IV SCH (12:14)
--- NOTE | 2021-01-10 12:16 | PDOC ---
ELMIRA AMAYA STOCKROOM HELPER 01/10/21 1216: CARDIO Progress Notes Date and Time Date of Service 01/10/21 Time of Evaluation 1200 Subjective Subjective: No Chest Pain, No shortness of breath, No Palpitations, Other (febrile, AFIB with RVR overnight ) Vitals Vitals Vital Signs Date Time Temp Pulse Resp B/P (MAP) Pulse Ox O2 Delivery O2 Flow Rate FiO2 01/10/21 11:52 Nasal Cannula 4.0 01/10/21 10:34 99.7 84 24 122/70 (87) 98 99.7 Weight Weight [ ] Input and Output Intake and Output Intake and Output 01/10/21 07:00 Intake Total 300 ml Output Total 1050 ml Balance -750 ml Intake Oral 200 ml IV Total 100 ml Output Urine Total 1050 ml # Bowel Movements 6 Laboratory Labs Laboratory Tests Test 01/09/21 17:01 01/09/21 20:48 01/09/21 21:15 01/09/21 23:35 Glucose (Fingerstick) 138 mg/dL (70-99) 211 mg/dL (70-99) White Blood Count 13.6 x10^3/uL (4.0-11.0) Red Blood Count 3.01 x10^6/uL (3.50-5.40) Hemoglobin 8.7 g/dL (12.0-15.5) Hematocrit 26.4 % (36.0-47.0) Mean Corpuscular Volume 88 fL (79-100) Mean Corpuscular Hemoglobin 29 pg (25-35) Mean Corpuscular Hemoglobin Concent 33 g/dL (31-37) Red Cell Distribution Width 16.0 % (11.5-14.5) Platelet Count 159 x10^3/uL (140-400) Neutrophils (%) (Auto) 76 % (31-73) Lymphocytes (%) (Auto) 12 % (24-48) Monocytes (%) (Auto) 10 % (0-9) Eosinophils (%) (Auto) 1 % (0-3) Basophils (%) (Auto) 1 % (0-3) Neutrophils # (Auto) 10.4 x10^3/uL (1.8-7.7) Lymphocytes # (Auto) 1.6 x10^3/uL (1.0-4.8) Monocytes # (Auto) 1.4 x10^3/uL (0.0-1.1) Eosinophils # (Auto) 0.1 x10^3/uL (0.0-0.7) Basophils # (Auto) 0.1 x10^3/uL (0.0-0.2) Sodium Level 140 mmol/L (136-145) Potassium Level 4.0 mmol/L (3.5-5.1) Chloride Level 102 mmol/L (98-107) Carbon Dioxide Level 29 mmol/L (21-32) Anion Gap 9 (6-14) Blood Urea Nitrogen 6 mg/dL (7-20) Creatinine 1.3 mg/dL (0.6-1.0) Estimated GFR (Cockcroft-Gault) 40.2 BUN/Creatinine Ratio 5 (6-20) Glucose Level 212 mg/dL (70-99) Lactic Acid Level 3.3 mmol/L (0.4-2.0) Calcium Level 9.1 mg/dL (8.5-10.1) Magnesium Level 0.9 mg/dL (1.8-2.4) Total Bilirubin 0.5 mg/dL (0.2-1.0) Aspartate Amino Transf (AST/SGOT) 20 U/L (15-37) Alanine Aminotransferase (ALT/SGPT) 23 U/L (14-59) Alkaline Phosphatase 186 U/L (46-116) QU-Jcx-M-Type Natriuretic Peptide 2316 pg/mL (0-124) Total Protein 5.4 g/dL (6.4-8.2) Albumin 2.5 g/dL (3.4-5.0) Albumin/Globulin Ratio 0.9 (1.0-1.7) Prothrombin Time 15.3 SEC (11.7-14.0) Prothromb Time International Ratio 1.3 (0.8-1.1) Test 01/10/21 00:20 01/10/21 03:30 01/10/21 06:30 01/10/21 08:06 Lactic Acid Level 1.7 mmol/L (0.4-2.0) Urine Collection Type Unknown Urine Color Yellow Urine Clarity Cloudy Urine pH 5.5 (<5.0-8.0) Urine Specific [place] >=1.030 (1.000-1.030) Urine Protein 30 mg/dL (NEG-TRACE) Urine Glucose (UA) Negative mg/dL (NEG) Urine Ketones (Stick) Negative mg/dL (NEG) Urine Blood Trace (NEG) Urine Nitrite Negative (NEG) Urine Bilirubin Negative (NEG) Urine Urobilinogen Dipstick 0.2 mg/dL (0.2 mg/dL) Urine Leukocyte Esterase Large (NEG) Urine RBC 3-5 /HPF (0-2) Urine WBC 11-20 /HPF (0-4) Urine Squamous Epithelial Cells Few /LPF Urine Amorphous Sediment Present /HPF Urine Bacteria 0 /HPF (0-FEW) White Blood Count 17.6 x10^3/uL (4.0-11.0) Red Blood Count 3.05 x10^6/uL (3.50-5.40) Hemoglobin 8.9 g/dL (12.0-15.5) Hematocrit 27.0 % (36.0-47.0) Mean Corpuscular Volume 89 fL (79-100) Mean Corpuscular Hemoglobin 29 pg (25-35) Mean Corpuscular Hemoglobin Concent 33 g/dL (31-37) Red Cell Distribution Width 16.0 % (11.5-14.5) Platelet Count 145 x10^3/uL (140-400) Sodium Level 141 mmol/L (136-145) Potassium Level 4.1 mmol/L (3.5-5.1) Chloride Level 103 mmol/L (98-107) Carbon Dioxide Level 33 mmol/L (21-32) Anion Gap 5 (6-14) Blood Urea Nitrogen 6 mg/dL (7-20) Creatinine 1.1 mg/dL (0.6-1.0) Estimated GFR (Cockcroft-Gault) 48.7 BUN/Creatinine Ratio 5 (6-20) Glucose Level 157 mg/dL (70-99) Calcium Level 9.3 mg/dL (8.5-10.1) Total Bilirubin 0.5 mg/dL (0.2-1.0) Aspartate Amino Transf (AST/SGOT) 18 U/L (15-37) Alanine Aminotransferase (ALT/SGPT) 20 U/L (14-59) Alkaline Phosphatase 168 U/L (46-116) Total Protein 5.8 g/dL (6.4-8.2) Albumin 2.2 g/dL (3.4-5.0) Albumin/Globulin Ratio 0.6 (1.0-1.7) Glucose (Fingerstick) 154 mg/dL (70-99) Microbiology Micro Microbiology 01/03/21 Blood Culture - Final, Complete NO GROWTH AFTER 5 DAYS Physical Exam HEENT: Neck Supple W Full Motion Chest: Symmetric LUNGS: Other (diminished) Heart: irregularly irregular (AFIB, rate presently controlled ) Abdomen: Soft N/T Extremities: Other (1+ bilateral LE edema ) Neurology: alert, follow commands Assessment Assessment 1. AFIB RVR: in setting of sepsis. Had been maintaining SR, but went back into AFIB with RVR overnight in setting of fevers.Cardizem gtt initiated. S/p IV Dig as well 2. Metabolic encephalopathy: resolved 3. Bilateral LE cellulitis 4. Leukocytosis, sepsis, bacteremia; Fevers ongoing. 5. Acute on chronic systolic CHF; Echo with LVEF 45% with mild global hypokinesis. appears compensated 6. MAURICE; imrpoved. Cr 1.1 7. Chronic immunosuppression 8. Transaminitis; resolved 9. DM2: uncontrolled 10. Anemia oc chronic disease; hgb stable at 8.9 11. Back pain with L5 compression fracture; s/p kyphoplasty. Recommendations ASA for stroke prevention Ongoing antibiotic therapy, treatment of sepsis/bacteremia Continue BB for rate control Will add scheduled digoxin Titrate off Cardizem as able Recommend outpatient event monitor to note AFIB burden, guide therapy. Patient will follow up with primary cardiology team at [facility]. Supportive care Justicifation of Admission Dx: Justifications for Admission: Justification of Admission Dx: Yes ANA ROSA CAZARES MD 01/10/21 1642: CARDIO Progress Notes Plan Plan The patient was seen and interviewed as well as examined at the bedside. The chart was reviewed. The case was discussed. Agree with the plan of care. ELMIRA AMAYA APRN Jan 10, 2021 12:16 ANA ROSA CAZARES MD Jan 10, 2021 16:42
[2021-01-10] MEDS: MEROPENEM 500 MG in IV NORMAL SALINE 50ML 50 ML IV SCH ×2 (13:30→22:02)
[2021-01-10 14:24] VITALS: BP 111/58
[2021-01-10 19:40] VITALS: BP 140/60
[2021-01-10] MEDS: PATCH REMOVAL. MC SCH (20:50)
[2021-01-10 23:40] VITALS: BP 127/63
[2021-01-11 03:20] VITALS: BP 143/64
[2021-01-11] MEDS: MEROPENEM 500 MG in IV NORMAL SALINE 50ML 50 ML IV SCH ×2 (05:33→15:42)
[2021-01-11] MEDS: ALBUTEROL SULFATE 2.5 MG/3 ML NEBU. NEB SCH ×4 (07:24→19:57)
[2021-01-11] MEDS: BUDESONIDE 0.5 MG/2 ML NEBU. NEB SCH ×2 (07:24→19:57)
[2021-01-11 07:25] VITALS: BP 162/57
[2021-01-11 07:29] LABS: HEMATOCRIT 22.6 % (36.0-47.0); HEMOGLOBIN 7.5 g/dL (12.0-15.5); RED BLOOD COUNT 2.58 x10^6/uL (3.50-5.40); RED CELL DISTRIBUTION WIDTH 16.1 % (11.5-14.5); WHITE BLOOD COUNT 13.9 x10^3/uL (4.0-11.0)
--- NOTE | 2021-01-11 07:30 | NUR ---
CATH MERLY FLUSHED FROM PICC LINE WITH 10ML NS. GOOD BLOOD RETURN. CARDIZEM RESTARTED.
[2021-01-11 07:56] LABS: ALBUMIN 1.8 g/dL (3.4-5.0); ALBUMIN/GLOBULIN RATIO 0.5 (1.0-1.7); CALCIUM 8.8 mg/dL (8.5-10.1); CREATININE 1.1 mg/dL (0.6-1.0); GFR 48.7; TOTAL BILIRUBIN 0.4 mg/dL (0.2-1.0); TOTAL PROTEIN 5.2 g/dL (6.4-8.2)
--- NOTE | 2021-01-11 07:56 | PDOC ---
Infectious Disease Note Subjective Subjective Patient is feeling better ROS ROS No nausea vomiting did have diarrhea x2 Vital Sign Vital Signs Vital Signs Date Time Temp Pulse Resp B/P (MAP) Pulse Ox O2 Delivery O2 Flow Rate FiO2 01/11/21 07:27 100 Nasal Cannula 4.0 01/11/21 07:25 99.5 94 22 162/57 (92) 99.5 Physical Exam PHYSICAL EXAM GEN:alert awake appears tired HEENT: no icterus, Oral cavity and pharynx dry NECK: Without JVD. No fullness. LUNGS: Decreased in the bases. HEART: S1, S2. no murmurs ABDOMEN: Obese, soft,BS+ no guarding, no rebound. GENITOURINARY: Crawford in place. Superficial ulceration in the perineal area, no purulence, yeast EXTREMITIES: No clubbing, cyanosis. She has 2-3+ lower extremity edema bilaterally, also has bilateral erythema on her legs in well described areas. Right lower extremity more than left She has a small wound on her left knee cap that appears to be clean. Lateral wounds on both legs appear consistent with previous bullae that have ruptured. EXTREMITIES: Legs are mildly warm, some tenderness. SKIN: Otherwise warm without generalized rash. NEUROLOGIC: She is nonfocal, moves all extremities. PSYCHIATRIC: Affect is appropriate. Labs Lab Laboratory Tests Test 01/10/21 08:06 01/10/21 12:42 01/10/21 17:05 01/10/21 21:12 Glucose (Fingerstick) 154 mg/dL (70-99) 128 mg/dL (70-99) 99 mg/dL (70-99) 95 mg/dL (70-99) Test 01/11/21 05:50 01/11/21 07:28 White Blood Count 13.9 x10^3/uL (4.0-11.0) Red Blood Count 2.58 x10^6/uL (3.50-5.40) Hemoglobin 7.5 g/dL (12.0-15.5) Hematocrit 22.6 % (36.0-47.0) Mean Corpuscular Volume 88 fL (79-100) Mean Corpuscular Hemoglobin 29 pg (25-35) Mean Corpuscular Hemoglobin Concent 33 g/dL (31-37) Red Cell Distribution Width 16.1 % (11.5-14.5) Platelet Count 142 x10^3/uL (140-400) Glucose (Fingerstick) 79 mg/dL (70-99) Micro Microbiology 01/03/21 Blood Culture - Final, Complete NO GROWTH AFTER 5 DAYS Objective Assessment 1. Fever. 2. Lower extremity cellulitis. 3. Klebsiella pneumoniae bacteremia at osh 12/25 3/4 bottles, 4. Atrial fibrillation. 5. Acute kidney injury. UA negative at [facility] 6. Some questionable esophagitis.Abnormal LFTs likely from shock liver 7. CT lung from [facility] cavitary lung lesion down to 2.6 x 1.5 cm thin-walled cavitation much improved compared to large cavitary lung lesion 12 months ago 8. Immunosuppression with rheumatoid arthritis. 9. ANTIBIOTIC ALLERGIES, has tolerated Zosyn and Augmentin. 10. History of methicillin-resistant Staphylococcus aureus, Enterobacter resp cultures in the past. 11. History of fall POA with compression fracture on CT; this post kyphoplasty L5 on 01/07/2021 12. Mild thrombocytopenia 13. Diarrhea C. difficile negative Plan Plan of Care meropenem, dapto and arianna followup culture results so far negative We will start scaling down soon KOTA HODGES MD Jan 11, 2021 07:56
[2021-01-11] MEDS: INSULIN LISPRO 300 UNITS/3 ML VIAL. SQ SCH ×3 (08:00→17:00)
[2021-01-11] MEDS ORDERED: DIGOXIN 125 MCG TABLET. PO SCH (09:00)
[2021-01-11] MEDS: POLYETHYLENE GLYCOL 3350 17 GM PACKET. PO SCH (09:00)
[2021-01-11] MEDS: METOCLOPRAMIDE 5 MG TABLET. PO SCH (09:00)
--- NOTE | 2021-01-11 09:30 | NUR ---
RECTAL TUBE PLACED SUCCESSFULLY. REGLAN AND MIRALAX HELD DUE TO DIARRHEA.
[2021-01-11] MEDS: LACTOBACILLUS RHAMNOSUS GG 1 CAPSULE. PO SCH (09:33)
[2021-01-11] MEDS: CHOLECALCIFEROL (VITAMIN D3) 1,000 UNIT TABLET PO SCH (09:33)
[2021-01-11] MEDS: MULTIVITAMIN with MINERAL TABLET. PO SCH (09:33)
[2021-01-11] MEDS: POTASSIUM CHLORIDE 20 MEQ TABLET.ER. PO SCH (09:34)
[2021-01-11] MEDS: METOPROLOL TART IMMED RELEASE 25 MG TABLET. PO SCH (09:34)
[2021-01-11] MEDS: FOLIC ACID 1 MG TABLET. PO SCH (09:34)
[2021-01-11] MEDS: PANTOPRAZOLE 40 MG TABLET.DR. PO SCH (09:34)
[2021-01-11] MEDS: HYDROXYCHLOROQUINE 200 MG TABLET PO SCH (09:35)
[2021-01-11] MEDS: ASPIRIN ENTERIC COATED 81 MG TABLET.DR. PO SCH (09:35)
[2021-01-11] MEDS: FERROUS SULFATE 325 MG TABLET. PO SCH (09:35)
[2021-01-11] MEDS: GABAPENTIN 300 MG CAPSULE. PO SCH (09:35)
[2021-01-11] MEDS: VENLAFAXINE XR 37.5 MG CAP.ER.24H. PO SCH (09:35)
[2021-01-11] MEDS: NYSTATIN TOPICAL POWDER 15GM BOTTLE. TP SCH (09:36)
[2021-01-11 10:55] VITALS: BP 135/58
[2021-01-11] MEDS: MICAFUNGIN 100 MG in IV DEXTROSE 5% 100ML 100 ML IV SCH (12:35)
--- NOTE | 2021-01-11 12:41 | SNU/HH DC ---
DISCHARGE ORDERS DISCHARGE INFORMATION: DISCHARGE DATE: Jan 11, 2021 FINAL DIAGNOSIS BLE Cellulitis K Pneumoniae bacteremia atrial fibrillation with RVR CONDITION ON DISCHARGE: Stable CODE STATUS: Code Status: Full LTAC: ADMIT TO LTAC: Yes POST DISCHARGE ORDERS: ACTIVITY ORDERS: Activity as tolerated WEIGHT BEARING STATUS: As tolerated BATHING ORDERS: No Tub Bath until see DIET AFTER DISCHARGE: ADA WOUND/INCISION CARE: Other, see below CHECKS AFTER DISCHARGE: CHECKS AFTER DISCHARGE: Check blood sugar, ac/hs, Check your Temp as needed COMMENTS: lower back TREATMENT/EQUIPMENT ORDERS: ADAPTIVE EQUIPMENT NEEDED: None Physical Therapy For: Evalulation/Treatment Occupational Therapy For: Evaluation/Treatment DISCHARGE MEDICATIONS: Home Meds Active Scripts Linezolid (ZYVOX) 600 Mg Tablet, 600 MG PO BID for pneumonia for 14 Days, #28 TAB Prov:SWAPNIL MARIN MD 08/21/20 Reported Medications Esomeprazole Magnesium (NEXIUM CAPSULE) 20 Mg Capsule.dr, 1 CAP PO DAILY for heart burn, #30 CAP 2 Refills 12/26/20 Loperamide HCl (Imodium A-D) 2 Mg Capsule, 2 MG PO Q8HRS for diarrhea, CAP 12/26/20 Methotrexate Sodium (METHOTREXATE) 2.5 Mg Tablet, 6 TAB PO WEEKLY for arthritis, #24 TAB 1 Refill 08/18/20 Guaifenesin/Codeine Phosphate (Codeine-Guaifen 10-100 mg/5 ml) 120 Ml Liquid, 5 ML PO PRN Q6HRS PRN for cough and congestion MDD 20 Milliliter(s) for 6 Days, #120 ML 0 Refills 08/17/20 Budesonide (BUDESONIDE) 0.25 Mg/2 Ml Ampul.neb, 1 VIAL NEB BID for , #60 ML 08/17/20 Folic Acid (FOLIC ACID) 0.4 Mg Tablet, 0.4 MG PO DAILY for SUPPLEMENT, TAB 08/17/20 Hydroxychloroquine Sulfate (HYDROXYCHLOROQUINE SULFATE) 200 Mg Tablet, 1 TAB PO BID for , #180 TAB 1 Refill 08/17/20 Multivitamin (MULTI VITAMIN DAILY) 1 Each Tablet, 1 TAB PO DAILY for for 30 Days, #30 TAB 0 Refills 08/17/20 Torsemide (TORSEMIDE) 10 Mg Tablet, 1 TAB PO QMWF for for 30 Days, #30 TAB 0 Refills 08/17/20 Psyllium Husk (METAMUCIL) 0.52 Gm Capsule, 1 CAP PO DAILY for for 30 Days, #30 CAP 0 Refills 08/17/20 Hydromorphone Hcl (DILAUDID) 2 Mg Tablet, 1 TAB PO PRN Q6-8HRS PRN for pain MDD 2 Tablet(s) for 5 Days, #10 TAB 0 Refills 08/17/20 Ferrous Sulfate (FEOSOL) 325 Mg Tablet, 1 TAB PO DAILY for for 30 Days, #30 TAB 0 Refills 08/17/20 Diltiazem Hcl (DILTIAZEM 24HR CD) 180 Mg Cap.er.24h, 1 CAP PO DAILY for for 30 Days, #30 CAP 0 Refills 08/17/20 Mesalamine (APRISO) 0.375 Gm Cap.er.24h, 2 CAP PO BID for for 30 Days, #120 CAP 0 Refills 08/17/20 Albuterol Sulfate (ALBUTEROL SULFATE NEB SOLN) 2.5 Mg/3 Ml Vial.neb, 1 VIAL NEB PRN Q4HRS for , #50 VIAL 08/17/20 Potassium Chloride (POTASSIUM CHLORIDE ) 20 Meq Tablet.er, 20 MEQ PO DAILY, TAB.SR 01/17/18 Hydrocodone Bit/Acetaminophen (HYDROCODONE-APAP 7.5-325 ) 1 Each Tablet, 1 TAB PO PRN Q6HRS PRN for PAIN, TAB 0 Refills 01/17/18 Ezetimibe (ZETIA) 10 Mg Tablet, 10 MG PO DAILY, TAB 01/17/18 Diclofenac Sodium (VOLTAREN) 100 Gm Gel..gram., 100 GM TP PRN PRN for PAIN, EACH 01/17/18 Cholecalciferol (Vitamin D3) (VITAMIN D3) 1,000 Unit Tablet, 1000 UNIT PO DAILY, TAB 01/17/18 Fluticasone/Salmeterol (ADVAIR 250-50 DISKUS) 1 Each Disk.w.dev, 1 INH IH BID, INHALER 01/17/18 Gabapentin (GABAPENTIN ) 300 Mg Capsule, 600 MG PO BID for , CAP 01/17/18 Rosuvastatin Calcium (CRESTOR) 40 Mg Tablet, 40 MG PO HS for FOR CHOLESTEROL, #30 TAB 0 Refills 01/17/18 Pantoprazole Sodium (PROTONIX) 20 Mg Tablet.dr, 40 MG PO DAILY, TAB 01/17/18 Venlafaxine Hcl (EFFEXOR XR) 75 Mg Cap.er.24h, 75 MG PO DAILY, CAP.SR 01/17/18 Discontinued Reported Medications Empagliflozin (Jardiance) 25 Mg Tablet, 25 MG PO DAILY for heart failure, TAB 12/26/20 [novolo] No Conflict Check, 12 SQ TIDAC 08/17/20 [lantus] No Conflict Check, 14 SQ HS 08/17/20 Prednisone (PREDNISONE ) 10 Mg Tablet, 1 TAB PO DAILY for for 5 Days, #5 TAB 0 Refills 08/17/20 Rivaroxaban (XARELTO) 10 Mg Tablet, 20 MG PO BID for , TAB 01/17/18 Discontinued Scripts Ertapenem Sodium (INVANZ) 1 Gm Vial, 1 GM IJ DAILY for Pulm abscess for 14 Days, #14 EACH Prov:GERRY MARTINEZ MD 09/21/20 JERRY ACHARYA MD Jan 11, 2021 12:41
--- NOTE | 2021-01-11 12:57 | NUR ---
SS following up with discharge planning. SS reviewed pt chart and discussed with pt RN. Pt is currently requiring oxygen at four liters nasal canula. COVID19 negative. Pt on IV Meropenem, iV Daptomycin, and IV Micafungin. Pt on Cardizem drip. Rectal tube and Crawford in place. Wound care following. Pt accepted at [facility], ; fax [phone]. Discharge orders received. Bed available at 1930. Discharge orders phoned and faxed to [facility]. Pt will discharge today and go to [facility] at 1930 via [facility] ambulance. Pt, pt's RN, and pt's spouse notified. Packet and ambulance form on the chart.
[2021-01-11] MEDS: DAPTOmycin (GENERIC) IVPB 410 MG in IV NORMAL SALINE 50ML 50 ML IV SCH (13:41)
--- NOTE | 2021-01-11 14:12 | PN ---
DATE: 01/11/2021 SUBJECTIVE: The patient is resting almost flat in bed, in no apparent respiratory distress. She is awake, alert, continued to have recurrent episodes of diarrhea. She said she has four episodes of diarrhea overnight; however, she denied any chills, rigors or fever. Denied any abdominal pain. PHYSICAL EXAMINATION: GENERAL: When I examined her, she looked well and was clearly in no apparent respiratory distress, pale, no jaundice, cyanosis or thyromegaly. No jugular venous distention. No limb edema.. VITAL SIGNS: Her heart rate was 94, blood pressure is 162/57, temperature was 99.5, respiratory rate was 22 and oxygen saturation was 100% on 4 liters of oxygen by nasal cannula. HEAD, EYES, EARS, NOSE AND THROAT: Normocephalic, atraumatic. NECK: Supple. HEART: Normal first and second heart sounds, no gallop or murmur. CHEST: Clear to auscultation, no crepitation or rhonchi. ABDOMEN: Distended, soft, nontender.. NEUROLOGIC: She is more awake, alert, responding appropriately. All cranial nerves intact. She moves upper extremities without difficulty. She is mostly bedbound. Her intake over the last 24 hours was 300, output was 1050. LABORATORY DATA: As of this morning, her serum sodium was 139, potassium 4, chloride 103, bicarbonate 31, anion gap of 5, BUN 5, creatinine is 1.1. Estimated GFR was 48 mL per minute. Her glucose was 74, calcium was 8.8. Total bilirubin, AST, ALT were normal. Alkaline phosphatase slightly elevated. Total protein 5.2, albumin was 1.8. Her white cell count is down to 13,900, hemoglobin 7.5, hematocrit 22.8, MCV was 88 and platelet count of 142,000. ASSESSMENT: 1. Sepsis with fever, likely due to aspiration pneumonia, although the patient has now multiple episodes of loose bowel movement, questionable C. diff colitis for which I will send stool for C. diff toxins. She is empirically on antibiotics in the form of meropenem, micafungin as well as daptomycin. 2. Atrial fibrillation with rapid ventricular response, for which she was treated with Cardizem drip and loaded with digoxin. She is now on a scheduled digoxin at 125 mcg once a day as well as metoprolol 25 mg twice a day and her heart rate is well controlled this morning. 3. Acute on chronic hypoxic respiratory failure. She is now on 4 liters of oxygen by nasal cannula. 4. Bilateral lower extremity cellulitis. 6. Acute kidney injury, improving. 7. L5 compression fracture, status post kyphoplasty. 8. Hyperlipidemia. 9. Chronic obstructive pulmonary disease. 10. Ulcerative colitis. 11. Rheumatoid arthritis. 12. Depression. 13. History of pulmonary abscess that was treated and resolved. 14. Anemia of chronic kidney disease. PLAN: To continue with IV antibiotic in the form of meropenem and daptomycin as well as antifungal medication in the form of micafungin. Continue with rate control in the form of digoxin and metoprolol. We will send stool for C. diff. As she has been on antibiotics for quite a while hence it would not be surprising that she has C. diff positive toxins. CAMRYN DR: Lennie TID: [id number]
[2021-01-11 14:56] VITALS: BP 139/68
--- NOTE | 2021-01-11 15:35 | NUR ---
PT'S EMAR CLEANED UP FOR ADENOSINE.
--- NOTE | 2021-01-11 17:16 | NUR ---
PT CONTINUES TO TAKE BP CUFF AND SPO2 MONITOR OFF. PT REDIRECTED.
--- NOTE | 2021-01-11 17:40 | NUR ---
Wound Care Wound Type/Assessment: Wound care follow up, pt has a left knee abrasion, and a healed right calf open blister and yeast to periarea/upper thighs/buttocks. Pt currently has a rectal tube. No other wounds noted on head to toe skin assessment. Treatment Recommendations/Plan: Cleanse wound with saline wash. Left knee: cover with Xeroform and foam, change every 3 days. Pericare daily, apply nystatin powder to upper thighs, groin, buttocks BID and prn, keep clean and dry, avoid briefs if possible. Education provided: pt educated on turning to avoid PU, pt turned to her left at this time. Offloading surface/device: pillows to offload, purple wedge Recommended Referrals/Tests: n/a Discharge Recommendations for dressings: same as above. wound care will continue to f/u.
[2021-01-11 19:30] VITALS: BP 109/67
== END 2021-01-11 20:17 | DRG 853 ==
LOC: 1 WEST ICU 02:52 → 2 SOUTH 12-31 11:41
PROVIDERS: ADMIT Internal Medicine; ATTEND Internal Medicine
PROC: 0QS03ZZ Reposition Lumbar Vertebra, Percutaneous Approach (ICD-10-PCS; principal; 2021-01-07)
PROC: 0QU03JZ Supplement Lumbar Vertebra with Synthetic Substitute, Percutaneous Approach (ICD-10-PCS; 2021-01-07)
PROC: 02HV33Z Insertion of Infusion Device into Superior Vena Cava, Percutaneous Approach (ICD-10-PCS; 2021-01-09)
DX: A41.9 Sepsis, unspecified organism (principal); I50.43 Acute on chronic combined systolic (congestive) and diastolic (congestive) heart failure; G93.41 Metabolic encephalopathy; J96.21 Acute and chronic respiratory failure with hypoxia; R65.21 Severe sepsis with septic shock; J69.0 Pneumonitis due to inhalation of food and vomit; N17.9 Acute kidney failure, unspecified; D84.9 Immunodeficiency, unspecified; E46 Unspecified protein-calorie malnutrition; I13.0 Hypertensive heart and chronic kidney disease with heart failure and stage 1 through stage 4 chronic kidney disease, or unspecified chronic kidney disease; I48.20 Chronic atrial fibrillation, unspecified; J44.0 Chronic obstructive pulmonary disease with (acute) lower respiratory infection; K51.90 Ulcerative colitis, unspecified, without complications; L03.115 Cellulitis of right lower limb; L03.116 Cellulitis of left lower limb; M48.56XA Collapsed vertebra, not elsewhere classified, lumbar region, initial encounter for fracture; E87.1 Hypo-osmolality and hyponatremia; B96.89 Other specified bacterial agents as the cause of diseases classified elsewhere; D63.1 Anemia in chronic kidney disease; D69.6 Thrombocytopenia, unspecified; E11.22 Type 2 diabetes mellitus with diabetic chronic kidney disease; E11.65 Type 2 diabetes mellitus with hyperglycemia; E78.5 Hyperlipidemia, unspecified; F32.9 Major depressive disorder, single episode, unspecified; B96.1 Klebsiella pneumoniae [K. pneumoniae] as the cause of diseases classified elsewhere; M06.9 Rheumatoid arthritis, unspecified; M41.9 Scoliosis, unspecified; F41.9 Anxiety disorder, unspecified; G89.29 Other chronic pain; Z20.822 Contact with and (suspected) exposure to COVID-19; E66.9 Obesity, unspecified; N18.2 Chronic kidney disease, stage 2 (mild); R94.5 Abnormal results of liver function studies; Z90.710 Acquired absence of both cervix and uterus; Z79.01 Long term (current) use of anticoagulants; Z86.14 Personal history of Methicillin resistant Staphylococcus aureus infection; Z87.891 Personal history of nicotine dependence; Z88.1 Allergy status to other antibiotic agents; Z98.41 Cataract extraction status, right eye; Z98.42 Cataract extraction status, left eye; Z90.79 Acquired absence of other genital organ(s); Z90.722 Acquired absence of ovaries, bilateral; Z68.28 Body mass index [BMI] 28.0-28.9, adult
CPT/HCPCS: 22514; 36415; 36600; 71045; 72158; 74176; 80048; 80053; 80202; 81001; 82550; 82805; 82962; 83605; 83735; 83880; 84484; 85007; 85025; 85027; 85610; 87040; 87086; 87426; 87493; 93005; 93306; 93970; 94640; 94760; 99152; 99153; A9575; C1713; C9113; J0153; J0878; J0881; J1160; J1650; J1815; J1940; J2020; J2185; J2248; J2250; J2543; J2997; J3010; J3475; J3490; J7030; J7040; J7060; Q9966; U0003; U0005; 97110-GP; 97116-GP; 97530-GO; 97530-GP; 97535-GO; G0378; J7613; J7626

== ENCOUNTER → 2021-06-03 | Day surgery (SDC) | payer MEDICARE, OTHER ==
[~2021-06-03] VITALS: Ht 160 cm; Wt 66.0 kg
[~2021-06-03] MED LIST changes: +EMPA25TA PO; +ESOM20CA PO; +HYDROmorphone 2 MG/ML VIAL IVP PRN; +LOPE-101 PO; +METO25TA4 PO; +MORPHINE SULFATE 2 MG/ML INJ. IVP PRN; +PROCHLORPERAZINE 10 MG/2 ML VIAL. IVP PRN; +PROPOFOL 10 MG/ML (20ML) VIAL. IV ONE
[2021-06-03 07:47] VITALS: BP 176/78
[2021-06-03] MEDS: IV RINGERS,LACTATED 1000ML 1,000 ML IV SCH (07:51)
[2021-06-03 08:54] VITALS: BP 154/81
--- NOTE | 2021-06-03 10:04 | HP ---
DATE OF SERVICE: 06/03/2021 ADMIT DATE: 06/03/2021 REFERRING PHYSICIAN: Orin Ratliff MD HISTORY OF PRESENT ILLNESS: A 75-year-old female with ulcerative colitis and gastroparesis and diabetes is seen with dysphagia. She has had increased difficulties with swallowing, mainly solids, less with liquids and with continued issues with choking. She requests additional evaluation and possible dilatation. PAST MEDICAL HISTORY: Ulcerative colitis, GERD, esophageal stricture, colonic polyps, C. diff colitis, COPD, hyperlipidemia, diabetes. ALLERGIES: PENICILLIN, CEFTRIAXONE, METHOCARBAMOL AND BERANADINE. MEDICATIONS: Please refer to the MAR. PAST SURGICAL HISTORY: Tonsillectomy, hysterectomy, eye surgery and appendectomy. REVIEW OF SYSTEMS: Per records. PHYSICAL EXAMINATION: GENERAL: Well-nourished, well-developed white female. VITAL SIGNS: Temperature 97.5, pulse 81, respiratory rate 20. LUNGS: Clear. CARDIOVASCULAR: Reveals an S1, S2, without S3, S4 or appreciable murmur. ABDOMEN: Revealed soft abdomen, normal bowel sounds, no appreciable hepatosplenomegaly. IMPRESSION: Dysphagia, etiology to be determined. Differential includes presbyesophagus, Schatzki's ring, malignancy, achalasia, [place]'s, peptic stricture. Therefore, recommend upper endoscopy, possible biopsy and dilatation. If this is unhelpful then speech pathology evaluation with video swallow and esophagram would be pursued. DIAMANTE/SAMMY DR: Ciara TID: [id number]
== END | disposition home or self-care (01) ==
LOC: ENDOS 07:09
PROVIDERS: ATTEND Internal Medicine Gastroenterology
DX: R13.10 Dysphagia, unspecified (principal); K29.50 Unspecified chronic gastritis without bleeding; K31.89 Other diseases of stomach and duodenum; K44.9 Diaphragmatic hernia without obstruction or gangrene; K22.2 Esophageal obstruction; K51.90 Ulcerative colitis, unspecified, without complications; I11.0 Hypertensive heart disease with heart failure; I50.9 Heart failure, unspecified; E78.00 Pure hypercholesterolemia, unspecified; I48.91 Unspecified atrial fibrillation; E11.9 Type 2 diabetes mellitus without complications; K21.9 Gastro-esophageal reflux disease without esophagitis; J43.9 Emphysema, unspecified; E66.9 Obesity, unspecified; M19.90 Unspecified osteoarthritis, unspecified site; F32.9 Major depressive disorder, single episode, unspecified; Z90.710 Acquired absence of both cervix and uterus; Z98.890 Other specified postprocedural states; Z87.891 Personal history of nicotine dependence; Z79.899 Other long term (current) drug therapy; Z88.0 Allergy status to penicillin; Z88.1 Allergy status to other antibiotic agents; Z88.8 Allergy status to other drugs, medicaments and biological substances
CPT/HCPCS: 43235; 43450; 82962; J2704